=== PATIENT | female | born 2000 | race Caucasian/White ===

== ENCOUNTER 2023-11-21 16:05 | Emergency (ER) | payer OTHER, SELFPAY ==
--- NOTE | 2023-11-21 | US_ITS ---
[address] [address] Patient Name: DARYN RYAN MRN: [id number] date: 2000 Sex: F Assigned Patient Location: ER Current Patient Location: Accession/Order Number: [id number] Exam Date: 11/21/2023 18:00 Report Date: 11/21/2023 21:03 At the request of: VICENET NAVA Procedure: US OB transvaginal OBSTETRICAL ULTRASOUND HISTORY: No care. Vaginal pain. COMPARISON: None TECHNIQUE: Transvaginal and transabdominal imaging the pelvis was performed. INTERPRETATION: There is a single live intrauterine gestation with spontaneous motion and cardiac activity. A heartbeat of 151 bpm was obtained. Gestational Age Assessment: Biparietal Diameter: 3.79 cm 17 w 4 d Head Circumference: 13.94 cm 17 w 2 d Abdominal Circumference: 12.27 cm 17 w 6 d Femur Length: 2.36 cm 17 w 1 d Average gestational age based on current ultrasound: 17 w 3 d corresponding to an ERIN of 04/27/2024. Transvaginal images of the ovaries and cervix were obtained. The cervix is within normal limits measuring 4.3 cm. Both ovaries are visualized and demonstrate normal vascular flow. The right ovary measures 5.9 x 6.1 x 3.2 cm. There is a complex well-circumscribed cyst in the right ovary with scattered internal debris which may represent a hemorrhagic cyst. This measures 5.6 x 4.6 x 3.8 cm. The left ovary measures 2.8 x 2.9 x 2.6 cm and is within normal limits. No free fluid is present in the cul-de-sac. US/US OB transvaginal IMPRESSION: 1. Single live intrauterine gestation with spontaneous motion and cardiac activity. Gestational age is 17 weeks 3 days with estimated date of delivery of 04/27/2024. 2. Mildly complex cyst in the right ovary measuring 5.6 x 4.6 x 3.8 cm likely representing a hemorrhagic cyst. There is vascular to the right ovary. Electronically authenticated by: MAXIMINO QUINTERO Date: 11/21/2023 21:03
[2023-11-21 16:08] VITALS: BP 169/90; PULSE 98; TEMP 36.7; O2SAT 98; BMI 27.1
--- NOTE | 2023-11-21 16:22 | ED_ITS ---
<Statement entered by Sam Mcdermott MD - 11/22/23 09:25> This documentation has been reviewed and approved. Chart was sent to my inbox for administrative and group management purposes. I was the attending physicians working during the patients hospital course. The patient was seen and managed independently by the MLP. I did not personally see or evaluate this patient, nor was I involved in the patient medical decision making process or plans of care. Pt was dispositioned by the MLP with complete independence. I was available for consultation should the MLP request during this patients ED stay HPI - Female Genitourinary General Chief complaint: Urogenital-Female Stated complaint: vaginal pain Time Seen by Provider: 11/21/23 16:05 Source: patient Mode of arrival: walk-in History of Present Illness HPI Narrative: 23-year-old female G2, P1 estimates she is 3 months gestation with positive test in early August and states her last menstrual cycle was sometime end of July. Patient denies dysuria. She reports the same sexual partner. States this morning at 7 AM she had intercourse and upon penetration it felt like razor blades. Patient reports a constant discomfort since with pain to her vagina and pelvic region. She reports occasional pelvic cramping but states nothing unusual. She denies any fevers or chills. The need for any pain medications. Patient has not yet had care with her OB Dr. Jones. Mother is present at bedside. Patient denies any nausea vomiting or diarrhea. MD elicited complaint: Reports vaginal discharge (white yellow, denies odor. ( present since preganancy)) and pelvic pain (localized to vagina); Denies dysuria, UTI , vaginal bleeding, genital rash, genital swelling, genital itching or difficulty urinating Pertinent past history: Denies prior miscarriages or ectopic Location of symptoms: Reports external genitalia (into vaginal vault) Consistency: Reports constant Vaginal discharge: Reports white and yellow Vaginal bleeding: Reports none Urinary symptoms: Denies Dysuria Exacerbating factors: Reports intercourse Relieving factors: Reports none Treatment prior to arrival: Reports none Sexual activity: Reports Yes; Denies New Sexual Partners Patient : Yes Possible : Reports at home test positive Date of last menstrual period: July 2023 ( maybe end of month) Related Data Allergies Allergy/AdvReac Type Severity Reaction Status Date / Time No Known Drug Allergies Allergy Verified 11/21/23 16:12 Review of Systems ROS Constitutional Denies: fever or chills Eyes Denies: change in vision Ears, nose, mouth, and throat Denies: throat pain or neck pain Cardiovascular Denies: chest pain or palpitations Respiratory Denies: shortness of breath or cough Gastrointestinal Denies: abdominal pain, nausea or vomiting Genitourinary Reports: pelvic pain and vaginal discharge; Denies: painful urination, urinary frequency or vaginal bleeding Musculoskeletal Denies: back pain Integumentary/Breast Denies: rash or itching Neurological Denies: headache Psychiatric Denies: anxiety Hematologic/Lymphatic Denies: easy bruising Allergic/Immunologic Denies: hives Exam Narrative Exam Narrative: Nurses notes and vital signs reviewed and patient is not hypoxic. General: The patient appears well and in no apparent distress. Patient is resting comfortably on cart. Skin: Warm, dry, no pallor noted. Head: Normocephalic, atraumatic Neck: Supple, trachea mid-line, no tenderness, no lymphadenopathy Eye: Pupils are equal, round and reactive to light, EOMI Ears, Nose, Mouth, and Throat: TM are clear, normal light reflex, oral mucosa is moist, no posterior oropharynx erythema or hypertrophy, uvula is mid-line Cardiovascular: Regular Rate and Rhythm Respiratory: Patient is in no distress, no accessory muscle use, lungs are clear to auscultation, no wheezing, rales or rhonchi. Chest Wall: no tenderness Back: non-tender, no CVA tenderness Musculoskeletal: normal ROM, no tenderness, no swelling GI: Normal bowel sounds, no tenderness to palpation, no masses appreciated. No rebound, guarding, or rigidity noted. : ALEXSANDRA Griggs at bedside: external inspection normal, no rash, Cervix closed. + tenderness to labial and pain with insertion of speculum to vagina.. white discharge, + tenderness on cervical motion, but pain similar to just insertion of gloved finger for exam. No active bleeding. gravid uterus palpable Neurological: A&O x4 Psychiatric: Cooperative Constitutional Vital Signs, click to edit/add: Last Vital Signs Temp 98.5 F 11/21/23 17:17 Pulse 98 H 11/21/23 17:17 Resp 16 11/21/23 17:17 BP 122/78 11/21/23 17:17 Pulse Ox 100 11/21/23 17:17 O2 Del Method Room Air 11/21/23 16:08 Course Vital Signs Vital signs: Vital Signs Temperature 98.1 F 11/21/23 16:08 Pulse Rate 98 H 11/21/23 16:08 Respiratory Rate 20 11/21/23 16:08 Blood Pressure 169/90 H 11/21/23 16:08 Pulse Oximetry 98 11/21/23 16:08 Oxygen Delivery Method Room Air 11/21/23 16:08 Temperature 98.5 F 11/21/23 17:17 Pulse Rate 98 H 11/21/23 17:17 Respiratory Rate 16 11/21/23 17:17 Blood Pressure 122/78 11/21/23 17:17 Pulse Oximetry 100 11/21/23 17:17 Oxygen Delivery Method Room Air 11/21/23 16:08 MDM - Female Genitourinary MDM Narrative Medical decision making narrative: Patient verbally consenting to pelvic exam, aware that we will be checking gonorrhea and chlamydia off her urine, heart tones were 146-150 bpm at the bedside and regular. Concern with new onset pelvic pain, unclear of actual gestational age recommend ultrasound for further evaluation. Cultures will be pending along with wet prep. Patient declined the need for any pain m edications. Blood type is O+ ( not previously on record at Facility) Per crown and bridge technician patient is 17 weeks 3 days, estimated due date is April 27, heart rate 151. Patient did have an ovarian cyst that is 5.6 x 4.6 x 3.8 cm. She reported good flow to both ovaries present. Waiting on wet prep results prior to disposition. Wet prep reviewed, case along with laboratory studies and imaging discussed with Dr. Efrain HOLM on-call. She would like to wait until culture as this is likely a yeast, and then they can discuss treatment options. Patient aware of recommendations and is agreeable. She will have prompt follow-up to the OB office this week to discuss ongoing treatment and care. The patient is to followup with primary care physician in next 2-3 days or to return to the emergency department should any of the signs or symptoms worsen or new symptoms develop. Patient had questions answered. The patient agrees with the following Diagnosis and Treatment plan and the patient will be discharged home. Lab Data Labs: Lab Results 11/21/23 11/21/23 Range/Units 16:14 17:05 WBC 10.0 (4.0-11.0) 10^3/uL RBC 3.99 L (4.20-5.40) 10^6/uL Hgb 12.7 (12.0-16.0) g/dL Hct 37.2 (36.0-48.0) % MCV 93.2 (81.0-99.0) fL MCH 31.8 (26.7-34.0) pg MCHC 34.1 (29.9-35.2) g/dL RDW 13.0 (11.0-15.0) % Plt Count 230 (150-450) 10^3/uL MPV 10.6 (9.5-13.5) fL Neut % (Auto) 72.7 (43.0-75.0) % Lymph % (Auto) 21.0 (20.5-60.0) % Hood % (Auto) 4.9 (1.7-12.0) % Eos % (Auto) 0.9 (0.9-7.0) % Baso % (Auto) 0.2 (0.2-2.0) % Neut # (Auto) 7.2 H (1.4-6.5) 10^3/uL Lymph # (Auto) 2.1 (1.2-3.8) 10^3/uL Hood # (Auto) 0.5 (0.3-0.8) 10^3/uL Eos # (Auto) 0.1 (0.0-0.7) 10^3/uL Baso # (Auto) 0.0 (0.0-0.1) 10^3/uL Abs Immat Gran (auto) 0.03 (0.00-0.03) 10^3/uL Imm/Tot Granulo (auto) 0.3 (0.0-0.5) % Sodium 137 (136-145) mmol/L Potassium 3.3 L (3.5-5.1) mmol/L Chloride 102 (98-107) mmol/L Carbon Dioxide 25.5 (21.0-32.0) mmol/L Anion Gap 12.8 BUN 8.0 (7.0-18.0) mg/dL Creatinine 0.67 (0.55-1.02) mg/dL Est GFR ( Amer) >60 (>=60 mL/min/1.73m^2) Est GFR (Non-Af Amer) >60 (>=60 mL/min/1.73m^2) BUN/Creatinine Ratio 11.9 Glucose 94 (74-106) mg/dL Calcium 9.0 (8.5-10.1) mg/dL Total Bilirubin 0.2 (0.2-1.0) mg/dL AST 15 (15-37) U/L ALT 14 (14-59) U/L Alkaline Phosphatase 59 (46-116) U/L Total Protein 6.7 (6.4-8.2) g/dL Albumin 2.9 L (3.4-5.0) g/dL Globulin 3.8 g/dL Albumin/Globulin Ratio 0.8 Urine Color Yellow (YELLOW) Urine Clarity Clear (CLEAR) Urine pH 6.0 (5.0-9.0) Ur Specific [place] >=1.030 A (1.005-1.025) Urine Protein Negative (NEG/TRACE) mg/dL Urine Glucose (UA) Negative (NEGATIVE) mg/dL Urine Ketones Trace A (NEGATIVE) mg/dL Urine Occult Blood Negative (NEGATIVE) Urine Nitrite Negative (NEGATIVE) Urine Bilirubin Negative (NEGATIVE) Urine Urobilinogen 0.2 (0.2-1.0) EU/dL Ur Leukocyte Esterase Negative (NEGATIVE) Blood Type O Positive Discharge Plan Discharge Chief Complaint: Urogenital-Female Clinical Impression: Dyspareunia, Ovarian cyst, Intrauterine normal Patient Disposition: Home, Self-Care Time of Disposition Decision: 19:22 Condition: Good Print Language: Australian Instructions: (ED) Additional Instructions: Contact Dr. Jones's office Wednesday to schedule follow up. Culture is pending. Referrals: Bashir Jones DO [Physician] - As soon as possible HUMBERTO JAVIER [Primary Care Provider] - 1 week
--- NOTE | 2023-11-21 16:46 | US_ITS ---
The [address] [address] Patient Name: DARYN RYAN MRN: [id number] date: 2000 Sex: F Assigned Patient Location: ER Current Patient Location: Accession/Order Number: [id number] Exam Date: 11/21/2023 18:00 Report Date: 11/21/2023 21:03 At the request of: GISSEL SOLER Procedure: US OB >= 14 weeks Fetus OBSTETRICAL ULTRASOUND HISTORY: No care. Vaginal pain. COMPARISON: None TECHNIQUE: Transvaginal and transabdominal imaging the pelvis was performed. INTERPRETATION: There is a single live intrauterine gestation with spontaneous motion and cardiac activity. A heartbeat of 151 bpm was obtained. Gestational Age Assessment: Biparietal Diameter: 3.79 cm 17 w 4 d Head Circumference: 13.94 cm 17 w 2 d Abdominal Circumference: 12.27 cm 17 w 6 d Femur Length: 2.36 cm 17 w 1 d Average gestational age based on current ultrasound: 17 w 3 d corresponding to an ERIN of 04/27/2024. Transvaginal images of the ovaries and cervix were obtained. The cervix is within normal limits measuring 4.3 cm. Both ovaries are visualized and demonstrate normal vascular flow. The right ovary measures 5.9 x 6.1 x 3.2 cm. There is a complex well-circumscribed cyst in the right ovary with scattered internal debris which may represent a hemorrhagic cyst. This measures 5.6 x 4.6 x 3.8 cm. The left ovary measures 2.8 x 2.9 x 2.6 cm and is within normal limits. No free fluid is present in the cul-de-sac. US/US OB >= 14 weeks Fetus IMPRESSION: 1. Single live intrauterine gestation with spontaneous motion and cardiac activity. Gestational age is 17 weeks 3 days with estimated date of delivery of 04/27/2024. 2. Mildly complex cyst in the right ovary measuring 5.6 x 4.6 x 3.8 cm likely representing a hemorrhagic cyst. There is vascular to the right ovary. Electronically authenticated by: MAXIMINO QUINTERO Date: 11/21/2023 21:03
[2023-11-21 16:51] LABS: Bilirubin Urine NEGATIVE (NEGATIVE); Blood Urine NEGATIVE (NEGATIVE); Clarity Urine CLEAR (CLEAR); Color Urine YELLOW (YELLOW); Glucose Urine UA NEGATIVE (NEGATIVE); Ketones Urine TRACE mg/dL (NEGATIVE); Leukocyte Esterase Urine NEGATIVE (NEGATIVE); Nitrite Urine NEGATIVE (NEGATIVE); Protein Urine NEGATIVE (NEG/TRACE); Specific Gravity Urine >=1.030 (1.005-1.025); Urobilinogen Urine 0.2 EU/dL (0.2-1.0)
[2023-11-21 16:55] LABS: Urine Microscopic Indicated NO
[2023-11-21 17:14] LABS: Basophils Percent Auto 0.2 % (0.2-2.0); Eosinophils Absolute Auto 0.1 10^3/uL (0.0-0.7); Eosinophils Percent Auto 0.9 % (0.9-7.0); Hematocrit 37.2 % (36.0-48.0); Hemoglobin 12.7 g/dL (12.0-16.0); Immature Granulocytes Abs Auto 0.03 10^3/uL (0.00-0.03); Immature Granulocytes Pct Auto 0.3 % (0.0-0.5); Lymphocytes Absolute Auto 2.1 10^3/uL (1.2-3.8); Mean Corpuscular HGB Conc 34.1 g/dL (29.9-35.2); Mean Corpuscular Hemoglobin 31.8 pg (26.7-34.0); Mean Corpuscular Volume 93.2 fL (81.0-99.0); Mean Platelet Volume 10.6 fL (9.5-13.5); Monocytes Absolute Auto 0.5 10^3/uL (0.3-0.8); Monocytes Percent Auto 4.9 % (1.7-12.0); Neutrophils Absolute Auto 7.2 10^3/uL (1.4-6.5); Neutrophils Percent Auto 72.7 % (43.0-75.0); Platelet Count 230 10^3/uL (150-450); Red Blood Count 3.99 10^6/uL (4.20-5.40)
[2023-11-21 17:17] VITALS: BP 122/78; PULSE 98; TEMP 36.9; O2SAT 100
[2023-11-21 17:41] LABS: Alanine Aminotransferase 14 U/L (14-59); Albumin Globulin Ratio 0.8; Albumin Level 2.9 g/dL (3.4-5.0); Alkaline Phosphatase 59 U/L (46-116); Anion Gap 12.8; Aspartate Amino Transferase 15 U/L (15-37); BUN Creatinine Ratio 11.9; Bilirubin Total 0.2 mg/dL (0.2-1.0); Carbon Dioxide 25.5 mmol/L (21.0-32.0); Chloride 102 mmol/L (98-107); Estimated GFR (African America >60 (>=60 mL/min/1.73m^2); Estimated GFR (Non-African Ame >60 (>=60 mL/min/1.73m^2); Globulin 3.8 g/dL; Glucose 94 mg/dL (74-106); Potassium 3.3 mmol/L (3.5-5.1); Sodium 137 mmol/L (136-145); Total Protein 6.7 g/dL (6.4-8.2)
[2023-11-24 05:08] LABS: Neisseria gonorrhoeae, NAA Negative (Negative)
== END 2023-11-21 19:33 | disposition home or self-care (01) ==
PROVIDERS: Personal Emergency Response Attendant; Emergency Provider Emergency Medicine; PCP Family Medicine
DX: O34.82 Maternal care for other abnormalities of pelvic organs, second trimester (principal); N83.201 Unspecified ovarian cyst, right side; N94.10 Unspecified dyspareunia; Z3A.17 17 weeks gestation of pregnancy
CPT/HCPCS: 36415; 76815; 76817; 80053; 81003; 84703; 85025; 86900; 86901; 87070; 87210; 87491; 87591; 99285

== ENCOUNTER 2023-12-09 14:14 | Outpatient (OUT) | payer OTHER, SELFPAY ==
--- OUTSIDE RECORDS SUMMARY | 2023-12-09 14:39 | XMS_ITS | CCD ---
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 return in 4 weeks for routine OB appointment. Follow Up: Patient is to have labs drawn at directed and return to office for initial OB appointment with provider. Patient may call office as needed with any concerns or questions. Nurse Visit Completed by: Mervat Fall LPN documented in this encounter [facility] Clinical Note 06-21-2022 Note Date & Type Note Facility 06-21-2022 Note PROCEDURE: XR ANKLE RT MIN 3 VIEWS, XR FOOT RT MIN 3 VIEWS HISTORY: Pain ; right lateral ankle pain after hitting on an object. COMPARISON: None. FINDINGS: BONES:No fracture, acute abnormality, or significant arthropathy. SOFT TISSUES:Medial soft tissue swelling. No radiopaque foreign body. EFFUSION:None visible. OTHER: Negative. IMPRESSION: 1. No acute bone abnormality of the right ankle or foot. 2. Prominent medial soft tissue swelling (history describes lateral ankle pain). Electronically authenticated by: GURPREET GUEVARA Date: 2022-06-21 12:38 [facility] Clinical Note 06-21-2022 Note Date & Type Note Facility 06-21-2022 Note PROCEDURE: XR ANKLE RT MIN 3 VIEWS, XR FOOT RT MIN 3 VIEWS HISTORY: Pain ; right lateral ankle pain after hitting on an object. COMPARISON: None. FINDINGS: BONES:No fracture, acute abnormality, or significant arthropathy. SOFT TISSUES:Medial soft tissue swelling. No radiopaque foreign body. EFFUSION:None visible. OTHER: Negative. IMPRESSION: 1. No acute bone abnormality of the right ankle or foot. 2. Prominent medial soft tissue swelling (history describes lateral ankle pain). Electronically authenticated by: GURPREET GUEVARA Date: 2022-06-21 12:38 [facility] Evaluation note 01-13-2022 Note Date & Type Note Facility 01-13-2022 Evaluation note Encounter Date Diagnosis Assessment Notes Dec, Rupture of anterior cruciate ligament of left knee, initial encounter (ICD-10 - S83.512A) Patient will continue to work on straightening the knee. Patient instructed to work on motion exercises such as biking and ankle weight exercsies. Patient was given a formal order for therapy. She would like to try to work on exercsises and we will reevaluate the knee at the end of January We discussed an ACL reconstruction surger should symptoms persist or worsen. The knee is still stiff with slight limitation of full extension. I would like to see her working on more aggressive range of motion exercises and see how she does. The knee does not feel significantly unstable at this point Dec, Tear of medial collateral ligament of left knee, initial encounter (ICD-10 - S83.412A) [facility] Other Evaluation note Note Date & Type Note Facility Evaluation note No assessment information availa [facility] [employer] Work Phone: Evaluation note Note Date & Type Note Facility Evaluation note Diagnosis Missed menses , unspecified gestational age Encounter for supervision of normal first in first trimester Right ovarian cyst Other and unspecified ovarian cyst Screening, , for anatomic survey Encounter for anatomic survey Yeast infection Tooth ache documented in this encounter [facility] History general Narrative - Reported Note Date & Type Note Facility History general Narrative - Reported Type Medical History anxiety Surgical History tonsillectomy [facility] Other Hospital Discharge instructions Note Date & Type Note Facility Hospital Discharge instructions Additional Instructions Ice and elevate Tylenol/ Motrin if needed for pain Wear knee immobilizer for the next 3 to 4 days Partial weightbearing with crutches Tylenol or Naprosyn if needed for pain Return here if any problems persist or worsen Follow-up with your primary care doctor orthopedic for recheck in 3 to [facility] [employer] Work Phone: Chief Complaint and Reason for Visit Chief Complaint L knee injury Advance Directives No Advanced Directives Records Found Advance Directive Response Recorded Date/ Time Advance Directives No March 2:38pm Summary Purpose Family History No Family History Records FoundNo Family History Records FoundNo Family History Records FoundNo Family History Records FoundNo Family History Records Found Additional Source Comments Care Teams (unrecognized sec tion and content) Team Status: Inactive Member Role Status Dates Gris Avila , TARAN 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-C Primary Care Provider Activ karen Rueda APRN Emergency Provider Active Team Status: Active Member Role Status Dates Gris Avila APRN 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-C Primary Care Provider Activ karen Career Information Specialist Relationship Specialty Start Date End Date Inder Miryam RicardoDO [address] [place] [address] PCP - General Family Medicine 06/23/22 Career Information Specialist Relationship Specialty Start Date End Date Unallocated, Kodak Antonio MD [address] [place] [id number] PCP - General Family Medicine 11/23/23 Career Information Specialist Relationship Specialty Start Date End [place] Unallocated, [place] [address] [place] [id number] PCP - General Family Medicine 11/23/23 Goals (unrecognized section and content) Goals may be documented in a n alternate sectionNo Information INFORMATION SOURCE (unrecogn ized section and content) DATE CREATED AUTHOR 12/10/2021 [facility] DATE CREATED AUTHOR AUTHOR'S ORGANIZ ATION 12/13/2021 [facility] dical Specialist DATE CREATED AUTHOR AUTHOR'S ORGANIZ ATION 06/24/2022 [facility] DATE CREATED AUTHOR AUTHOR'S ORGANIZ ATION 06/10/2023 [facility] DATE CREATED AUTHOR AUTHOR'S ORGANIZ ATION 12/05/2023 [facility] dical Specialists EPIC REASON FOR VISIT (unrecogniz ed section and content) Reason Comments Amenorrhea FOR RECORDS PERTAINING TO PATIENTS WHO ARE OR HAVE BEEN ENROLLED IN A CHEMICAL DEPENDENCY/SUBSTANCEABUSE PROGRAM, SOME INFORMATION MAY BE OMITTED. This clinical summary was aggregated from multiple sources. Caution should be exercised in using it in the provision of clinical care. This summary normalizes information from multiple sources, and as a consequence, information in this document may materially change the coding, format and clinical context of patient data. In addition, data may be omitted in some cases. CLINICAL DECISIONS SHOULD BE BASED ON THE PRIMARY CLINICAL RECORDS. [employer] [facility]. provides no warranty or guarantee of the accuracy or completeness of information in this document.
[2023-12-09 14:52] LABS: Basophils Percent Auto 0.2 % (0.2-2.0); Eosinophils Absolute Auto 0.1 10^3/uL (0.0-0.7); Eosinophils Percent Auto 0.5 % (0.9-7.0); Hematocrit 38.7 % (36.0-48.0); Hemoglobin 13.1 g/dL (12.0-16.0); Immature Granulocytes Abs Auto 0.03 10^3/uL (0.00-0.03); Immature Granulocytes Pct Auto 0.3 % (0.0-0.5); Lymphocytes Absolute Auto 2.1 10^3/uL (1.2-3.8); Lymphocytes Percent Auto 18.3 % (20.5-60.0); Mean Corpuscular HGB Conc 33.9 g/dL (29.9-35.2); Mean Corpuscular Hemoglobin 31.7 pg (26.7-34.0); Mean Corpuscular Volume 93.7 fL (81.0-99.0); Mean Platelet Volume 10.8 fL (9.5-13.5); Monocytes Absolute Auto 0.4 10^3/uL (0.3-0.8); Monocytes Percent Auto 3.7 % (1.7-12.0); Neutrophils Absolute Auto 8.8 10^3/uL (1.4-6.5); Platelet Count 233 10^3/uL (150-450); Red Blood Count 4.13 10^6/uL (4.20-5.40); Red Cell Distribution Width 12.8 % (11.0-15.0); White Blood Count 11.5 10^3/uL (4.0-11.0)
[2023-12-09 15:01] LABS: Estimated Average Glucose 94 mg/dL; Glycohemoglobin A1C 4.9 % (4.5-6.2)
[2023-12-09 15:02] LABS: Amphetamine Screen Urine NEGATIVE (NEGATIVE); Barbiturates Screen Urine NEGATIVE (NEGATIVE); Benzodiazepines Screen Urine NEGATIVE (NEGATIVE); Buprenorphine Screen Urine NEGATIVE (NEGATIVE); Cannabinoid Screen Urine NEGATIVE (NEGATIVE); Cocaine Screen Urine NEGATIVE (NEGATIVE); Methadone Screen Urine NEGATIVE (NEGATIVE); Methamphetamines Screen Urine NEGATIVE (NEGATIVE); Opiate Screen Urine NEGATIVE (NEGATIVE); Oxycodone Screen Urine NEGATIVE (NEGATIVE); Phencyclidine Screen Urine NEGATIVE (NEGATIVE); Tricyclic Antidepressant Urine NEGATIVE (NEGATIVE)
[2023-12-10 06:09] LABS: HBsAg Screen Negative (Negative); HCV Ab Non Reactive (Non Reactive); HIV Ab/p24 Ag Screen Non Reactive (Non Reactive)
[2023-12-10 07:10] LABS: Rubella Antibodies, IgG 2.73 index (Immune >0.99)
[2023-12-10 10:13] LABS: Rapid Plasma Reagin, Quant Non Reactive titer (NonRea<1:1)
[2023-12-11 03:08] LABS: AFP Value 38.6 ng/mL (.); Gestat. Age Based On Ultrasound (.); Insulin Dep Diabetes No (.); Maternal Age At EDD 24.8 yr (.); OSBR Risk 1 IN 10000 (.); Results Report (.)
== END 2023-12-09 14:15 | disposition home or self-care (01) ==
LOC: LAB 14:18
PROVIDERS: Visit Provider Obstetrics & Gynecology
DX: Z34.01 Encounter for supervision of normal first pregnancy, first trimester (principal); N92.6 Irregular menstruation, unspecified
CPT/HCPCS: 36415; 80307; 82105; 83036; 85025; 86592; 86762; 86803; 86850; 86900; 86901; 87086; 87340; 87389

== ENCOUNTER 2023-12-22 12:58 | Outpatient (OUT) | payer OTHER, SELFPAY ==
--- NOTE | 2023-12-22 13:00 | US_ITS ---
[place] [id number] Patient Name: DARYN RYAN MRN: [id number] date: 2000 Sex: F Assigned Patient Location: [facility] Current Patient Location: [facility] Accession/Order Number: [id number] Exam Date: 12/22/2023 13:01 Report Date: 12/22/2023 15:00 At the request of: JAYANT CARLSON Procedure: US OB anatomy EXAMINATION: US OB anatomy, US OB cervical length HISTORY: ANATOMY COMPARISON: No relevant comparison available. TECHNIQUE: Transabdominal sonographic examination was performed for obstetrical and evaluation. FINDINGS: Reyez intrauterine gestation position: Breech presentation, longitudinal lie Amniotic fluid: Subjectively normal Placenta: Anterior Cervix: Closed, 3.6 cm in length The uterus is normal in appearance Again identified is a 5.2 cm right and 1.8 cm left ovarian cyst Normal anatomy: Lateral ventricles, cerebellum, posterior fossa, orbits, four-chamber heart, diaphragm, stomach, kidneys, abdominal cord insertion, bladder, umbilical arteries, three-vessel cord, spine, extremities Nonvisualization: Nose, lips, RVOT, LVOT BIOMETRY: BPD: 5.04 cm 21 weeks 2 days 25% HC: 19.4 cm 21 weeks 4 days 27% AC: 16.7 cm 21 weeks 5 days 40% FL: 3.83 cm 22 weeks 2 days 54% EFW: 490 g; 47%, 1 lb. 0 oz. FL/BPD: 75.99 HC/AC: 1.16 GESTATIONAL AGE: Age by EDC: 21 weeks 6 days ERIN by EDC: 04/27/2024 Age by Current US: 21 weeks 5 days ERIN by Current US: 04/28/2024 US/US OB anatomy IMPRESSION: Bilateral ovarian cysts measuring up to 5.2 cm in the right Nonvisualization detailed above Otherwise normal anatomy scan *Reference: [employer] Practice Guideline for the performance of Obstetric Ultrasound Examinations, November 15, 2006. Electronically authenticated by: ISAC NYE Date: 12/22/2023 15:00
--- NOTE | 2023-12-22 13:00 | US_ITS ---
[place] [id number] Patient Name: DARYN RYAN MRN: [id number] date: 2000 Sex: F Assigned Patient Location: [facility] Current Patient Location: [facility] Accession/Order Number: [id number] Exam Date: 12/22/2023 13:00 Report Date: 12/22/2023 15:00 At the request of: JAYANT CARLSON Procedure: US OB cervical length EXAMINATION: US OB anatomy, US OB cervical length HISTORY: ANATOMY COMPARISON: No relevant comparison available. TECHNIQUE: Transabdominal sonographic examination was performed for obstetrical and evaluation. FINDINGS: Reyez intrauterine gestation position: Breech presentation, longitudinal lie Amniotic fluid: Subjectively normal Placenta: Anterior Cervix: Closed, 3.6 cm in length The uterus is normal in appearance Again identified is a 5.2 cm right and 1.8 cm left ovarian cyst Normal anatomy: Lateral ventricles, cerebellum, posterior fossa, orbits, four-chamber heart, diaphragm, stomach, kidneys, abdominal cord insertion, bladder, umbilical arteries, three-vessel cord, spine, extremities Nonvisualization: Nose, lips, RVOT, LVOT BIOMETRY: BPD: 5.04 cm 21 weeks 2 days 25% HC: 19.4 cm 21 weeks 4 days 27% AC: 16.7 cm 21 weeks 5 days 40% FL: 3.83 cm 22 weeks 2 days 54% EFW: 490 g; 47%, 1 lb. 0 oz. FL/BPD: 75.99 HC/AC: 1.16 GESTATIONAL AGE: Age by EDC: 21 weeks 6 days ERIN by EDC: 04/27/2024 Age by Current US: 21 weeks 5 days ERIN by Current US: 04/28/2024 US/US OB cervical length IMPRESSION: Bilateral ovarian cysts measuring up to 5.2 cm in the right Nonvisualization detailed above Otherwise normal anatomy scan *Reference: [employer] Practice Guideline for the performance of Obstetric Ultrasound Examinations, November 15, 2006. Electronically authenticated by: ISAC NYE Date: 12/22/2023 15:00
--- OUTSIDE RECORDS SUMMARY | 2023-12-22 13:20 | XMS_ITS | CCD ---
Author Organization [facility] Care Team Providers Care Adding Machine Operator Name Role Phone TARAN Avila Primary Care Provider TARAN Rueda Emergency Provider Gris Avila Primary Care Unavailable Sultana Rueda [...] Unavailable ISMAEL, DR GURPREET Phan Consulting Unavailable COLBY PATTON Attending Unavailable COLBY PATTON Consulting Unavailable PILI ROLON Attending Unavailable NO PCP, NO PCP Primary Care Unavailable PILI ROLON Attending Unavailable PILI ROLON Referring Unavailable NO PCP, NO PCP Primary Care Unavailable PILI ROLON Attending Unavailable PILI ROLON Referring Unavailable NO PCP, NO PCP Primary Care Unavailable Miryam Loving DO Primary Care Provider [phone] Unallocated , [facility] Provider Primary Care Provi [...] 3 days. 6 tablet 12/02/2023 12/05/2023 Active metroNIDAZOLE 500 mg oral tablet (1 source) Nitroimidazole Antimicrobial Start: 12-03-2023 End: 12-10-2023 take 1 tablet by mouth in the morning metroNIDAZOLE (Flagyl) 500 MG tablet Indications: BV (bacterial vaginosis) Take 1 tablet (500 mg) by mouth in the morning and 1 tablet (500 mg) before bedtime. Do all this for 7 days. Do not drink alcohol while taking this medication. 14 tablet 12/03/2023 12/10/2023 Active naproxen 500 mg oral tablet (1 source) Nonsteroidal Anti-inflammatory Drug Start: 11-28-2021 take 500 mg by mouth twice daily Naproxen Active 500 MG PO Twice daily November 28, 2021 12:00am terconazole 4 mg/ml vaginal cream (3 sources) Azole Antifungal Start: 12-02-2023 End: 12-09-2023 [...] Translations: [STRIKING AGNST/STRUCK OTH OBJ INIT] Onset: 05-09-2023 Episodic E Codes: Transport; not MVT (1 [...] Name Value Interpretation Reference Range Facil ity ALL CBC WITH AUTO DIFFon 10- 24-2024 BASOPHILS ABSOLUTE AUTO 0 [facility] Basophils/100 WBC (Bld) 0.2 % 0.2 - 2.0 % [facility] Eosinophils/100 WBC (Bld) 0.5 % Low 0.9 - 7.0 % [facility] Erythrocyte distribution width (RBC) [Ratio] 12.8 % 11.0 - 15.0 % [facility] Hematocrit (Bld) [Volume fraction] 38.7 % 36.0 - 48.0 % [facility] Hemoglobin (Bld) [Mass/Vol] 13.1 g/dL 12.0 - 16.0 g/dL [facility] IMMATURE GRANULOCYTES ABS AUTO 0.03 [facility] Immature granulocytes/100 WBC (Bld) 0.3 % 0.0 - 0.5 % [facility] Interpretation and review of laboratory results Abnormal [facility] LYMPHOCYTES ABSOLUTE AUTO 2.1 [facility] Lymphocytes/100 WBC (Bld) 18.3 % Low 20.5 - 60.0 % [facility] MCH (RBC) [Entitic mass] 31.7 pg 26.7 - 34.0 pg [facility] MCHC (RBC) [Mass/Vol] 33.9 g/dL 29.9 - 35.2 g/dL [facility] MCV (RBC) [Entitic vol] 93.7 fL 81.0 - 99.0 fL [facility] MONOCYTES ABSOLUTE AUTO 0.4 [facility] Monocytes/100 WBC (Bld) 3.7 % 1.7 - 12.0 % [facility] NEUTROPHILS ABSOLUTE AUTO 8.8 High [facility] Neutrophils/100 WBC (Bld) 77 % High 43.0 - 75.0 % [facility] Platelet mean volume (Bld) [Entitic vol] 10.8 fL 9.5 - 13.5 fL [facility] # [facility].1 [facility] TB PLT 233 [facility] RBC 4.13 Low [facility] TBH WBC 11.5 High [facility] CL[facility]NC [facility] URETHRITIS/DISCHARGE PLUS VA GINITIS (HTRX)on 12-03-2023 [facility] ATOPOBIUM VAGINAE Not detected [facility] BVAB 2,3 (BACTERIAL VAGINOSIS ASSOCIATED BACTERIA 2, 3); MOBILUNCUS SPP 26.835 Abnormal [facility] BVAB 2,3 (BACTERIAL VAGINOSIS ASSOCIATED BACTERIA 2, 3); MOBILUNCUS SPP Detected Abnormal [facility] ANGELINA ALBICANS, PARAPSILOSIS, TROPICALIS 0 [facility] ANGELINA ALBICANS, PARAPSILOSIS, TROPICALIS Not detected [facility] ANGELINA GLABRATA 0 [facility] Hea lthcare ANGELINA GLABRATA Not detected [facility] H ealthcare ANGELINA KRUSEI 0 [facility] Healt hcare ANGELINA KRUSEI Not detected [facility] Hea lthcare CHLAMYDIA TRACHOMATIS 0 [facility] CHLAMYDIA TRACHOMATIS Not detected [facility] GARDNERELLA VAGINALIS 0 [facility] GARDNERELLA VAGINALIS Not detected [facility] Interpretation and review of laboratory results Abnormal [facility] MEGASPHAERA (TYPES 1, 2) 0 [facility] MEGASPHAERA (TYPES 1, 2) Not detected [facility] MYCOPLASMA GENITALIUM 0 [facility] MYCOPLASMA GENITALIUM Not detected [facility] NEISSERIA GONORRHOEAE 0 [facility] NEISSERIA GONORRHOEAE Not detected [facility] TRICHOMONAS VAGINALIS 0 [facility] TRICHOMONAS VAGINALIS Not detected [facility] HCG ( test) Ql (U)o n 12-02-2023 Interpretation and review of laboratory results Abnormal [facility] Preg Test, Ur Positive [facility] Urinalysis macro (dipstick) panel (U)on 12-02-2023 Bilirubin, UA Negative Negative - 4(70) +++ mg/dL [facility] Blood, UA Negative Negative - 50 Iron/mcL [facility] Clarity, UA Clear [facility] re Color, UA Yellow [facility] Glucose, UA Negative Negative - 1999(110) ++++ mg/dL [facility] Interpretation and review of laboratory results Abnormal [facility] Ketones, UA Negative Negative - 160(16) ++++ mg/dL [facility] Leukocytes, UA Positive Negative - 500+++ Miguel/mcL [facility] Nitrite, UA Negative Negative - Positive [facility] pH, UA 5.5 5 - 9 [facility] Protein, UA Negative Negative - 1999(20) ++++ mg/dL [facility] Spec Grav, UA 1.03 1 - 1.03 [facility] Urobilinogen, UA 1.0 0.2 - 12 mg/dL [facility] MHPT TRICHOMONAS/WET PREPon 11-21-2023 WET PREP TRIC BV ANGELINA Wet Prep Tric BV Angelina WP.BACT Bacteria^Bacteria [facility] WET PREP TRIC BV ANGELINA WP.CLUE Clue Cells^Clue Cells [facility] WET PREP TRIC BV ANGELINA WP.JONATHAN Fungal Elements^Fungal Elements [facility] WET PREP TRIC BV ANGELINA WP.RBC RBC^RBC [facility] WET PREP TRIC BV ANGELINA WP.TRICH Trichomonas^Trichom onas [facility] WET PREP TRIC BV ANGELINA WP.WBC WBC^WBC [facility] No Panel Informationon 11-20 WET PREP TRIC BV ANGELINA F Few^Few [facility] WET PREP TRIC BV ANGELINA N None Seen^[facility] CONT[facility] CT BRAIN WO [...] Alcaraz MD on 06/08/2023 9:25 PM Normal [facility] CT CERVICAL SPINE WO CONTon 06-08-2023 CT [...] Alcaraz MD on 06/08/2023 9:43 PM Normal [facility] XR CHEST 2 VWSon 06-08-2023 XR CHEST 2 VWS XR CHEST 2 VWS PA and lateral chest: HISTORY: Trauma. 2 views of the chest are obtained. Cardiac and mediastinal contours are within normal limits. There is no focal infiltrate, effusion, or pneumothorax. Osseous structures appear intact. IMPRESSION: No acute findings. 4 Finalized by Olvin Alcaraz MD on 06/08/2023 9:19 PM Normal [facility] XR PELVIS 1 OR 2 VWSon 06-07 XR PELVIS 1 OR 2 VWS XR PELVIS 1 OR 2 VWS CLINICAL INFORMATION: trauma TECHNIQUE: XR PELVIS 1 OR 2 VWS Single view of the pelvis was obtained. Pelvic ring appears intact. Femoral necks are symmetric. No acute fracture. IMPRESSION: No acute findings. 4 Finalized by Olvin Alcaraz MD on 06/08/2023 9:22 PM Normal [facility] XR SHOULDER LT MIN 2 VWSon 0 [...] Alcaraz MD on 06/08/2023 9:20 PM Normal [facility] MRI Knee w/o Lefton 12-12-19 MRI Knee [...] ligament. Report reported and signed by AMMON PALENCIA on 12/12/2021 1348 Normal [facility] [employer] Counselor XR knee LT 4V*on 11-29-2021 XR knee LT 4V* [facility] Main [place] [address] [place] [address] XRay Report Signed Patient: Clari Licona MR#: [id number] 7 : 2000 Acct:[id number] Age/Sex: 21 / F ADM Date: 11/28/21 Loc: ER Room: Type: [facility] ER Attending Dr: Copies to: Sultana Rueda [...] Claudia Baugh M.D.11/29/2021 9:03 AM Dictation Location: [place] [address] Transcribed By: [facility] 11/29/21902 Dictated By: Claudia Baugh MD 11/29/21901 Signed By: 11/29/21 0903 [facility] Vital Signs Date Time Vital Sign Value Performing Clinician Facility 12-02-2023 14:27-0400 Body mass index (BMI) [Ratio] 29.39 kg/m2 [facility] 12-02-2023 14:0400 Body weight 92.[address] [facility] Nurse [facility] 01-13-2022 09:15-0500 Body height 180.34 cm Shaan Balderrama Other [employer] Other 01-13-2022 09:15-0500 Body mass index (BMI) [Ratio] 27.89 kg/m2 Shaan Balderrama Other [facility] [employer] Other 01-13-2022 09:15-0500 Body weight 90.72 kg Shaan Balderrama Other [place] [employer] Other 11-28-2021 21:42-0400 Body height 182.88 cm MONOTYPE CASTER Gris Kiepert Work Phone: [facility] 11-28-2021 21:42-0400 Body temperature 98 [degF] MONOTYPE CASTER Gris Kiepert Work Phone: [facility] 11-28-2021 21:42-0400 Body weight 85.27 kg MONOTYPE CASTER Gris Kiepert Work Phone: [facility] 11-28-2021 21:42-0400 Diastolic blood pressure 88 mm[Hg] MONOTYPE CASTER Gris Kiepert Work Phone: [facility] 11-28-2021 21:42-0400 Heart rate 98 /min MONOTYPE CASTER Gris Kiepert Work Phone: [facility] 11-28-2021 21:42-0400 Respiratory rate 20 /min MONOTYPE CASTER Gris Kiepert Work Phone: [facility] 11-28-2021 21:42-0400 SaO2% (BldA) [Mass fraction] 95 % MONOTYPE CASTER Gris Kiepert Work Phone: [facility] 11-28-2021 21:42-0400 Systolic blood pressure 152 mm[Hg] MONOTYPE CASTER Gris Kiepert Work Phone: [facility] Encounters Encounter Date Encounter Type Care Provider Facility Start: 12-09-2023 End: 12-09-2023 [facility] Result Encounter Bashir Robert DO Work Phone: [facility] Unsolicited Start: 12-09-2023 End: 12-09-2023 [facility] Result Encounter Bashir Robert DO Work Phone: [facility] Unsolicited Start: 12-02-2023 End: 12-03-2023 External Result Encounter Bashir Robert DO Work Phone: [facility] Unsolicited Start: 12-02-2023 End: 12-03-2023 External Result Encounter Bashir Tejadao DO Work Phone: [facility] Unsolicited [...] 06-08-2023 End: 06-09-2023 Emergency department patient visit [facility] Start: 06-21-2022 End: 06-21-2022 ambulatory COLBY LAUGHLIN . Facility: Start: 05-28-2022 End: 05-28-[address] HUMBERTO JAVIER Facility:[facility] Start: 05-20-2022 End: 05-20-[address] HUMBERTO JAVIER Facility: Start: 01-13-2022 End: 01-13-2022 ambulatory Shaan Balderrama Other [employer] Other Start: 01-13-2022 Office outpatient vi sit 15 minutes Shaan Balderrama [facility] Start: 11-28-2021 End: 11-29-2021 Emergency department patient visit Gris Avila Facility:[facility] Start: 11-28-2021 End: 11-28-2021 Emergency department patient visit MONOTYPE CASTER Gris Avila Work Phone: [facility] Procedures Date Procedure Procedure Detail Performing Clinician Start: 12-09-2023 ALL CBC WITH AUTO DIFF Bashir Tejadao DO Work Phone: Start: 12-02-2023 URETHRITIS/DISCHARGE PLUS VAGINITIS (HTRX) Bashir Robert DO Work Phone: Start: 12-02-2023 Urnls dip stick/tabl et rgnt non-auto w/o micrscp Bashir Robert DO Work Phone: Start: 11-21-2023 MHPT TRICHOMONAS/WET PREP Abdon Tello PA Work Phone: Plan of Treatment Date Care Activity Detail Author Start: 12-22-2023 End: 12-22-2023 Patient encounter procedure 12/22/2023 2:40 PM EST Routine [facility] [address] [address] Robert Bashir, DO [address] [place] [address] [facility] Start: 12-22-2023 End: 12-22-2023 Professional / ancillary services management 12/22/2023 1:00 PM EST Ancillary Procedure [facility] [address] [place] [address] [facility] Start: 12-02-2023 End: 12-01-2024 ABO/Rh ABO/Rh Lab Routine Missed menses , unspecified gestational age Expected: 12/02/2023 (Approximate), Expires: 12/01/2024 [facility] Comment on above: Expected: 12/02/2023 (Approximate), Expires: 12/01/2024 Start: 12-02-2023 End: 03-03-2024 Alpha fetoprotein, maternal Alpha fetoprotein, maternal Lab Routine Encounter for supervision of normal first in first trimester Expected: 12/02/2023 (Approximate), Expires: 03/03/2024 [facility] Comment on above: Expected: 12/02/2023 (Approximate), Expires: 03/03/2024 Start: 12-02-2023 End: 12-01-2024 Blood type and Indirect antibody screen panel - Blood Type and screen Lab Routine Missed menses , unspecified gestational age Expected: 12/02/2023 (Approximate), Expires: 12/01/2024 [facility] Work Phone: Comment on above: Expected: 12/02/2023 (Approximate), Expires: 12/01/2024 Start: 12-02-2023 End: 12-01-2024 Drugs of abuse panel - Urine by Screen method Rapid drug screen, urine Lab Routine , unspecified gestational age Encounter for supervision of normal first in first trimester Expected: 12/02/2023 (Approximate), Expires: 12/01/2024 [facility] Comment on above: Expected: 12/02/2023 (Approximate), Expires: 12/01/2024 Start: 12-02-2023 End: 12-01-2024 US for [facility] Comment on above: Expected: 12/02/2023 (Approximate), Expires: 12/01/2024 Start: 10-17-2023 Influenza vaccination Influenza Vacc ine (#1) [facility] Start: 11-28-2021 Radiologic examinati on of knee XR knee LT 4V* [facility] Start: 11-28-2021 XR Knee - left 4 Views [facility] Bacteria identified in Urine by Culture Urine culture Microbiology Routine Missed menses Ordered: 12/02/2023 [facility] Comment on above: Ordered: 12/02/2023 CBC W Auto Different ial panel - Blood CBC and differential Lab Routine Missed menses , unspecified gestational age Ordered: 12/02/2023 [facility] Comment on above: Ordered: 12/02/2023 Hemoglobin A1c/Hemoglobin.total in Blood Hemoglobin A1c Lab Routine Missed menses , unspecified gestational age Ordered: 12/02/2023 [facility] Comment on above: Ordered: 12/02/2023 Hepatitis B virus surface Ag [Presence] in Serum or Plasma by Immunoassay Hepatitis B surface antigen Lab Routine Missed menses , unspecified gestational age Ordered: 12/02/2023 [facility] Comment on above: Ordered: 12/02/2023 Hepatitis C virus Ab [Presence] in Serum or Plasma by Immunoassay Hepatitis C antibody Lab Routine Missed menses , unspecified gestational age Ordered: 12/02/2023 [facility] Comment on above: Ordered: 12/02/2023 HIV-1/HIV-2 antigen/antibody combination immunoassay HIV-1 and HIV-2 antibodies Lab Routine Missed menses , unspecified gestational age Ordered: 12/02/2023 [facility] Comment on above: Ordered: 12/02/2023 Patient Education Knee Sprain (DC) [facility] Work Phone: Patient referral [facility] Work Phone: Reagin Ab [Presence] in Serum by RPR RPR Lab Routine Missed menses , unspecified gestational age Ordered: 12/02/2023 [facility] Comment on above: Ordered: 12/02/2023 Rubella antibody, IgG Rubella an tibody, IgG Lab Routine Missed menses , unspecified gestational age Ordered: 12/02/2023 [facility] Comment on above: Ordered: 12/02/2023 Payers Date Payer Category Payer Private Health Insurance [employer]ICA[employer] [id number] 2023 Unknown [id number] 2021 Self-pay [id number] 2021 Unknown BCBS BCBS [id number] 2021-Present [phone] [address] [place] [address] [id number] 2020 Private Health Insurance [id number] 1999 Unknown [id number] 1999 Unknown [id number] [id number] .593 1999 Unknown [id number] [id number] .593 1999 Unknown [id number] [id number] .1286 1999 Unknown [id number] [id number] .1286 1999 Unknown [id number] [id number] .1286 1999 Unknown [id number] [id number] .1286 1999 Unknown [id number] 2.16.840.1.872825.3.579.2 .1286 1999 Unknown [id number] 2.16.840.1.693732.3.579.2 .1286 1999 Unknown [id number] [id number] .1259 1959 Unknown [id number] 1959 Unknown [id number] 1959 Unknown [id number] Unknown [id number] .531 Worker's Compensation [id number] Social History Date Type Detail Facility Start: 11-28-2021 Tobacco smoking status [facility] Smoker (finding) [facility] Start: 2000 Sex Assigned At Female F [facility] Sex Assigned At [facility] Other Tobacco smoking status NHIS Tobacco smoking consumption unknown [facility] Start: 2000 Sex assigned at Not on file [facility] Start: 04-29-2022 Gender identity Identifies as female gender (finding) [facility] Start: 08-05-2023 [facility] History of Present illness Narrative 12-02-2023 Mervat ANA MARIA Fall - 12/02/2023 1:30 PM EDT Note Date [...] or undercooked meat, and stay away from [facility]. Patient has also been advised to not [...] Mervat Fall LPN documented in this encounter [facility] Clinical Note 06-21-2022 Note Date & Type [...] by: GURPREET GUEVARA Date: 2022-06-21 12:38 [facility] Clinical Note 06-21-2022 Note Date & Type [...] by: GURPREET GUEVARA Date: 2022-06-21 12:38 [facility] Evaluation note 01-13-2022 Note Date & Type [...] left knee, initial encounter (ICD-10 - S83.412A) [facility] Other Evaluation note Note Date & Type Note Facility Evaluation note No assessment information availa [facility] Work Phone: Evaluation note Note Date & [...] Type Medical History anxiety Surgical History tonsillectomy [facility] Other Hospital Discharge instructions Note Date & [...] doctor orthopedic for recheck in 3 to [facility] Work Phone: Chief Complaint and Reason for Visit Chief Complaint L knee injury Advance Directives Advance Directive Response Recorded Date/ Time Advance Directives No March 2:38pm Summary Purpose Family History No Family History Records FoundNo Family History Records FoundNo Family History Records FoundNo Family History Records FoundNo Family History Records Found Additional Source Comments Care Teams (unrecognized sec tion and content) Team Status: Inactive Member Role Status Dates Gris Avila APRN PRODUCT ASSURANCE ENGINEER-C Primary Care Provider Jessica Rueda APRN Emergency Provider Active Team Status: Active Member Role Status Dates Gris Avila APRN PRODUCT ASSURANCE ENGINEER-Louie Primary Care Provider Raman jones Adding Machine Operator Relationship Specialty Start Date End Date Miryam Loving DO [address] [place] [address] PCP - General Family Medicine 06/23/22 Adding Machine Operator Relationship Specialty Start Date End Date Unallocated, Kodak Antonio MD [facility] [place] [address] PCP - General Family Medicine 11/23/23 Adding Machine Operator Relationship Specialty Start Date End Date Unallocated, Kodak Antonio MD [facility] [address] [facility] [place] [address] PCP - General Family Medicine 11/23/23 Goals (unrecognized section and content) Goals may be documented in a n alternate sectionNo Information INFORMATION SOURCE (unrecogn ized section and content) DATE CREATED AUTHOR 12/10/2021 [facility] DATE CREATED AUTHOR AUTHOR'S ORGANIZ ATION 12/13/2021 [facility] dical Specialist DATE CREATED AUTHOR AUTHOR'S ORGANIZ ATION 06/24/2022 [facility] DATE CREATED AUTHOR AUTHOR'S ORGANIZ ATION 06/10/2023 [facility] DATE CREATED AUTHOR AUTHOR'S ORGANIZ ATION 12/05/2023 [facility] dical Specialists EPIC REASON FOR VISIT (unrecogniz [...] BE BASED ON THE PRIMARY CLINICAL RECORDS. [employer] provides no warranty or guarantee of the accuracy or completeness of information in this document.
== END 2023-12-22 12:59 | disposition home or self-care (01) ==
LOC: NOMS 12:58
PROVIDERS: Visit Provider Obstetrics & Gynecology
DX: Z36.89 Encounter for other specified antenatal screening (principal); Z3A.21 21 weeks gestation of pregnancy
CPT/HCPCS: 76805; 76817

== ENCOUNTER 2024-02-01 14:31 | Outpatient (OUT) | payer OTHER, SELFPAY ==
--- NOTE | 2024-02-01 14:35 | US_ITS ---
[place] [id number] Patient Name: DARYN RYAN MRN: [id number] date: 2000 Sex: F Assigned Patient Location: [facility] Current Patient Location: LAB Accession/Order Number: [id number] Exam Date: 02/01/2024 14:35 Report Date: 02/01/2024 15:18 At the request of: PRAVEEN NGUYEN Procedure: US OB incomplete anatomy EXAM: US OB incomplete anatomy HISTORY: INCOMPLETE ANATOMY COMPARISON: None. TECHNIQUE: Transabdominal FINDINGS: position: Cephalic presentation, longitudinal lie Heart rate: 144 beats minute Normal anatomy: RVOT, LVOT, nose, lips Clinical age: 27 weeks 5 days Clinical ERIN: 04/27/2024 US/US OB incomplete anatomy IMPRESSION: Normal observed anatomy Electronically authenticated by: SIAC NYE Date: 02/01/2024 15:18
== END 2024-02-01 14:32 | disposition home or self-care (01) ==
LOC: NOMS 14:32
PROVIDERS: Visit Provider Physician Assistant
DX: Z36.2 Encounter for other antenatal screening follow-up (principal); Z13.1 Encounter for screening for diabetes mellitus
CPT/HCPCS: 76815

== ENCOUNTER 2024-02-01 15:14 | Outpatient (OUT) | payer OTHER, SELFPAY ==
--- OUTSIDE RECORDS SUMMARY | 2024-02-01 15:20 | XMS_ITS | CCD ---
Author Organization [facility] Care Team Providers Care Financial Services Counselor Name Role Phone TARAN Avila Primary Care Provider TARAN Rueda Emergency Provider [phone] Gris Avila Primary Care Unavailable Sultana Rueda Attending Unavailable Sultana Rueda Admitting Unavailable Shaan Balderrama Unavailable YAYA, DR PAUL Primary Care Unavailable DIAB MAGDALENO Rivers Admitting Unavailable DIAB ., MAGDALENO Attending Unavailable MAGDALENO LAKE Consulting Unavailable YAYA, DR PAUL Primary Care Unavailable CARLEEN, DR OC Ricardo Attending Unavailbryson PEREZ .HENRRY Consulting Unavailbryson DURANT, DR OC Ricardo Admitting Unavailbryson LAUGHLIN .COLBY Admitting Unavailable YAYA, DR PAUL Primary Care Unavailable ISMAEL, DR GURPREET Phan Consulting Unavailable QIAN ., COLBY Attending Unavailable COLBY PATTON Consulting Unavailable PILI ROLON Attending Unavailable NO PCP, NO PCP Primary Care Unavailable PILI ROLON Attending Unavailable PILI ROLON Referring Unavailable NO PCP, NO PCP Primary Care Unavailable PILI ROLON Attending Unavailable PILI ROLON Referring Unavailable NO PCP, NO PCP Primary Care Unavailable Miryam Loving DO Primary Care Provider [phone] Unallocated , Noms Provider Primary Care Provi ravinder JAYANT JONES Attending Unavailable Medications Current Medications Medication Drug Class(es) Dates [...] 7 days 45 g 12/02/2023 12/09/2023 Active Completed/Discontinued Medications Medication Drug Class(es) Dates Sig (Normalized) Sig (Original) metroNIDAZOLE 500 mg oral tablet (3 sources) Nitroimidazole Antimicrobial Start: 12-03-2023 End: 12-22-2023 take 1 tablet by mouth in the morning metroNIDAZOLE (Flagyl) 500 MG tablet Indications: BV (bacterial vaginosis) Take 1 tablet (500 mg) by mouth in the morning and 1 tablet (500 mg) before bedtime. Do all this for 7 days. Do not drink alcohol while taking this medication. 14 tablet 12/03/2023 12/22/2023 Discontinued (Therapy completed) Problems Problem Classification Problem Date Documented Date [...] 06-21-2022 Episodic Other and delivery including normal (6 sources) ; Translations: [Encounter for supervision of normal , unspecified, unspecified trimester] 12-02-2023 Episodic Other screening for suspected conditions (not mental disorders or infectious disease) (5 sources) Patient encounter status; Translations: [Encounter for other specified screening] 12-02-2023 Episodic Ovarian cyst (1 source) Cyst of right ovary; Translations: [Unspecified ovarian cyst, right side] 12-02-2023 Episodic Residual codes; unclassified (2 sources) Gestation period, 21 weeks; Translations: [21 weeks gestation of ] 12-22-2023 Episodic Residual codes; unclassified (2 sources) Gestation period, 25 weeks; Translations: [25 weeks gestation of ] 01-19-2024 Episodic Sprains and strains (4 sources) Sprain [...] Name Value Interpretation Reference Range Facil ity Urinalysis macro (dipstick) panel (U)on 01-19-2024 Bilirubin, UA Negative Negative - 4(70) +++ mg/dL [facility] Blood, UA Negative Negative - 50 Iron/mcL [facility] Healthcare Clarity, UA Clear [facility] Color, UA Yellow [facility] Glucose, UA Negative Negative - 1999(110) ++++ mg/dL [facility] Interpretation and review of laboratory results Abnormal [facility] Ketones, UA Negative Negative - 160(16) ++++ mg/dL [facility] Leukocytes, UA Trace Negative - 500+++ Miguel/mcL [facility] Nitrite, UA Negative Negative - Positive [facility] pH, UA 6 5 - 9 [facility] Protein, UA Negative Negative - 1999(20) ++++ mg/dL [facility] Healthcare Spec Grav, UA 1.025 1 - 1.03 [facility] Urobilinogen, UA 0.2 0.2 - 12 mg/dL [facility] Urinalysis macro (dipstick) panel (U)on 12-22-2023 Bilirubin, UA Negative Negative - 4(70) +++ mg/dL [facility] Blood, UA Positive Negative - 50 Iron/mcL [facility] Healthcare Comment on above: trace Clarity, UA Clear [facility] re Color, UA Yellow [facility] Glucose, UA Negative Negative - 1999(110) ++++ mg/dL [facility] Interpretation and review of laboratory results Abnormal [facility] Ketones, UA Negative Negative - 160(16) ++++ mg/dL [facility] Healthcare Leukocytes, UA Positive Negative - 500+++ Miguel/mcL [facility] Healthcare Comment on above: small Nitrite, UA Negative Negative - Positive [facility] pH, UA 6.5 5 - 9 [facility] Protein, UA Negative Negative - 1999(20) ++++ mg/dL [facility] Healthcare Spec Grav, UA 1.02 1 - 1.03 [facility] Urobilinogen, UA 0.2 0.2 - 12 mg/dL [facility] ALL CBC WITH AUTO DIFFon BASOPHILS ABSOLUTE AUTO 0 [facility] Basophils/100 WBC (Bld) 0.2 % 0.2 - 2.0 % [facility] Eosinophils/100 WBC (Bld) 0.5 % Low 0.9 - 7.0 % [facility] Erythrocyte distribution width (RBC) [Ratio] 12.8 % 11.0 - 15.0 % [facility] Hematocrit (Bld) [Volume fraction] 38.7 % 36.0 - 48.0 % [facility] e Hemoglobin (Bld) [Mass/Vol] 13.1 g/dL 12.0 - 16.0 g/dL [facility] IMMATURE GRANULOCYTES ABS AUTO 0.03 [facility] Immature granulocytes/100 WBC (Bld) 0.3 % 0.0 - 0.5 % [facility] Interpretation and review of laboratory results Abnormal [facility] LYMPHOCYTES ABSOLUTE AUTO 2.1 [facility] Lymphocytes/100 WBC (Bld) 18.3 % Low 20.5 - 60.0 % [facility] MCH (RBC) [Entitic mass] 31.7 pg 26.7 - 34.0 pg [facility] MCHC (RBC) [Mass/Vol] 33.9 g/dL 29.9 - 35.2 g/dL [facility] MCV (RBC) [Entitic vol] 93.7 fL 81.0 - 99.0 fL [facility] MONOCYTES ABSOLUTE AUTO 0.4 [facility] Monocytes/100 WBC (Bld) 3.7 % 1.7 - 12.0 % [facility] NEUTROPHILS ABSOLUTE AUTO 8.8 High [facility] Neutrophils/100 WBC (Bld) 77 % High 43.0 - 75.0 % [facility] Platelet mean volume (Bld) [Entitic vol] 10.8 fL 9.5 - 13.5 fL [facility] # [facility].1 [facility] PLT 233 [facility] TB RBC 4.13 Low [facility] Healthcar e TBH WBC 11.5 High [facility] Healthcar e CL[facility]NC [facility] e URETHRITIS/DISCHARGE PLUS VA GINITIS (HTRX)on 12-03-2023 ATOPOBIUM VAGINAE 0 [facility] ATOPOBIUM VAGINAE Not detected [facility] BVAB 2,3 (BACTERIAL VAGINOSIS ASSOCIATED BACTERIA 2, 3); MOBILUNCUS SPP 26.835 Abnormal [facility] BVAB 2,3 (BACTERIAL VAGINOSIS ASSOCIATED BACTERIA 2, 3); MOBILUNCUS SPP Detected Abnormal [facility] ANGELINA ALBICANS, PARAPSILOSIS, TROPICALIS 0 [facility] ANGELINA ALBICANS, PARAPSILOSIS, TROPICALIS Not detected [facility] ANGELINA GLABRATA 0 [facility] Hea lthcare ANGELINA GLABRATA Not detected [facility] ealthcare ANGELINA KRUSEI 0 [facility] Healt hcare ANGELINA KRUSEI Not detected [facility] CHLAMYDIA TRACHOMATIS 0 [facility] CHLAMYDIA TRACHOMATIS Not detected [facility] GARDNERELLA VAGINALIS 0 [facility] GARDNERELLA VAGINALIS Not detected [facility] Interpretation and review of laboratory results Abnormal [facility] MEGASPHAERA (TYPES 1, 2) 0 [facility] MEGASPHAERA (TYPES 1, 2) Not detected [facility] MYCOPLASMA GENITALIUM 0 [facility] MYCOPLASMA GENITALIUM Not detected [facility] NEISSERIA GONORRHOEAE 0 [facility] NEISSERIA GONORRHOEAE Not detected [facility] TRICHOMONAS VAGINALIS 0 [facility] TRICHOMONAS VAGINALIS Not detected [facility] HCG ( test) Ql (U)o n 12-02-2023 Interpretation and review of laboratory results Abnormal [facility] Preg Test, Ur Positive [facility] Urinalysis macro (dipstick) panel (U)on 12-02-2023 Bilirubin, UA Negative Negative - 4(70) +++ mg/dL [facility] Blood, UA Negative Negative - 50 Iron/mcL [facility] Clarity, UA Clear [facility] re Color, UA Yellow [facility] Glucose, UA Negative Negative - 1999(110) ++++ mg/dL [facility] Interpretation and review of laboratory results Abnormal [facility] Ketones, UA Negative Negative - 160(16) ++++ mg/dL [facility] Leukocytes, UA Positive Negative - 500+++ Miguel/mcL [facility] Nitrite, UA Negative Negative - Positive [facility] pH, UA 5.5 5 - 9 [facility] Healthcar e Protein, UA Negative Negative - 1999(20) ++++ mg/dL [facility] Spec Grav, UA 1.03 1 - 1.03 [facility] Urobilinogen, UA 1.0 0.2 - 12 mg/dL [facility] MHPT TRICHOMONAS/WET PREPon 11-21-2023 WET PREP TRIC BV ANGELINA Wet Prep Tric BV Angelina WP.BACT Bacteria^Bacteria [facility] WET PREP TRIC BV ANGELINA WP.CLUE Clue Cells^Clue Cells [facility] WET PREP TRIC BV ANGELINA WP.JONATHAN Fungal Elements^F[facility] BV ANGELINA WP.RBC RBC^RBC [facility] WET PREP TRIC BV ANGELINA WP.TRICH Trichomonas^Trichom onas [facility] WET PREP TRIC BV ANGELINA WP.WBC WBC^WBC [facility] e No Panel Informationon 11-20 WET PREP TRIC BV ANGELINA F Few^Few [facility] WET PREP TRIC BV ANGELINA N None Seen^None Seen [facility] CT BRAIN WO CONTon CT BRAIN WO [...] Alcaraz MD on 06/08/2023 9:25 PM Normal [facility] CT CERVICAL SPINE WO CONTon 06-08-2023 [...] Alcaraz MD on 06/08/2023 9:43 PM Normal [facility] XR CHEST 2 VWSon 06-08-2023 XR CHEST 2 VWS XR CHEST 2 VWS PA and lateral chest: HISTORY: Trauma. 2 views of the chest are obtained. Cardiac and mediastinal contours are within normal limits. There is no focal infiltrate, effusion, or pneumothorax. Osseous structures appear intact. IMPRESSION: No acute findings. 4 Finalized by Olvin Alcaraz MD on 06/08/2023 9:19 PM Normal [facility] XR PELVIS 1 OR 2 VWSon 06-07 XR PELVIS 1 OR 2 VWS XR PELVIS 1 OR 2 VWS CLINICAL INFORMATION: trauma TECHNIQUE: XR PELVIS 1 OR 2 VWS Single view of the pelvis was obtained. Pelvic ring appears intact. Femoral necks are symmetric. No acute fracture. IMPRESSION: No acute findings. 4 Finalized by Olvin Alcaraz MD on 06/08/2023 9:22 PM Normal [facility] XR SHOULDER LT MIN 2 VWSon [...] Alcaraz MD on 06/08/2023 9:20 PM Normal [facility] MRI Knee w/o Lefton 12-12-19 MRI [...] by AMMON PALENCIA on 12/12/2021 1348 Normal [facility] XR knee LT 4V*on 11-29-2021 XR knee LT 4V* [facility] [address] [place] [address] XRay Report Signed Patient: Clari Licona MR#: [id number] 7 : 2000 Acct:[id number] Age/Sex: 21 / F ADM Date: 11/28/21 Loc: ER Room: Type: [facility] ER Attending Dr: Copies to: Sultana Rueda [...] Claudia Baugh M.D.11/29/2021 9:03 AM Dictation Location: [place] [address] Transcribed By: [facility] 11/29/21902 Dictated By: Claudia Baugh MD 11/29/21901 Signed By: 11/29/21902 [facility] Vital Signs Date Time Vital Sign Value Performing Clinician Facility 01-19-2024 11:59-0500 Body mass index (BMI) [Ratio] 32.11 kg/m2 Maryam SALES Work Phone: [facility] 01-19-2024 11:59-0500 Body weight 101.52 kg Maryam SALES Work Phone: [facility] 01-19-2024 11:59-0500 Diastolic blood pressure 68 mm[Hg] Maryam Haq PA Work Phone: [facility] 01-19-2024 11:59-0500 Systolic blood pressure 120 mm[Hg] Maryam Haq PA Work Phone: [facility] 12-22-2023 14:38-0500 Body mass index (BMI) [Ratio] 29.99 kg/m2 Jayant Robert DO Work Phone: [facility] 12-22-2023 14:38-0500 Body weight 94.8 kg Jayant Robert DO Work Phone: [facility] 12-22-2023 14:38-0500 Diastolic blood pressure 74 mm[Hg] Jayant Robert DO Work Phone: [facility] 12-22-2023 14:38-0500 Systolic blood pressure 118 mm[Hg] Jayant Robert DO Work Phone: [facility] 12-02-2023 14:27-0400 Body mass index (BMI) [Ratio] 29.39 kg/m2 [facility] 12-02-2023 14:27-0400 Body weight 92.9 kg [facility] 01-13-2022 09:15-0500 Body height 180.34 cm Shaan Olexa Other [employer] Other 01-13-2022 09:15-0500 Body mass index (BMI) [Ratio] 27.89 kg/m2 Shaan Olexa Other [employer] Other 01-13-2022 09:15-0500 Body weight 90.72 kg Shaan Olexa Other [employer] Other 11-28-2021 21:42-0400 Body height 182.88 cm TARAN Avila Work Phone: [facility] 11-28-2021 21:42-0400 Body temperature 98 [degF] TARAN Avila Work Phone: [facility] 11-28-2021 21:42-0400 Body weight 85.27 kg TARAN Avila Work Phone: [facility] 11-28-2021 21:42-0400 Diastolic blood pressure 88 mm[Hg] TARAN Avila Work Phone: [facility] 11-28-2021 21:42-0400 Heart rate 98 /min TARAN Avila Work Phone: [facility] 11-28-2021 21:42-0400 Respiratory rate 20 /min TARAN Avila Work Phone: [facility] 11-28-2021 21:42-0400 SaO2% (BldA) [Mass fraction] 95 % TARAN Avila Work Phone: [facility] 11-28-2021 21:42-0400 Systolic blood pressure 152 mm[Hg] TARAN Avila Work Phone: [facility] Encounters Encounter Date Encounter Type Care Provider Facility Start: 01-19-2024 End: 01-19-2024 Bamboo flowsheet Maryam SALES Work Phone: [facility] Start: 01-19-2024 End: 01-19-2024 Bamboo flowsheet Maryam SALES Work Phone: [facility] Start: 01-19-2024 End: 01-19-2024 flow sheet Maryam SALES Work Phone: [facility] Comment on above: 25 weeks gestation o f ; Second trimester ; Diabetes mellitus screening; Encounter for follow-up ultrasound of anatomy Start: 12-22-2023 End: 12-22-2023 Office outpatient visit 15 minutes Jayant Tejadao DO Work Phone: [facility] Comment on above: Second trimester pre gnancy; 21 weeks gestation of Start: 12-22-2023 End: 12-22-2023 ambulatory JAYANT ROBERT Not Available Start: 12-22-2023 End: 12-22-2023 Bamboo flowsheet Jayant Robert DO Work Phone: [facility] Start: 12-22-2023 End: 12-22-2023 Bamboo flowsheet Jayant Robert DO Work Phone: [facility] Start: 12-09-2023 End: 12-09-2023 [facility] Result Encounter Jayant Robert DO Work Phone: [facility] Unsolicited Start: 12-09-2023 End: 12-09-2023 [facility] Result Encounter Jayant Robert DO Work Phone: [facility] Unsolic[facility] Start: 12-02-2023 End: 12-03-2023 External Result Encounter Jayant Robert DO Work Phone: [facility] Unsolic[facility] Start: 12-02-2023 End: 12-03-2023 External Result Encounter Jayant Robert DO Work Phone: [facility] Unsolicited Start: 12-02-2023 End: 12-02-2023 Office outpatient visit 5 minutes [facility] Robert Nurse [facility] Comment on above: GA: 19w0d Start: 12-02-2023 End: 12-02-2023 ambulatory JAYANT ROBERT Not Available Start: 11-21-2023 End: 11-21-2023 [facility] Result Encounter Abdon SALES Work Phone: [facility] Unsolicited Start: 11-21-2023 End: 11-21-2023 [facility] Result Encounter Abdon SALES Work Phone: [facility] Unsolicited Start: 06-08-2023 End: 06-09-2023 Emergency department patient visit [facility] Start: 06-21-2022 End: 06-21-2022 ambulatory COLBY LAUGHLIN . Facility:[facility] Start: 05-28-2022 End: 05-28-[address] HUMBERTO JAVIER Facility:[facility] Start: 05-20-2022 End: 05-20-[address] HUMBERTO JAVIER Facility:[facility] Start: 01-13-2022 End: 01-13-2022 ambulatory Shaan Balderrama Other [employer] Other Start: 01-13-2022 Office outpatient vi sit 15 minutes Shaan Balderrama [facility] Start: 11-28-2021 End: 11-29-2021 Emergency department patient visit Gris Avila Facility:[facility] Start: 11-28-2021 End: 11-28-2021 Emergency department patient visit [employer] Gris Avila Work Phone: [facility] Procedures Date Procedure Procedure Detail Performing Clinician Start: 01-19-2024 Urnls dip stick/tabl et rgnt non-auto w/o micrscp Maryam SALES Work Phone: Start: 12-22-2023 Urnls dip stick/tabl et rgnt non-auto w/o micrscp Jayant Robert DO Work Phone: Start: 12-09-2023 ALL CBC WITH AUTO DIFF Jayant Robert DO Work Phone: Start: 12-02-2023 URETHRITIS/DISCHARGE PLUS VAGINITIS (HTRX) Jayant Robert DO Work Phone: Start: 12-02-2023 Urnls dip stick/tabl et rgnt non-auto w/o micrscp Jayant Robert DO Work Phone: Start: 11-21-2023 MHPT TRICHOMONAS/WET PREP Abdon SALES Work Phone: Plan of Treatment Date Care Activity Detail Author Start: 01-19-2024 End: 01-18-2025 CBC panel - Blood by Automated count CBC Lab Routine Diabetes mellitus screening Expected: 01/19/2024 (Approximate), Expires: 01/18/2025 [facility] Work Phone: Comment on above: Expected: 01/19/2024 (Approximate), Expires: 01/18/2025 Start: 01-19-2024 End: 01-18-2025 Measurement of glucose 1 hour after glucose challenge for glucose tolerance test Glucose tolerance, 1 hour Lab Routine Diabetes mellitus screening Expected: 01/19/2024 (Approximate), Expires: 01/18/2025 [facility] Healthcare Comment on above: Expected: 01/19/2024 (Approximate), Expires: 01/18/2025 Start: 01-19-2024 End: 01-18-2025 US for US OB INCOMPLETE ANATOMY Imaging Routine Encounter for follow-up ultrasound of anatomy Expected: 01/19/2024 (Approximate), Expires: 01/18/2025 [facility] Comment on above: Expected: 01/19/2024 (Approximate), Expires: 01/18/2025 Start: 01-19-2024 End: 01-19-2024 Patient encounter procedure [facility] Comment on above: Arrived Start: 12-22-2023 End: 12-22-2023 Patient encounter procedure [facility] Comment on above: Arrived Start: 12-22-2023 End: 12-22-2023 Professional / ancillary services management 12/22/2023 1:00 PM EST Ancillary Procedure [facility] [address] [place] [id number] [facility] Start: 12-02-2023 End: 12-01-2024 ABO/Rh ABO/Rh Lab Routine Missed menses , unspecified gestational age Expected: 12/02/2023 (Approximate), Expires: 12/01/2024 [facility] Comment on above: Expected: 12/02/2023 (Approximate), Expires: 12/01/2024 Start: 12-02-2023 End: 03-03-2024 Alpha fetoprotein, maternal Alpha fetoprotein, maternal Lab Routine Encounter for supervision of normal first in first trimester Expected: 12/02/2023 (Approximate), Expires: 03/03/2024 [facility] Comment on above: Expected: 12/02/2023 (Approximate), Expires: 03/03/2024 Start: 12-02-2023 End: 12-01-2024 Blood type and Indirect antibody screen panel - Blood Type and screen Lab Routine Missed menses , unspecified gestational age Expected: 12/02/2023 (Approximate), Expires: 12/01/2024 [facility] Work Phone: Comment on above: Expected: 12/02/2023 (Approximate), Expires: 12/01/2024 Start: 12-02-2023 End: 12-01-2024 Drugs of abuse panel - Urine by Screen method Rapid drug screen, urine Lab Routine , unspecified gestational age Encounter for supervision of normal first in first trimester Expected: 12/02/2023 (Approximate), Expires: 12/01/2024 [facility] Comment on above: Expected: 12/02/2023 (Approximate), Expires: 12/01/2024 Start: 12-02-2023 End: 12-01-2024 US for [facility] Comment on above: Expected: 12/02/2023 (Approximate), Expires: 12/01/2024 Start: 10-17-2023 Influenza vaccination Influenza Vacc ine (#1) [facility] Start: 11-28-2021 Radiologic examinati on of knee XR knee LT 4V* [facility] Start: 11-28-2021 XR Knee - left 4 Views [facility] Bacteria identified in Urine by Culture Urine culture Microbiology Routine Missed menses Ordered: 12/02/2023 [facility] Comment on above: Ordered: 12/02/2023 CBC W Auto Different ial panel - Blood CBC and differential Lab Routine Missed menses , unspecified gestational age Ordered: 12/02/2023 [facility] Comment on above: Ordered: 12/02/2023 Hemoglobin A1c/Hemoglobin.total in Blood Hemoglobin A1c Lab Routine Missed menses , unspecified gestational age Ordered: 12/02/2023 [facility] Comment on above: Ordered: 12/02/2023 Hepatitis B virus surface Ag [Presence] in Serum or Plasma by Immunoassay Hepatitis B surface antigen Lab Routine Missed menses , unspecified gestational age Ordered: 12/02/2023 [facility] Comment on above: Ordered: 12/02/2023 Hepatitis C virus Ab [Presence] in Serum or Plasma by Immunoassay Hepatitis C antibody Lab Routine Missed menses , unspecified gestational age Ordered: 12/02/2023 [facility] Comment on above: Ordered: 12/02/2023 HIV-1/HIV-2 antigen/antibody combination immunoassay HIV-1 and HIV-2 antibodies Lab Routine Missed menses , unspecified gestational age Ordered: 12/02/2023 [facility] Comment on above: Ordered: 12/02/2023 Patient Education Knee Sprain (DC) [facility] Work Phone: Patient referral [facility] Work Phone: Reagin Ab [Presence] in Serum by RPR RPR Lab Routine Missed menses , unspecified gestational age Ordered: 12/02/2023 [facility] Comment on above: Ordered: 12/02/2023 Rubella antibody, IgG Rubella an tibody, IgG Lab Routine Missed menses , unspecified gestational age Ordered: 12/02/2023 [facility] Comment on above: Ordered: 12/02/2023 Payers Date Payer Category Payer Private Health Insurance [employer] [id number] 2023 Unknown [id number] 2021 Self-pay [id number] 2021 Unknown BCBS BCBS [id number] 2021-Present [phone] [address] [place] [address] [id number] 2020 Private Health Insurance [id number] 1999 Unknown [id number] 1999 Unknown [id number] [id number] .593 1999 Unknown [id number] [id number] .593 1999 Unknown [id number] [id number] .1286 1999 Unknown [id number] 2.16.840.1.190388.3.579.2 .128 1999 Unknown [id number] 2.16.840.1.862364.3.579.2 .128 1999 Unknown [id number] 2.16.840.1.147428.3.579.2 .128 1999 Unknown [id number] 2.16.840.1.822101.3.579.2 .128 1999 Unknown [id number] 2.16.840.1.516684.3.579.2 .128 1999 Unknown [id number] 2.16.840.1.676295.3.579.2 .1259 1999 Unknown [id number] 2.16.840.1.093162.3.579.2 .1259 1959 Unknown [id number] 1959 Unknown [id number] 1959 Unknown [id number] Unknown [id number] .531 Worker's Compensation [id number] Social History Date Type Detail Facility Start: 11-28-2021 Tobacco smoking status [facility] Smoker (finding) [facility] Start: 2000 Sex Assigned At Female F [facility] Sex Assigned At [employer] Other Tobacco smoking status KSIS Tobacco smoking consumption unknown [facility] Start: 2000 Sex assigned at Not on file [facility] Start: 04-29-2022 Gender identity Identifies as female gender (finding) [facility] Start: 08-05-2023 [facility] Clinical Notes 01-13-2022 to 01-19-2024 Maryam Haq, HENRRY - 01/19/2024 11:20 AM Oksana Howard LPN - 12/22/2023 2:40 PM Genevieve Fall LPN - 12/02/2023 1:30 PM EDT Note Date & Type Note Facility 01-19-2024 History of Presen t illness Narrative Reason for Appointment: Patient ID: Clari Licona is a 23 y.o. female who presents for Routine Visit Patient presents today for Return OB appointment. MEDICATIONS No current outpatient medications ALLERGIES No Known Allergies PROBLEMS Active Ambulatory Problems Diagnosis Date Noted No Active Ambulatory Problems Resolved Ambulatory Problems Diagnosis Date Noted No Resolved Ambulatory Problems No Additional Past Medical History HISTORY PAST MEDICAL HISTORY SOCIAL HISTORY History reviewed. No pertinent past medical history. Social History Tobacco Use Smoking status: Not on file Smokeless tobacco: Not on file Substance Use Topics Alcohol use: Not on file Drug use: Not on file FAMILY HISTORY No family history on file. SURGICAL HISTORY History reviewed. No pertinent surgical history. REVIEW OF SYSTEMS Review of Systems: Review of Systems Constitutional: Negative. HENT: Negative. Eyes: Negative. Respiratory: Negative. Cardiovascular: Negative. Gastrointestinal: Negative. Genitourinary: Negative. Musculoskeletal: Negative. Skin: Negative. Neurological: Negative. All other systems reviewed and are negative. Hematological: Negative. Endocrine: Negative. Allergic/Immunologic: Negative. OBJECTIVE Objective: Physical Exam Constitutional: Appearance: Normal appearance. She is well-developed and normal weight. HENT: Head: Normocephalic. Cardiovascular: Rate and Rhythm: Normal rate and regular rhythm. Pulses: Normal pulses. Pulmonary: Effort: Pulmonary effort is normal. Breath sounds: Normal breath sounds. Abdominal: General: Bowel sounds are normal. There is no distension. Palpations: Abdomen is soft. Tenderness: There is no abdominal tenderness. There is no guarding or rebound. Musculoskeletal: General: No swelling. Normal range of motion. Right lower leg: No edema. Left lower leg: No edema. Neurological: General: No focal deficit present. Mental Status: She is alert and oriented to person, place, and time. Skin: General: Skin is warm and dry. Psychiatric: Mood and Affect: Mood normal. Behavior: Behavior normal. Thought Content: Thought content normal. Judgment: Judgment normal. Vitals and nursing note reviewed. Exam conducted with a ged preparation teacher present. Vitals: Estimated body mass index is 32.11 kg/m as calculated from the following: Height as of 12/03/21: 5' 10 . Weight as of this encounter: 223 lb 12.8 oz. BP: 120/68 No LMP recorded. Patient is . ASSESSMENT & PLAN ICD-10-CM 1. 25 weeks gestation of Z3A.25 POCT urinalysis dipstick manually resulted 2. Second trimester Z34.92 POCT urinalysis dipstick manually resulted 3. Diabetes mellitus screening Z13.1 CBC Glucose tolerance, 1 hour CBC Glucose tolerance, 1 hour 4. Encounter for follow-up ultrasound of anatomy Z36.2 US OB INCOMPLETE ANATOMY Return OB: Patient presents today for a routine obstetrics appointment. Patient is currently 25w6d . Patient states she is doing well but has complaints of being tired due to current . Patient has verbalizes frequent movement. labor precautions was discussed/given and patient was instructed to perform kick counts three times a day. Pt given glucola order with instructions. Pt also given repeat anatomy scan to have scheduled. Orders Placed This Encounter Procedures US OB INCOMPLETE ANATOMY CBC Glucose tolerance, 1 hour POCT urinalysis dipstick manually resulted Follow Up: Patient is to return to office in 2 week for routine OB appointment. Documented by Claudia Howard LPN on behalf of: HENRRY Barker documented in this encounter [facility] 12-22-2023 History of Presen t illness Narrative Reason for Appointment: Patient ID: Clari Licona is a 23 y.o. female who presents for Routine Visit Patient presents today for Return OB appointment. MEDICATIONS No current outpatient medications ALLERGIES No Known Allergies PROBLEMS Active Ambulatory Problems Diagnosis Date Noted No Active Ambulatory Problems Resolved Ambulatory Problems Diagnosis Date Noted No Resolved Ambulatory Problems No Additional Past Medical History HISTORY PAST MEDICAL HISTORY SOCIAL HISTORY No past medical history on file. Social History Tobacco Use Smoking status: Not on file Smokeless tobacco: Not on file Substance Use Topics Alcohol use: Not on file Drug use: Not on file FAMILY HISTORY No family history on file. SURGICAL HISTORY No past surgical history on file. REVIEW OF SYSTEMS Review of Systems: Review of Systems Constitutional: Negative. HENT: Negative. Eyes: Negative. Respiratory: Negative. Cardiovascular: Negative. Gastrointestinal: Negative. Genitourinary: Negative. Musculoskeletal: Negative. Skin: Negative. Neurological: Negative. All other systems reviewed and are negative. Hematological: Negative. Endocrine: Negative. Allergic/Immunologic: Negative. OBJECTIVE Objective: Physical Exam Constitutional: Appearance: Normal appearance. She is well-developed. Cardiovascular: Rate and Rhythm: Normal rate and regular rhythm. Pulmonary: Effort: Pulmonary effort is normal. Breath sounds: Normal breath sounds. Abdominal: General: Bowel sounds are normal. There is no distension. Palpations: Abdomen is soft. Tenderness: There is no abdominal tenderness. There is no guarding or rebound. Musculoskeletal: General: No swelling. Normal range of motion. Right lower leg: No edema. Left lower leg: No edema. Neurological: Mental Status: She is alert and oriented to person, place, and time. Skin: General: Skin is warm and dry. Psychiatric: Mood and Affect: Mood normal. Behavior: Behavior normal. Vitals and nursing note reviewed. Exam conducted with a ged preparation teacher present. Vitals: Estimated body mass index is 29.99 kg/m as calculated from the following: Height as of 12/03/21: 5' 10 . Weight as of this encounter: 209 lb. BP: 118/74 No LMP recorded. Patient is . ASSESSMENT & PLAN ICD-10-CM 1. Second trimester Z34.92 POCT urinalysis dipstick manually resulted 2. 21 weeks gestation of Z3A.21 Pt doing well and has had anxiety attacks in the past- Pt declines medication at this time. Pt to return in 4 weeks for scheduled OB appt. Pt had anatomy scan obtained prior to appt- will notify when results return Documented by Claudia Howard LPN on behalf of: Jayant Jones DO documented in this encounter [facility] 12-02-2023 History of Presen t illness Narrative [...] or undercooked meat, and stay away from [facility]. Patient has also been advised to [...] Mervat Fall LPN documented in this encounter [facility] 06-21-2022 Note PROCEDURE: XR ANKLE RT MIN [...] authenticated by: GURPREET GUEVARA Date: 2022-06-21 12:38 [facility] 06-21-2022 Note PROCEDURE: XR ANKLE RT MIN [...] authenticated by: GURPREET GUEVARA Date: 2022-06-21 12:38 [facility] 01-13-2022 Evaluation note Encounter Date Diagnosis Assessment [...] left knee, initial encounter (ICD-10 - S83.412A) [employer] Other Evaluation noteNo assessment information available [facility] Work Phone: Evaluation note* Diagnosis Missed menses , unspecified gestational age Encounter for supervision of normal first in first trimester Right ovarian cyst Other and unspecified ovarian cyst Screening, , for anatomic survey Encounter for anatomic survey Yeast infection Tooth ache [facility] Diagnosis Second trimester state, incidental 21 weeks gestation of [facility] Diagnosis 25 weeks gestation of Second trimester state, incidental Diabetes mellitus screening Screening for diabetes mellitus Encounter for follow-up ultrasound of anatomy [facility] - Reported* Type Description Date Medical History anxiety Surgical History tonsillectomy [employer] Other Hospital Discharge instructions Additional Instructions Ice and elevate Tylenol/ Motrin if needed for pain Wear knee immobilizer for the next 3 to 4 days Partial weightbearing with crutches Tylenol or Naprosyn if needed for pain Return here if any problems persist or worsen Follow-up with your primary care doctor orthopedic for recheck in 3 [facility] Work Phone: Chief Complaint and Reason [...] content) Team Status: Inactive Member Role Status Veronique Avila APRN WANT AD RECEIVER-C Primary Care Provider Jessica Rueda APRN Emergency Provider Active Team Status: Active Member Role Status Veronique Avila APRN WANT AD RECEIVER-C Primary Care Provider Raman jones Financial Services Counselor Relationship Specialty Start Date End Date Miryam Loving DO [address] [place] [address] PCP - General Family Medicine 06/23/22 Financial Services Counselor Relationship Specialty Start Date End Date Unallocated, Kodak Antonio MD [facility] [place] [address] PCP - General Family Medicine 11/23/23 Financial Services Counselor Relationship Specialty Start Date End Date Unallocated, Kodak Antonio MD [facility] [place] [address] PCP - General Family Medicine 11/23/23 Financial Services Counselor Relationship Specialty Start Date End Date Unallocated, Kodak Antonio MD [facility] [address] [facility] [place] [address] PCP - General Family Medicine 11/23/23 Financial Services Counselor Relationship Specialty Start Date End Date Unallocated, MD Reed Ervin [facility] [place] [address] PCP - General Family Medicine 11/23/23 Financial Services Counselor Relationship Specialty Start Date End Date Unallocated, Nomsuleman Antonio, [address] [place] [address] PCP - General Family Medicine 11/23/23 Goals (unrecognized section and content) Goals may be documented in a n alternate sectionNo Information INFORMATION SOURCE (unrecogn ized section and content) DATE CREATED AUTHOR 12/10/2021 [facility] DATE CREATED AUTHOR AUTHOR'S ORGANIZ ATION 12/13/2021 [facility] dical Specialist DATE CREATED AUTHOR AUTHOR'S ORGANIZ ATION 06/24/2022 [facility] DATE CREATED AUTHOR AUTHOR'S ORGANIZ ATION 06/10/2023 [facility] DATE CREATED AUTHOR AUTHOR'S ORGANIZ ATION 12/24/2023 [facility] dical Specialists EPIC REASON FOR VISIT (unrecogniz ed section and content) Reason Comments Amenorrhea Reason Comments Routine Visit FOR RECORDS PERTAINING TO PATIENTS WHO ARE [...] BE BASED ON THE PRIMARY CLINICAL RECORDS. [employer] provides no warranty or guarantee of the accuracy or completeness of information in this document.
[2024-02-01 16:29] LABS: Basophils Percent Auto 0.2 % (0.2-2.0); Eosinophils Absolute Auto 0.1 10^3/uL (0.0-0.7); Eosinophils Percent Auto 0.7 % (0.9-7.0); Hematocrit 35.1 % (36.0-48.0); Hemoglobin 11.8 g/dL (12.0-16.0); Immature Granulocytes Abs Auto 0.06 10^3/uL (0.00-0.03); Immature Granulocytes Pct Auto 0.5 % (0.0-0.5); Lymphocytes Absolute Auto 2.2 10^3/uL (1.2-3.8); Lymphocytes Percent Auto 20.3 % (20.5-60.0); Mean Corpuscular HGB Conc 33.6 g/dL (29.9-35.2); Mean Corpuscular Volume 92.1 fL (81.0-99.0); Monocytes Absolute Auto 0.6 10^3/uL (0.3-0.8); Monocytes Percent Auto 5.1 % (1.7-12.0); Neutrophils Absolute Auto 8.1 10^3/uL (1.4-6.5); Neutrophils Percent Auto 73.2 % (43.0-75.0); Platelet Count 206 10^3/uL (150-450); Red Blood Count 3.81 10^6/uL (4.20-5.40); Red Cell Distribution Width 12.5 % (11.0-15.0); White Blood Count 11.1 10^3/uL (4.0-11.0)
[2024-02-01 17:04] LABS: Glucose 1 Hour 132 mg/dL (<130)
== END 2024-02-01 15:15 | disposition home or self-care (01) ==
LOC: LAB 15:15
PROVIDERS: Visit Provider Physician Assistant
DX: Z13.1 Encounter for screening for diabetes mellitus (principal)
CPT/HCPCS: 36415; 82950; 85025

== ENCOUNTER 2024-02-09 18:51 | Emergency (ER) | payer OTHER, SELFPAY ==
--- OUTSIDE RECORDS SUMMARY | 2024-02-09 18:58 | XMS_ITS | CCD ---
Author Organization [facility] Care Team Providers Care Tube Heater Name Role Phone TARAN Avila Primary Care Provider [phone] TARAN Rueda Emergency Provider [phone] Gris Avila Primary Care Unavailable Sultana Rueda [...] ISMAEL, DR GURPREET Phan Consulting Unavailable QIAN Rivers, COLBY Attending Unavailable COLBY PATTON Consulting Unavailable [...] Care Provi ravinder JAYANT JONES Attending Unavailable MARYAM NGUYEN Attending Unavailable JAYANT JONES Attending Unavailable Medications Current Medications [...] PO Twice daily November 28, 2021 12:00am ondansetron 4 mg disintegrating oral tablet (3 sources) Serotonin-3 Receptor Antagonist Start: 01-27-2024 End: 02-26-2024 take 1 tablet by mouth every six hours for nausea ondansetron ODT (Zofran-ODT) 4 MG disintegrating tablet Indications: Nausea and vomiting, unspecified vomiting type Take 1 tablet (4 mg) by mouth every 6 (six) hours if needed for nausea or vomiting 30 tablet 2 01/27/2024 02/26/2024 Active terconazole 4 mg/ml vaginal cream (3 sources) [...] 06-21-2022 Episodic Other and delivery including normal (8 sources) ; Translations: [Encounter for supervision of [...] [25 weeks gestation of ] 01-19-2024 Episodic Residual codes; unclassified (2 sources) Gestation period, 28 weeks; Translations: [28 weeks gestation of ] 02-03-2024 Episodic Sprains and strains (4 sources) Sprain [...] Facil ity Urinalysis macro (dipstick) panel (U)on 02-03-2024 Bilirubin, UA Negative Negative - 4(70) +++ mg/dL [facility] Blood, UA Negative Negative - 50 Iron/mcL [facility] Clarity, UA Clear [facility] re Color, UA Yellow [facility] e Glucose, UA Negative Negative - 1999(110) ++++ mg/dL [facility] Interpretation and review of laboratory results Abnormal [facility] Ketones, UA Negative Negative - 160(16) ++++ mg/dL [facility] Leukocytes, UA Positive Negative - 500+++ Miguel/mcL [facility] Comment on above: small Nitrite, UA Negative Negative - Positive [facility] pH, UA 6.5 5 - 9 [facility] Protein, UA Negative Negative - 1999(20) ++++ mg/dL [facility] Spec Grav, UA 1.025 1 - 1.03 [facility] Urobilinogen, UA 1.0 0.2 - 12 mg/dL [facility] Health[facility] e Urinalysis macro (dipstick) panel (U)on 01-19-2024 Bilirubin, UA Negative Negative - 4(70) +++ mg/dL [facility] Blood, UA Negative Negative - 50 Iron/mcL [facility] Healthcare Clarity, UA Clear [facility] re Color, UA Yellow [facility] e Glucose, UA Negative Negative - 1999(110) ++++ mg/dL [facility] Interpretation and review of laboratory results Abnormal [facility] Ketones, UA Negative Negative - 160(16) ++++ mg/dL [facility] Leukocytes, UA Trace Negative - 500+++ Miguel/mcL [facility] Nitrite, UA Negative Negative - Positive [facility] pH, UA 6 5 - 9 [facility] Health[facility] e Protein, UA Negative Negative - 1999(20) ++++ mg/dL [facility] Spec Grav, UA 1.025 1 - 1.03 [facility] Urobilinogen, UA 0.2 0.2 - 12 mg/dL [facility] e Urinalysis macro (dipstick) panel (U)on 12-22-2023 Bilirubin, UA Negative Negative - 4(70) +++ mg/dL [facility] Blood, UA Positive Negative - 50 Iron/mcL [facility] Comment on above: trace Clarity, UA Clear [facility] re Color, UA Yellow [facility] Healthcar e Glucose, UA Negative Negative - 1999(110) ++++ mg/dL [facility] Interpretation and review of laboratory results Abnormal [facility] Ketones, UA Negative Negative - 160(16) ++++ mg/dL [facility] Leukocytes, UA Positive Negative - 500+++ Miguel/mcL [facility] Healthcare Comment on above: small Nitrite, UA Negative Negative - Positive [facility] pH, UA 6.5 5 - 9 [facility] e Protein, UA Negative Negative - 1999(20) ++++ mg/dL [facility] Spec Grav, UA 1.02 1 - 1.03 [facility] Urobilinogen, UA 0.2 0.2 - 12 mg/dL [facility] ALL CBC WITH AUTO DIFFon BASOPHILS ABSOLUTE AUTO 0 [facility] Basophils/100 WBC (Bld) 0.2 % 0.2 - 2.0 % [facility] Eosinophils/100 WBC (Bld) 0.5 % Low 0.9 - 7.0 % [facility] Erythrocyte distribution width (RBC) [Ratio] 12.8 % 11.0 - 15.0 % [facility] Hematocrit (Bld) [Volume fraction] 38.7 % 36.0 - 48.0 % [facility] Healthcar e Hemoglobin (Bld) [Mass/Vol] 13.1 g/dL 12.0 - 16.0 g/dL [facility] IMMATURE GRANULOCYTES ABS AUTO 0.03 [facility] Immature granulocytes/100 WBC (Bld) 0.3 % 0.0 - 0.5 % [facility] Interpretation and review of laboratory results Abnormal [facility] LYMPHOCYTES ABSOLUTE AUTO 2.1 [facility] Lymphocytes/100 WBC (Bld) 18.3 % Low 20.5 - 60.0 % [facility] MCH (RBC) [Entitic mass] 31.7 pg 26.7 - 34.0 pg [facility] MCHC (RBC) [Mass/Vol] 33.9 g/dL 29.9 - 35.2 g/dL [facility] MCV (RBC) [Entitic vol] 93.7 fL 81.0 - 99.0 fL [facility] MONOCYTES ABSOLUTE AUTO 0.4 [facility] Monocytes/100 WBC (Bld) 3.7 % 1.7 - 12.0 % [facility] NEUTROPHILS ABSOLUTE AUTO 8.8 High [facility] Neutrophils/100 WBC (Bld) 77 % High 43.0 - 75.0 % [facility] Platelet mean volume (Bld) [Entitic vol] 10.8 fL 9.5 - 13.5 fL [facility] are TB EO # 0.1 [facility] TB PLT 233 [facility] TB RBC 4.13 Low [facility] Health[facility] e TBH WBC 11.5 High [facility] Healthcar e CLINISYNC [facility] URETHRITIS/DISCHARGE PLUS VA GINITIS (HTRX)on 12-03-2023 AT[facility]UM [facility]INAE 0 [facility] ATOPOBIUM VAGINAE Not detected [facility] BVAB 2,3 (BACTERIAL VAGINOSIS ASSOCIATED BACTERIA 2, 3); MOBILUNCUS SPP 26.835 Abnormal [facility] BVAB 2,3 (BACTERIAL VAGINOSIS ASSOCIATED BACTERIA 2, 3); MOBILUNCUS SPP Detected Abnormal [facility] ANGELINA ALBICANS, PARAPSILOSIS, TROPICALIS 0 [facility] ANGELINA ALBICANS, PARAPSILOSIS, TROPICALIS Not detected [facility] ANGELINA GLABRATA 0 [facility] ANGELINA GLABRATA Not detected [facility] e[facility] ANGELINA KRUSEI 0 [facility] Healt hcare ANGELINA KRUSEI Not detected [facility] Hea lthcare CHLAMYDIA TRACHOMATIS 0 [facility] CHLAMYDIA TRACHOMATIS Not detected [facility] GARDNERELLA VAGINALIS 0 [facility] GARDNERELLA VAGINALIS Not detected [facility] Interpretation and review of laboratory results Abnormal [facility] MEGASPHAERA (TYPES 1, 2) 0 [facility] MEGASPHAERA (TYPES 1, 2) Not detected [facility] MYCOPLASMA GENITALIUM 0 [facility] MYCOPLASMA GENITALIUM Not detected [facility] NEISSERIA GONORRHOEAE 0 [facility] NEISSERIA GONORRHOEAE Not detected [facility] TRICHOMONAS VAGINALIS 0 [facility] TRICHOMONAS VAGINALIS Not detected [facility] HCG ( test) Ql (U)o n 12-02-2023 Interpretation and review of laboratory results Abnormal [facility] Preg Test, Ur Positive [facility] Urinalysis macro (dipstick) panel (U)on 12-02-2023 Bilirubin, UA Negative Negative - 4(70) +++ mg/dL [facility] Blood, UA Negative Negative - 50 Iron/mcL [facility] Clarity, UA Clear [facility] re Color, UA Yellow [facility] Healthcar e Glucose, UA Negative Negative - 1999(110) ++++ mg/dL [facility] Interpretation and review of laboratory results Abnormal [facility] Ketones, UA Negative Negative - 160(16) ++++ mg/dL [facility] Leukocytes, UA Positive Negative - 500+++ Miguel/mcL [facility] Nitrite, UA Negative Negative - Positive [facility] pH, UA 5.5 5 - 9 [facility] Healthcar e Protein, UA Negative Negative - 1999(20) ++++ mg/dL [facility] Spec Grav, UA 1.03 1 - 1.03 [facility] Urobilinogen, UA 1.0 0.2 - 12 mg/dL [facility] MHPT TRICHOMONAS/WET PREPon 11-21-2023 WET PREP TRIC BV ANGELINA Wet Prep Tric BV Angelina WP.BACT Bacteria^Bacteria [facility] WET PREP TRIC BV ANGELINA WP.CLUE Clue Cells^Clue Cells [facility] WET PREP TRIC BV ANGELINA WP.JONATHAN Fungal Elements^Fungal Elements [facility] WET PREP TRIC BV ANGELINA WP.RBC RBC^RBC [facility] WET PREP TRIC BV ANGELINA WP.TRICH Trichomonas^Trichom onas [facility] WET PREP TRIC BV ANGELINA WP.WBC WBC^WBC [facility] CLINISYNC [facility] Healthcar e No Panel Informationon 11-20 WET PREP TRIC BV ANGELINA F Few^Few [facility] WET PREP TRIC BV ANGELINA N None Seen^None Seen [facility] CT BRAIN WO CONTon CT BRAIN WO [...] by AMMON PALENCIA on 12/12/2021 1348 Normal [facility] XR knee LT 4V*on 11-29-2021 XR knee LT 4V* [facility] [place] [address] XRay Report Signed Patient: Clari Licona MR#: [id number] 7 : 2000 Acct:[id number] Age/Sex: 21 / F ADM Date: 11/28/21 Loc: ER Room: Type: [facility] ER Attending Dr: Copies to: Sultana [...] Claudia Baugh M.D.11/29/2021 9:03 AM Dictation Location: [place] [address] Transcribed By: [facility] 11/29/21902 Dictated By: Claudia Baugh MD 11/29/21901 Signed By: 11/29/21902 [facility] Vital Signs Date Time Vital Sign Value Performing Clinician Facility 02-03-2024 12:19-0500 Body mass index (BMI) [Ratio] 31.71 kg/m2 DiBcom Robert DO Work Phone: [facility] 02-03-2024 12:19-050 Body weight 100.25 kg Jayant Robert DO Work Phone: [facility] 02-03-2024 12:19-0500 Diastolic blood pressure 72 mm[Hg] Jayant Robert DO Work Phone: [facility] 02-03-2024 12:19-0500 Systolic blood pressure 120 mm[Hg] Jayant Robert DO Work Phone: [facility] 01-19-2024 11:59-0500 Body mass index (BMI) [Ratio] 32.11 kg/m2 Maryam Nguyen PA Work Phone: [facility] 01-19-2024 11:59-0500 Body weight 101.52 kg Maryam Nguyen PA Work Phone: [facility] 01-19-2024 11:59-0500 Diastolic blood pressure 68 mm[Hg] Maryam Nguyen PA Work Phone: [facility] 01-19-2024 11:59-0500 Systolic blood pressure 120 mm[Hg] Maryam Nguyen PA Work Phone: [facility] 12-22-2023 14:38-0500 Body mass index (BMI) [Ratio] 29.99 kg/m2 Jayant Robert DO Work Phone: [facility] 12-22-2023 14:38-0500 Body weight 94.8 kg Jayant Robert DO Work Phone: [facility] 12-22-2023 14:38-0500 Diastolic blood pressure 74 mm[Hg] Jayant Robert DO Work Phone: [facility] 12-22-2023 14:38-0500 Systolic blood pressure 118 mm[Hg] Jayant Robert DO Work Phone: [facility] 12-02-2023 14:27-0400 Body mass index (BMI) [Ratio] 29.39 kg/m2 [facility] Nurse [facility] 12-02-2023 14:27-0400 Body weight 92.9 kg [facility] Nurse [facility] 01-13-2022 09:15-0500 Body height 180.34 cm Shaan Olexa Other [facility] Other 01-13-2022 09:15-0500 Body mass index (BMI) [Ratio] 27.89 kg/m2 Shaan Olexa Other [facility] Other 01-13-2022 09:15-0500 Body weight 90.72 kg Shaan Olexa Other [facility] Other 11-28-2021 21:42-0400 Body height 182.88 cm BOOKING SUPERVISOR Gris Kiepert Work Phone: [facility] 11-28-2021 21:42-0400 Body temperature 98 [degF] BOOKING SUPERVISOR Gris Kiepert Work Phone: [facility] 11-28-2021 21:42-0400 Body weight 85.27 kg BOOKING SUPERVISOR Gris Kiepert Work Phone: [facility] 11-28-2021 21:42-0400 Diastolic blood pressure 88 mm[Hg] BOOKING SUPERVISOR Gris Kiepert Work Phone: [facility] 11-28-2021 21:42-0400 Heart rate 98 /min BOOKING SUPERVISOR Gris Kiepert Work Phone: [facility] 11-28-2021 21:42-0400 Respiratory rate 20 /min BOOKING SUPERVISOR Gris Kiepert Work Phone: [facility] 11-28-2021 21:42-0400 SaO2% (BldA) [Mass fraction] 95 % BOOKING SUPERVISOR Gris Kiepert Work Phone: [facility] 11-28-2021 21:42-0400 Systolic blood pressure 152 mm[Hg] BOOKING SUPERVISOR Gris Kiepert Work Phone: [facility] Encounters Encounter Date Encounter Type Care Provider Facility Start: 02-03-2024 End: 02-03-2024 Bamboo flowsheet Jayant Robert DO Work Phone: [facility] Start: 02-03-2024 End: 02-03-2024 Bamboo flowsheet Jayant Robert DO Work Phone: [facility] Start: 02-03-2024 End: 02-03-2024 ambulatory JAYANT ROBERT Not Available Start: 02-03-2024 End: 02-03-2024 Office outpatient visit 15 minutes Jayant Robert DO Work Phone: [facility] Comment on above: Second trimester pre gnancy; 28 weeks gestation of Start: 01-19-2024 End: 01-19-2024 Bamboo flowsheet Maryam SALES Work Phone: [facility] Start: 01-19-2024 End: 01-19-2024 Bamboo flowsheet Maryam SALES Work Phone: [facility] Start: 01-19-2024 End: 01-19-2024 flow sheet Maryam SALES Work Phone: [facility] Comment on above: 25 weeks gestation o f ; Second trimester ; Diabetes mellitus screening; Encounter for follow-up ultrasound of anatomy Start: 01-19-2024 End: 01-19-2024 ambulatory MARYAM NGUYEN Not Available Start: 12-22-2023 End: 12-22-2023 Office outpatient visit 15 minutes Jayant Robert DO Work Phone: [facility] Comment on above: Second trimester pre gnancy; 21 weeks gestation of Start: 12-22-2023 End: 12-22-2023 ambulatory JAYANT ROBERT Not Available Start: 12-22-2023 End: 12-22-2023 Bamboo flowsheet Jayant Robert DO Work Phone: [facility] Start: 12-22-2023 End: 12-22-2023 Bamboo flowsheet Jayant Robert DO Work Phone: [facility] Start: 12-09-2023 End: 12-09-2023 [facility] [...] 19w0d Start: 12-02-2023 End: 12-02-2023 ambulatory JAYANT HERNANDEZO Not Available Start: 11-21-2023 End: 11-21-2023 [facility] Result Encounter Abdon SALES Work Phone: [facility] Unsolicited Start: 11-21-2023 End: 11-21-2023 [facility] Result Encounter Abdon SALES Work Phone: [facility] Unsolicited Start: 06-08-2023 End: 06-09-2023 Emergency department patient visit [facility] Start: 06-21-2022 End: 06-21-2022 ambulatory COLBY LAUGHLIN . Facility:[facility] Start: 05-28-2022 End: 05-28-[address] HUMBERTO JAVIER Facility:[facility] Start: 05-20-2022 End: 05-20-[address] HUMBERTO JAVIER Facility:[facility] Start: 01-13-2022 End: 01-13-2022 ambulatory Shaan Balderrama Other [facility] Other Start: 01-13-2022 Office outpatient vi sit 15 minutes Shaan Balderrama [facility] Start: 11-28-2021 End: 11-29-2021 Emergency department patient visit Gris Avila Facility:[facility] Start: 11-28-2021 End: 11-28-2021 Emergency department patient visit TARAN Avila Work Phone: [facility] Procedures Date Procedure Procedure Detail Performing Clinician Start: 02-03-2024 Urnls dip stick/tabl et rgnt non-auto w/o micrscp Jayant Robert DO Work Phone: Start: 01-19-2024 Urnls dip stick/tabl et rgnt [...] Treatment Date Care Activity Detail Author Start: 02-21-2024 End: 02-21-2024 Patient encounter procedure 02/21/2024 10:20 AM EST Routine [facility] [address] [place] [id number] Maryam Nguyen PA [address] [address] [facility] Start: 01-19-2024 End: 01-18-2025 CBC panel - Blood by Automated count CBC Lab Routine Diabetes mellitus screening Expected: 01/19/2024 (Approximate), Expires: 01/18/2025 [facility] Work Phone: Comment on above: Expected: 01/19/2024 (Approximate), Expires: 01/18/2025 Start: 01-19-2024 End: 01-18-2025 Measurement of glucose 1 hour after glucose challenge for glucose tolerance test Glucose tolerance, 1 hour Lab Routine Diabetes mellitus screening Expected: 01/19/2024 (Approximate), Expires: 01/18/2025 [facility] Comment on above: Expected: 01/19/2024 (Approximate), Expires: 01/18/2025 Start: 01-19-2024 End: 01-18-2025 US for US OB INCOMPLETE ANATOMY Imaging Routine Encounter for follow-up ultrasound of anatomy Expected: 01/19/2024 (Approximate), Expires: 01/18/2025 [facility] Healthcare Comment on above: Expected: 01/19/2024 (Approximate), Expires: 01/18/2025 Start: 01-19-2024 End: 01-19-2024 Patient encounter procedure [facility] Comment on above: Arrived Start: 12-22-2023 End: 12-22-2023 Patient encounter procedure [facility] Comment on above: Arrived Start: 12-22-2023 End: 12-22-2023 Professional / ancillary services management 12/22/2023 1:00 PM EST Ancillary Procedure [facility] [address] [place] [id number] [facility] Start: 12-02-2023 End: 12-01-2024 ABO/Rh ABO/Rh Lab Routine Missed menses , unspecified gestational age Expected: 12/02/2023 (Approximate), Expires: 12/01/2024 [facility] Comment on above: Expected: 12/02/2023 (Approximate), Expires: 12/01/2024 Start: 12-02-2023 End: 03-03-2024 Alpha fetoprotein, maternal Alpha fetoprotein, maternal Lab Routine Encounter for supervision of normal first in first trimester Expected: 12/02/2023 (Approximate), Expires: 03/03/2024 [facility] Comment on above: Expected: 12/02/2023 (Approximate), Expires: 03/03/2024 Start: 12-02-2023 End: 12-01-2024 Blood type and Indirect antibody screen panel - Blood Type and screen Lab Routine Missed menses , unspecified gestational age Expected: 12/02/2023 (Approximate), Expires: 12/01/2024 [facility] Work Phone: Comment on above: Expected: 12/02/2023 (Approximate), Expires: 12/01/2024 Start: 12-02-2023 End: 12-01-2024 Drugs of abuse panel - Urine by Screen method Rapid drug screen, urine Lab Routine , unspecified gestational age Encounter for supervision of normal first in first trimester Expected: 12/02/2023 (Approximate), Expires: 12/01/2024 [facility] Comment on above: Expected: 12/02/2023 (Approximate), Expires: 12/01/2024 Start: 12-02-2023 End: 12-01-2024 US for [facility] Comment on above: Expected: 12/02/2023 (Approximate), Expires: 12/01/2024 Start: 10-17-2023 Influenza vaccination Influenza Vacc ine (#1) [facility] Start: 11-28-2021 Radiologic examinati on of knee XR knee LT 4V* [facility] Start: 11-28-2021 XR Knee - left 4 Views [facility] Bacteria identified in Urine by Culture Urine culture Microbiology Routine Missed menses Ordered: 12/02/2023 [facility] Comment on above: Ordered: 12/02/2023 CBC W Auto Different ial panel - Blood CBC and differential Lab Routine Missed menses , unspecified gestational age Ordered: 12/02/2023 [facility] Comment on above: Ordered: 12/02/2023 Hemoglobin A1c/Hemoglobin.total in Blood Hemoglobin A1c Lab Routine Missed menses , unspecified gestational age Ordered: 12/02/2023 [facility] Comment on above: Ordered: 12/02/2023 Hepatitis B virus surface Ag [Presence] in Serum or Plasma by Immunoassay Hepatitis B surface antigen Lab Routine Missed menses , unspecified gestational age Ordered: 12/02/2023 [facility] Comment on above: Ordered: 12/02/2023 Hepatitis C virus Ab [Presence] in Serum or Plasma by Immunoassay Hepatitis C antibody Lab Routine Missed menses , unspecified gestational age Ordered: 12/02/2023 [facility] Comment on above: Ordered: 12/02/2023 HIV-1/HIV-2 antigen/antibody combination immunoassay HIV-1 and HIV-2 antibodies Lab Routine Missed menses , unspecified gestational age Ordered: 12/02/2023 [facility] Comment on above: Ordered: 12/02/2023 Patient Education Knee Sprain (DC) [facility] Work Phone: Patient referral [facility] Work Phone: Reagin Ab [Presence] in Serum by RPR RPR Lab Routine Missed menses , unspecified gestational age Ordered: 12/02/2023 [facility] Comment on above: Ordered: 12/02/2023 Rubella antibody, IgG Rubella an tibody, IgG Lab Routine Missed menses , unspecified gestational age Ordered: 12/02/2023 [facility] Comment on above: Ordered: 12/02/2023 Payers Date Payer Category Payer Private Health Insurance [employer]ICA[employer] [id number] 2023 Unknown [id number] 2021 Self-pay [id number] 2021 Unknown BCBS BCBS [id number] 2021-Present [phone] [address] [place] [address] [id number] 2020 Private Health Insurance [id number] 1999 Unknown [id number] [id number] .593 1999 Unknown [id number] 2.16.840.1.610591.3.579.2 .593 1999 Unknown [id number] 2.16.840.1.884147.3.579.2 .593 1999 Unknown [id number] 2.16.840.1.450138.3.579.2 .1286 1999 Unknown [id number] 2.16.840.1.476448.3.579.2 .1286 1999 Unknown [id number] 2.16.840.1.853886.3.579.2 .128 1999 Unknown [id number] 2.16.840.1.528043.3.579.2 .1286 1999 Unknown [id number] 2.16.840.1.638626.3.579.2 .1286 1999 Unknown [id number] 2.16.840.1.743535.3.579.2 .1286 1999 Unknown [id number] 2.16.840.1.792483.3.579.2 .9 1999 Unknown [id number] 2.16.840.1.703559.3.579.2 .9 1999 Unknown [id number] 2.16.840.1.395369.3.579.2 .1259 1999 Unknown [id number] 2.16.840.1.737219.3.579.2 .1259 1959 Unknown [id number] 1959 Unknown [id number] 1959 Unknown [id number] Unknown [id number] [id number] .531 Worker's Compensation [id number] Social History Date Type Detail Facility Start: 11-28-2021 Tobacco smoking status [facility] Smoker (finding) [facility] Start: 2000 Sex Assigned At Female F [facility] Sex Assigned At [facility] Other Tobacco smoking status NHIS Tobacco smoking consumption unknown [facility] Start: 2000 Sex assigned at Not on file N [facility] Start: 04-29-2022 Gender identity Identifies as female gender (finding) [facility] Healthcare Start: 08-05-2023 [facility] Clinical Notes 01-13-2022 to 02-03-2024 HENRRY Barker - 02/03/2024 11:20 AM Stefan Nguyen, HENRRY - 01/19/2024 11:20 AM SHARYNClaudia Anita, ANA MARIA - 12/22/2023 2:40 PM Genevieve Fall, TRAVEL WRITER - 12/02/2023 1:30 PM EDT Note Date & Type Note Facility 02-03-2024 History of Presen t illness Narrative Reason for Appointment: Patient ID: Clari Licona is a 23 y.o. female who presents for Routine Visit Patient presents today for Return OB appointment. MEDICATIONS Current Outpatient Medications Medication Instructions ondansetron ODT (ZOFRAN-ODT) 4 mg, Oral, Every 6 hours PRN ALLERGIES No Known Allergies PROBLEMS Active Ambulatory [...] Exam Constitutional: Appearance: Normal appearance. She is normal weight. HENT: Head: Normocephalic. Cardiovascular: Rate and Rhythm: Normal rate. Pulses: Normal pulses. Pulmonary: Effort: Pulmonary effort is normal. Breath sounds: Normal breath sounds. Abdominal: Palpations: Abdomen is soft. Musculoskeletal: General: Normal range of motion. Neurological: General: No focal deficit present. Mental Status: She is alert and oriented to person, place, and time. Psychiatric: Mood and Affect: Mood normal. Behavior: Behavior normal. Thought Content: Thought content normal. Judgment: Judgment normal. Vitals and nursing note reviewed. Vitals: Estimated body mass index is 31.71 kg/m as calculated from the following: Height as of 12/03/21: 5' 10 . Weight as of this encounter: 221 lb. BP: 120/72 No LMP recorded. Patient is . ASSESSMENT & PLAN ICD-10-CM 1. Second trimester Z34.92 POCT urinalysis dipstick manually resulted 2. 28 weeks gestation of Z3A.28 Return OB: Patient presents today for a routine obstetrics appointment. Patient is currently 28w0d . Patient states she is doing well but has complaints of being tired due to current . Patient has verbalizes frequent movement. labor precautions was discussed/given and patient was instructed to perform kick counts three times a day. Orders Placed This Encounter Procedures POCT urinalysis dipstick manually resulted Follow Up: Patient is to return to office in 2 week for routine OB appointment. Documented by HENRRY Barker on behalf of: Jayant Jones DO documented in this encounter [facility] 01-19-2024 History of Presen t illness Narrative [...] nursing note reviewed. Exam conducted with a centrifuge separator tender present. Vitals: Estimated body mass index is [...] of: HENRRY Barker documented in this encounter [facility] 12-22-2023 History of Presen t illness Narrative [...] nursing note reviewed. Exam conducted with a centrifuge separator tender present. Vitals: Estimated body mass index is [...] Jayant Jones DO documented in this encounter [facility] 12-02-2023 History of Presen t illness Narrative [...] or undercooked meat, and stay away from [facility]. Patient has also been advised to [...] Mervat Fall LPN documented in this encounter [facility] 06-21-2022 Note PROCEDURE: XR ANKLE RT MIN [...] by: GURPREET GUEVARA Date: 2022-06-21 12:38 [facility] 06-21-2022 Note PROCEDURE: XR ANKLE RT MIN [...] by: GURPREET GUEVARA Date: 2022-06-21 12:38 [facility] 01-13-2022 Evaluation note Encounter Date Diagnosis Assessment [...] left knee, initial encounter (ICD-10 - S83.412A) [facility] Other Evaluation noteNo assessment information available [facility] Work Phone: Evaluation note* Diagnosis Missed menses [...] of anatomy documented in this encounter [facility]* Diagnosis Second trimester state, incidental 28 weeks gestation of documented in this encounter [facility] general Narrative - Reported* Type Description Date Medical History anxiety Surgical History tonsillectomy [facility] Other Hospital Discharge instructions Additional Instructions Ice and elevate Tylenol/ Motrin if needed for pain Wear knee immobilizer for the next 3 to 4 days Partial weightbearing with crutches Tylenol or Naprosyn if needed for pain Return here if any problems persist or worsen Follow-up with your primary care doctor orthopedic for recheck in 3 [facility] Work Phone: Chief Complaint and [...] Inactive Member Role Status Veronique Avila APRN PAI GOW MANAGERNba Primary Care Provider Jessica Rueda APRN Emergency Provider Active Team Status: Active Member Role Status Veronique Avila APRN PAI GOW MANAGER-Louie Primary Care Provider Raman jones Tube Heater Relationship Specialty Start Date End Date Miryam Loving DO [address] [place] [address] PCP - General Family Medicine 06/23/22 Tube Heater Relationship Specialty Start Date End Date Unallocated, MD [facility] [place] [address] PCP - General Family Medicine 11/23/23 Tube Heater Relationship Specialty Start Date End Date Unallocated, [place] [address] PCP - General Family Medicine 11/23/23 Tube Heater Relationship Specialty Start Date End Date Unallocated, Kodak Antonio MD [address] [place] [address] PCP - General Family Medicine 11/23/23 Tube Heater Relationship Specialty Start Date End Date Unallocated, Kodak Antonio MD [address] [place] [address] PCP - General Family Medicine 11/23/23 Tube Heater Relationship Specialty Start Date End Date Unallocated, Kodak Antonio MD [address] [place] [address] PCP - General Family Medicine 11/23/23 Goals (unrecognized section and content) Goals may be documented in a n alternate sectionNo Information INFORMATION SOURCE (unrecogn ized section and content) DATE CREATED AUTHOR 12/10/2021 [facility] DATE CREATED AUTHOR AUTHOR'S ORGANIZ ATION 12/13/2021 [facility]ical Specialist DATE CREATED AUTHOR AUTHOR'S ORGANIZ ATION 06/24/2022 [facility] DATE CREATED AUTHOR AUTHOR'S ORGANIZ ATION 06/10/2023 [facility] DATE CREATED AUTHOR AUTHOR'S ORGANIZ ATION 02/06/2024 [facility] dical Specialists EPIC REASON FOR VISIT [...] BE BASED ON THE PRIMARY CLINICAL RECORDS. [employer] provides no warranty or guarantee of the accuracy or completeness of information in this document.
[2024-02-09 19:00] VITALS: BP 144/89; PULSE 102; TEMP 36.7; O2SAT 98; BMI 33.9
--- NOTE | 2024-02-09 19:17 | ED_ITS ---
HPI - URI/Sore Throat General Chief Complaint: Upper Respiratory Infection Stated Complaint: CONGESTION, THROAT Time Seen by Provider: 02/09/24 19:00 Source: patient History of Present Illness HPI Narrative: cough, chest congestion and upper respiratory symptoms for about one month. It seemed to go away for about a week before returning three days ago. She is about 28 weeks and has been battling some nausea and vomiting during her , which seems worse since the URI symptoms started. She sees Dr Jones regularly for her OB care and said things are going well . No urinary symptoms, fever, diarrhea or abdominal or flank pain. Related Data Previous Rx's ?Medication ?Instructions ?Recorded azithromycin 250 mg tablet 250 mg PO DAILY 4 days #4 tabs 02/09/24 ondansetron 4 mg disintegrating 4 mg PO Q6H PRN nausea and 02/09/24 tablet vomiting #20 tabs Allergies Allergy/AdvReac Type Severity Reaction Status Date / Time No Known Drug Allergies Allergy Verified 11/21/23 16:12 PFSH PFSH Social History Little interest or pleasure in doing things: not at all Feeling down, depressed, or hopeless: not at all Exam Narrative Exam Narrative: Nurses notes and vital signs reviewed and patient is not hypoxic. afebrile General: Well-appearing and in no apparent distress. Skin: Warm, dry, no pallor noted. No rash. Head: Normocephalic, atraumatic. Neck: Supple, non-tender. Eye: Pupils are equal, round and EOMI. No scleral icterus. Ears, Nose, Mouth, and Throat: TM are clear, mild posterior oropharynx erythema with moderate nasal mucosal hypertrophy Oral mucosa is moist, uvula is mid-line Cardiovascular: borderline tachycardia. Respiratory: No accessory muscle use or respiratory distress. Lungs are clear to auscultation, no wheezing, rales or rhonchi Musculoskeletal: normal ROM GI: Abdomen is soft, non-distended. Normal bowel sounds. Gravid uterus. No tenderness to palpation. Neurological: A&O x4. No cranial nerve dysfunction observed. No truncal ataxia. Moves all extremities. Sensation intact. Psychiatric: Cooperative and interactive. Normal mood and affect. Constitutional Vital Signs, click to edit/add: Last Vital Signs Temp 98.1 F 02/09/24 19:00 Pulse 102 H 02/09/24 19:00 Resp 18 02/09/24 19:00 BP 144/89 H 02/09/24 19:00 Pulse Ox 98 02/09/24 19:00 O2 Del Method Room Air 02/09/24 19:00 Course Vital Signs Vital signs: Vital Signs Temperature 98.1 F 02/09/24 19:00 Pulse Rate 102 H 02/09/24 19:00 Respiratory Rate 18 02/09/24 19:00 Blood Pressure 144/89 H 02/09/24 19:00 Pulse Oximetry 98 02/09/24 19:00 Oxygen Delivery Method Room Air 02/09/24 19:00 Temperature 98.1 F 02/09/24 19:00 Pulse Rate 102 H 02/09/24 19:00 Respiratory Rate 18 02/09/24 19:00 Blood Pressure 144/89 H 02/09/24 19:00 Pulse Oximetry 98 02/09/24 19:00 Oxygen Delivery Method Room Air 02/09/24 19:00 MDM - URI/Sore Throat MDM Narrative Medical decision making narrative: Patient presents with URI symptoms that have been waxing and waning for about a month. No fever but the symptoms are persistent. Due to the duration of her symptoms I will start her on antibiotics -she was given her first dose of azithromycin in the emergency department and discharged home with a prescription for additional azithromycin over the next 4 days. She also was given a dose of Zofran in the emergency department for some nausea that she has been having. She has been seeing her creative art therapist regularly and I recommended that she call their office for any concerning symptoms that might arise regarding her - she has none at this time. Discharge Plan Discharge Chief Complaint: Upper Respiratory Infection Clinical Impression: Upper respiratory infection Patient Disposition: Home, Self-Care Time of Disposition Decision: 19:22 Prescriptions / Home Meds: New azithromycin 250 mg tablet 250 mg PO DAILY 4 Days Qty: 4 0RF Rx Instructions: start on day 2 of therapy ondansetron 4 mg tablet,disintegrating 4 mg PO Q6H PRN (Reason: nausea and vomiting) Qty: 20 0RF Print Language: Iraqi Instructions: Upper Respiratory Infection (ED) Referrals: Bashir Jones DO [Physician] - 1 week
[2024-02-09] MEDS: AZITHROMYCIN 250 MG TABLET 500 MG PO (19:29)
[2024-02-09] MEDS: ONDANSETRON 4 MG RAPDIS TABLET SL (19:29)
== END 2024-02-09 19:32 | disposition home or self-care (01) ==
PROVIDERS: Emergency Provider Emergency Medicine
DX: O99.513 Diseases of the respiratory system complicating pregnancy, third trimester (principal); Z3A.28 28 weeks gestation of pregnancy; J06.9 Acute upper respiratory infection, unspecified; O21.2 Late vomiting of pregnancy
CPT/HCPCS: 99283; Q0162

== ENCOUNTER 2024-03-23 15:11 | Observation (INO) | payer OTHER, SELFPAY ==
--- OUTSIDE RECORDS SUMMARY | 2024-03-23 15:23 | XMS_ITS | CCD ---
Author Organization [facility] Care Team Providers Care Directional Drill Operator Name Role Phone TARAN Avila Primary Care Provider TARAN Rueda Emergency Provider [phone] Gris Avila Primary Care Unavailable Sultana Rueda Attending Unavailable Sultana Rueda Admitting Unavailable Shaan Balderrama Unavailable YAYA, DR PAUL Primary Care Unavailable DIAB MAGDALENO Rivers Admitting Unavailable DIAB MAGDALENO Rivers Attending Unavailable MAGDALENO LAKE Consulting Unavailable YAYA, DR PAUL Primary Care Unavailable CARLEEN, DR OC Ricardo Attending Unavailbryson PEREZ .HENRRY Consulting Unavailbryson DURANT, DR OC Ricardo Admitting UnavailCOLBY Soto Admitting Unavailable YAYA, DR PAUL Primary Care Unavailable ISMAEL, DR GURPREET Phan Consulting Unavailable QIAN Rivers, COLBY Attending Unavailable COLBY PATTON Consulting Unavailable PILI ROLON Attending Unavailable NO PCP, NO PCP Primary Care Unavailable PILI ROLON Attending Unavailable PILI ROLON Referring Unavailable NO PCP, NO PCP Primary Care Unavailable PILI ROLON Attending Unavailable GONZALESPILI ROSADO Referring Unavailable NO PCP, NO PCP Primary Care Unavailable Miryam Loving DO Primary Care Provider Unallocated , Noms Provider Primary Care Provi ravinder JAYANT JONES Attending Unavailable JAYANT JONES Referring Unavailable JAYANT JONES Attending Unavailable MARYAM NGUYEN Attending Unavailable MARYAM NGUYEN Attending Unavailable JAYANT JONES Attending Unavailable MARYAM NGUYEN Attending Unavailable Medications Current Medications Medication Drug Class(es) Dates Sig (Normalized) Sig (Original) amoxicillin 500 mg oral tablet (2 sources) Penicillin-class Antibacterial Start: 10-17-2024 End: 12-05-2023 take 1 tablet by mouth [...] 12:00am ondansetron 4 mg disintegrating oral tablet (6 sources) Serotonin-3 Receptor Antagonist Start: 01-27-2024 End: [...] hand, initial encounter] Onset: 05-20-2022 Episodic Other complications of (2 sources) size does not accord with dates; Translations: [Uterine size-date discrepancy, unspecified trimester] 03-07-2024 Episodic Other injuries and conditions due to [...] 06-21-2022 Episodic Other and delivery including normal (14 sources) ; Translations: [Encounter for supervision of [...] [28 weeks gestation of ] 02-03-2024 Episodic Residual codes; unclassified (2 sources) Gestation period, 30 weeks; Translations: [30 weeks gestation of ] 02-21-2024 Episodic Residual codes; unclassified (2 sources) Gestation period, 32 weeks; Translations: [32 weeks gestation of ] 03-07-2024 Episodic Residual codes; unclassified (2 sources) Gestation period, 34 weeks; Translations: [34 weeks gestation of ] 03-21-2024 Episodic Sprains and strains (4 sources) Sprain [...] Name Value Interpretation Reference Range Facil ity US OB FOLLOW UP TRANSABDOMIN AL APPROACHon 03-21-2024 US OB FOLLOW UP TRANSABDOMINAL APPROACH EXAM: OB Ultrasound: REASON FOR EXAM: Inconsistent size. COMPARISON: None. TECHNIQUE: Grayscale and M-mode Doppler imaging is performed. FINDINGS: heart rate: 131 bpm JOSESITO: 17.4 cm (8.0 - 24.9) BPD: 8.9 cm HC: 32.2 cm AC: 31.5 cm FL: 6.9 cm GA for sonogram: 35.4 wks (33.0 - 37.8) ERIN: 04/27/2024 Weight Estimate: Weight: 2707 gm/5 lbs, 15 oz (2312 - 3103 gm) [place] Normal: 2533 gm (2102 - 2963 gm) [place] Wt%: 70% for 34.7 wks Limited for: Growth Presentation: Cephalic Lie: Longitudinal Amniotic Fluid: 17.0 cm, between 5th and 95th percentile Largest Fluid Pocket: 7.1 cm Heart rate: 131 bpm Somatic Motion: Y AUA: 35 w 6 d ERIN: 04/19/2024 GA: 34 w 5 d ERIN: 04/27/2024 EFW: 2724 g, 72% Intracranial contents not specifically demonstrated. Fluid-filled stomach is present. Amniotic fluid volume is subjectively normal. Placenta is anterior. IMPRESSION: Single live intrauterine gestation in cephalic position estimated at 35.4 weeks. This is generally concordant with the provided clinical dates. Dictated and transcribed 03/21/2024/jerzy This report has been electronically signed and approved by the interpreting radiologist. Normal Not Available Comment on above: Order Comment: US OB SCAN FOR GROWTH Estimated Date of Delivery: 04/27/24 Gestational Age as of 03/07/2024: 32w5d Urinalysis macro (dipstick) panel (U)on 03-21-2024 Bilirubin, UA Negative Negative - 4(70) +++ mg/dL [facility] Blood, UA Negative Negative - 50 Iron/mcL [facility] Clarity, UA Clear [facility] re Color, UA Yellow [facility] e Glucose, UA Negative Negative - 1999(110) ++++ mg/dL [facility] Interpretation and review of laboratory results Abnormal [facility] Ketones, UA Positive Negative - 160(16) ++++ mg/dL [facility] Leukocytes, UA Positive Negative - 500+++ Miguel/mcL [facility] Nitrite, UA Negative Negative - Positive [facility] pH, UA 6.5 5 - 9 [facility] e Protein, UA Positive Negative - 1999(20) ++++ mg/dL [facility] Spec Grav, UA 1.025 1 - 1.03 [facility] Urobilinogen, UA 0.2 0.2 - 12 mg/dL [facility] Urinalysis macro (dipstick) panel (U)on 03-07-2024 Bilirubin, UA Negative Negative - 4(70) +++ mg/dL [facility] Blood, UA Negative Negative - 50 Iron/mcL [facility] Healthcare Clarity, UA Clear [facility] re Color, UA Yellow [facility] Glucose, UA Negative Negative - 1999(110) ++++ mg/dL [facility] Interpretation and review of laboratory results Abnormal [facility] Ketones, UA Negative Negative - 160(16) ++++ mg/dL [facility] Leukocytes, UA Positive Negative - 500+++ Miguel/mcL [facility] Nitrite, UA Negative Negative - Positive [facility] pH, UA 6.5 5 - 9 [facility] e Protein, UA Negative Negative - 1999(20) ++++ mg/dL [facility] Spec Grav, UA 1.025 1 - 1.03 [facility] Urobilinogen, UA 1.0 0.2 - 12 mg/dL [facility] Urinalysis macro (dipstick) panel (U)on 02-21-2024 Bilirubin, UA Negative Negative - 4(70) +++ mg/dL [facility] Blood, UA Negative Negative - 50 Iron/mcL [facility] Healthcare Clarity, UA Clear [facility] re Color, UA Yellow [facility] e Glucose, UA Negative Negative - 1999(110) ++++ mg/dL [facility] Interpretation and review of laboratory results Abnormal [facility] Ketones, UA Negative Negative - 160(16) ++++ mg/dL [facility] Healthcare Leukocytes, UA Positive Negative - 500+++ Miguel/mcL [facility] Healthcare Comment on above: small Nitrite, UA Negative Negative - Positive [facility] pH, UA 6 5 - 9 [facility] e Protein, UA Trace Negative - 1999(20) ++++ mg/dL [facility] Healthcare Spec Grav, UA 1.03 1 - 1.03 [facility] care Urobilinogen, UA 0.2 0.2 - 12 mg/dL [facility] Urinalysis macro (dipstick) panel (U)on 02-03-2024 Bilirubin, UA Negative Negative - 4(70) +++ mg/dL [facility] Blood, UA Negative Negative - 50 Iron/mcL [facility] Healthcare Clarity, UA Clear [facility] re Color, UA Yellow [facility] Glucose, UA Negative Negative - 1999(110) ++++ mg/dL [facility] Interpretation and review of laboratory results Abnormal [facility] Ketones, UA Negative Negative - 160(16) ++++ mg/dL [facility] Healthcare Leukocytes, UA Positive Negative - 500+++ Miguel/mcL [facility] Healthcare Comment on above: small Nitrite, UA Negative Negative - Positive [facility] pH, UA 6.5 5 - 9 [facility] Protein, UA Negative Negative - 1999(20) ++++ mg/dL [facility] Healthcare Spec Grav, UA 1.025 1 - 1.03 [facility] care Urobilinogen, UA 1.0 0.2 - 12 mg/dL [facility] Urinalysis macro (dipstick) panel (U)on 01-19-2024 Bilirubin, UA Negative Negative - 4(70) +++ mg/dL [facility] Blood, UA Negative Negative - 50 Iron/mcL [facility] Healthcare Clarity, UA Clear [facility] re Color, UA Yellow [facility] e Glucose, UA Negative Negative - 1999(110) ++++ mg/dL [facility] Interpretation and review of laboratory results Abnormal [facility] Ketones, UA Negative Negative - 160(16) ++++ mg/dL [facility] Leukocytes, UA Trace Negative - 500+++ Miguel/mcL [facility] Nitrite, UA Negative Negative - Positive [facility] pH, UA 6 5 - 9 [facility] e Protein, UA Negative Negative - 1999(20) ++++ mg/dL [facility] Spec Grav, UA 1.025 1 - 1.03 [facility] care Urobilinogen, UA 0.2 0.2 - 12 mg/dL [facility] Urinalysis macro (dipstick) panel (U)on 12-22-2023 Bilirubin, UA Negative Negative - 4(70) +++ mg/dL [facility] Blood, UA Positive Negative - 50 Iron/mcL [facility] Healthcare Comment on above: trace Clarity, UA Clear [facility] re Color, UA Yellow [facility] Glucose, UA Negative Negative - 1999(110) ++++ mg/dL [facility] Interpretation and review of laboratory results Abnormal [facility] Ketones, UA Negative Negative - 160(16) ++++ mg/dL [facility] Leukocytes, UA Positive Negative - 500+++ Miguel/mcL [facility] Comment on above: small Nitrite, UA Negative Negative - Positive [facility] pH, UA 6.5 5 - 9 [facility] Protein, UA Negative Negative - 2000(20) ++++ mg/dL [facility] Spec Grav, UA 1.02 1 - 1.03 [facility] Urobilinogen, UA 0.2 0.2 - 12 mg/dL [facility] CBC WITH AUTO DIFFon BASOPHILS ABSOLUTE AUTO 0 [facility] Basophils/100 WBC (Bld) 0.2 % 0.2 - 2.0 % [facility] Eosinophils/100 WBC (Bld) 0.5 % Low 0.9 - 7.0 % [facility] Erythrocyte distribution width (RBC) [Ratio] 12.8 % 11.0 - 15.0 % [facility] Hematocrit (Bld) [Volume fraction] 38.7 % 36.0 - 48.0 % [facility] Hemoglobin (Bld) [Mass/Vol] 13.1 g/dL 12.0 - 16.0 g/dL [facility] IMMATURE GRANULOCYTES ABS AUTO 0.03 [facility] Immature granulocytes/100 WBC (Bld) 0.3 % 0.0 - 0.5 % [facility] Interpretation and review of laboratory results Abnormal [facility] LYMPHOCYTES ABSOLUTE AUTO 2.1 [facility] Lymphocytes/100 WBC (Bld) 18.3 % Low 20.5 - 60.0 % [facility] MCH (RBC) [Entitic mass] 31.7 pg 26.7 - 34.0 pg [facility] MCHC (RBC) [Mass/Vol] 33.9 g/dL 29.9 - 35.2 g/dL [facility] MCV (RBC) [Entitic vol] 93.7 fL 81.0 - 99.0 fL [facility] MONOCYTES ABSOLUTE AUTO 0.4 [facility] Monocytes/100 WBC (Bld) 3.7 % 1.7 - 12.0 % [facility] NEUTROPHILS ABSOLUTE AUTO 8.8 High [facility] Neutrophils/100 WBC (Bld) 77 % High 43.0 - 75.0 % [facility] Platelet mean volume (Bld) [Entitic vol] 10.8 fL 9.5 - 13.5 fL [facility] Healthc are TBH EO # 0.1 [facility] TBH PLT 233 [facility] TB RBC 4.13 Low [facility] TBH WBC 11.5 High [facility]car e [facility] e URETHRITIS/DISCHARGE PLUS VA GINITIS (HTRX)on 12-03-2023 ATOPOBIUM VAGINAE 0 [facility] althcare ATOPOBIUM VAGINAE Not detected [facility] BVAB 2,3 (BACTERIAL VAGINOSIS ASSOCIATED BACTERIA 2, 3); MOBILUNCUS SPP 26.835 Abnormal [facility] BVAB 2,3 (BACTERIAL VAGINOSIS ASSOCIATED BACTERIA 2, 3); MOBILUNCUS SPP Detected Abnormal [facility] ANGELINA ALBICANS, PARAPSILOSIS, TROPICALIS 0 [facility] ANGELINA ALBICANS, PARAPSILOSIS, TROPICALIS Not detected [facility] ANGELINA GLABRATA 0 [facility] ANGELINA GLABRATA Not detected [facility] ealthcare ANGELINA KRUSEI 0 [facility] ANGELINA KRUSEI Not detected [facility] lthcare CHLAMYDIA TRACHOMATIS 0 [facility] CHLAMYDIA TRACHOMATIS Not detected [facility] GARDNERELLA VAGINALIS 0 [facility] GARDNERELLA VAGINALIS Not detected [facility] Interpretation and review of laboratory results Abnormal [facility] MEGASPHAERA (TYPES 1, 2) 0 [facility] MEGASPHAERA (TYPES 1, 2) Not detected [facility] MYCOPLASMA GENITALIUM 0 [facility] MYCOPLASMA GENITALIUM Not detected [facility] NEISSERIA GONORRHOEAE 0 [facility] NEISSERIA GONORRHOEAE Not detected [facility] TRICHOMONAS VAGINALIS 0 [facility] TRICHOMONAS VAGINALIS Not detected [facility] HCG ( test) Ql (U)o n 12-02-2023 Interpretation and review of laboratory results Abnormal [facility] Preg Test, Ur Positive [facility] care [facility] Healthcar e Urinalysis macro (dipstick) panel (U)on 12-02-2023 Bilirubin, UA Negative Negative - 4(70) +++ mg/dL [facility] Blood, UA Negative Negative - 50 Iron/mcL [facility] Clarity, UA Clear [facility] Healthmd re Color, UA Yellow [facility] e Glucose, UA Negative Negative - 2000(110) ++++ mg/dL [facility] Interpretation and review of laboratory results Abnormal [facility] Ketones, UA Negative Negative - 160(16) ++++ mg/dL [facility] Leukocytes, UA Positive Negative - 500+++ Miguel/mcL [facility] Nitrite, UA Negative Negative - Positive [facility] pH, UA 5.5 5 - 9 [facility] e Protein, UA Negative Negative - 2000(20) ++++ mg/dL [facility] Spec Grav, UA 1.03 1 - 1.03 [facility] Urobilinogen, UA 1.0 0.2 - 12 mg/dL [facility] e MHPT TRICHOMONAS/WET PREPon 11-21-2023 WET PREP TRIC BV ANGELINA Wet Prep Tric BV Angelina WP.BACT Bacteria^Bacteria [facility] WET PREP TRIC BV ANGELINA WP.CLUE Clue Cells^Clue Cells [facility] WET PREP TRIC BV ANGELINA WP.JONATHAN Fungal Elements^Fungal Elements [facility] WET PREP TRIC BV ANGELINA WP.RBC RBC^RBC [facility] WET PREP TRIC BV ANGELINA WP.TRICH Trichomonas^Trichomo luis felipe [facility] WET PREP TRIC BV ANGELINA WP.WBC WBC^WBC [facility] e No Panel Informationon 11-20 WET PREP TRIC BV ANGELINA F Few^Few [facility] WET PREP TRIC BV ANGELINA N None Seen^None Seen [facility] CT BRAIN WO CONTon CT BRAIN WO [...] dose to as low as reasonably achievable. Finalized by Olvin Alcaraz MD on 06/08/2023 9:25 PM Normal [facility] CT CERVICAL SPINE WO CONTon 06-08-2023 [...] dose to as low as reasonably achievable. Finalized by Olvin Alcaraz MD on 06/08/2023 9:43 PM Normal [facility] XR CHEST 2 VWSon 06-08-2023 XR CHEST 2 VWS XR CHEST 2 VWS PA and lateral chest: HISTORY: Trauma. 2 views of the chest are obtained. Cardiac and mediastinal contours are within normal limits. There is no focal infiltrate, effusion, or pneumothorax. Osseous structures appear intact. IMPRESSION: No acute findings. Finalized by Olvin Alcaraz MD on 06/08/2023 9:19 PM Normal [facility] XR PELVIS 1 OR 2 VWSon 06-07 XR PELVIS 1 OR 2 VWS XR PELVIS 1 OR 2 VW S CLINICAL INFORMATION: trauma TECHNIQUE: XR PELVIS 1 OR 2 VWS Single view of the pelvis was obtained. Pelvic ring appears intact. Femoral necks are symmetric. No acute fracture. IMPRESSION: No acute findings. Finalized by Olvin Alcaraz MD on 06/08/2023 9:22 PM Normal [facility] XR SHOULDER LT MIN 2 VWSon 0 06-08-2023 XR SHOULDER LT MIN 2 VWS XR SHOULDER LT MIN 2 VWS CLINICAL INFORMATION: trauma TECHNIQUE: XR SHOULDER LT MIN 2 VWS 3 views of the left shoulder were obtained. There is no acute osseous abnormality. No fractures seen. No malalignment. IMPRESSION: No acute findings. Finalized by Olvin Alcaraz MD on 06/08/2023 9:20 PM Normal [facility] MRI Knee w/o Lefton 12-12-19 MRI Knee w/o Left History: Knee pain since a fall. Technique: Multiplanar multisequence MRI of the knee was performed without contrast. Comparison: None available Findings: Transversely oriented linear hypointense signal within the posterior aspect of the lateral tibial plateau may represent nondisplaced/nondepr essed fracture without involvement of the subchondral cortex. [...] with pivot shift bone contusion pattern. Possible nondisplaced/nondepr essed lateral tibial plateau fracture. High-grade partial thickness tear of the proximal medial collateral ligament. Report reported and signed by AMMON PALENCIA on 12/12/2021 1348 Normal [facility] XR knee LT 4V*on 11-29-2021 XR knee LT 4V* [facility] [place] [address] [place] [address] XRay Report Signed Patient: Clari Licona MR#: [id number] 7 : 2000 Acct:[id number] Age/Sex: 21 / F ADM Date: 11/28/21 Loc: ER Room: Type: [facility] ER Attending Dr: Copies to: Sultana [...] Claudia Baugh M.D.11/29/2021 9:03 AM Dictation Location: [place] [address] Transcribed By: [facility] 11/29/21902 Dictated By: Claudia Baugh MD 11/29/21901 Signed By: 11/29/21 0903 [facility] Vital Signs Date Time Vital Sign Value Performing Clinician Facility 03-21-2024 11:36-0500 Body mass index (BMI) [Ratio] 34.21 kg/m2 Maryam SALES Work Phone: [facility] 03-21-2024 11:36-0500 Body weight 108.14 kg Maryam Nguyen PA Work Phone: [facility] 03-21-2024 11:36-0500 Diastolic blood pressure 72 mm[Hg] Maryam Nguyen PA Work Phone: [facility] 03-21-2024 11:36-0500 Systolic blood pressure 110 mm[Hg] Maryam Nguyen PA Work Phone: [facility] 03-07-2024 11:02-0500 Body mass index (BMI) [Ratio] 33.26 kg/m2 Jayant Robert DO Work Phone: [facility] 03-07-2024 11:02-0500 Body weight 105.14 kg Jayant Robert DO Work Phone: [facility] 03-07-2024 11:02-0500 Diastolic blood pressure 78 mm[Hg] Jayant Robert DO Work Phone: [facility] 03-07-2024 11:02-0500 Systolic blood pressure 124 mm[Hg] Jayant Robert DO Work Phone: [facility] 02-21-2024 10:34-0500 Body mass index (BMI) [Ratio] 31.39 kg/m2 Maryam SALES Work Phone: [facility] 02-21-2024 10:34-0500 Body weight 99.25 kg Maryam SALES Work Phone: [facility] 02-21-2024 10:34-0500 Diastolic blood pressure 84 mm[Hg] Maryam Nguyen PA Work Phone: [facility] 02-21-2024 10:34-0500 Systolic blood pressure 138 mm[Hg] Maryam Nguyen PA Work Phone: [facility] 02-03-2024 12:19-0500 Body mass index (BMI) [Ratio] 31.71 kg/m2 Jayant Robert DO Work Phone: [facility] 02-03-2024 12:19-0500 Body weight 100.25 kg Jayant Robert DO Work Phone: [facility] 02-03-2024 12:19-0500 Diastolic blood pressure 72 mm[Hg] Jayant Robert DO Work Phone: [facility] 02-03-2024 12:19-0500 Systolic blood pressure 120 mm[Hg] Jayant Robert DO Work Phone: [facility] 01-19-2024 11:59-0500 Body mass index (BMI) [Ratio] 32.11 kg/m2 Maryam Severino PA Work Phone: [facility] 01-19-2024 11:59-0500 Body weight 101.52 kg Maryam [employer] PA Work Phone: [facility] 01-19-2024 11:59-0500 Diastolic blood pressure 68 mm[Hg] Maryam Severino PA Work Phone: [facility] 01-19-2024 11:59-0500 Systolic blood pressure 120 mm[Hg] Maryam [employer] PA Work Phone: [facility] 12-22-2023 14:38-0500 Body mass index (BMI) [Ratio] 29.99 kg/m2 Jayant Robert DO Work Phone: [facility] 12-22-2023 14:38-0500 Body weight 94.8 kg Jaaynt Robert DO Work Phone: [facility] 12-22-2023 14:38-0500 Diastolic blood pressure 74 mm[Hg] Jayant Robert DO Work Phone: [facility] 12-22-2023 14:38-0500 Systolic blood pressure 118 mm[Hg] Jayant Robert DO Work Phone: [facility] 12-02-2023 14:27-0400 Body mass index (BMI) [Ratio] 29.39 kg/m2 [facility] Nurse [facility] 12-02-2023 14:27-0400 Body weight 92.9 kg Noms Nurse [facility] 01-13-2022 09:15-0500 Body height 180.34 cm Shaan Olexa Other [place] [employer] Other 01-13-2022 09:15-0500 Body mass index (BMI) [Ratio] 27.89 kg/m2 Shaan Olexa Other [facility] [employer] Other 01-13-2022 09:15-0500 Body weight 90.72 kg Shaan Olexa Other [facility] [employer] Other 11-28-2021 21:42-0400 Body height 182.88 cm [employer] Gris Kiepert Work Phone: [facility] 11-28-2021 21:42-0400 Body temperature 98 [degF] [employer] Gris Kiepert Work Phone: [facility] 11-28-2021 21:42-0400 Body weight 85.27 kg [employer] Gris Kiepert Work Phone: [facility] 11-28-2021 21:42-0400 Diastolic blood pressure 88 mm[Hg] [employer] Gris Kiepert Work Phone: [facility] 11-28-2021 21:42-0400 Heart rate 98 /min [employer] Gris Kiepert Work Phone: [facility] 11-28-2021 21:42-0400 Respiratory rate 20 /min [employer] Gris Kiepert Work Phone: [facility] 11-28-2021 21:42-0400 SaO2% (BldA) [Mass fraction] 95 % [employer] Gris Kiepert Work Phone: [facility] 10-14-2022 21:42-0400 Systolic blood pressure 152 mm[Hg] TARAN Avila Work Phone: [facility] Encounters Encounter Date Encounter Type Care Provider Facility Start: 03-21-2024 End: 03-21-2024 Office outpatient visit 15 minutes Maryam SALES Work Phone: [facility] Comment on above: Third trimester preg jhony; 34 weeks gestation of Start: 03-21-2024 End: 03-21-2024 ambulatory MARYAM NGUYEN Not Available Start: 03-07-2024 End: 03-07-2024 Bamboo flowsheet Jayant Robert DO Work Phone: [facility] Start: 03-07-2024 End: 03-07-2024 Bamboo flowsheet Jayant Robert DO Work Phone: [facility] Start: 03-07-2024 End: 03-07-2024 Office outpatient visit 15 minutes Jayant Robert DO Work Phone: [facility] Comment on above: Third trimester preg jhony; 32 weeks gestation of ; size inconsistent with dates Start: 03-07-2024 End: 03-07-2024 ambulatory JAYANT ROBERT Not Available Start: 02-21-2024 End: 02-21-2024 Bamboo flowsheet Maryam SALES Work Phone: [facility] Start: 02-21-2024 End: 02-21-2024 Bamboo flowsheet Maryam SALES Work Phone: [facility] Start: 02-21-2024 End: 02-21-2024 ambulatory MARYAM NGUYEN Not Available Start: 02-21-2024 End: 02-21-2024 Office outpatient visit 15 minutes Maryam SALES Work Phone: [facility] Comment on above: 30 weeks gestation o f ; Third trimester Start: 02-03-2024 End: 02-03-2024 Bamboo flowsheet Jayant [...] 06-08-2023 End: 06-09-2023 Emergency department patient visit [facility] Start: 06-21-2022 End: 06-21-2022 ambulatory COLBY LAUHGLIN . Facility:[facility] Start: 05-28-2022 End: 05-28-[address] HUMBERTO JAVIER Facility:[facility] Start: 05-20-2022 End: 05-20-[address] HUMBERTO JAVIER Facility:[facility] Start: 01-13-2022 End: 01-13-2022 ambulatory Shaan Balderrama Other [employer] Other Start: 01-13-2022 Office outpatient vi sit [address] [facility] Start: 11-28-2021 End: 11-29-2021 Emergency department patient visit Gris Avlia Facility:[facility] Start: 11-28-2021 End: 11-28-2021 Emergency department patient visit TARAN Avila Work Phone: [facility] Procedures Date Procedure Procedure Detail Performing Clinician Start: 03-21-2024 Urnls dip stick/tabl et rgnt non-auto w/o micrscp Maryam SALES Work Phone: Start: 03-07-2024 Urnls dip stick/tabl et rgnt non-auto w/o micrscp Jayant Robert DO Work Phone: Start: 02-21-2024 Urnls dip stick/tabl et rgnt non-auto w/o micrscp Maryam SALES Work Phone: Start: 02-03-2024 Urnls dip stick/tabl et rgnt [...] Treatment Date Care Activity Detail Author Start: 04-05-2024 End: 04-05-2024 Patient encounter procedure 04/05/2024 2:40 PM EST Routine [facility] [address] [place] [address] [place] [id number] Jayant Jones DO [address] [facility] [address] [place] [address] [facility] Start: 03-21-2024 End: 03-21-2024 Patient encounter procedure 03/21/2024 11:20 AM EST Routine [facility] [address] [facility] [place] [id number] Maryam Nguyen, PA [address] [place] [address] [place] [address] [facility] Start: 03-21-2024 End: 03-21-2024 Professional / ancillary services management 03/21/2024 10:30 AM EST Ancillary Procedure [facility] [address] [facility] [place] [id number] [facility] Start: 03-07-2024 End: 03-07-2025 US for US OB follow up transabdominal approach Imaging Routine size inconsistent with dates Expected: 03/07/2024, Expires: 03/07/2025 [facility] Work Phone: Comment on above: Expected: 03/07/2024 , Expires: 03/07/2025 Start: 03-07-2024 End: 03-07-2024 Patient encounter procedure [facility] Comment on above: Arrived Start: 02-21-2024 End: 02-21-2024 Patient encounter procedure 02/21/2024 10:20 AM EST Routine [facility] [address] [facility] [place] [id number] Maryam Nguyen, PA [address] [place] [address] [place], [place] [id number] [facility] Start: 01-19-2024 End: 01-18-2025 [...] of anatomy Expected: 01/19/2024 (Approximate), Expires: 01/18/2025 [facility] Comment on above: Expected: 01/19/2024 (Approximate), Expires: 01/18/2025 Start: 01-19-2024 End: 01-19-2024 Patient encounter procedure [facility] Comment on above: Arrived Start: 12-22-2023 End: 12-22-2023 Patient encounter procedure [facility] Comment on above: Arrived Start: 12-22-2023 End: 12-22-2023 Professional / ancillary services management 12/22/2023 1:00 PM EST Ancillary Procedure [facility] [address] [facility] [place] [address] [facility] Start: 12-02-2023 End: 12-01-2024 ABO/Rh ABO/Rh Lab Routine Missed menses , unspecified gestational age Expected: 12/02/2023 (Approximate), Expires: 12/01/2024 [facility] Comment on above: Expected: 12/02/2023 (Approximate), [...] gestational age Expected: 12/02/2023 (Approximate), Expires: 12/01/2024 [facility] Work Phone: Comment on above: Expected: 12/02/2023 (Approximate), Expires: 12/01/2024 Start: 12-02-2023 End: 12-01-2024 Drugs of abuse panel - Urine by Screen method Rapid drug screen, urine Lab Routine , unspecified gestational age Encounter for supervision of normal first in first trimester Expected: 12/02/2023 (Approximate), Expires: 12/01/2024 [facility] Comment on above: Expected: 12/02/2023 (Approximate), Expires: 12/01/2024 Start: 12-02-2023 End: 12-01-2024 US for [facility] Comment on above: Expected: 12/02/2023 (Approximate), Expires: 12/01/2024 Start: 10-17-2023 Influenza vaccination Influenza Vacc ine (#1) [facility] Start: 11-28-2021 Radiologic examinati on of knee XR knee LT 4V* [facility] Start: 11-28-2021 XR Knee - left 4 Views [facility] Bacteria identified in Urine by Culture Urine culture Microbiology Routine Missed menses Ordered: 12/02/2023 [facility] Comment on above: Ordered: 12/02/2023 CBC W Auto Different ial panel - Blood CBC and differential Lab Routine Missed menses , unspecified gestational age Ordered: 12/02/2023 [facility] Comment on above: Ordered: 12/02/2023 Hemoglobin A1c/Hemoglobin.total in Blood Hemoglobin A1c Lab Routine Missed menses , unspecified gestational age Ordered: 12/02/2023 [facility] Comment on above: Ordered: 12/02/2023 Hepatitis B virus surface Ag [Presence] in Serum or Plasma by Immunoassay Hepatitis B surface antigen Lab Routine Missed menses , unspecified gestational age Ordered: 12/02/2023 [facility] Comment on above: Ordered: 12/02/2023 Hepatitis C virus Ab [Presence] in Serum or Plasma by Immunoassay Hepatitis C antibody Lab Routine Missed menses , unspecified gestational age Ordered: 12/02/2023 [facility] Comment on above: Ordered: 12/02/2023 HIV-1/HIV-2 antigen/antibody combination immunoassay HIV-1 and HIV-2 antibodies Lab Routine Missed menses , unspecified gestational age Ordered: 12/02/2023 [facility] Comment on above: Ordered: 12/02/2023 Patient Education Knee Sprain (DC) [facility] Work Phone: Patient referral [facility] Work Phone: Reagin Ab [Presence] in Serum by RPR RPR Lab Routine Missed menses , unspecified gestational age Ordered: 12/02/2023 [facility] Comment on above: Ordered: 12/02/2023 Rubella antibody, IgG Rubella an tibody, IgG Lab Routine Missed menses , unspecified gestational age Ordered: 12/02/2023 [facility] Comment on above: Ordered: 12/02/2023 Payers Date Payer Category Payer Private Health Insurance [employer]ICA[employer] [id number] 2023 Unknown [id number] 2021 Self-pay [id number] 2021 Unknown BCBS BCBS [id number] 2021-Present [phone] [address] [place] [address] [id number] 2020 Private Health Insurance [id number] 1999 Unknown [id number] 2.16.840.1.906503.3.579.2 .593 1999 Unknown [id number] 2.16.840.1.892500.3.579.2 .593 1999 Unknown [id number] 2.16.840.1.289891.3.579.2 .593 1999 Unknown [id number] 2.16.840.1.395664.3.579.2 .1285 1999 Unknown [id number] 2.16.840.1.195873.3.579.2 .1285 1999 Unknown [id number] 2.16.840.1.713953.3.579.2 .1285 1999 Unknown [id number] 2.16.840.1.314906.3.579.2 .1285 1999 Unknown [id number] 2.16.840.1.188699.3.579.2 .1285 1999 Unknown [id number] 2.16.840.1.332961.3.579.2 .1285 1999 Unknown [id number] 2.16.840.1.306771.3.579.2 .1258 1999 Unknown [id number] 2.16.840.1.715691.3.579.2 .1258 1999 Unknown [id number] 2.16.840.1.823271.3.579.2 .1258 1999 Unknown [id number] 2.16.840.1.798316.3.579.2 .1258 1999 Unknown [id number] 2.16.840.1.836761.3.579.2 .1258 1999 Unknown [id number] 2.16.840.1.231605.3.579.2 .1258 1999 Unknown [id number] 2.16.840.1.867928.3.579.2 .1259 1999 Unknown [id number] 2.16.840.1.909872.3.579.2 .1259 1959 Unknown [id number] 1959 Unknown [id number] 1959 Unknown [id number] Unknown [id number] 2.16.840.1.796511.3.579.2 .531 Worker's Compensation [id number] Social History Date Type Detail Facility Start: 11-28-2021 Tobacco smoking status [facility] Smoker (finding) [facility] Start: 2000 Sex Assigned At Female F [facility] Sex Assigned At [employer] Other Tobacco smoking status [facility] Tobacco smoking consumption unknown [facility] Start: 2000 Sex assigned at Not on file [facility] Start: 04-29-2022 Gender identity Identifies as female gender (finding) [facility] Start: 08-05-2023 [facility] Clinical Notes 01-13-2022 to 03-21-2024 HENRRY Barker - 03/21/2024 11:20 AM Oksana Howard LPN - 03/07/2024 10:40 AM HENRRY Hernandez - 02/21/2024 10:20 AM HENRRY Hernandez - 02/03/2024 11:20 AM HENRRY Hernandez - 01/19/2024 11:20 AM EST Note Date & Type Note Facility 03-21-2024 History of Presen t illness Narrative Reason [...] reviewed. Vitals: Estimated body mass index is 34.21 kg/m as calculated from the following: Height as of 12/03/21: 5' 10 . Weight as of this encounter: 238 lb 6.4 oz. BP: 110/72 No LMP recorded. Patient is . ASSESSMENT & PLAN ICD-10-CM 1. Third trimester Z34.93 POCT urinalysis dipstick manually resulted 2. 34 weeks gestation of Z3A.34 Return OB: Patient presents today for a routine obstetrics appointment. Patient is currently 34w5d . Patient states she is doing well [...] Documented by HENRRY Barker on behalf of: HENRRY Barker documented in this encounter [facility] 03-07-2024 History of Presen t illness Narrative Reason [...] nursing note reviewed. Exam conducted with a tank insulator rubber present. Vitals: Estimated body mass index is 33.26 kg/m as calculated from the following: Height as of 12/03/21: 5' 10 . Weight as of this encounter: 231 lb 12.8 oz. BP: 124/78 No LMP recorded. Patient is . ASSESSMENT & PLAN ICD-10-CM 1. Third trimester Z34.93 POCT urinalysis dipstick manually resulted 2. 32 weeks gestation of Z3A.32 POCT urinalysis dipstick manually resulted Return OB: Patient presents today for a routine obstetrics appointment. Patient is currently 32w5d . Patient states she is doing well [...] Jayant Jones DO documented in this encounter [facility] 02-21-2024 History of Presen t illness Narrative Reason [...] reviewed. Vitals: Estimated body mass index is 31.39 kg/m as calculated from the following: Height as of 12/03/21: 5' 10 . Weight as of this encounter: 218 lb 12.8 oz. BP: 138/84 No LMP recorded. Patient is . ASSESSMENT & PLAN ICD-10-CM 1. 30 weeks gestation of Z3A.30 POCT urinalysis dipstick manually resulted 2. Third trimester Z34.93 POCT urinalysis dipstick manually resulted Return OB: Patient presents today for a routine obstetrics appointment. Patient is currently 30w4d . Patient states she is doing well [...] Documented by HENRRY Barker on behalf of: HENRRY Barker documented in this encounter [facility] 02-03-2024 History of Presen t illness Narrative [...] Jayant Jones DO documented in this encounter [facility] 01-19-2024 History of Presen t illness Narrative [...] nursing note reviewed. Exam conducted with a tank insulator rubber present. Vitals: Estimated body mass index is [...] of: HENRRY Barker documented in this encounter [facility] 12-22-2023 History of Presen t illness Narrative [...] nursing note reviewed. Exam conducted with a tank insulator rubber present. Vitals: Estimated body mass index is [...] Jayant Jones DO documented in this encounter [facility] 12-02-2023 History of Presen t illness Narrative [...] or undercooked meat, and stay away from [facility]. Patient has also been advised to [...] Mervat Fall LPN documented in this encounter [facility] 06-21-2022 Note PROCEDURE: XR ANKLE RT MIN [...] authenticated by: GURPREET GUEVARA Date: 2022-06-21 12:38 [facility] 06-21-2022 Note PROCEDURE: XR ANKLE [...] authenticated by: GURPREET GUEVARA Date: 2022-06-21 12:38 [facility] 01-13-2022 Evaluation note Encounter Date [...] left knee, initial encounter (ICD-10 - S83.412A) [employer] Other Evaluation noteNo assessment information available [facility] Work Phone: Evaluation note* Diagnosis Missed [...] [facility] Diagnosis 30 weeks gestation of Third trimester state, incidental documented [facility] Diagnosis Third trimester state, incidental 32 weeks gestation of size inconsistent with dates documented in this encounter [facility] Diagnosis Third trimester state, incidental 34 weeks gestation of documented in this encounter [facility] Narrative - Reported* Type Description Date Medical History anxiety Surgical History tonsillectomy [employer] Other Hospital Discharge instructions Additional Instructions Ice and elevate Tylenol/ Motrin if needed for pain Wear knee immobilizer for the next 3 to 4 days Partial weightbearing with crutches Tylenol or Naprosyn if needed for pain Return here if any problems persist or worsen Follow-up with your primary care doctor orthopedic for recheck in 3 [facility] Work Phone: Chief Complaint and Reason for [...] Member Role Status Dates Gris Avila APRN [employer] Primary Care Provider Jessica Rueda APRN Emergency Provider Active Team Status: Active Member Role Status Dates Gris Avila , TARAN [employer]-C Primary Care Provider Activ e Directional Drill Operator Relationship Specialty Start Date End Date Miryam Loving DO [address] [place] [address] PCP - General Family Medicine 06/23/22 Directional Drill Operator Relationship Specialty Start Date End Date Unallocated, Kodak Antonio MD [facility] [place] [address] PCP - General Family Medicine 11/23/23 Directional Drill Operator Relationship Specialty Start Date End Date Unallocated, Kodak Antonio MD [facility] [place] [address] PCP - General Family Medicine 11/23/23 Directional Drill Operator Relationship Specialty Start Date End Date Unallocated, Kodak Antonio MD [facility] [place] [address] PCP - General Family Medicine 11/23/23 Directional Drill Operator Relationship Specialty Start Date End Date Unallocated, Kodak Antonio MD [facility] [address] [facility] [place] [address] PCP - General Family Medicine 11/23/23 Directional Drill Operator Relationship Specialty Start Date End Date Unallocated, Kodak Antonio MD [facility] [address] [facility] [place] [address] PCP - General Family Medicine 11/23/23 Directional Drill Operator Relationship Specialty Start Date End Date Unallocated, Kodak Antonio MD [facility] [address] [facility] [place] [address] PCP - General Family Medicine 11/23/23 Directional Drill Operator Relationship Specialty Start Date End Date Unallocated, [facility] Provider, [address] [place] [address] PCP - General Family Medicine 11/23/23 Goals (unrecognized section and content) Goals may be documented in a n alternate sectionNo Information INFORMATION SOURCE (unrecogn ized section and content) DATE CREATED AUTHOR 12/10/2021 [facility] DATE CREATED AUTHOR AUTHOR'S ORGANIZ ATION 12/13/2021 [facility] dical Specialist DATE CREATED AUTHOR AUTHOR'S ORGANIZ ATION 06/24/2022 [facility] DATE CREATED AUTHOR AUTHOR'S ORGANIZ ATION 06/10/2023 [facility] DATE CREATED AUTHOR AUTHOR'S ORGANIZ ATION 03/23/2024 [facility] dical Specialists EPIC REASON FOR VISIT [...] BE BASED ON THE PRIMARY CLINICAL RECORDS. [employer] [facility]. provides no warranty or guarantee of the accuracy or completeness of information in this document.
--- NOTE | 2024-03-23 15:49 | US_ITS ---
[address] [address] Patient Name: DARYN RYAN MRN: [id number] date: 2000 Sex: F Assigned Patient Location: [facility] Current Patient Location: [facility] Accession/Order Number: [id number] Exam Date: 03/23/2024 16:07 Report Date: 03/23/2024 17:06 At the request of: JAYANT CARLSON Procedure: US OB BPP w non-stress OB ultrasound for biophysical profile, 03/23/2024 4:07 PM EST COMPARISON: OB ultrasound, 02/01/2024 CLINICAL HISTORY: Fall and decreased movement Biophysical profile is scored: breathing score 2 out of 2. tone score 2 out of 2. movements score 2 out of 2. Qualitative amniotic fluid amount score 2 out of 2. reactivity was not performed or the results are not known at time of examination. This gives a total of 8 out of 8. The position is cephalic. The heart rate is 142 beats per minute. Amniotic fluid index is 17 cm which is in the 5th to 95th percentile range. US/US OB BPP w non-stress IMPRESSION: 1. A score of 8 of 8 is noted. 2. The heart rate is 142 beats per minute. 3. The position is cephalic. Amniotic fluid index 17 cm. Electronically authenticated by: Soo GALARZA Date: 03/23/2024 17:06
== END 2024-03-23 16:26 | disposition home or self-care (01) ==
PROVIDERS: Admitting Provider Obstetrics & Gynecology; Visit Provider Obstetrics & Gynecology
DX: O36.8130 Decreased fetal movements, third trimester, not applicable or unspecified (principal); Z3A.35 35 weeks gestation of pregnancy; Z91.81 History of falling
CPT/HCPCS: 59025; 76818; G0378; G0379

== ENCOUNTER 2024-04-05 21:56 | Outpatient (REF) | payer OTHER, SELFPAY ==
--- OUTSIDE RECORDS SUMMARY | 2024-04-05 21:59 | XMS_ITS | CCD ---
Author Organization [facility] Care Team Providers Care Engineering Assistant Name Role Phone TARAN Avila Primary Care [...] Interpretation Reference Range Facil ity US OB BPP W NON-STRESS on 03-23-2024 [place] [address] Ultrasound Report Signed Patient: DARYN LICONA MR#: [id number] : 2000 Acct:[id number] Age/Sex: 23 / F ADM Date: Loc: [facility] 250-[address]: Jayant Jones D.O. Ordering Physician: Jayant Jones D.O. Date of Service: 03/23/24 Procedure(s): US OB BPP w non-stress Accession Number(s): [id number] cc: Jayant Jones D.O.; Physician,Non-Staff Vicki The [address] [address] Patient Name: DARYN LICONA MRN: [facility]:[id number] date: 2000 Sex: F Assigned Patient Location: [facility] Current Patient Location: [facility] Accession/Order Number: [id number] Exam Date: 03/23/2024 16:07 Report Date: 03/23/2024 17:06 At the request of: JAYANT JONES Procedure: US OB BPP w non-stress OB ultrasound for biophysical profile, 03/23/2024 4:07 PM EST COMPARISON: OB ultrasound, 02/01/2024 CLINICAL HISTORY: Fall and decreased movement Biophysical profile is scored: breathing score 2 out of 2. tone score 2 out of 2. movements score 2 out of 2. Qualitative amniotic fluid amount score 2 out of 2. reactivity was not performed or the results are not known at time of examination. This gives a total of 8 out of 8. The position is cephalic. The heart rate is 142 beats per minute. Amniotic fluid index is 17 cm which is in the 5th to 95th percentile range. US/US OB BPP w non-stress IMPRESSION: 1. A score of 8 of 8 is noted. 2. The heart rate is 142 beats per minute. 3. The position is cephalic. Amniotic fluid index 17 cm. Electronically authenticated by: Soo GALARZA Date: 03/23/2024 17:06 Dictated By: Bladimir Galarza M.D. Signed By: 03/23/241707 DD/ 05 TD/TT: Solar Power Installer: [facility] Radiology, Radiologist, - 03/23/[address] [address] Ultrasound Report Signed Patient: DARYN LICONA MR#: [id number] : 2000 Acct:[id number] Age/Sex: 23 / F ADM Date: Loc: [facility] 250-[address]: Jayant Jones D.O. Ordering Physician: Jayant Jones D.O. Date of Service: 03/23/24 Procedure(s): US OB BPP w non-stress Accession Number(s): [id number] cc: Jayant Jones D.O.; Physician,Non-Staff [place] [address] Patient Name: DARYN LICONA MRN: [facility]:[id number] date: 2000 Sex: F Assigned Patient Location: [facility] Current Patient Location: [facility] Accession/Order Number: [id number] Exam Date: 03/23/2024 16:07 Report Date: 03/23/2024 17:06 At the request of: JAYANT JONES Procedure: US OB BPP w non-stress OB ultrasound for biophysical profile, 03/23/2024 4:07 PM EST COMPARISON: OB ultrasound, 02/01/2024 CLINICAL HISTORY: Fall and decreased movement Biophysical profile is scored: breathing score 2 out of 2. tone score 2 out of 2. movements score 2 out of 2. Qualitative amniotic fluid amount score 2 out of 2. reactivity was not performed or the results are not known at time of examination. This gives a total of 8 out of 8. The position is cephalic. The heart rate is 142 beats per minute. Amniotic fluid index is 17 cm which is in the 5th to 95th percentile range. US/US OB BPP w non-stress IMPRESSION: 1. A score of 8 of 8 is noted. 2. The heart rate is 142 beats per minute. 3. The position is cephalic. Amniotic fluid index 17 cm. Electronically authenticated by: Soo GALARZA Date: 03/23/2024 17:06 Dictated By: Bladimir Galarza M.D. Signed By: 03/23/241707 DD/ 05 TD/TT: Solar Power Installer: [facility] Radiology Study observation (narrative) [facility] US OB BPP W NON-STRESS Ordered By: Radiologist Radiology on 03-23-2024 [facility] Work Phone: US OB FOLLOW UP TRANSABDOMIN AL APPROACHon [...] UA Negative Negative - 4(70) +++ mg/dL [facility] Level Blood, UA Negative Negative - 50 Iron/mcL [facility] Level Clarity, UA Clear [facility] re Color, UA Yellow [facility] Glucose, UA Negative Negative - 2000(110) ++++ mg/dL [facility] Interpretation and review of laboratory results Abnormal [facility] Ketones, UA Positive Negative - 160(16) ++++ mg/dL [facility] Leukocytes, UA Positive Negative - 500+++ Miguel/mcL [facility] Healthcare Nitrite, UA Negative Negative - Positive [facility] pH, UA 6.5 5 - 9 [facility] Protein, UA Positive Negative - 1999(20) ++++ mg/dL [facility] Healthcare Spec Grav, UA 1.025 1 - 1.03 [facility] Urobilinogen, UA 0.2 0.2 - 12 mg/dL [facility] Urinalysis macro (dipstick) panel (U)on 03-07-2024 Bilirubin, UA Negative Negative - 4(70) +++ mg/dL [facility] Blood, UA Negative Negative - 50 Iron/mcL [facility] Healthcare Clarity, UA Clear [facility] re Color, UA Yellow [facility] Glucose, UA Negative Negative - 1999(110) ++++ mg/dL [facility] Interpretation and review of laboratory results Abnormal [facility] Ketones, UA Negative Negative - 160(16) ++++ mg/dL [facility] Leukocytes, UA Positive Negative - 500+++ Miguel/mcL [facility] Nitrite, UA Negative Negative - Positive [facility] pH, UA 6.5 5 - 9 [facility] Protein, UA Negative Negative - 1999(20) ++++ mg/dL [facility] Spec Grav, UA 1.025 1 - 1.03 [facility] Urobilinogen, UA 1.0 0.2 - 12 mg/dL [facility] Urinalysis macro (dipstick) panel (U)on 02-21-2024 Bilirubin, UA Negative Negative - 4(70) +++ mg/dL [facility] Blood, UA Negative Negative - 50 Iron/mcL [facility] Healthcare Clarity, UA Clear [facility] re Color, UA Yellow [facility] Glucose, UA Negative Negative - 1999(110) ++++ mg/dL [facility] Interpretation and review of laboratory results Abnormal [facility] Ketones, UA Negative Negative - 160(16) ++++ mg/dL [facility] Leukocytes, UA Positive Negative - 500+++ Miguel/mcL [facility] Healthcare Comment on above: small Nitrite, UA Negative Negative - Positive [facility] Healthcare pH, UA 6 5 - 9 [facility] Protein, UA Trace Negative - 1999(20) ++++ mg/dL [facility] Healthcare Spec Grav, UA 1.03 1 - 1.03 [facility] care Urobilinogen, UA 0.2 0.2 - 12 mg/dL [facility] Urinalysis macro (dipstick) panel (U)on 02-03-2024 Bilirubin, UA Negative Negative - 4(70) +++ mg/dL [facility] Blood, UA Negative Negative - 50 Iron/mcL [facility] Healthcare Clarity, UA Clear [facility] re Color, UA Yellow [facility] Glucose, UA Negative Negative - 1999(110) ++++ mg/dL [facility] Interpretation and review of laboratory results Abnormal [facility] Ketones, UA Negative Negative - 160(16) ++++ mg/dL [facility] Healthcare Leukocytes, UA Positive Negative - 500+++ Miguel/mcL [facility] Healthcare Comment on above: small Nitrite, UA Negative Negative - Positive [facility] pH, UA 6.5 5 - 9 [facility] Protein, UA Negative Negative - 1999(20) ++++ mg/dL [facility] Spec Grav, UA 1.025 1 - 1.03 [facility] Urobilinogen, UA 1.0 0.2 - 12 mg/dL [facility] Urinalysis macro (dipstick) panel (U)on 01-19-2024 Bilirubin, UA Negative Negative - 4(70) +++ mg/dL [facility] Blood, UA Negative Negative - 50 Iron/mcL [facility] Healthcare Clarity, UA Clear [facility] Color, UA Yellow [facility] Glucose, UA Negative Negative - 1999(110) ++++ mg/dL [facility] Interpretation and review of laboratory results Abnormal [facility] Healthcare Ketones, UA Negative Negative - 160(16) ++++ mg/dL [facility] Healthcare Leukocytes, UA Trace Negative - 500+++ Miguel/mcL [facility] Healthcare Nitrite, UA Negative Negative - Positive [facility] pH, UA 6 5 - 9 [facility] Protein, UA Negative Negative - 1999(20) ++++ mg/dL [facility] Spec Grav, UA 1.025 1 - 1.03 [facility] Urobilinogen, UA 0.2 0.2 - 12 mg/dL [facility] Urinalysis macro (dipstick) panel (U)on 12-22-2023 Bilirubin, UA Negative Negative - 4(70) +++ mg/dL [facility] Blood, UA Positive Negative - 50 Iron/mcL [facility] Comment on above: trace Clarity, UA Clear [facility] re Color, UA Yellow [facility] e Glucose, UA Negative Negative - 1999(110) ++++ mg/dL [facility] Interpretation and review of laboratory results Abnormal [facility] Ketones, UA Negative Negative - 160(16) ++++ mg/dL [facility] Leukocytes, UA Positive Negative - 500+++ Miguel/mcL [facility] Comment on above: small Nitrite, UA Negative Negative - Positive [facility] pH, UA 6.5 5 - 9 [facility] e Protein, UA Negative Negative - 1999(20) ++++ mg/dL [facility] Spec Grav, UA 1.02 1 - 1.03 [facility] Urobilinogen, UA 0.2 0.2 - 12 mg/dL [facility] ALL CBC WITH AUTO DIFFon BASOPHILS ABSOLUTE AUTO 0 [facility] Basophils/100 WBC (Bld) 0.2 % 0.2 - 2.0 % [facility] Eosinophils/100 WBC (Bld) 0.5 % Low 0.9 - 7.0 % [facility] Erythrocyte distribution width (RBC) [Ratio] 12.8 % 11.0 - 15.0 % [facility] Hematocrit (Bld) [Volume fraction] 38.7 % 36.0 - 48.0 % [facility] Hemoglobin (Bld) [Mass/Vol] 13.1 g/dL 12.0 - 16.0 g/dL [facility] IMMATURE GRANULOCYTES ABS AUTO 0.03 [facility] Immature granulocytes/100 WBC (Bld) 0.3 % 0.0 - 0.5 % [facility] Interpretation and review of laboratory results Abnormal [facility] LYMPHOCYTES ABSOLUTE AUTO 2.1 [facility] Lymphocytes/100 WBC (Bld) 18.3 % Low 20.5 - 60.0 % [facility] MCH (RBC) [Entitic mass] 31.7 pg 26.7 - 34.0 pg [facility] MCHC (RBC) [Mass/Vol] 33.9 g/dL 29.9 - 35.2 g/dL [facility] MCV (RBC) [Entitic vol] 93.7 fL 81.0 - 99.0 fL [facility] MONOCYTES ABSOLUTE AUTO 0.4 [facility] Monocytes/100 WBC (Bld) 3.7 % 1.7 - 12.0 % [facility] NEUTROPHILS ABSOLUTE AUTO 8.8 High [facility] Neutrophils/100 WBC (Bld) 77 % High 43.0 - 75.0 % [facility] Platelet mean volume (Bld) [Entitic vol] 10.8 fL 9.5 - 13.5 fL [facility] are TBH EO # 0.1 [facility] TBH PLT 233 [facility] TB[facility] RBC 4.13 Low [facility] WBC 11.5 High [facility] URETHRITIS/DISCHARGE PLUS VA GINITIS (HTRX)on 12-03-2023 ATOPOBIUM VAGINAE 0 [facility] ATOPOBIUM VAGINAE Not detected [facility] BVAB 2,3 (BACTERIAL VAGINOSIS ASSOCIATED BACTERIA 2, 3); MOBILUNCUS SPP 26.835 Abnormal [facility] BVAB 2,3 (BACTERIAL VAGINOSIS ASSOCIATED BACTERIA 2, 3); MOBILUNCUS SPP Detected Abnormal [facility] ANGELINA ALBICANS, PARAPSILOSIS, TROPICALIS 0 [facility] ANGELINA ALBICANS, PARAPSILOSIS, TROPICALIS Not detected [facility] ANGELINA GLABRATA 0 [facility] a lthcare ANGELINA GLABRATA Not detected [facility] AN[facility]ELINA KRUSEI [facility] ANGELINA KRUSEI Not detected [facility] CHLAMYDIA TRACHOMATIS 0 [facility] CHLAMYDIA TRACHOMATIS Not detected [facility] GARDNERELLA VAGINALIS 0 [facility] GARDNERELLA VAGINALIS Not detected [facility] Interpretation and review of laboratory results Abnormal [facility] MEGASPHAERA (TYPES 1, 2) 0 [facility] MEGASPHAERA (TYPES 1, 2) Not detected [facility] MYCOPLASMA GENITALIUM 0 [facility] MYCOPLASMA GENITALIUM Not detected [facility] NEISSERIA GONORRHOEAE 0 [facility] NEISSERIA GONORRHOEAE Not detected [facility] TRICHOMONAS VAGINALIS 0 [facility] TRICHOMONAS VAGINALIS Not detected [facility] HCG ( test) Ql (U)o n 12-02-2023 Interpretation and review of laboratory results Abnormal [facility] Preg Test, Ur Positive [facility] Urinalysis macro (dipstick) panel (U)on 12-02-2023 Bilirubin, UA Negative Negative - 4(70) +++ mg/dL [facility] Blood, UA Negative Negative - 50 Iron/mcL [facility] Clarity, UA Clear [facility] re Color, UA Yellow [facility] e Glucose, UA Negative Negative - 1999(110) ++++ mg/dL [facility] Interpretation and review of laboratory results Abnormal [facility] Ketones, UA Negative Negative - 160(16) ++++ mg/dL [facility] Leukocytes, UA Positive Negative - 500+++ Miguel/mcL [facility] Nitrite, UA Negative Negative - Positive [facility] pH, UA 5.5 5 - 9 [facility] e Protein, UA Negative Negative - 1999(20) ++++ mg/dL [facility] Spec Grav, UA 1.03 1 - 1.03 [facility] Urobilinogen, UA 1.0 0.2 - 12 mg/dL [facility] MHPT TRICHOMONAS/WET PREPon 11-21-2023 WET PREP TRIC BV ANGELINA Wet Prep Tric BV Angelina WP.BACT Bacteria^Bacteria [facility] WET PREP TRIC BV ANGELINA WP.CLUE Clue Cells^Clue Cells [facility] WET PREP TRIC BV ANGELINA WP.JONATHAN Fungal Elements^Fungal Elements [facility] WET PREP TRIC BV ANGELINA WP.RBC RBC^RBC [facility] WET PREP TRIC BV ANGELINA WP.TRICH Trichomonas^Trichomo luis felipe [facility] WET PREP TRIC BV ANGELINA WP.WBC WBC^WBC [facility] e No Panel Informationon 11-20 WET PREP TRIC BV ANGELINA F Few^Few [facility] WET PREP TRIC BV ANGELINA N None Seen^None Seen [facility] CT BRAIN WO CONTon CT BRAIN WO [...] Alcaraz MD on 06/08/2023 9:25 PM Normal [facility] CT CERVICAL SPINE WO CONTon 06-08-2023 CT [...] Alcaraz MD on 06/08/2023 9:43 PM Normal [facility] XR CHEST 2 VWSon 06-08-2023 XR CHEST 2 VWS XR CHEST 2 VWS PA and lateral chest: HISTORY: Trauma. 2 views of the chest are obtained. Cardiac and mediastinal contours are within normal limits. There is no focal infiltrate, effusion, or pneumothorax. Osseous structures appear intact. IMPRESSION: No acute findings. Finalized by Olvin Alcaraz MD on 06/08/2023 9:19 PM Normal [facility] XR PELVIS 1 OR 2 VWSon 06-07 XR PELVIS 1 OR 2 VWS XR PELVIS 1 OR 2 VW S CLINICAL INFORMATION: trauma TECHNIQUE: XR PELVIS 1 OR 2 VWS Single view of the pelvis was obtained. Pelvic ring appears intact. Femoral necks are symmetric. No acute fracture. IMPRESSION: No acute findings. Finalized by Olvin Alcaraz MD on 06/08/2023 9:22 PM Normal [facility] XR SHOULDER LT MIN 2 VWSon 0 06-08-2023 XR SHOULDER LT MIN 2 VWS XR SHOULDER LT MIN 2 VWS CLINICAL INFORMATION: trauma TECHNIQUE: XR SHOULDER LT MIN 2 VWS 3 views of the left shoulder were obtained. There is no acute osseous abnormality. No fractures seen. No malalignment. IMPRESSION: No acute findings. Finalized by Olvin Alcaraz MD on 06/08/2023 9:20 PM Normal [facility] MRI Knee w/o Lefton 12-12-19 MRI Knee [...] by AMMON PALENCIA on 12/12/2021 1348 Normal [facility] Administrative Director XR knee LT 4V*on 11-29-2021 XR knee LT 4V* [facility] Main [place] [address] [place] [address] XRay Report Signed Patient: Daryn Licona MR#: [id number] : 2000 Acct:[id number] Age/Sex: 21 / F ADM Date: 11/28/21 Loc: ER Room: Type: [facility] ER Attending Dr: Copies to: Sultana Rueda [...] Claudia Baugh M.D.11/29/2021 9:03 AM Dictation Location: [place] [address] Transcribed By: [facility] 11/29/21902 Dictated By: Claudia Baugh MD 11/29/21901 Signed By: 11/29/21902 [facility] Vital Signs Date Time Vital Sign Value Performing Clinician Facility 03-21-2024 11:36-0500 Body mass index (BMI) [Ratio] 34.21 kg/m2 Maryam Nguyen PA Work Phone: [facility] 03-21-2024 11:36-0500 Body weight 108.14 kg Maryam Nguyen PA Work Phone: [facility] 03-21-2024 11:36-0500 Diastolic blood pressure 72 mm[Hg] Maryam Nguyen PA Work Phone: [facility] 03-21-2024 11:36-0500 Systolic blood pressure 110 mm[Hg] Maryam Nguyen PA Work Phone: [facility] 03-07-2024 11:02-0500 Body mass index (BMI) [Ratio] 33.26 kg/m2 Jayant Robert DO Work Phone: [facility] 03-07-2024 11:02-0500 Body weight 105.14 kg Jayant Robert DO Work Phone: [facility] 03-07-2024 11:02-0500 Diastolic blood pressure 78 mm[Hg] Jayant Robert DO Work Phone: [facility] 03-07-2024 11:02-0500 Systolic blood pressure 124 mm[Hg] Jayant Robert DO Work Phone: [facility] 02-21-2024 10:34-0500 Body mass index (BMI) [Ratio] 31.39 kg/m2 Maryam Severino PA Work Phone: [facility] 02-21-2024 10:34-0500 Body weight 99.25 kg Maryam Carbondale PA Work Phone: [facility] 02-21-2024 10:34-0500 Diastolic blood pressure 84 mm[Hg] Maryam Severino PA Work Phone: [facility] 02-21-2024 10:34-0500 Systolic blood pressure 138 mm[Hg] Maryam Carbondale PA Work Phone: [facility] 02-03-2024 12:19-0500 Body mass index (BMI) [Ratio] 31.71 kg/m2 Jayant Robert DO Work Phone: [facility] 02-03-2024 12:19-0500 Body weight 100.25 kg Jayant Robert DO Work Phone: [facility] 02-03-2024 12:19-0500 Diastolic blood pressure 72 mm[Hg] Jyaant Robert DO Work Phone: [facility] 02-03-2024 12:19-0500 Systolic blood pressure 120 mm[Hg] Jayant Robert DO Work Phone: [facility] 01-19-2024 11:59-0500 Body mass index (BMI) [Ratio] 32.11 kg/m2 Maryam Severino PA Work Phone: [facility] 01-19-2024 11:59-0500 Body weight 101.52 kg Maryam Severino PA Work Phone: [facility] 01-19-2024 11:59-0500 Diastolic blood pressure 68 mm[Hg] Maryam Severino PA Work Phone: [facility] 01-19-2024 11:59-0500 Systolic blood pressure 120 mm[Hg] Maryam Carbondale PA Work Phone: [facility] 12-22-2023 14:38-0500 Body mass index (BMI) [Ratio] 29.99 kg/m2 Jayant Robert DO Work Phone: [facility] 12-22-2023 14:38-0500 Body weight 94.8 kg Jayant Robert DO Work Phone: [facility] 12-22-2023 14:38-0500 Diastolic blood pressure 74 mm[Hg] Jayant Robert DO Work Phone: [facility] 12-22-2023 14:38-0500 Systolic blood pressure 118 mm[Hg] Jayant Robert DO Work Phone: [facility] 12-02-2023 14:27-0400 Body mass index (BMI) [Ratio] 29.39 kg/m2 [facility] Nurse [facility] 12-02-2023 14:27-0400 Body weight 92.9 kg [facility] Nurse [facility] 01-13-2022 09:15-0500 Body height 180.34 cm Shaan Olexa Other [facility] [employer] Other 01-13-2022 09:15-0500 Body mass index (BMI) [Ratio] 27.89 kg/m2 Shaan Olexa Other [facility] [employer] Other 01-13-2022 09:15-0500 Body weight 90.72 kg Shaan Olexa Other [facility] [employer] Other 11-28-2021 21:42-0400 Body height 182.88 cm [employer] Gris Kiepert Work Phone: [facility] 11-28-2021 21:42-0400 Body temperature 98 [degF] [employer] Gris Kiepert Work Phone: [facility] 11-28-2021 21:42-0400 Body weight 85.27 kg [employer] Gris Kiepert Work Phone: [facility] 11-28-2021 21:42-0400 Diastolic blood pressure 88 mm[Hg] [employer] Gris Kiepert Work Phone: [facility] 11-28-2021 21:42-0400 Heart rate 98 /min TARAN Avila Work Phone: [facility] 11-28-2021 21:42-0400 Respiratory rate 20 /min TARAN Avila Work Phone: [facility] 11-28-2021 21:42-0400 SaO2% (BldA) [Mass fraction] 95 % [employer] READING TEACHERClementine Avila Work Phone: [facility] 11-28-2021 21:42-0400 Systolic blood pressure 152 mm[Hg] TARAN Avila Work Phone: [facility] Encounters Encounter Date Encounter Type Care Provider Facility Start: 03-23-2024 End: 03-23-2024 Clinis[facility] Result Encounter Jayant Robert DO Work Phone: [facility] Unsolicited Start: 03-23-2024 End: 03-23-2024 Clinisync Result Encounter Jayant Robert DO Work Phone: [facility] Unsolicited Start: 03-21-2024 End: 03-21-2024 Office outpatient visit [...] End: 06-09-2023 Emergency department patient visit PILI ROLON [facility] Start: 06-21-2022 End: 06-21-2022 ambulatory COLBY LAUGHLIN . Facility:[facility] Start: 05-28-2022 End: 05-28-[address] HUMBERTO JAVIER Facility:[facility] Start: 05-20-2022 End: 05-20-[address] HUMBERTO JAVIER Facility:[facility] Start: 01-13-2022 End: 01-13-2022 ambulatory Shaan Balderrama Other [employer] Other Start: 01-13-2022 Office outpatient vi sit 15 minutes Shaan Balderrama [facility] Start: 11-28-2021 End: 11-29-2021 Emergency department patient visit Gris Ayalaedwin Facility:[facility] Start: 11-28-2021 End: 11-28-2021 Emergency department patient visit [employer] Gris Avila Work Phone: [facility] Procedures Date Procedure Procedure Detail Performing Clinician Start: 03-23-2024 US OB BPP W NON-STRESS Jayant Robert DO Work Phone: Start: 03-21-2024 Urnls dip stick/tabl et rgnt [...] PM EST Routine [facility] [address] [place] [id number] Jayant Jones DO [address] [place] [address] [facility] Start: 03-21-2024 End: 03-21-2024 Patient encounter procedure 03/21/2024 11:20 AM EST Routine [facility] [address] [place] [id number] Maryam Nguyen PA [address] [place] [address] [facility] Start: 03-21-2024 End: 03-21-2024 Professional / ancillary services management 03/21/2024 10:30 AM EST Ancillary Procedure [facility] [address] [place] [id number] [facility] Start: 03-07-2024 End: 03-07-2025 US for US OB follow up transabdominal approach Imaging Routine size inconsistent with dates Expected: 03/07/2024, Expires: 03/07/2025 [facility] Work Phone: Comment on above: Expected: 03/07/2024 , Expires: 03/07/2025 Start: 03-07-2024 End: 03-07-2024 Patient encounter procedure [facility] Comment on above: Arrived Start: 02-21-2024 End: 02-21-2024 Patient encounter procedure 02/21/2024 10:20 AM EST Routine [facility] [address] [place] [address] Maryam Nguyen PA [address] [place] [address] [facility] Start: 01-19-2024 End: 01-18-2025 [...] mellitus screening Expected: 01/19/2024 (Approximate), Expires: 01/18/2025 [facility] Comment on above: Expected: 01/19/2024 (Approximate), Expires: 01/18/2025 Start: 01-19-2024 End: 01-18-2025 US for US OB INCOMPLETE ANATOMY Imaging Routine Encounter for follow-up ultrasound of anatomy Expected: 01/19/2024 (Approximate), Expires: 01/18/2025 [facility] Comment on above: Expected: 01/19/2024 (Approximate), Expires: 01/18/2025 Start: 01-19-2024 End: 01-19-2024 Patient encounter procedure [facility] Comment on above: Arrived Start: 12-22-2023 End: 12-22-2023 Patient encounter procedure [facility] Comment on above: Arrived Start: 12-22-2023 End: 12-22-2023 Professional / ancillary services management 12/22/2023 1:00 PM EST Ancillary Procedure [facility] [address] [place] [address] [facility] Start: 12-02-2023 End: 12-01-2024 ABO/Rh ABO/Rh Lab Routine Missed menses , unspecified gestational age Expected: 12/02/2023 (Approximate), Expires: 12/01/2024 [facility] Comment on above: Expected: 12/02/2023 (Approximate), Expires: 12/01/2024 Start: 12-02-2023 End: 03-03-2024 Alpha fetoprotein, maternal Alpha fetoprotein, maternal Lab Routine Encounter for supervision of normal first in first trimester Expected: 12/02/2023 (Approximate), Expires: 03/03/2024 [facility] Healthcare Comment on [...] first trimester Expected: 12/02/2023 (Approximate), Expires: 12/01/2024 [facility] Comment on above: Expected: 12/02/2023 (Approximate), Expires: 12/01/2024 Start: 12-02-2023 End: 12-01-2024 US for [facility] Comment on above: Expected: 12/02/2023 (Approximate), Expires: 12/01/2024 Start: 10-17-2023 Influenza vaccination Influenza Vacc ine (#1) [facility] Start: 11-28-2021 Radiologic examinati on of knee XR knee LT 4V* [facility] Start: 11-28-2021 XR Knee - left 4 Views [facility] Bacteria identified in Urine by Culture Urine culture Microbiology Routine Missed menses Ordered: 12/02/2023 [facility] Comment on above: Ordered: 12/02/2023 CBC W Auto Different ial panel - Blood CBC and differential Lab Routine Missed menses , unspecified gestational age Ordered: 12/02/2023 [facility] Comment on above: Ordered: 12/02/2023 Hemoglobin A1c/Hemoglobin.total in Blood Hemoglobin A1c Lab Routine Missed menses , unspecified gestational age Ordered: 12/02/2023 [facility] Comment on above: Ordered: 12/02/2023 Hepatitis B virus surface Ag [Presence] in Serum or Plasma by Immunoassay Hepatitis B surface antigen Lab Routine Missed menses , unspecified gestational age Ordered: 12/02/2023 [facility] Comment on above: Ordered: 12/02/2023 Hepatitis C virus Ab [Presence] in Serum or Plasma by Immunoassay Hepatitis C antibody Lab Routine Missed menses , unspecified gestational age Ordered: 12/02/2023 [facility] Comment on above: Ordered: 12/02/2023 HIV-1/HIV-2 antigen/antibody combination immunoassay HIV-1 and HIV-2 antibodies Lab Routine Missed menses , unspecified gestational age Ordered: 12/02/2023 [facility] Comment on above: Ordered: 12/02/2023 Patient Education Knee Sprain (DC) [facility] Work Phone: Patient referral [facility] Work Phone: Reagin Ab [Presence] in Serum by RPR RPR Lab Routine Missed menses , unspecified gestational age Ordered: 12/02/2023 [facility] Comment on above: Ordered: 12/02/2023 Rubella antibody, IgG Rubella an tibody, IgG Lab Routine Missed menses , unspecified gestational age Ordered: 12/02/2023 [facility] Comment on above: Ordered: 12/02/2023 Payers Date Payer Category Payer Private Health Insurance [employer] [id number] 2023 Unknown [id number] 2021 Self-pay [id number] 2021 Unknown BCBS BCBS [id number] 2021-Present [phone] [address] [place] [address] [id number] 2020 Private Health Insurance [id number] 1999 Unknown [id number] 2.16.840.1.823150.3.579.2 .593 1999 Unknown [id number] 2.16.840.1.689948.3.579.2 .593 1999 Unknown [id number] 2.16.840.1.656426.3.579.2 .593 1999 Unknown [id number] 2.16.840.1.703445.3.579.2 .128 1999 Unknown [id number] 2.16.840.1.612293.3.579.2 .128 1999 Unknown [id number] 2.16.840.1.632192.3.579.2 .1286 1999 Unknown [id number] 2.16.840.1.647221.3.579.2 .1286 1999 Unknown [id number] 2.16.840.1.975562.3.579.2 .1286 1999 Unknown [id number] 2.16.840.1.548576.3.579.2 .1286 1999 Unknown [id number] 2.16.840.1.084650.3.579.2 .9 1999 Unknown [id number] 2.16.840.1.867297.3.579.2 .9 1999 Unknown [id number] 2.16.840.1.650528.3.579.2 .1258 1999 Unknown [id number] 2.16.840.1.666229.3.579.2 .1258 1999 Unknown [id number] 2.16.840.1.145274.3.579.2 .1258 1999 Unknown [id number] 2.16.840.1.402720.3.579.2 .9 1999 Unknown [id number] 2.16.840.1.413816.3.579.2 .1258 1999 Unknown [id number] 2.16.840.1.293800.3.579.2 .9 1959 Unknown [id number] 1959 Unknown [id number] 1959 Unknown [id number] Unknown [id number] 2.16.840.1.649803.3.579.2 .531 Worker's Compensation [id number] Social History Date Type Detail Facility Start: 11-28-2021 Tobacco smoking status VAIS Smoker (finding) [facility] Start: 2000 Sex Assigned At Female F [facility] Sex Assigned At [facility] Other Tobacco smoking status VAIS Tobacco smoking consumption unknown [facility] Start: 1999 Sex assigned at Not on file N [facility] Start: 04-29-2022 Gender identity Identifies as female gender (finding) [facility] Start: 08-05-2023 [facility] Clinical Notes 01-13-2022 to 03-21-2024 HENRRY Barker - 03/21/2024 11:20 AM Oksana Howard LPN - 03/07/2024 10:40 AM HENRRY Hernandez - 02/21/2024 10:20 AM HENRRY Hernandez - 02/03/2024 11:20 AM HENRRY Hernandez - 01/19/2024 11:20 AM EST Note Date & Type Note Facility 03-21-2024 History of Presen t illness Narrative Reason for Appointment: Patient ID: Daryn Licona is a 23 y.o. female who [...] documented in this encounter [facility] 03-07-2024 History of Presen t illness Narrative Reason for Appointment: Patient ID: Daryn Licona is a 23 y.o. female who [...] nursing note reviewed. Exam conducted with a food production manager present. Vitals: Estimated body mass index is [...] documented in this encounter [facility] 02-21-2024 History of Presen t illness Narrative Reason for Appointment: Patient ID: Daryn Licona is a 23 y.o. female who [...] documented in this encounter [facility] 02-03-2024 History of Presen t illness Narrative Reason for Appointment: Patient ID: Daryn Licona is a 23 y.o. female who [...] documented in this encounter [facility] 01-19-2024 History of Presen t illness Narrative Reason for Appointment: Patient ID: Daryn Licona is a 23 y.o. female who [...] nursing note reviewed. Exam conducted with a food production manager present. Vitals: Estimated body mass index is [...] documented in this encounter [facility] 12-22-2023 History of Presen t illness Narrative Reason for Appointment: Patient ID: Daryn Licona is a 23 y.o. female who [...] nursing note reviewed. Exam conducted with a food production manager present. Vitals: Estimated body mass index is [...] documented in this encounter [facility] 12-02-2023 History of Presen t illness Narrative Reason for Appointment: Patient ID: Daryn Licona is a 23 y.o. female who [...] or undercooked meat, and stay away from formerly [facility]. Patient has also been advised to [...] documented in this encounter [facility] 06-21-2022 Note PROCEDURE: XR ANKLE RT MIN [...] authenticated by: GURPREET GUEVARA Date: 2022-06-21 12:38 [facility] 05-07-2023 Note PROCEDURE: XR ANKLE RT MIN 3 [...] authenticated by: GURPREET GUEVARA Date: 2022-06-21 12:38 [facility] 01-13-2022 Evaluation note Encounter Date Diagnosis Assessment [...] left knee, initial encounter (ICD-10 - S83.412A) [facility] Other Evaluation noteNo assessment information available [facility] Work Phone: Evaluation note* Diagnosis Missed [...] Date Medical History anxiety Surgical History tonsillectomy [facility] Other Hospital Discharge instructions Additional Instructions Ice and elevate Tylenol/ Motrin if needed for pain Wear knee immobilizer for the next 3 to 4 days Partial weightbearing with crutches Tylenol or Naprosyn if needed for pain Return here if any problems persist or worsen Follow-up with your primary care doctor orthopedic for recheck in 3 [facility] Work Phone: Chief Complaint and Reason [...] Inactive Member Role Status Veronique Avila APRN [employer]-C Primary Care Provider Jessica Rueda APRN Emergency Provider Active Team Status: Active Member Role Status Veronique Avila APRN [employer]-Louie Primary Care Provider Raman jones Engineering Assistant Relationship Specialty Start Date End Date Miryam Loving DO [address] [place] [address] PCP - General Family Medicine 06/23/22 Engineering Assistant Relationship Specialty Start Date End Date Unallocated, [place] [address] PCP - General Family Medicine 11/23/23 Engineering Assistant Relationship Specialty Start Date End Date Unallocated, MD Reed Ervin [facility] [place] [address] PCP - General Family Medicine 11/23/23 Engineering Assistant Relationship Specialty Start Date End Date Unallocated, Kodak Antonio MD [address] [place] [address] PCP - General Family Medicine 11/23/23 Engineering Assistant Relationship Specialty Start Date End Date Unallocated, Kodak Antonio MD [address] [place] [address] PCP - General Family Medicine 11/23/23 Engineering Assistant Relationship Specialty Start Date End Date Unallocated, Kodak Antonio MD [facility] [address] [place] [address] PCP - General Family Medicine 11/23/23 Engineering Assistant Relationship Specialty Start Date End Date Unallocated, Kodak Antonio MD [address] [place] [address] [place] [address] PCP - General Family Medicine 11/23/23 Engineering Assistant Relationship Specialty Start Date End Date Unallocated, Kodak Antonio MD [address] [place] [address] [place] [address] PCP - General Family Medicine 11/23/23 Goals (unrecognized section and content) Goals may be documented in a n alternate sectionNo Information INFORMATION SOURCE (unrecogn ized section and content) DATE CREATED AUTHOR 12/10/2021 [facility] DATE CREATED AUTHOR AUTHOR'S ORGANIZ ATION 12/13/2021 [facility] dical Specialist DATE CREATED AUTHOR AUTHOR'S ORGANIZ ATION 06/24/2022 [facility] DATE CREATED AUTHOR AUTHOR'S ORGANIZ ATION 06/10/2023 [facility] DATE CREATED AUTHOR AUTHOR'S ORGANIZ ATION 03/23/2024 [facility] dical Specialists EPIC REASON FOR [...] BE BASED ON THE PRIMARY CLINICAL RECORDS. [facility] [employer] [facility] provides no warranty or guarantee of the accuracy or completeness of information in this document.
== END 2024-04-05 21:57 | disposition home or self-care (01) ==
LOC: LAB 21:56
PROVIDERS: Visit Provider Obstetrics & Gynecology
DX: Z34.93 Encounter for supervision of normal pregnancy, unspecified, third trimester (principal)
CPT/HCPCS: 36415; 87081

== ENCOUNTER 2024-04-15 14:26 | Inpatient (IN) | payer OTHER, SELFPAY ==
[2024-04-15] VITALS (31 sets, daily range): BP systolic 80–139; BP diastolic 48–74; PULSE 105–148; TEMP 36.9–38
--- OUTSIDE RECORDS SUMMARY | 2024-04-15 14:24 | XMS_ITS | CCD ---
Author Organization [facility] Care Team Providers Care Embedded Processor Name Role Phone TARAN Avila Primary Care Provider [phone] TARAN Rueda Emergency Provider [phone] Gris Avila Primary Care Unavailable Sultana Rueda Attending Unavailable Sultana Rueda Admitting Unavailable Shaan Balderrama Unavailable YAYA, DR PAUL Primary Care Unavailable DIAB MAGDALENO Rivers Admitting Unavailable DIAB ., MAGDALENO Attending Unavailable MAYELA Rivers, MAGDALENO Consulting Unavailable YAYA, DR PAUL Primary Care Unavailable CARLEEN, DR OC Ricardo Attending Unavailabl e CHRIS .HENRRY Consulting Unavailbryson DURANT, DR OC Ricardo Admitting UnavailCOLBY Soto Admitting Unavailable YAYA, DR PAUL Primary Care Unavailable ISMAEL, DR GURPREET Phan Consulting Unavailable QIAN COLBY Rivers Attending Unavailable COLBY PATTON Consulting Unavailable PILI ROLON Attending Unavailable NO PCP, NO PCP Primary Care Unavailable GONZALESPILI ROSADO Attending Unavailable GONZALES, PILI H Referring Unavailable NO PCP, NO PCP Primary Care Unavailable GONZLAESPILI ROSADO Attending Unavailable GONZALES, PILI H Referring Unavailable NO PCP, NO PCP Primary Care Unavailable Miryam Loving DO Primary Care Provider [phone] Unallocated , Noms Provider Primary Care Provi ravinder JAYANT JONES Attending Unavailable ROBERT, JAYANT Referring Unavailable MARYAM NGUYEN Attending Unavailable ROBERT, JAYANT Attending Unavailable WENDYMARYAM GALAN Attending Unavailable ROBERT, JAYANT Attending Unavailable WENDY, MARYAM Attending Unavailable ROBERT, JAYANT Attending Unavailable MARYAM NGUYEN Attending Unavailable Medications [...] 06-21-2022 Episodic Other and delivery including normal (18 sources) ; Translations: [Encounter for supervision of [...] [34 weeks gestation of ] 03-21-2024 Episodic Residual codes; unclassified (2 sources) Gestation period, 36 weeks; Translations: [36 weeks gestation of ] 04-05-2024 Episodic Residual codes; unclassified (2 sources) Gestation period, 37 weeks; Translations: [37 weeks gestation of ] 04-12-2024 Episodic Sprains and strains (4 sources) Sprain [...] Facil ity Urinalysis macro (dipstick) panel (U)on 04-12-2024 Bilirubin, UA Negative Negative - 4(70) +++ mg/dL [facility] Blood, UA Negative Negative - 50 Iron/mcL [facility] Clarity, UA Clear [facility] re Color, UA Yellow [facility] Health[facility] e Glucose, UA Negative Negative - 1999(110) ++++ mg/dL [facility] Interpretation and review of laboratory results Abnormal [facility] Ketones, UA Negative Negative - 160(16) ++++ mg/dL [facility] Leukocytes, UA Positive Negative - 500+++ Miguel/mcL [facility] Comment on above: small Nitrite, UA Negative Negative - Positive [facility] pH, UA 7 5 - 9 [facility] e Protein, UA Negative Negative - 1999(20) ++++ mg/dL [facility] Spec Grav, UA 1.02 1 - 1.03 [facility] Urobilinogen, UA 0.2 0.2 - 12 mg/dL [facility] ALL MISCELLANEOUS TESTon MISCELLANEOUS TEST COMMENT . [facility]althcare Comment on above: Test Ordered: [id number] Strep Gp B Culture+Rflx Strep Gp B Culture+Rflx Positive [A ] CB Reference Range: Negative Centers for Disease Control and Prevention (CDC) and [place] [employer] of [employer]stetricians and Gynecologists (ACOG) guidelines for prevention of group B streptococcal (GBS) disease specify co-collection of a vaginal and rectal swab specimen to maximize sensitivity of GBS detection. Per the CDC and ACOG, swabbing both the lower vagina and rectum substantially increases the yield of detection compared with sampling the vagina alone. Penicillin G, ampicillin, or cefazolin are indicated for intrapartum prophylaxis of GBS colonization. Reflex susceptibility testing should be performed prior to use of clindamycin only on GBS isolates from penicillin- allergic women who are considered a high risk for anaphylaxis. Treatment with vancomycin without additional testing is warranted if resistance to clindamycin is noted. Organism Identification Comment CB Reference Range: . Beta hemolytic Streptococcus, group B Clindamycin Resistant [A ] CB Reference Range: . Testing for inducible clindamycin resistance was performed using erythromycin and clindamycin in the D-zone test. Per the Centers for Disease Control and Prevention (CDC), erythromycin is no longer an acceptable alternative for intrapartum group B Streptococcus (GBS) prophylaxis for penicillin-allergic women at high risk for anaphylaxis. Performed at: CB - [facility] [id number] Facilities Custodian: Olvin Garcia PhD, Phone: [phone] GROUP B STREP [id number] CULTURE, GROUP B STREP WITH SUSCEPTIBLITY [facility] Urinalysis macro (dipstick) panel (U)on 04-05-2024 Bilirubin, UA Negative Negative - 4(70) +++ mg/dL [facility] Blood, UA Negative Negative - 50 Iron/mcL [facility] Clarity, UA Clear [facility] re Color, UA Yellow [facility] Glucose, UA Negative Negative - 1999(110) ++++ mg/dL [facility] Interpretation and review of laboratory results Abnormal [facility] Ketones, UA Positive Negative - 160(16) ++++ mg/dL [facility] Comment on above: trace Leukocytes, UA Positive Negative - 500+++ Miguel/mcL [facility] Comment on above: small Nitrite, UA Negative Negative - Positive [facility] pH, UA 7 5 - 9 [facility] Health[facility] e Protein, UA Trace Negative - 1999(20) ++++ mg/dL [facility] Spec Grav, UA 1.02 1 - 1.03 [facility] Urobilinogen, UA 1.0 0.2 - 12 mg/dL [facility] US OB BPP W NON-STRESS on 03-23-[address] [address] Ultrasound Report Signed Patient: DARYN LICONA MR#: [id number] : 2000 Acct:[id number] Age/Sex: 23 / F ADM Date: Loc: [facility] Attending Dr: Jayant Jones D.O. Ordering Physician: Jayant Jones D.O. Date of Service: 03/23/24 Procedure(s): US OB BPP w non-stress Accession Number(s): [id number] cc: Jayant Jones D.O.; Physician,Non-Staff [facility] The [address] [address] Patient Name: DARYN LICONA MRN: [facility]:[id number] date: 2000 Sex: F Assigned Patient Location: [facility] Current Patient Location: [facility] Accession/Order Number: [id number] Exam Date: 03/23/2024 16:07 Report Date: 03/23/2024 [...] Dictated By: Bladimir Galarza M.D. Signed By: 03/23/24 1708 DD/ 05 TD/TT: Plastic Joint Maker: [facility] Radiology, Radiologist, MD - 03/23/2024 [place] [address] Ultrasound Report Signed Patient: DARYN LICONA MR#: [id number] : 2000 Acct:[id number] Age/Sex: 23 / F ADM Date: Loc: [facility] - Attending Dr: Jayant Jones D.O. Ordering Physician: Jayant Jones D.O. Date of Service: 03/23/24 Procedure(s): US OB BPP w non-stress Accession Number(s): [id number] cc: Jayant Jones D.O.; Physician,Non-Staff [place] [id number] Patient Name: DARYN LICONA MRN: [facility]:[id number] date: 2000 Sex: F Assigned Patient Location: [facility] Current Patient Location: [facility] Accession/Order Number: [id number] Exam Date: 03/23/2024 16:07 Report Date: 03/23/2024 [...] M.D. Signed By: 03/23/241707 DD/ 05 TD/TT: Plastic Joint Maker: [facility] [employer] Radiology Study observation (narrative) [facility] US OB BPP W NON-STRESS Ordered By: Radiologist Radiology on 03-23-2024 [employer] Work Phone: US OB FOLLOW UP [...] UA Negative Negative - 4(70) +++ mg/dL [facility] Blood, UA Negative Negative - 50 Iron/mcL [facility] Clarity, UA Clear [facility] Color, UA Yellow [facility] Glucose, UA Negative Negative - 1999(110) ++++ mg/dL [facility] Interpretation and review of laboratory results Abnormal [facility] Ketones, UA Positive Negative - 160(16) ++++ mg/dL [facility] Leukocytes, UA Positive Negative - 500+++ Miguel/mcL [facility] Nitrite, UA Negative Negative - Positive [facility] pH, UA 6.5 5 - 9 [facility] Health[facility] e Protein, UA Positive Negative - 1999(20) ++++ mg/dL [facility] Spec Grav, UA 1.025 1 - 1.03 [facility] care Urobilinogen, UA 0.2 0.2 - 12 mg/dL [facility] Urinalysis macro (dipstick) panel (U)on 03-07-2024 Bilirubin, UA Negative Negative - 4(70) +++ mg/dL [facility] Blood, UA Negative Negative - 50 Iron/mcL [facility] Healthcare Clarity, UA Clear [facility] re Color, UA Yellow [facility] Glucose, UA Negative Negative - 1999(110) ++++ mg/dL [facility] Interpretation and review of laboratory results Abnormal [facility] Ketones, UA Negative Negative - 160(16) ++++ mg/dL [facility] Leukocytes, UA Positive Negative - 500+++ Miguel/mcL [facility] Nitrite, UA Negative Negative - Positive [facility] pH, UA 6.5 5 - 9 [facility] Health[facility] e Protein, UA Negative Negative - 1999(20) ++++ mg/dL [facility] Spec Grav, UA 1.025 1 - 1.03 [facility] Urobilinogen, UA 1.0 0.2 - 12 mg/dL [facility] Urinalysis macro (dipstick) panel (U)on 02-21-2024 Bilirubin, UA Negative Negative - 4(70) +++ mg/dL [facility] Blood, UA Negative Negative - 50 Iron/mcL [facility] Healthcare Clarity, UA Clear [facility] re Color, UA Yellow [facility] Health[facility] e Glucose, UA Negative Negative - 1999(110) ++++ mg/dL [facility] Interpretation and review of laboratory results Abnormal [facility] Ketones, UA Negative Negative - 160(16) ++++ mg/dL [facility] Leukocytes, UA Positive Negative - 500+++ Miguel/mcL [facility] Healthcare Comment on above: small Nitrite, UA Negative Negative - Positive [facility] pH, UA 6 5 - 9 [facility] Health[facility] e Protein, UA Trace Negative - 1999(20) ++++ mg/dL [facility] Healthcare Spec Grav, UA 1.03 1 - 1.03 [facility] care Urobilinogen, UA 0.2 0.2 - 12 mg/dL [facility] Urinalysis macro (dipstick) panel (U)on 02-03-2024 Bilirubin, UA Negative Negative - 4(70) +++ mg/dL [facility] Healthcare Blood, UA Negative Negative - 50 Iron/mcL [facility] Healthcare Clarity, UA Clear [facility] Color, UA Yellow [facility] Glucose, UA Negative Negative - 1999(110) ++++ mg/dL [facility] Interpretation and review of laboratory results Abnormal [facility] Healthcare Ketones, UA Negative Negative - 160(16) ++++ mg/dL [facility] Healthcare Leukocytes, UA Positive Negative - 500+++ Miguel/mcL [facility] Healthcare Comment on above: small Nitrite, UA Negative Negative - Positive [facility] pH, UA 6.5 5 - 9 [facility] Protein, UA Negative Negative - 1999(20) ++++ mg/dL [facility] Healthcare Spec Grav, UA 1.025 1 - 1.03 [facility] Health care Urobilinogen, UA 1.0 0.2 - 12 mg/dL [facility] Urinalysis macro (dipstick) panel (U)on 01-19-2024 Bilirubin, UA Negative Negative - 4(70) +++ mg/dL [facility] Blood, UA Negative Negative - 50 Iron/mcL [facility] Healthcare Clarity, UA Clear [facility] Color, UA Yellow [facility] Glucose, UA Negative Negative - 1999(110) ++++ mg/dL [facility] Interpretation and review of laboratory results Abnormal [facility] Ketones, UA Negative Negative - 160(16) ++++ mg/dL [facility] Healthcare Leukocytes, UA Trace Negative - 500+++ Miguel/mcL [facility] Healthcare Nitrite, UA Negative Negative - Positive [facility] pH, UA 6 5 - 9 [facility] Protein, UA Negative Negative - 1999(20) ++++ mg/dL [facility] Healthcare Spec Grav, UA 1.025 1 - 1.03 [facility] Urobilinogen, UA 0.2 0.2 - 12 mg/dL [facility] Healthcare [facility] Urinalysis macro (dipstick) panel (U)on 12-22-2023 Bilirubin, UA Negative Negative - 4(70) +++ mg/dL [facility] Healthcare Blood, UA Positive Negative - 50 Iron/mcL [facility] Healthcare Comment on above: trace Clarity, UA Clear [facility] Color, UA Yellow [facility] Glucose, UA Negative Negative - 1999(110) ++++ mg/dL [facility] Interpretation and review of laboratory results Abnormal [facility] Ketones, UA Negative Negative - 160(16) ++++ mg/dL [facility] Leukocytes, UA Positive Negative - 500+++ Miguel/mcL [facility] Comment on above: small Nitrite, UA Negative Negative - Positive [facility] pH, UA 6.5 5 - 9 [facility] e Protein, UA Negative Negative - 1999(20) ++++ mg/dL [facility] Spec Grav, UA 1.02 1 - 1.03 [facility] Urobilinogen, UA 0.2 0.2 - 12 mg/dL [facility] Health[facility] e ALL CBC WITH AUTO DIFFon BASOPHILS ABSOLUTE AUTO 0 [facility] Basophils/100 WBC (Bld) 0.2 % 0.2 - 2.0 % [facility] Eosinophils/100 WBC (Bld) 0.5 % Low 0.9 - 7.0 % [facility] Erythrocyte distribution width (RBC) [Ratio] 12.8 % 11.0 - 15.0 % [facility] Hematocrit (Bld) [Volume fraction] 38.7 % 36.0 - 48.0 % [facility] Hemoglobin (Bld) [Mass/Vol] 13.1 g/dL 12.0 - 16.0 g/dL [facility] IMMATURE GRANULOCYTES ABS AUTO 0.03 [facility] Immature granulocytes/100 WBC (Bld) 0.3 % 0.0 - 0.5 % [facility] Interpretation and review of laboratory results Abnormal [facility] LYMPHOCYTES ABSOLUTE AUTO 2.1 [facility] Lymphocytes/100 WBC (Bld) 18.3 % Low 20.5 - 60.0 % [facility] MCH (RBC) [Entitic mass] 31.7 pg 26.7 - 34.0 pg [facility] MCHC (RBC) [Mass/Vol] 33.9 g/dL 29.9 - 35.2 g/dL [facility] MCV (RBC) [Entitic vol] 93.7 fL 81.0 - 99.0 fL [facility] MONOCYTES ABSOLUTE AUTO 0.4 [facility] Monocytes/100 WBC (Bld) 3.7 % 1.7 - 12.0 % [facility] NEUTROPHILS ABSOLUTE AUTO 8.8 High [facility] Neutrophils/100 WBC (Bld) 77 % High 43.0 - 75.0 % [facility] Platelet mean volume (Bld) [Entitic vol] 10.8 fL 9.5 - 13.5 fL [facility] are [facility] EO # 0.1 [facility]T [facility] RBC 4.13 Low [facility] e TBH WBC 11.5 High [facility] e [facility] e URETHRITIS/DISCHARGE PLUS VA GINITIS (HTRX)on 12-03-2023 ATOPOBIUM VAGINAE 0 [facility] ATOPOBIUM VAGINAE Not detected [facility] BVAB 2,3 (BACTERIAL VAGINOSIS ASSOCIATED BACTERIA 2, 3); MOBILUNCUS SPP 26.835 Abnormal [facility] BVAB 2,3 (BACTERIAL VAGINOSIS ASSOCIATED BACTERIA 2, 3); MOBILUNCUS SPP Detected Abnormal [facility] ANGELINA ALBICANS, PARAPSILOSIS, TROPICALIS 0 [facility] ANGELINA ALBICANS, PARAPSILOSIS, TROPICALIS Not detected [facility] ANGELINA GLABRATA [facility] ANGELINA GLABRATA Not detected [facility]althcare ANGELINA KRUSEI 0 [facility] Healt hcare ANGELINA KRUSEI Not detected [facility] CHLAMYDIA TRACHOMATIS 0 [facility] CHLAMYDIA TRACHOMATIS Not detected [facility] GARDNERELLA VAGINALIS 0 [facility] GARDNERELLA VAGINALIS Not detected [facility] Interpretation and review of laboratory results Abnormal [facility] MEGASPHAERA (TYPES 1, 2) 0 [facility] MEGASPHAERA (TYPES 1, 2) Not detected [facility] MYCOPLASMA GENITALIUM 0 [facility] MYCOPLASMA GENITALIUM Not detected [facility] NEISSERIA GONORRHOEAE 0 [facility] NEISSERIA GONORRHOEAE Not detected [facility] TRICHOMONAS VAGINALIS 0 [facility] TRICHOMONAS VAGINALIS Not detected [facility] HCG ( test) Ql (U)o n 12-02-2023 Interpretation and review of laboratory results Abnormal [facility] Preg Test, Ur Positive [facility] Urinalysis macro (dipstick) panel (U)on 12-02-2023 Bilirubin, UA Negative Negative - 4(70) +++ mg/dL [facility] Blood, UA Negative Negative - 50 Iron/mcL [facility] Clarity, UA Clear [facility] re Color, UA Yellow [facility] Health[facility] e Glucose, UA Negative Negative - 1999(110) ++++ mg/dL [facility] Interpretation and review of laboratory results Abnormal [facility] Ketones, UA Negative Negative - 160(16) ++++ mg/dL [facility] Leukocytes, UA Positive Negative - 500+++ Miguel/mcL [facility] Nitrite, UA Negative Negative - Positive [facility] pH, UA 5.5 5 - 9 [facility] e Protein, UA Negative Negative - 1999(20) ++++ mg/dL [facility] Spec Grav, UA 1.03 1 - 1.03 [facility] Urobilinogen, UA 1.0 0.2 - 12 mg/dL [facility] MHPT TRICHOMONAS/WET PREPon 11-21-2023 WET PREP TRIC BV ANGELINA Wet Prep Tric BV Angelina WP.BACT Bacteria^[facility]acteria [facility] TRIC BV ANGELINA WP.CLUE Clue Cells^Clue Cells [facility] WET PREP TRIC BV ANGELINA WP.JONATHAN Fungal Elements^Fungal Elements [facility] WET PREP TRIC BV ANGELINA WP.RBC RBC^RBC [facility] WET PREP TRIC BV ANGELINA WP.TRICH Trichomonas^Trichomo luis felipe [facility] WET PREP TRIC BV ANGELINA WP.WBC WBC^WBC [facility] e No Panel Informationon 11-20 WET PREP TRIC BV ANGELINA F Few^Few [facility] WET PREP TRIC BV ANGELINA N None Seen^None Seen [facility] CT BRAIN WO CONTon CT [...] on 06/08/2023 9:25 PM Normal [facility] CT CERVICAL SPINE WO CONTon 06-08-2023 CT [...] on 06/08/2023 9:43 PM Normal [facility] XR CHEST 2 VWSon 06-08-2023 XR CHEST 2 VWS XR CHEST 2 VWS PA and lateral chest: HISTORY: Trauma. 2 views of the chest are obtained. Cardiac and mediastinal contours are within normal limits. There is no focal infiltrate, effusion, or pneumothorax. Osseous structures appear intact. IMPRESSION: No acute findings. Finalized by Olvin Alcaraz MD on 06/08/2023 9:19 PM Normal [facility] XR PELVIS 1 OR 2 VWSon 06-07 [...] on 06/08/2023 9:22 PM Normal [facility] XR SHOULDER LT MIN 2 VWSon 0 [...] on 06/08/2023 9:20 PM Normal [facility] MRI Knee w/o Lefton 12-12-19 MRI Knee [...] by AMMON PALENCIA on 12/12/2021 1348 Normal [facility] XR knee LT 4V*on 11-29-2021 XR knee LT 4V* [facility] [address] XRay Report Signed Patient: Daryn Licona MR#: [id number] : 2000 Acct:[id number] Age/Sex: 21 / F ADM Date: 11/28/21 Loc: ER Room: Type: [facility] ER Attending Dr: Copies to: Sultana Rueda [...] Claudia Baugh M.D.11/29/2021 9:03 AM Dictation Location: [facility]- Transcribed By: JULES 11/29/21902 Dictated By: Claudia Baugh MD 11/29/21901 Signed By: 11/29/21902 [facility] Vital Signs Date Time Vital Sign Value Performing Clinician Facility 04-12-2024 14:57-0500 Body mass index (BMI) [Ratio] 35.56 kg/m2 Maryam SALES Work Phone: [facility] 04-12-2024 14:57-0500 Body weight 112.4 kg Maryam SALES Work Phone: [facility] 04-12-2024 14:57-0500 Diastolic blood pressure 70 mm[Hg] Maryam SALES Work Phone: [facility] 04-12-2024 14:57-0500 Systolic blood pressure 120 mm[Hg] Maryam SALES Work Phone: [facility] 04-05-2024 15:15-0500 Body mass index (BMI) [Ratio] 35.32 kg/m2 Jayant Robert DO Work Phone: [facility] 04-05-2024 15:15-0500 Body weight 111.66 kg Jayant Robert DO Work Phone: [facility] 04-05-2024 15:15-0500 Diastolic blood pressure 74 mm[Hg] Jayant Robert DO Work Phone: [facility] 04-05-2024 15:15-0500 Systolic blood pressure 118 mm[Hg] Jayant Robert DO Work Phone: [facility] 03-21-2024 11:36-0500 Body mass index (BMI) [Ratio] 34.21 kg/m2 Maryam SALES Work Phone: [facility] 03-21-2024 11:36-0500 Body weight 108.14 kg Maryam SALES Work Phone: [facility] 03-21-2024 11:36-0500 Diastolic blood pressure 72 mm[Hg] Maryam SALES Work Phone: [facility] 03-21-2024 11:36-0500 Systolic blood pressure 110 mm[Hg] Maryam Nguyen PA Work Phone: [facility] 03-07-2024 11:02-0500 Body mass index (BMI) [Ratio] 33.26 kg/m2 Jayant Robert DO Work Phone: [facility] 03-07-2024 11:02-0500 Body weight 105.14 kg Jayant Robert DO Work Phone: [facility] 03-07-2024 11:02-0500 Diastolic blood pressure 78 mm[Hg] Jayant Robert DO Work Phone: [facility] 03-07-2024 11:02-0500 Systolic blood pressure 124 mm[Hg] Jayant Robert DO Work Phone: [facility] 02-21-2024 10:34-0500 Body mass index (BMI) [Ratio] 31.39 kg/m2 Maryam Nguyen PA Work Phone: [facility] 02-21-2024 10:34-0500 Body weight 99.25 kg Maryam Wendy PA Work Phone: [facility] 02-21-2024 10:34-0500 Diastolic blood pressure 84 mm[Hg] Maryam Nguyen PA Work Phone: [facility] 02-21-2024 10:34-0500 Systolic blood pressure 138 mm[Hg] Maryam Nguyen PA Work Phone: [facility] 02-03-2024 12:19-0500 Body mass index (BMI) [Ratio] 31.71 kg/m2 Jayant Robert DO Work Phone: [facility] 02-03-2024 12:19-0500 Body weight 100.25 kg Jayant Robert DO Work Phone: [facility] 02-03-2024 12:19-0500 Diastolic blood pressure 72 mm[Hg] Jayant Robert DO Work Phone: [facility] 02-03-2024 12:19-0500 Systolic blood pressure 120 mm[Hg] Jayant Robert DO Work Phone: [facility] 01-19-2024 11:59-0500 Body mass index (BMI) [Ratio] 32.11 kg/m2 Maryam Wendy PA Work Phone: [facility] 01-19-2024 11:59-0500 Body weight 101.52 kg Maryam Wendy PA Work Phone: [facility] 01-19-2024 11:59-0500 Diastolic blood pressure 68 mm[Hg] Maryam Wendy PA Work Phone: [facility] 01-19-2024 11:59-0500 Systolic blood pressure 120 mm[Hg] Maryam Nguyen PA Work Phone: [facility] 12-22-2023 14:38-0500 Body mass index (BMI) [Ratio] 29.99 kg/m2 Jayant Robert DO Work Phone: [facility] 12-22-2023 14:38-0500 Body weight 94.8 kg Jayant Robert DO Work Phone: [facility] 12-22-2023 14:38-0500 Diastolic blood pressure 74 mm[Hg] Jayant Robert DO Work Phone: [facility] 12-22-2023 14:38-0500 Systolic blood pressure 118 mm[Hg] Jayant Robert DO Work Phone: [facility] 12-02-2023 14:27-0400 Body mass index (BMI) [Ratio] 29.39 kg/m2 Nom Nurse [facility] 12-02-2023 14:27-0400 Body weight 92.9 kg [facility] Nurse [facility] 01-13-2022 09:15-0500 Body height 180.34 cm Shaan Balderrama Other [employer] Other 01-13-2022 09:15-0500 Body mass index (BMI) [Ratio] 27.89 kg/m2 Shaan Balderrama Other [employer] Other 01-13-2022 09:15-0500 Body weight 90.72 kg Shaan Balderrama Other [facility] [employer] Other 11-28-2021 21:42-0400 Body height 182.88 cm TARAN Landry Kiepert Work Phone: [facility] 11-28-2021 21:42-0400 Body temperature 98 [degF] [employer] Gris Kiepert Work Phone: [facility] 11-28-2021 21:42-0400 Body weight 85.27 kg [employer] Gris Kiepert Work Phone: [facility] 11-28-2021 21:42-0400 Diastolic blood pressure 88 mm[Hg] [employer] Gris Kiepert Work Phone: [facility] 11-28-2021 21:42-0400 Heart rate 98 /min [employer] Gris Kiepert Work Phone: [facility] 11-28-2021 21:42-0400 Respiratory rate 20 /min [employer] Gris Kiepert Work Phone: [facility] 11-28-2021 21:42-0400 SaO2% (BldA) [Mass fraction] 95 % [employer] Gris Kiepert Work Phone: [facility] 11-28-2021 21:42-0400 Systolic blood pressure 152 mm[Hg] [employer] Gris Kiepert Work Phone: [facility] Encounters Encounter Date Encounter Type Care Provider Facility Start: 04-12-2024 End: 04-12-2024 flow sheet Maryam SALES Work Phone: [facility] Comment on above: 37 weeks gestation o f ; Third trimester Start: 04-12-2024 End: 04-12-2024 ambulatory MARYAM NGUYEN Not Available Start: 04-12-2024 End: 04-12-2024 Bamboo flowsheet Maryam SALES Work Phone: [facility] Start: 04-12-2024 End: 04-12-2024 Bamboo flowsheet Maryam SALES Work Phone: [facility] Start: 04-05-2024 End: 04-05-2024 ambulatory JAYANT ROBERT Not Available Start: 04-05-2024 End: 04-05-2024 Office outpatient visit 15 minutes Jayant Robert DO Work Phone: [facility] Comment on above: Third trimester preg jhony; 36 weeks gestation of Start: 04-05-2024 End: 04-05-2024 Bamboo flowsheet Jayant Robert DO Work Phone: [facility] Start: 04-05-2024 End: 04-11-2024 Bamboo flowsheet Jayant Robert DO Work Phone: [facility] Start: 04-05-2024 End: 04-11-2024 Clinisync Result Encounter Jayant Robert DO Work [...] Start: 01-19-2024 End: 01-19-2024 flow sheet Maryam Nguyen PA Work Phone: [facility] Comment on [...] Emergency department patient visit PILI Welsh GONZALES [facility] Start: 06-21-2022 End: 06-21-2022 ambulatory COLBY QAIN . Facility:[facility] Start: 05-28-2022 End: 05-28-[address] HUMBERTO JAVIER Facility:[facility] Start: 05-20-2022 End: 05-20-[address] HUMBERTO JAVIER Facility:[facility] Start: 01-13-2022 End: 01-13-2022 ambulatory Shaan Balderrama Other [employer] Other Start: 01-13-2022 Office outpatient vi sit 15 minutes Shaan Balderrama [facility] Start: 11-28-2021 End: 11-29-2021 Emergency department patient visit Gris Caraballocalderon Facility:[facility] Start: 11-28-2021 End: 11-28-2021 Emergency department patient visit TARAN Gris Avila Work Phone: [facility] Procedures Date Procedure Procedure Detail Performing Clinician Start: 04-12-2024 Urnls dip stick/tabl et rgnt non-auto w/o micrscp Maryam SALES Work Phone: Start: 04-05-2024 Urnls dip stick/tabl et rgnt non-auto w/o micrscp Jayant Robert DO Work Phone: Start: 04-05-2024 ALL MISCELLANEOUS TEST Jayant Robert DO Work Phone: Start: 03-23-2024 US OB BPP W NON-STRESS [...] Treatment Date Care Activity Detail Author Start: 04-19-2024 End: 04-19-2024 Patient encounter procedure 04/19/2024 3:40 PM EST Routine [facility] [address] [address] [place] [address] Jayant Jones, DO [address] [place], [place] [id number] [facility] Start: 04-12-2024 End: 04-12-2024 Patient encounter procedure [facility] Comment on above: Arrived Start: 04-05-2024 End: 04-05-2024 Patient encounter procedure 04/05/2024 2:40 PM EST Routine [facility] [address] [place] [id number] Jayant Jones DO [address] [place] [address] [facility] Start: 04-05-2024 End: 04-05-2025 CULTURE, GROUP B STREP WITH SUSCEPTIBLITY CULTURE, GROUP B STREP WITH SUSCEPTIBLITY Lab Routine Third trimester Expected: 04/05/2024, Expires: 04/05/2025 [facility] Work Phone: Comment on above: Expected: 04/05/2024 , Expires: 04/05/2025 Start: 03-21-2024 End: 03-21-2024 Patient encounter procedure 03/21/2024 11:20 AM EST Routine [facility] [address] [place] [id number] Maryam Nguyen PA [address] [place] [address] [facility] Start: 03-21-2024 End: 03-21-2024 Professional / ancillary services management 03/21/2024 10:30 AM EST Ancillary Procedure [facility] [address] [place] [id number] [facility] Start: 03-07-2024 End: 03-07-2025 [...] AM EST Routine [facility] [address] [place] [id number] Maryam Nguyen PA [address] [place], [place] [id number] [facility] Start: 01-19-2024 End: 01-18-2025 CBC panel - Blood by Automated count CBC Lab Routine Diabetes mellitus screening Expected: 01/19/2024 (Approximate), Expires: 01/18/2025 [facility] Work Phone: Comment on above: Expected: 01/19/2024 (Approximate), Expires: 01/18/2025 Start: 01-19-2024 End: 01-18-2025 Measurement of glucose 1 hour after glucose challenge for glucose tolerance test Glucose tolerance, 1 hour Lab Routine Diabetes mellitus screening Expected: 01/19/2024 (Approximate), Expires: 01/18/2025 [facility] Comment on above: Expected: 01/19/2024 (Approximate), Expires: 01/18/2025 Start: 01-19-2024 End: 01-18-2025 US for US OB INCOMPLETE ANATOMY Imaging Routine Encounter for follow-up ultrasound of anatomy Expected: 01/19/2024 (Approximate), Expires: 01/18/2025 [facility] Comment on above: Expected: 01/19/2024 (Approximate), Expires: 01/18/2025 Start: 01-19-2024 End: 01-19-2024 Patient encounter procedure [facility] Comment on above: Arrived Start: 12-22-2023 End: 12-22-2023 Patient encounter procedure [facility] Comment on above: Arrived Start: 12-22-2023 End: 12-22-2023 Professional / ancillary services management 12/22/2023 1:00 PM EST Ancillary Procedure [facility] [address] [facility] [facility] [place] [address] [facility] Start: 12-02-2023 End: 12-01-2024 ABO/Rh ABO/Rh Lab Routine Missed menses , unspecified gestational age Expected: 12/02/2023 (Approximate), Expires: 12/01/2024 [facility] Comment on above: Expected: 12/02/2023 (Approximate), Expires: 12/01/2024 Start: 12-02-2023 End: 03-03-2024 Alpha fetoprotein, maternal Alpha fetoprotein, maternal Lab Routine Encounter for supervision of normal first in first trimester Expected: 12/02/2023 (Approximate), Expires: 03/03/2024 [facility] Comment on above: Expected: 12/02/2023 (Approximate), Expires: 03/03/2024 Start: 12-02-2023 End: 12-01-2024 Blood type and Indirect antibody screen panel - Blood Type and screen Lab Routine Missed menses , unspecified gestational age Expected: 12/02/2023 (Approximate), Expires: 12/01/2024 [facility] Work Phone: Comment on above: Expected: 12/02/2023 (Approximate), Expires: 12/01/2024 Start: 12-02-2023 End: 12-01-2024 Drugs of abuse panel - Urine by Screen method Rapid drug screen, urine Lab Routine , unspecified gestational age Encounter for supervision of normal first in first trimester Expected: 12/02/2023 (Approximate), Expires: 12/01/2024 [facility] Comment on above: Expected: 12/02/2023 (Approximate), Expires: 12/01/2024 Start: 12-02-2023 End: 12-01-2024 US for [facility] Comment on above: Expected: 12/02/2023 (Approximate), Expires: 12/01/2024 Start: 10-17-2023 Influenza vaccination Influenza Vacc ine (#1) [facility] Start: 11-28-2021 Radiologic examinati on of knee XR knee LT 4V* [facility] Start: 11-28-2021 XR Knee - left 4 Views [facility] Bacteria identified in Urine by Culture Urine culture Microbiology Routine Missed menses Ordered: 12/02/2023 [facility] Comment on above: Ordered: 12/02/2023 CBC W Auto Different ial panel - Blood CBC and differential Lab Routine Missed menses , unspecified gestational age Ordered: 12/02/2023 [facility] Comment on above: Ordered: 12/02/2023 Hemoglobin A1c/Hemoglobin.total in Blood Hemoglobin A1c Lab Routine Missed menses , unspecified gestational age Ordered: 12/02/2023 [facility] Comment on above: Ordered: 12/02/2023 Hepatitis B virus surface Ag [Presence] in Serum or Plasma by Immunoassay Hepatitis B surface antigen Lab Routine Missed menses , unspecified gestational age Ordered: 12/02/2023 [facility] Comment on above: Ordered: 12/02/2023 Hepatitis C virus Ab [Presence] in Serum or Plasma by Immunoassay Hepatitis C antibody Lab Routine Missed menses , unspecified gestational age Ordered: 12/02/2023 [facility] Comment on above: Ordered: 12/02/2023 HIV-1/HIV-2 antigen/antibody combination immunoassay HIV-1 and HIV-2 antibodies Lab Routine Missed menses , unspecified gestational age Ordered: 12/02/2023 [facility] Comment on above: Ordered: 12/02/2023 Patient Education Knee Sprain (DC) [facility] Work Phone: Patient referral [facility] Work Phone: Reagin Ab [Presence] in Serum by RPR RPR Lab Routine Missed menses , unspecified gestational age Ordered: 12/02/2023 [facility] Comment on above: Ordered: 12/02/2023 Rubella antibody, IgG Rubella an tibody, IgG Lab Routine Missed menses , unspecified gestational age Ordered: 12/02/2023 [facility] Comment on above: Ordered: 12/02/2023 Payers Date Payer Category Payer Private Health Insurance [facility] [id number] 2023 Unknown [id number] 2021 Self-pay [id number] 2021 Unknown BCBS BCBS [id number] 2021-Present [phone] [address] [place] [address] [id number] 2020 Private Health Insurance [id number] 1999 Unknown [id number] 2.16.840.1.484009.3.579.2 .593 1999 Unknown [id number] 2.16.840.1.481096.3.579.2 .593 1999 Unknown [id number] 2.16.840.1.725711.3.579.2 .593 1999 Unknown [id number] 2.16.840.1.191742.3.579.2 .128 1999 Unknown [id number] 2.16.840.1.505821.3.579.2 .1285 1999 Unknown [id number] 2.16.840.1.968367.3.579.2 .128 1999 Unknown [id number] 2.16.840.1.408199.3.579.2 .1285 1999 Unknown [id number] 2.16.840.1.469261.3.579.2 .128 1999 Unknown [id number] 2.16.840.1.011394.3.579.2 .1285 1999 Unknown [id number] 2.16.840.1.191299.3.579.2 .9 1999 Unknown [id number] 2.16.840.1.614653.3.579.2 .9 1999 Unknown [id number] 2.16.840.1.627302.3.579.2 .1258 1999 Unknown [id number] 2.16.840.1.498881.3.579.2 .9 1999 Unknown [id number] 2.16.840.1.329587.3.579.2 .1258 1999 Unknown [id number] 2.16.840.1.964776.3.579.2 .1258 1999 Unknown [id number] 2.16.840.1.937382.3.579.2 .1258 1999 Unknown [id number] 2.16.840.1.449427.3.579.2 .1258 1999 Unknown [id number] 2.16.840.1.750833.3.579.2 .1258 1999 Unknown [id number] 2.16.840.1.118313.3.579.2 .9 1959 Unknown [id number] 1959 Unknown [id number] 1959 Unknown [id number] Unknown [id number] 2.16.840.1.759011.3.579.2 .531 Worker's Compensation [id number] Social History Date Type Detail Facility Start: 11-28-2021 Tobacco smoking status TNIS Smoker (finding) [facility] Start: 2000 Sex Assigned At Female F [facility] Sex Assigned At [employer] Other Tobacco smoking status TNIS Tobacco smoking consumption unknown [facility] Start: 1999 Sex assigned at Not on file [facility] Start: 04-29-2022 Gender identity Identifies as female gender (finding) [facility] Start: 08-05-2023 [facility] Clinical Notes 01-13-2022 to 04-12-2024 HENRRY Barker - 04/12/2024 2:50 PM Oksana Howard, ANA MARIA - 04/05/2024 2:40 PM HENRRY Hernandez - 03/21/2024 11:20 AM Oksana Howard, ANA MARIA - 03/07/2024 10:40 AM HENRRY Hernandez - 02/21/2024 10:20 AM EST Note Date & Type Note Facility 04-12-2024 History of Presen t illness Narrative Reason for Appointment: Patient ID: Daryn Licona is a 23 y.o. female who presents for No chief complaint on file. Patient presents today for Return OB appointment. [...] reviewed. Vitals: Estimated body mass index is 35.56 kg/m as calculated from the following: Height as of 12/03/21: 5' 10 . Weight as of this encounter: 247 lb 12.8 oz. BP: 120/70 No LMP recorded. Patient is . ASSESSMENT & PLAN ICD-10-CM 1. 37 weeks gestation of Z3A.37 POCT urinalysis dipstick manually resulted 2. Third trimester Z34.93 POCT urinalysis dipstick manually resulted Return OB: Patient presents today for a routine obstetrics appointment. Patient is currently 37w6d . Patient states she is doing well but has complaints of being tired due to current . Patient has verbalizes frequent movement. labor precautions was discussed/given and patient was instructed to perform kick counts three times a day. Orders Placed This Encounter Procedures POCT urinalysis dipstick manually resulted Follow Up: Patient is to return to office in 1 week for routine OB appointment. Documented by HENRRY Barker on behalf of: HENRRY Barker documented in this encounter [facility] 04-05-2024 History of Presen t illness Narrative Reason [...] Constitutional: Appearance: Normal appearance. She is well-developed. Genitourinary: Vulva normal. Cardiovascular: Rate and Rhythm: Normal rate and [...] nursing note reviewed. Exam conducted with a headwaiter/headwaitress present. Vitals: Estimated body mass index is 34.21 kg/m as calculated from the following: Height as of 12/03/21: 5' 10 . Weight as of 03/21/24: 238 lb 6.4 oz. BP: No LMP recorded. Patient is . ASSESSMENT & PLAN ICD-10-CM 1. Third trimester Z34.93 POCT urinalysis dipstick manually resulted CULTURE, GROUP B STREP WITH SUSCEPTIBLITY CULTURE, GROUP B STREP WITH SUSCEPTIBLITY CANCELED: CULTURE, GROUP B STREP WITH SUSCEPTIBLITY 2. 36 weeks gestation of Z3A.36 Patient is doing well but has complaints of being tired and having maternal discomfort due to . Patient verbalized frequent movement and was instructed to perform kick counts three times per day. labor precautions were given, LARC consent was signed/declined, and GBS was obtained. Cervical check was performed and patient is 2cm dilated. Orders Placed This Encounter Procedures CULTURE, GROUP B STREP WITH SUSCEPTIBLITY POCT urinalysis dipstick manually resulted Follow Up: Patient is to return to office in 1 week for routine OB appointment Documented by Claudia Howard LPN on behalf of: Jayant Jones DO documented in this encounter [facility] 03-21-2024 History of Presen t illness Narrative [...] of: HENRRY Barker documented in this encounter [facility] 03-07-2024 History of Presen t illness Narrative [...] nursing note reviewed. Exam conducted with a headwaiter/headwaitress present. Vitals: Estimated body mass index is [...] Jayant Jones DO documented in this encounter [facility] 02-21-2024 History of Presen t illness Narrative [...] of: HENRRY Barker documented in this encounter [facility] 02-03-2024 History of Presen t illness Narrative [...] Jayant Jones DO documented in this encounter [facility] 01-19-2024 History of Presen t illness Narrative [...] nursing note reviewed. Exam conducted with a headwaiter/headwaitress present. Vitals: Estimated body mass index is 32.11 kg/m as calculated from the following: Height as of 22: 5' 10 . Weight as of this [...] of: HENRRY Barker documented in this encounter [facility] 12-22-2023 History of Presen t illness Narrative [...] nursing note reviewed. Exam conducted with a headwaiter/headwaitress present. Vitals: Estimated body mass index is [...] Jayant Jones DO documented in this encounter [facility] 12-02-2023 History of Presen t illness Narrative [...] and stay away from [facility]. Patient has also been advised to not [...] Mervat Fall LPN documented in this encounter [facility] 06-21-2022 Note PROCEDURE: XR [...] authenticated by: GURPREET GUEVARA Date: 2022-06-21 12:38 [facility] 06-21-2022 Note PROCEDURE: XR ANKLE RT MIN [...] authenticated by: GURPREET GUEVARA Date: 2022-06-21 12:38 [facility] 01-13-2022 Evaluation note Encounter Date Diagnosis Assessment [...] left knee, initial encounter (ICD-10 - S83.412A) [employer] Other Evaluation noteNo assessment information available [facility] Work Phone: Evaluation note* Diagnosis [...] HealthcareEvaluation note* Diagnosis Third trimester state, incidental 36 weeks gestation of documented in this encounter [facility] Diagnosis 37 weeks gestation of Third trimester state, incidental documented in this encounter [facility] general Narrative - Reported* Type Description Date Medical History anxiety Surgical History tonsillectomy [employer] Other Hospital Discharge instructions Additional Instructions Ice and elevate Tylenol/ Motrin if needed for pain Wear knee immobilizer for the next 3 to 4 days Partial weightbearing with crutches Tylenol or Naprosyn if needed for pain Return here if any problems persist or worsen Follow-up with your primary care doctor orthopedic for recheck in 3 [facility] Work Phone: Chief Complaint and Reason for [...] Inactive Member Role Status Veronique Avila APRN DOORS PREFITTER-C Primary Care Provider Jessica Rueda APRN Emergency Provider Active Team Status: Active Member Role Status Dates Gris Avila APRN DOORS PREFITTER-C Primary Care Provider Raman jones Embedded Processor Relationship Specialty Start Date End Date Miryam Loving DO [address] [place] [address] PCP - General Family Medicine 06/23/22 Embedded Processor Relationship Specialty Start Date End Date Unallocated, Kodak Antonio MD [address] [place] [address] [place] [address] PCP - General Family Medicine 11/23/23 Embedded Processor Relationship Specialty Start Date End Date Unallocated, Kodak Antonio MD [facility] [place] [address] PCP - General Family Medicine 11/23/23 Embedded Processor Relationship Specialty Start Date End Date Unallocated, Kodak Antonio MD [facility] [address] [facility] [place] [address] PCP - General Family Medicine 11/23/23 Embedded Processor Relationship Specialty Start Date End Date Unallocated, Kodak Antonio MD [address] [place] [address] [place] [address] PCP - General Family Medicine 11/23/23 Embedded Processor Relationship Specialty Start Date End Date Unallocated, Kodak Antonio MD [address] [place] [address] PCP - General Family Medicine 11/23/23 Embedded Processor Relationship Specialty Start Date End Date Unallocated, Kodak Antonio MD [address] [place] [address] PCP - General Family Medicine 11/23/23 Embedded Processor Relationship Specialty Start Date End Date Unallocated, Kodak Antonio MD [address] [place] [address] PCP - General Family Medicine 11/23/23 Embedded Processor Relationship Specialty Start Date End Date Unallocated, Kodak Antonio MD [address] [place] [address] PCP - General Family Medicine 11/23/23 Embedded Processor Relationship Specialty Start Date End Date Unallocated, Kodak Antonio MD [address] [place] [address] PCP - General Family Medicine 11/23/23 Goals (unrecognized section and content) Goals may be documented in a n alternate sectionNo Information INFORMATION SOURCE (unrecogn ized section and content) DATE CREATED AUTHOR 12/10/2021 [facility] DATE CREATED AUTHOR AUTHOR'S ORGANIZ ATION 12/13/2021 [facility] d[facility] Specialist DATE CREATED AUTHOR AUTHOR'S ORGANIZ ATION 06/24/2022 [facility] DATE CREATED AUTHOR AUTHOR'S ORGANIZ ATION 06/10/2023 [facility] DATE CREATED AUTHOR AUTHOR'S ORGANIZ ATION 04/14/2024 [facility] d[facility] Specialists EPIC REASON FOR VISIT (unrecogniz [...] BE BASED ON THE PRIMARY CLINICAL RECORDS. [facility]. provides no warranty or guarantee of the accuracy or completeness of information in this document.
--- OUTSIDE RECORDS SUMMARY | 2024-04-15 14:28 | XMS_ITS | CCD ---
Author Organization [facility] Care Team Providers Care Chiller Technician Name Role Phone TARAN Avila Primary Care Provider TARAN Rueda Emergency Provider [phone] Gris Avila Primary Care Unavailable Sultana Rueda [...] Negative Negative - 4(70) +++ mg/dL [facility] Blood, UA Negative Negative - 50 Iron/mcL [facility] Clarity, UA Clear [facility] re Color, UA Yellow [facility] Health[facility] e Glucose, UA Negative Negative - 1999(110) ++++ mg/dL [facility] Interpretation and review of laboratory results Abnormal [facility] Ketones, UA Negative Negative - 160(16) ++++ mg/dL [facility] Leukocytes, UA Positive Negative - 500+++ Miguel/mcL [facility] Comment on above: small Nitrite, UA Negative Negative - Positive [facility] pH, UA 7 5 - 9 [facility] e Protein, UA Negative Negative - 1999(20) ++++ mg/dL [facility] Spec Grav, UA 1.02 1 - 1.03 [facility] Urobilinogen, UA 0.2 0.2 - 12 mg/dL [facility] ALL MISCELLANEOUS TESTon MISCELLANEOUS TEST COMMENT . [facility]althcare Comment on above: Test Ordered: [id number] Strep Gp B Culture+Rflx Strep Gp B Culture+Rflx Positive [A ] CB Reference Range: Negative Centers for Disease Control and Prevention (CDC) and [place] [employer] of Obstetricians and Gynecologists (ACOG) guidelines [...] risk for anaphylaxis. Performed at: CB - [facility] [id number] Classroom Aide: Olvin Garcia PhD, Phone: [phone] GROUP B STREP [id number] CULTURE, GROUP B STREP WITH SUSCEPTIBLITY [facility] Urinalysis macro (dipstick) panel (U)on 04-05-2024 Bilirubin, UA Negative Negative - 4(70) +++ mg/dL [facility] Blood, UA Negative Negative - 50 Iron/mcL [facility] Clarity, UA Clear [facility] re Color, UA Yellow [facility] Glucose, UA Negative Negative - 1999(110) ++++ mg/dL [facility] Interpretation and review of laboratory results Abnormal [facility] Ketones, UA Positive Negative - 160(16) ++++ mg/dL [facility] Comment on above: trace Leukocytes, UA Positive Negative - 500+++ Miguel/mcL [facility] Comment on above: small Nitrite, UA Negative Negative - Positive [facility] pH, UA 7 5 - 9 [facility] Protein, UA Trace Negative - 1999(20) ++++ mg/dL [facility] Spec Grav, UA 1.02 1 - 1.03 [facility] Urobilinogen, UA 1.0 0.2 - 12 mg/dL [facility] US OB BPP W NON-STRESS on 03-23-[address] [address] Ultrasound Report Signed Patient: DARYN LICONA MR#: [id number] : 2000 Acct:[id number] Age/Sex: 23 / F ADM Date: Loc: [facility] Attending Dr: Jayant Jones D.O. Ordering Physician: Jayant Jones D.O. Date of Service: 03/23/24 Procedure(s): US OB BPP w non-stress Accession Number(s): [id number] cc: Jayant Jones D.O.; Physician,Non-Staff [employer] The [address] [address] Patient Name: DARYN LICONA MRN: [facility]:[id number] date: 2000 Sex: F Assigned Patient Location: [facility] Current Patient Location: [facility] Accession/Order Number: [id number] Exam Date: 03/23/2024 16:07 Report Date: 03/23/2024 [...] Signed By: 03/23/24 1708 DD/ 05 TD/TT: Truss Designer: [facility] Radiology, Radiologist, MD - 03/23/2024 [place] [address] Ultrasound Report Signed Patient: DARYN LICONA MR#: [id number] : 2000 Acct:[id number] Age/Sex: 23 / F ADM Date: Loc: [facility] - Attending Dr: Jayant Jones D.O. Ordering Physician: Jayant Jones D.O. Date of Service: 03/23/24 Procedure(s): US OB BPP w non-stress Accession Number(s): [id number] cc: Jayant Jones D.O.; Physician,Non-Staff [place] [id number] Patient Name: DARYN LICONA MRN: [facility]:[id number] date: 2000 Sex: F Assigned Patient Location: [facility] Current Patient Location: [facility] Accession/Order Number: [id number] Exam Date: 03/23/2024 16:07 Report Date: 03/23/2024 [...] M.D. Signed By: 03/23/241707 DD/ 05 TD/TT: Truss Designer: [facility] Cnekt Radiology Study observation (narrative) [facility] US OB BPP W NON-STRESS Ordered By: Radiologist Radiology on 03-23-2024 [employer] Work Phone: US OB FOLLOW UP [...] Negative Negative - 4(70) +++ mg/dL [facility] Blood, UA Negative Negative - 50 Iron/mcL [facility] Clarity, UA Clear [facility] re Color, UA Yellow [facility] Glucose, UA Negative Negative - 1999(110) ++++ mg/dL [facility] Interpretation and review of laboratory results Abnormal [facility] Ketones, UA Positive Negative - 160(16) ++++ mg/dL [facility] Leukocytes, UA Positive Negative - 500+++ Miguel/mcL [facility] Nitrite, UA Negative Negative - Positive [facility] pH, UA 6.5 5 - 9 [facility] Health[facility] e Protein, UA Positive Negative - 1999(20) ++++ mg/dL [facility] Spec Grav, UA 1.025 1 - 1.03 [facility] care Urobilinogen, UA 0.2 0.2 - 12 mg/dL [facility] Urinalysis macro (dipstick) panel (U)on 03-07-2024 Bilirubin, UA Negative Negative - 4(70) +++ mg/dL [facility] Blood, UA Negative Negative - 50 Iron/mcL [facility] Healthcare Clarity, UA Clear [facility] re Color, UA Yellow [facility] Glucose, UA Negative Negative - 1999(110) ++++ mg/dL [facility] Interpretation and review of laboratory results Abnormal [facility] Ketones, UA Negative Negative - 160(16) ++++ mg/dL [facility] Leukocytes, UA Positive Negative - 500+++ Miguel/mcL [facility] Nitrite, UA Negative Negative - Positive [facility] pH, UA 6.5 5 - 9 [facility] Protein, UA Negative Negative - 1999(20) ++++ mg/dL [facility] Spec Grav, UA 1.025 1 - 1.03 [facility] Urobilinogen, UA 1.0 0.2 - 12 mg/dL [facility] Urinalysis macro (dipstick) panel (U)on 02-21-2024 Bilirubin, UA Negative Negative - 4(70) +++ mg/dL [facility] Blood, UA Negative Negative - 50 Iron/mcL [facility] Healthcare Clarity, UA Clear [facility] re Color, UA Yellow [facility] Healthcar e Glucose, UA Negative Negative - 1999(110) ++++ mg/dL [facility] Interpretation and review of laboratory results Abnormal [facility] Ketones, UA Negative Negative - 160(16) ++++ mg/dL [facility] Leukocytes, UA Positive Negative - 500+++ Miguel/mcL [facility] Healthcare Comment on above: small Nitrite, UA Negative Negative - Positive [facility] pH, UA 6 5 - 9 [facility] Healthcar e Protein, UA Trace Negative - 1999(20) ++++ mg/dL [facility] Healthcare Spec Grav, UA 1.03 1 - 1.03 [facility] care Urobilinogen, UA 0.2 0.2 - 12 mg/dL [facility] Urinalysis macro (dipstick) panel (U)on 02-03-2024 Bilirubin, UA Negative Negative - 4(70) +++ mg/dL [facility] Healthcare Blood, UA Negative Negative - 50 Iron/mcL [facility] Healthcare Clarity, UA Clear [facility] re Color, UA Yellow [facility] Glucose, UA Negative Negative - 1999(110) ++++ mg/dL [facility] Interpretation and review of laboratory results Abnormal [facility] Healthcare Ketones, UA Negative Negative - 160(16) ++++ mg/dL [facility] Healthcare Leukocytes, UA Positive Negative - 500+++ Miguel/mcL [facility] Healthcare Comment on above: small Nitrite, UA Negative Negative - Positive [facility] pH, UA 6.5 5 - 9 [facility] Protein, UA Negative Negative - 1999(20) ++++ mg/dL [facility] Healthcare Spec Grav, UA 1.025 1 - 1.03 [facility] Health care Urobilinogen, UA 1.0 0.2 - 12 mg/dL [facility] Urinalysis macro (dipstick) panel (U)on 01-19-2024 Bilirubin, UA Negative Negative - 4(70) +++ mg/dL [facility] Blood, UA Negative Negative - 50 Iron/mcL [facility] Healthcare Clarity, UA Clear [facility] re Color, UA Yellow [facility] Glucose, UA Negative Negative - 1999(110) ++++ mg/dL [facility] Interpretation and review of laboratory results Abnormal [facility] Ketones, UA Negative Negative - 160(16) ++++ mg/dL [facility] Healthcare Leukocytes, UA Trace Negative - 500+++ Miguel/mcL [facility] Healthcare Nitrite, UA Negative Negative - Positive [facility] pH, UA 6 5 - 9 [facility] Protein, UA Negative Negative - 1999(20) ++++ mg/dL [facility] Healthcare Spec Grav, UA 1.025 1 - 1.03 [facility] Urobilinogen, UA 0.2 0.2 - 12 mg/dL [facility] Healthcare [facility] Urinalysis macro (dipstick) panel (U)on 12-22-2023 Bilirubin, UA Negative Negative - 4(70) +++ mg/dL [facility] Healthcare Blood, UA Positive Negative - 50 Iron/mcL [facility] Healthcare Comment on above: trace Clarity, UA Clear [facility] re Color, UA Yellow [facility] Glucose, UA Negative Negative - 1999(110) ++++ mg/dL [facility] Interpretation and review of laboratory results Abnormal [facility] Ketones, UA Negative Negative - 160(16) ++++ mg/dL [facility] Leukocytes, UA Positive Negative - 500+++ Miguel/mcL [facility] Comment on above: small Nitrite, UA Negative Negative - Positive [facility] pH, UA 6.5 5 - 9 [facility] e Protein, UA Negative Negative - 1999(20) ++++ mg/dL [facility] Spec Grav, UA 1.02 1 - 1.03 [facility] Urobilinogen, UA 0.2 0.2 - 12 mg/dL [facility] Health[facility] e ALL CBC WITH AUTO DIFFon BASOPHILS ABSOLUTE AUTO 0 [facility] Basophils/100 WBC (Bld) 0.2 % 0.2 - 2.0 % [facility] Eosinophils/100 WBC (Bld) 0.5 % Low 0.9 - 7.0 % [facility] Erythrocyte distribution width (RBC) [Ratio] 12.8 % 11.0 - 15.0 % [facility] Hematocrit (Bld) [Volume fraction] 38.7 % 36.0 - 48.0 % [facility] Hemoglobin (Bld) [Mass/Vol] 13.1 g/dL 12.0 - 16.0 g/dL [facility] IMMATURE GRANULOCYTES ABS AUTO 0.03 [facility] Immature granulocytes/100 WBC (Bld) 0.3 % 0.0 - 0.5 % [facility] Interpretation and review of laboratory results Abnormal [facility] LYMPHOCYTES ABSOLUTE AUTO 2.1 [facility] Lymphocytes/100 WBC (Bld) 18.3 % Low 20.5 - 60.0 % [facility] MCH (RBC) [Entitic mass] 31.7 pg 26.7 - 34.0 pg [facility] MCHC (RBC) [Mass/Vol] 33.9 g/dL 29.9 - 35.2 g/dL [facility] MCV (RBC) [Entitic vol] 93.7 fL 81.0 - 99.0 fL [facility] MONOCYTES ABSOLUTE AUTO 0.4 [facility] Monocytes/100 WBC (Bld) 3.7 % 1.7 - 12.0 % [facility] NEUTROPHILS ABSOLUTE AUTO 8.8 High [facility] Neutrophils/100 WBC (Bld) 77 % High 43.0 - 75.0 % [facility] Platelet mean volume (Bld) [Entitic vol] 10.8 fL 9.5 - 13.5 fL [facility] are [facility] EO # 0.1 [facility]T [facility] RBC 4.13 Low [facility] WBC 11.5 High [facility] e [facility] e URETHRITIS/DISCHARGE PLUS VA GINITIS (HTRX)on 12-03-2023 ATOPOBIUM VAGINAE 0 [facility] althcare ATOPOBIUM VAGINAE Not detected [facility] BVAB 2,3 (BACTERIAL VAGINOSIS ASSOCIATED BACTERIA 2, 3); MOBILUNCUS SPP 26.835 Abnormal [facility] BVAB 2,3 (BACTERIAL VAGINOSIS ASSOCIATED BACTERIA 2, 3); MOBILUNCUS SPP Detected Abnormal [facility] ANGELINA ALBICANS, PARAPSILOSIS, TROPICALIS 0 [facility] ANGELINA ALBICANS, PARAPSILOSIS, TROPICALIS Not detected [facility] ANGELINA GLABRATA 0 [facility] ANGELINA GLABRATA Not detected [facility] ealthcare ANGELINA KRUSEI 0 [facility] Healt hcare ANGELINA KRUSEI Not detected [facility] CHLAMYDIA TRACHOMATIS 0 [facility] CHLAMYDIA TRACHOMATIS Not detected [facility] GARDNERELLA VAGINALIS 0 [facility] GARDNERELLA VAGINALIS Not detected [facility] Interpretation and review of laboratory results Abnormal [facility] MEGASPHAERA (TYPES 1, 2) 0 [facility] MEGASPHAERA (TYPES 1, 2) Not detected [facility] MYCOPLASMA GENITALIUM 0 [facility] MYCOPLASMA GENITALIUM Not detected [facility] NEISSERIA GONORRHOEAE 0 [facility] NEISSERIA GONORRHOEAE Not detected [facility] TRICHOMONAS VAGINALIS 0 [facility] TRICHOMONAS VAGINALIS Not detected [facility] HCG ( test) Ql (U)o n 12-02-2023 Interpretation and review of laboratory results Abnormal [facility] Preg Test, Ur Positive [facility] Urinalysis macro (dipstick) panel (U)on 12-02-2023 Bilirubin, UA Negative Negative - 4(70) +++ mg/dL [facility] Blood, UA Negative Negative - 50 Iron/mcL [facility] Clarity, UA Clear [facility] re Color, UA Yellow [facility] Health[facility] e Glucose, UA Negative Negative - 1999(110) ++++ mg/dL [facility] Interpretation and review of laboratory results Abnormal [facility] Ketones, UA Negative Negative - 160(16) ++++ mg/dL [facility] Leukocytes, UA Positive Negative - 500+++ Miguel/mcL [facility] Nitrite, UA Negative Negative - Positive [facility] pH, UA 5.5 5 - 9 [facility] e Protein, UA Negative Negative - 1999(20) ++++ mg/dL [facility] Spec Grav, UA 1.03 1 - 1.03 [facility] Urobilinogen, UA 1.0 0.2 - 12 mg/dL [facility] Health[facility] e MHPT TRICHOMONAS/WET PREPon 11-21-2023 WET PREP TRIC BV ANGELINA Wet Prep Tric BV Angelina WP.BACT Bacteria^[facility] BV ANGELIAN WP.CLUE Clue Cells^Clue Cells [facility] WET PREP TRIC BV ANGELINA WP.JONATHAN Fungal Elements^Fungal Elements [facility] W[facility] TRIC BV ANGELINA WP.RBC RBC^RBC [facility] WET PREP TRIC BV ANGELINA WP.TRICH Trichomonas^Trichomo luis felipe [facility] WET PREP TRIC BV ANGELINA WP.WBC WBC^WBC [facility] No Panel Informationon 11-20 WET PREP TRIC BV ANGELINA F Few^Few [facility] WET PREP TRIC BV ANGELINA N None Seen^None Seen [facility] CT BRAIN WO CONTon CT BRAIN [...] Alcaraz MD on 06/08/2023 9:25 PM Normal [facility] CT CERVICAL SPINE WO CONTon [...] Alcaraz MD on 06/08/2023 9:43 PM Normal [facility] XR CHEST 2 VWSon 06-08-2023 XR CHEST 2 VWS XR CHEST 2 VWS PA and lateral chest: HISTORY: Trauma. 2 views of the chest are obtained. Cardiac and mediastinal contours are within normal limits. There is no focal infiltrate, effusion, or pneumothorax. Osseous structures appear intact. IMPRESSION: No acute findings. Finalized by Olvin Alcaraz MD on 06/08/2023 9:19 PM Normal [facility] XR PELVIS 1 OR 2 [...] Alcaraz MD on 06/08/2023 9:22 PM Normal [facility] XR SHOULDER LT MIN 2 [...] Alcaraz MD on 06/08/2023 9:20 PM Normal [facility] MRI Knee w/o Lefton 12-12-19 [...] LT 4V*on 11-29-2021 XR knee LT 4V* [facility] [place] [address] XRay Report Signed Patient: Daryn Licona MR#: [id number] : 2000 Acct:[id number] Age/Sex: 21 / F ADM Date: 11/28/21 Loc: ER Room: Type: [facility] ER Attending Dr: Copies to: [...] Claudia Baugh M.D.11/29/2021 9:03 AM Dictation Location: [facility]- Transcribed By: JULES 11/29/21902 Dictated By: Claudia Baugh MD 11/29/21901 Signed By: 11/29/21902 [facility] Vital Signs Date Time Vital Sign Value Performing Clinician Facility 04-12-2024 14:57-0500 Body mass index (BMI) [Ratio] 35.56 kg/m2 Maryam SALES Work Phone: [facility] 04-12-2024 14:57-0500 Body weight 112.4 kg Maryam SALES Work Phone: [facility] 04-12-2024 14:57-0500 Diastolic blood pressure 70 mm[Hg] Maryam SALES Work Phone: [facility] 04-12-2024 14:57-0500 Systolic blood pressure 120 mm[Hg] Maryam SALES Work Phone: [facility] 04-05-2024 15:15-0500 Body mass index (BMI) [Ratio] 35.32 kg/m2 Jayant Robert DO Work Phone: [facility] 04-05-2024 15:15-0500 Body weight 111.66 kg Jayant Robert DO Work Phone: [facility] 04-05-2024 15:15-0500 Diastolic blood pressure 74 mm[Hg] Jayant Robert DO Work Phone: [facility] 04-05-2024 15:15-0500 Systolic blood pressure 118 mm[Hg] Jayant Robert DO Work Phone: [facility] 03-21-2024 11:36-0500 Body mass index (BMI) [Ratio] 34.21 kg/m2 Maryam SALES Work Phone: [facility] 03-21-2024 11:36-0500 Body weight 108.14 kg Maryam SALES Work Phone: [facility] 03-21-2024 11:36-0500 Diastolic blood pressure 72 mm[Hg] Maryam SALES Work Phone: [facility] 03-21-2024 11:36-0500 Systolic blood pressure 110 mm[Hg] Maryam Nguyen PA Work Phone: [facility] 03-07-2024 11:02-0500 Body mass index (BMI) [Ratio] 33.26 kg/m2 Jayant Robert DO Work Phone: [facility] 03-07-2024 11:02-0500 Body weight 105.14 kg Jayant Robert DO Work Phone: [facility] 03-07-2024 11:02-0500 Diastolic blood pressure 78 mm[Hg] Jayant Robert DO Work Phone: [facility] 03-07-2024 11:02-0500 Systolic blood pressure 124 mm[Hg] Jayant Robert DO Work Phone: [facility] 02-21-2024 10:34-0500 Body mass index (BMI) [Ratio] 31.39 kg/m2 Maryam Nguyen PA Work Phone: [facility] 02-21-2024 10:34-0500 Body weight 99.25 kg Maryam Wendy PA Work Phone: [facility] 02-21-2024 10:34-0500 Diastolic blood pressure 84 mm[Hg] Maryam Nguyen PA Work Phone: [facility] 02-21-2024 10:34-0500 Systolic blood pressure 138 mm[Hg] Maryam Nguyen PA Work Phone: [facility] 02-03-2024 12:19-0500 Body mass index (BMI) [Ratio] 31.71 kg/m2 Jayant Robert DO Work Phone: [facility] 02-03-2024 12:19-0500 Body weight 100.25 kg Jayant Robert DO Work Phone: [facility] 02-03-2024 12:19-0500 Diastolic blood pressure 72 mm[Hg] Jayant Robert DO Work Phone: [facility] 02-03-2024 12:19-0500 Systolic blood pressure 120 mm[Hg] Jayant Robert DO Work Phone: [facility] 01-19-2024 11:59-0500 Body mass index (BMI) [Ratio] 32.11 kg/m2 Maryam Wendy PA Work Phone: [facility] 01-19-2024 11:59-0500 Body weight 101.52 kg Maryam Wendy PA Work Phone: [facility] 01-19-2024 11:59-0500 Diastolic blood pressure 68 mm[Hg] Maryam Wendy PA Work Phone: [facility] 01-19-2024 11:59-0500 Systolic blood pressure 120 mm[Hg] Maryam Nguyen PA Work Phone: [facility] 12-22-2023 14:38-0500 Body mass index (BMI) [Ratio] 29.99 kg/m2 Jayant Robert DO Work Phone: [facility] 12-22-2023 14:38-0500 Body weight 94.8 kg Jayant Robert DO Work Phone: [facility] 12-22-2023 14:38-0500 Diastolic blood pressure 74 mm[Hg] Jayant Robert DO Work Phone: [facility] 12-22-2023 14:38-0500 Systolic blood pressure 118 mm[Hg] Jayant Robert DO Work Phone: [facility] 12-02-2023 14:27-0400 Body mass index (BMI) [Ratio] 29.39 kg/m2 Nom Nurse [facility] 12-02-2023 14:27-0400 Body weight 92.9 kg [facility] Nurse [facility] 01-13-2022 09:15-0500 Body height 180.34 cm Shaan Balderrama Other [employer] Other 01-13-2022 09:15-0500 Body mass index (BMI) [Ratio] 27.89 kg/m2 Shaan Balderrama Other [employer] Other 01-13-2022 09:15-0500 Body weight 90.72 kg Shaan Balderrama Other [facility] [employer] Other 11-28-2021 21:42-0400 Body height 182.88 cm TARAN Landry Kiepert Work Phone: [facility] 11-28-2021 21:42-0400 Body temperature 98 [degF] EXCELLENCE COACH Gris Kiepert Work Phone: [facility] 11-28-2021 21:42-0400 Body weight 85.27 kg EXCELLENCE COACH Gris Kiepert Work Phone: [facility] 11-28-2021 21:42-0400 Diastolic blood pressure 88 mm[Hg] EXCELLENCE COACH Gris Kiepert Work Phone: [facility] 11-28-2021 21:42-0400 Heart rate 98 /min EXCELLENCE COACH Gris Kiepert Work Phone: [facility] 11-28-2021 21:42-0400 Respiratory rate 20 /min EXCELLENCE COACH Gris Kiepert Work Phone: [facility] 11-28-2021 21:42-0400 SaO2% (BldA) [Mass fraction] 95 % EXCELLENCE COACH Gris Kiepert Work Phone: [facility] 11-28-2021 21:42-0400 Systolic blood pressure 152 mm[Hg] EXCELLENCE COACH Gris Kiepert Work Phone: [facility] Encounters Encounter Date Encounter Type Care Provider Facility Start: 04-12-2024 End: 04-12-2024 flow sheet Maryam SALES Work Phone: [facility] Comment on above: 37 weeks [...] Emergency department patient visit PILI Welsh GONZALES [facility] Start: 06-21-2022 End: 06-21-2022 ambulatory COLBY QIAN . Facility:[facility] Start: 05-28-2022 End: 05-28-[address] HUMBERTO JAVIER Facility:[facility] Start: 05-20-2022 End: 05-20-[address] HUMBERTO JAVIER Facility:[facility] Start: 01-13-2022 End: 01-13-2022 ambulatory Shaan Balderrama Other [facility] Other Start: 01-13-2022 Office outpatient vi sit 15 minutes Shaan Balderrama [facility] Start: 11-28-2021 End: 11-29-2021 Emergency department patient visit Gris Caraballocalderon Facility:[facility] Start: 11-28-2021 End: 11-28-2021 Emergency department patient visit TARAN Gris Avila Work Phone: [facility]-Emergency Room Procedures Date Procedure Procedure Detail Performing [...] PM EST Routine [facility] [address] [facility] [place] [address] Jayant Jones, DO [address] [place], [place] [id number] [facility] Start: 04-12-2024 End: 04-12-2024 Patient encounter procedure [facility] Comment on above: Arrived Start: 04-05-2024 End: 04-05-2024 Patient encounter procedure 04/05/2024 2:40 PM EST Routine [facility] [address] [place] [place] [id number] Jayant Jones DO [address] [place] [address] [facility] Start: 04-05-2024 End: 04-05-2025 CULTURE, GROUP B STREP WITH SUSCEPTIBLITY CULTURE, GROUP B STREP WITH SUSCEPTIBLITY Lab Routine Third trimester Expected: 04/05/2024, Expires: 04/05/2025 [facility] Work Phone: Comment on above: Expected: 04/05/2024 , Expires: 04/05/2025 Start: 03-21-2024 End: 03-21-2024 Patient encounter procedure 03/21/2024 11:20 AM EST Routine [facility] [address] [place] [id number] Maryam Nguyen PA [address] [place] [address] [facility] Start: 03-21-2024 End: 03-21-2024 Professional / ancillary services management 03/21/2024 10:30 AM EST Ancillary Procedure [facility] [address] [place] [place] [phone] [facility] Start: 03-07-2024 End: 03-07-2025 [...] AM EST Routine [facility] [address] [place] [place] [phone] Maryam Nguyen PA [address] [place], [place] [id number] [facility] Start: 01-19-2024 End: 01-18-2025 CBC panel - Blood by Automated count CBC Lab Routine Diabetes mellitus screening Expected: 01/19/2024 (Approximate), Expires: 01/18/2025 [facility] Work Phone: Comment on above: Expected: 01/19/2024 (Approximate), Expires: 01/18/2025 Start: 01-19-2024 End: 01-18-2025 Measurement of glucose 1 hour after glucose challenge for glucose tolerance test Glucose tolerance, 1 hour Lab Routine Diabetes mellitus screening Expected: 01/19/2024 (Approximate), Expires: 01/18/2025 [facility] Comment on above: Expected: 01/19/2024 (Approximate), Expires: 01/18/2025 Start: 01-19-2024 End: 01-18-2025 US for US OB INCOMPLETE ANATOMY Imaging Routine Encounter for follow-up ultrasound of anatomy Expected: 01/19/2024 (Approximate), Expires: 01/18/2025 [facility] Comment on above: Expected: 01/19/2024 (Approximate), Expires: 01/18/2025 Start: 01-19-2024 End: 01-19-2024 Patient encounter procedure [facility] Comment on above: Arrived Start: 12-22-2023 End: 12-22-2023 Patient encounter procedure [facility] Comment on above: Arrived Start: 12-22-2023 End: 12-22-2023 Professional / ancillary services management 12/22/2023 1:00 PM EST Ancillary Procedure [facility] [address] [place] [address] [facility] Start: 12-02-2023 End: 12-01-2024 ABO/Rh ABO/Rh Lab Routine Missed menses , unspecified gestational age Expected: 12/02/2023 (Approximate), Expires: 12/01/2024 [facility] Comment on above: Expected: 12/02/2023 (Approximate), Expires: 12/01/2024 Start: 12-02-2023 End: 03-03-2024 Alpha fetoprotein, maternal Alpha fetoprotein, maternal Lab Routine Encounter for supervision of normal first in first trimester Expected: 12/02/2023 (Approximate), Expires: 03/03/2024 [facility] Comment on above: Expected: 12/02/2023 (Approximate), Expires: 03/03/2024 Start: 12-02-2023 End: 12-01-2024 Blood type and Indirect antibody screen panel - Blood Type and screen Lab Routine Missed menses , unspecified gestational age Expected: 12/02/2023 (Approximate), Expires: 12/01/2024 [facility] Work Phone: Comment on above: Expected: 12/02/2023 (Approximate), Expires: 12/01/2024 Start: 12-02-2023 End: 12-01-2024 Drugs of abuse panel - Urine by Screen method Rapid drug screen, urine Lab Routine , unspecified gestational age Encounter for supervision of normal first in first trimester Expected: 12/02/2023 (Approximate), Expires: 12/01/2024 [facility] Comment on above: Expected: 12/02/2023 (Approximate), Expires: 12/01/2024 Start: 12-02-2023 End: 12-01-2024 US for [facility] Comment on above: Expected: 12/02/2023 (Approximate), Expires: 12/01/2024 Start: 10-17-2023 Influenza vaccination Influenza Vacc ine (#1) [facility] Start: 11-28-2021 Radiologic examinati on of knee XR knee LT 4V* [facility] Start: 11-28-2021 XR Knee - left 4 Views [facility] Bacteria identified in Urine by Culture Urine culture Microbiology Routine Missed menses Ordered: 12/02/2023 [facility] Comment on above: Ordered: 12/02/2023 CBC W Auto Different ial panel - Blood CBC and differential Lab Routine Missed menses , unspecified gestational age Ordered: 12/02/2023 [facility] Comment on above: Ordered: 12/02/2023 Hemoglobin A1c/Hemoglobin.total in Blood Hemoglobin A1c Lab Routine Missed menses , unspecified gestational age Ordered: 12/02/2023 [facility] Comment on above: Ordered: 12/02/2023 Hepatitis B virus surface Ag [Presence] in Serum or Plasma by Immunoassay Hepatitis B surface antigen Lab Routine Missed menses , unspecified gestational age Ordered: 12/02/2023 [facility] Comment on above: Ordered: 12/02/2023 Hepatitis C virus Ab [Presence] in Serum or Plasma by Immunoassay Hepatitis C antibody Lab Routine Missed menses , unspecified gestational age Ordered: 12/02/2023 [facility] Comment on above: Ordered: 12/02/2023 HIV-1/HIV-2 antigen/antibody combination immunoassay HIV-1 and HIV-2 antibodies Lab Routine Missed menses , unspecified gestational age Ordered: 12/02/2023 [facility] Comment on above: Ordered: 12/02/2023 Patient Education Knee Sprain (DC) [facility] Work Phone: Patient referral [facility] Work Phone: Reagin Ab [Presence] in Serum by RPR RPR Lab Routine Missed menses , unspecified gestational age Ordered: 12/02/2023 [facility] Comment on above: Ordered: 12/02/2023 Rubella antibody, IgG Rubella an tibody, IgG Lab Routine Missed menses , unspecified gestational age Ordered: 12/02/2023 [facility] Comment on above: Ordered: 12/02/2023 Payers Date Payer Category Payer Private Health Insurance [facility] MEDICA[facility] [id number] 2023 Unknown [id number] 2021 Self-pay [id number] 2021 Unknown BCBS BCBS [id number] 2021-Present [phone] [address] [place] [address] [id number] 2020 Private Health Insurance [id number] 1999 Unknown [id number] 2.16.840.1.869252.3.579.2 .593 1999 Unknown [id number] 2.16.840.1.159172.3.579.2 .593 1999 Unknown [id number] 2.16.840.1.849908.3.579.2 .593 1999 Unknown [id number] 2.16.840.1.052584.3.579.2 .128 1999 Unknown [id number] 2.16.840.1.482195.3.579.2 .1285 1999 Unknown [id number] 2.16.840.1.422667.3.579.2 .128 1999 Unknown [id number] 2.16.840.1.590604.3.579.2 .1285 1999 Unknown [id number] 2.16.840.1.481179.3.579.2 .128 1999 Unknown [id number] 2.16.840.1.204966.3.579.2 .1285 1999 Unknown [id number] 2.16.840.1.045019.3.579.2 .9 1999 Unknown [id number] 2.16.840.1.026238.3.579.2 .9 1999 Unknown [id number] 2.16.840.1.681990.3.579.2 .1258 1999 Unknown [id number] 2.16.840.1.108886.3.579.2 .9 1999 Unknown [id number] 2.16.840.1.316459.3.579.2 .1258 1999 Unknown [id number] 2.16.840.1.417819.3.579.2 .1258 1999 Unknown [id number] 2.16.840.1.426009.3.579.2 .1258 1999 Unknown [id number] 2.16.840.1.619354.3.579.2 .1258 1999 Unknown [id number] 2.16.840.1.480187.3.579.2 .1258 1999 Unknown [id number] 2.16.840.1.918925.3.579.2 .9 1959 Unknown [id number] 1959 Unknown [id number] 1959 Unknown [id number] Unknown [id number] 2.16.840.1.501784.3.579.2 .531 Worker's Compensation [id number] Social History Date Type Detail Facility Start: 11-28-2021 Tobacco smoking status ALIS Smoker (finding) [facility] Start: 2000 Sex Assigned At Female F [facility] Sex Assigned At [facility] Other Tobacco smoking status ALIS Tobacco smoking consumption unknown [facility] Start: 2000 Sex assigned at Not on file [facility] Start: 04-29-2022 Gender identity Identifies as female gender (finding) [facility] Start: 08-05-2023 [facility] [...] HENRRY Barker documented in this encounter [facility] 04-05-2024 History of Presen t illness [...] nursing note reviewed. Exam conducted with a global account executive present. Vitals: Estimated body mass index is [...] Jones DO documented in this encounter [facility] 03-21-2024 History of Presen t illness [...] HENRRY Barker documented in this encounter [facility] 03-07-2024 History of Presen t illness [...] nursing note reviewed. Exam conducted with a global account executive present. Vitals: Estimated body mass index is [...] Jones DO documented in this encounter [facility] 02-21-2024 History of Presen t illness [...] HENRRY Barker documented in this encounter [facility] 02-03-2024 History of Presen t illness [...] Jones DO documented in this encounter [facility] 01-19-2024 History of Presen t illness [...] nursing note reviewed. Exam conducted with a global account executive present. Vitals: Estimated body mass index is [...] HENRRY Barker documented in this encounter [facility] 12-22-2023 History of Presen t illness [...] nursing note reviewed. Exam conducted with a global account executive present. Vitals: Estimated body mass index is [...] Jones DO documented in this encounter [facility] 12-02-2023 History of Presen t illness [...] or undercooked meat, and stay away from [facility]. Patient has also been advised to [...] Fall LPN documented in this encounter [facility] 06-21-2022 Note PROCEDURE: XR ANKLE RT [...] authenticated by: GURPREET GUEVARA Date: 2022-06-21 12:38 [facility] 06-21-2022 Note PROCEDURE: XR ANKLE RT MIN [...] authenticated by: GURPREET GUEVARA Date: 2022-06-21 12:38 [facility] 01-13-2022 Evaluation note Encounter Date Diagnosis Assessment [...] left knee, initial encounter (ICD-10 - S83.412A) [facility] Other Evaluation noteNo assessment information available [facility] Work Phone: Evaluation note* Diagnosis Missed [...] Date Medical History anxiety Surgical History tonsillectomy [facility] Other Hospital Discharge instructions Additional Instructions Ice and elevate Tylenol/ Motrin if needed for pain Wear knee immobilizer for the next 3 to 4 days Partial weightbearing with crutches Tylenol or Naprosyn if needed for pain Return here if any problems persist or worsen Follow-up with your primary care doctor orthopedic for recheck in 3 [facility] Work Phone: Chief Complaint and Reason [...] Inactive Member Role Status Veronique Avila APRN VARNISH [employer] HELPER-C Primary Care Provider Jessica Rueda APRN Emergency Provider Active Team Status: Active Member Role Status Dates Gris Avila APRN VARNISH MAK[employer] HELPER-C Primary Care Provider Raman jones Chiller Technician Relationship Specialty Start Date End Date Miryam Loving DO [address] [place] [address] PCP - General Family Medicine 06/23/22 Chiller Technician Relationship Specialty Start Date End Date Unallocated, Kodak Antonio MD [address] [place] [address] [place] [address] PCP - General Family Medicine 11/23/23 Chiller Technician Relationship Specialty Start Date End Date Unallocated, Kodak Antonio MD [facility] [place] [address] PCP - General Family Medicine 11/23/23 Chiller Technician Relationship Specialty Start Date End Date Unallocated, Kodak Antonio MD [facility] [address] [facility] [address] PCP - General Family Medicine 11/23/23 Chiller Technician Relationship Specialty Start Date End Date Unallocated, Kodak Antonio MD [address] [place] [address] [place] [address] PCP - General Family Medicine 11/23/23 Chiller Technician Relationship Specialty Start Date End Date Unallocated, Kodak Antonio MD [address] [facility] [place] [address] PCP - General Family Medicine 11/23/23 Chiller Technician Relationship Specialty Start Date End Date Unallocated, Kodak Antonio MD [address] [facility] [place] [address] PCP - General Family Medicine 11/23/23 Chiller Technician Relationship Specialty Start Date End Date Unallocated, Kodak Antoino MD [address] [facility] [place] [address] PCP - General Family Medicine 11/23/23 Chiller Technician Relationship Specialty Start Date End Date Unallocated, Kodak Antonio MD [address] [place] [address] PCP - General Family Medicine 11/23/23 Chiller Technician Relationship Specialty Start Date End Date Unallocated, Kodak Antonio MD [address] [place] [address] PCP - General Family Medicine 11/23/23 Goals (unrecognized section and content) Goals may be documented in a n alternate sectionNo Information INFORMATION SOURCE (unrecogn ized section and content) DATE CREATED AUTHOR 12/10/2021 [facility] DATE CREATED AUTHOR AUTHOR'S ORGANIZ ATION 12/13/2021 [facility] Me dical Specialist DATE CREATED AUTHOR AUTHOR'S ORGANIZ ATION 06/24/[address] [facility] DATE CREATED AUTHOR AUTHOR'S ORGANIZ ATION 06/10/2023 [facility] DATE CREATED AUTHOR AUTHOR'S ORGANIZ ATION 04/14/[address] [facility] dical Specialists EPIC REASON FOR VISIT [...] BE BASED ON THE PRIMARY CLINICAL RECORDS. [employer] [facility]. provides no warranty or guarantee of the accuracy or completeness of information in this document.
--- OUTSIDE RECORDS SUMMARY | 2024-04-15 14:29 | XMS_ITS | CCD ---
Author Organization [facility] Care Team Providers Care Carpenters Supervisor Name Role Phone TARAN Avila Primary Care [...] UA Negative Negative - 4(70) +++ mg/dL [facility] Blood, UA Negative Negative - 50 Iron/mcL [facility] Clarity, UA Clear [facility] re Color, UA Yellow [facility] Healthcar e Glucose, UA Negative Negative - 1999(110) ++++ mg/dL [facility] Interpretation and review of laboratory results Abnormal [facility] Ketones, UA Negative Negative - 160(16) ++++ mg/dL [facility] Leukocytes, UA Positive Negative - 500+++ Miguel/mcL [facility] Comment on above: small Nitrite, UA Negative Negative - Positive [facility] pH, UA 7 5 - 9 [facility] e Protein, UA Negative Negative - 1999(20) ++++ mg/dL [facility] Spec Grav, UA 1.02 1 - 1.03 [facility] Urobilinogen, UA 0.2 0.2 - 12 mg/dL [facility] e ALL MISCELLANEOUS TESTon MISCELLANEOUS TEST COMMENT . [facility]care Comment on above: Test Ordered: [id number] Strep Gp B Culture+Rflx Strep Gp B Culture+Rflx Positive [A ] CB Reference Range: Negative Centers for Disease Control and Prevention (CDC) and [place] [employer] of Obstetricians and Gynecologists (ACOG) guidelines [...] risk for anaphylaxis. Performed at: CB - [facility] [id number] Apparel Cutter: Olvin Garcia PhD, Phone: [phone] GROUP B STREP [id number] CULTURE, GROUP B STREP WITH SUSCEPTIBLITY [facility] Urinalysis macro (dipstick) panel (U)on 04-05-2024 Bilirubin, UA Negative Negative - 4(70) +++ mg/dL [facility] Blood, UA Negative Negative - 50 Iron/mcL [facility] Clarity, UA Clear [facility] re Color, UA Yellow [facility] Glucose, UA Negative Negative - 1999(110) ++++ mg/dL [facility] Interpretation and review of laboratory results Abnormal [facility] Ketones, UA Positive Negative - 160(16) ++++ mg/dL [facility] Comment on above: trace Leukocytes, UA Positive Negative - 500+++ Miguel/mcL [facility] Comment on above: small Nitrite, UA Negative Negative - Positive [facility] pH, UA 7 5 - 9 [facility] e Protein, UA Trace Negative - 1999(20) ++++ mg/dL [facility] Spec Grav, UA 1.02 1 - 1.03 [facility] Urobilinogen, UA 1.0 0.2 - 12 mg/dL [facility] BPP W NON-STRESS on 03-23-[address] [address] Ultrasound Report Signed Patient: DARYN LICONA MR#: [id number] : 2000 Acct:[id number] Age/Sex: 23 / F ADM Date: Loc: [facility] Attending Dr: Jayant Jones D.O. Ordering Physician: Jayant Jones D.O. 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 Ordering Physician: Jayant Jones D.O. Date of Service: 03/23/24 Procedure(s): US OB BPP w non-stress Accession Number(s): [id number] cc: Jayant Jones D.O.; Physician,Non-Staff [place] [id number] Patient Name: DARYN LICONA MRN: [facility]:[id number] date: 2000 Sex: F Assigned Patient Location: [facility] Current Patient Location: [facility] Accession/Order Number: [id number] Exam Date: 03/23/2024 16:07 Report Date: 03/23/2024 [...] M.D. 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: [facility] [employer] Radiology Study observation (narrative) [facility] US OB BPP W NON-STRESS Ordered By: Radiologist Radiology on 03-23-2024 [employer] Work Phone: US OB FOLLOW UP [...] UA Negative Negative - 4(70) +++ mg/dL [facility] Blood, UA Negative Negative - 50 Iron/mcL [facility] Clarity, UA Clear [facility] re Color, UA Yellow [facility] Glucose, UA Negative Negative - 1999(110) ++++ mg/dL [facility] Interpretation and review of laboratory results Abnormal [facility] Ketones, UA Positive Negative - 160(16) ++++ mg/dL [facility] Leukocytes, UA Positive Negative - 500+++ Miguel/mcL [facility] Nitrite, UA Negative Negative - Positive [facility] pH, UA 6.5 5 - 9 [facility] Health[facility] Protein, UA Positive Negative - 1999(20) ++++ mg/dL [facility] Spec Grav, UA 1.025 1 - 1.03 [facility] care Urobilinogen, UA 0.2 0.2 - 12 mg/dL [facility] Urinalysis macro (dipstick) panel (U)on 03-07-2024 Bilirubin, UA Negative Negative - 4(70) +++ mg/dL [facility] Blood, UA Negative Negative - 50 Iron/mcL [facility] Healthcare Clarity, UA Clear [facility] re Color, UA Yellow [facility] Glucose, UA Negative Negative - 1999(110) ++++ mg/dL [facility] Interpretation and review of laboratory results Abnormal [facility] Ketones, UA Negative Negative - 160(16) ++++ mg/dL [facility] Leukocytes, UA Positive Negative - 500+++ Miguel/mcL [facility] Nitrite, UA Negative Negative - Positive [facility] pH, UA 6.5 5 - 9 [facility] Protein, UA Negative Negative - 1999(20) ++++ mg/dL [facility] Spec Grav, UA 1.025 1 - 1.03 [facility] Urobilinogen, UA 1.0 0.2 - 12 mg/dL [facility] Urinalysis macro (dipstick) panel (U)on 02-21-2024 Bilirubin, UA Negative Negative - 4(70) +++ mg/dL [facility] Blood, UA Negative Negative - 50 Iron/mcL [facility] Healthcare Clarity, UA Clear [facility] re Color, UA Yellow [facility] Healthcar e Glucose, UA Negative Negative - 1999(110) ++++ mg/dL [facility] Interpretation and review of laboratory results Abnormal [facility] Ketones, UA Negative Negative - 160(16) ++++ mg/dL [facility] Leukocytes, UA Positive Negative - 500+++ Miguel/mcL [facility] Healthcare Comment on above: small Nitrite, UA Negative Negative - Positive [facility] pH, UA 6 5 - 9 [facility] Healthcar e Protein, UA Trace Negative - 1999(20) ++++ mg/dL [facility] Healthcare Spec Grav, UA 1.03 1 - 1.03 [facility] care Urobilinogen, UA 0.2 0.2 - 12 mg/dL [facility] Urinalysis macro (dipstick) panel (U)on 02-03-2024 Bilirubin, UA Negative Negative - 4(70) +++ mg/dL [facility] Healthcare Blood, UA Negative Negative - 50 Iron/mcL [facility] Healthcare Clarity, UA Clear [facility] Color, UA Yellow [facility] Glucose, UA Negative Negative - 1999(110) ++++ mg/dL [facility] Interpretation and review of laboratory results Abnormal [facility] Healthcare Ketones, UA Negative Negative - 160(16) ++++ mg/dL [facility] Healthcare Leukocytes, UA Positive Negative - 500+++ Miguel/mcL [facility] Healthcare Comment on above: small Nitrite, UA Negative Negative - Positive [facility] pH, UA 6.5 5 - 9 [facility] Protein, UA Negative Negative - 1999(20) ++++ mg/dL [facility] Healthcare Spec Grav, UA 1.025 1 - 1.03 [facility] Health care Urobilinogen, UA 1.0 0.2 - 12 mg/dL [facility] Urinalysis macro (dipstick) panel (U)on 01-19-2024 Bilirubin, UA Negative Negative - 4(70) +++ mg/dL [facility] Blood, UA Negative Negative - 50 Iron/mcL [facility] Healthcare Clarity, UA Clear [facility] Color, UA Yellow [facility] Glucose, UA Negative Negative - 1999(110) ++++ mg/dL [facility] Interpretation and review of laboratory results Abnormal [facility] Ketones, UA Negative Negative - 160(16) ++++ mg/dL [facility] Healthcare Leukocytes, UA Trace Negative - 500+++ Miguel/mcL [facility] Healthcare Nitrite, UA Negative Negative - Positive [facility] pH, UA 6 5 - 9 [facility] Protein, UA Negative Negative - 1999(20) ++++ mg/dL [facility] Healthcare Spec Grav, UA 1.025 1 - 1.03 [facility] Urobilinogen, UA 0.2 0.2 - 12 mg/dL [facility] Healthcare [facility] Urinalysis macro (dipstick) panel (U)on 12-22-2023 Bilirubin, UA Negative Negative - 4(70) +++ mg/dL [facility] Healthcare Blood, UA Positive Negative - 50 Iron/mcL [facility] Healthcare Comment on above: trace Clarity, UA Clear [facility] Color, UA Yellow [facility] Glucose, UA Negative Negative - 1999(110) ++++ mg/dL [facility] Interpretation and review of laboratory results Abnormal [facility] Ketones, UA Negative Negative - 160(16) ++++ mg/dL [facility] Leukocytes, UA Positive Negative - 500+++ Miguel/mcL [facility] Comment on above: small Nitrite, UA Negative Negative - Positive [facility] pH, UA 6.5 5 - 9 [facility] e Protein, UA Negative Negative - 1999(20) ++++ mg/dL [facility] Spec Grav, UA 1.02 1 - 1.03 [facility] Urobilinogen, UA 0.2 0.2 - 12 mg/dL [facility] Health[facility] e ALL CBC WITH AUTO DIFFon BASOPHILS ABSOLUTE AUTO 0 [facility] Basophils/100 WBC (Bld) 0.2 % 0.2 - 2.0 % [facility] Eosinophils/100 WBC (Bld) 0.5 % Low 0.9 - 7.0 % [facility] Erythrocyte distribution width (RBC) [Ratio] 12.8 % 11.0 - 15.0 % [facility] Hematocrit (Bld) [Volume fraction] 38.7 % 36.0 - 48.0 % [facility] Hemoglobin (Bld) [Mass/Vol] 13.1 g/dL 12.0 - 16.0 g/dL [facility] IMMATURE GRANULOCYTES ABS AUTO 0.03 [facility] Immature granulocytes/100 WBC (Bld) 0.3 % 0.0 - 0.5 % [facility] Interpretation and review of laboratory results Abnormal [facility] LYMPHOCYTES ABSOLUTE AUTO 2.1 [facility] Lymphocytes/100 WBC (Bld) 18.3 % Low 20.5 - 60.0 % [facility] MCH (RBC) [Entitic mass] 31.7 pg 26.7 - 34.0 pg [facility] MCHC (RBC) [Mass/Vol] 33.9 g/dL 29.9 - 35.2 g/dL [facility] MCV (RBC) [Entitic vol] 93.7 fL 81.0 - 99.0 fL [facility] MONOCYTES ABSOLUTE AUTO 0.4 [facility] Monocytes/100 WBC (Bld) 3.7 % 1.7 - 12.0 % [facility] NEUTROPHILS ABSOLUTE AUTO 8.8 High [facility] Neutrophils/100 WBC (Bld) 77 % High 43.0 - 75.0 % [facility] Platelet mean volume (Bld) [Entitic vol] 10.8 fL 9.5 - 13.5 fL [facility] are [facility] EO # 0.1 [facility]T [address] [facility] RBC 4.13 Low [facility] e TBH WBC 11.5 High [facility] e [facility] e URETHRITIS/DISCHARGE PLUS VA GINITIS (HTRX)on 12-03-2023 ATOPOBIUM VAGINAE 0 [facility]thcare ATOPOBIUM VAGINAE Not detected [facility] BVAB 2,3 (BACTERIAL VAGINOSIS ASSOCIATED BACTERIA 2, 3); MOBILUNCUS SPP 26.835 Abnormal [facility] BVAB 2,3 (BACTERIAL VAGINOSIS ASSOCIATED BACTERIA 2, 3); MOBILUNCUS SPP Detected Abnormal [facility] ANGELINA ALBICANS, PARAPSILOSIS, TROPICALIS 0 [facility] ANGELINA ALBICANS, PARAPSILOSIS, TROPICALIS Not detected [facility] ANGELINA GLABRATA 0 [facility] ANGELINA GLABRATA Not detected [facility] ealthcare ANGELINA KRUSEI 0 [facility] Healt hcare ANGELINA KRUSEI Not detected [facility] CHLAMYDIA TRACHOMATIS 0 [facility] CHLAMYDIA TRACHOMATIS Not detected [facility] GARDNERELLA VAGINALIS 0 [facility] GARDNERELLA VAGINALIS Not detected [facility] Interpretation and review of laboratory results Abnormal [facility] MEGASPHAERA (TYPES 1, 2) 0 [facility] MEGASPHAERA (TYPES 1, 2) Not detected [facility] MYCOPLASMA GENITALIUM 0 [facility] MYCOPLASMA GENITALIUM Not detected [facility] NEISSERIA GONORRHOEAE 0 [facility] NEISSERIA GONORRHOEAE Not detected [facility] TRICHOMONAS VAGINALIS 0 [facility] TRICHOMONAS VAGINALIS Not detected [facility] e HCG ( test) Ql (U)o n 12-02-2023 Interpretation and review of laboratory results Abnormal [facility] Preg Test, Ur Positive [facility] e Urinalysis macro (dipstick) panel (U)on 12-02-2023 Bilirubin, UA Negative Negative - 4(70) +++ mg/dL [facility] Blood, UA Negative Negative - 50 Iron/mcL [facility] Clarity, UA Clear [facility] re Color, UA Yellow [facility] Health[facility] e Glucose, UA Negative Negative - 1999(110) ++++ mg/dL [facility] Interpretation and review of laboratory results Abnormal [facility] Ketones, UA Negative Negative - 160(16) ++++ mg/dL [facility] Leukocytes, UA Positive Negative - 500+++ Miguel/mcL [facility] Nitrite, UA Negative Negative - Positive [facility] pH, UA 5.5 5 - 9 [facility] e Protein, UA Negative Negative - 1999(20) ++++ mg/dL [facility] Spec Grav, UA 1.03 1 - 1.03 [facility] Urobilinogen, UA 1.0 0.2 - 12 mg/dL [facility] Health[facility] e MHPT TRICHOMONAS/WET PREPon 11-21-2023 WET PREP TRIC BV ANGELINA Wet Prep Tric BV Angelina WP.BACT Bacteria^[facility]acteria [facility] BV ANEGLINA WP.CLUE Clue Cells^Clue Cells [facility] WET PREP TRIC BV ANGELIAN WP.JONATHAN Fungal Elements^Fungal Elements [facility] W[facility] TRIC BV ANGELINA WP.RBC RBC^RBC [facility] WET PREP TRIC BV ANGELINA WP.TRICH Trichomonas^Trichomo luis felipe [facility] WET PREP TRIC BV ANGELINA WP.WBC WBC^WBC [facility] e No Panel Informationon 11-20 WET PREP TRIC BV ANGELINA F Few^Few [facility] WET PREP TRIC BV ANGELINA N None Seen^None Seen [facility] CT BRAIN WO CONTon CT BRAIN WO [...] Alcaraz MD on 06/08/2023 9:25 PM Normal [facility] CT CERVICAL SPINE WO CONTon [...] Alcaraz MD on 06/08/2023 9:43 PM Normal [facility] XR CHEST 2 VWSon 06-08-2023 XR CHEST 2 VWS XR CHEST 2 VWS PA and lateral chest: HISTORY: Trauma. 2 views of the chest are obtained. Cardiac and mediastinal contours are within normal limits. There is no focal infiltrate, effusion, or pneumothorax. Osseous structures appear intact. IMPRESSION: No acute findings. Finalized by Olvin Alcaraz MD on 06/08/2023 9:19 PM Normal [facility] XR PELVIS 1 OR 2 [...] Alcaraz MD on 06/08/2023 9:22 PM Normal [facility] XR SHOULDER LT MIN 2 [...] Alcaraz MD on 06/08/2023 9:20 PM Normal [facility] MRI Knee w/o Lefton 12-12-19 [...] by AMMON PALENCIA on 12/12/2021 1348 Normal [facility] XR knee LT 4V*on 11-29-2021 XR knee LT 4V* [facility] [place] [address] XRay Report Signed Patient: Daryn Licona MR#: [id number] : 2000 Acct:[id number] Age/Sex: 21 / F ADM Date: 11/28/21 Loc: ER Room: Type: [facility] ER Attending Dr: Copies to: uSltana Rueda APRN Ordering Provider: Sultana Rueda APRN [...] Claudia Baugh M.D.11/29/2021 9:03 AM Dictation Location: [facility]- Transcribed By: JULES 11/29/21902 Dictated By: Claudia Baugh MD 11/29/21901 Signed By: 11/29/21902 [facility] Vital Signs Date Time Vital Sign Value Performing Clinician Facility 04-12-2024 14:57-0500 Body mass index (BMI) [Ratio] 35.56 kg/m2 Maryam SALES Work Phone: [facility] 04-12-2024 14:57-0500 Body weight 112.4 kg Maryam SALES Work Phone: [facility] 04-12-2024 14:57-0500 Diastolic blood pressure 70 mm[Hg] Maryam SALES Work Phone: [facility] 04-12-2024 14:57-0500 Systolic blood pressure 120 mm[Hg] Maryam SALES Work Phone: [facility] 04-05-2024 15:15-0500 Body mass index (BMI) [Ratio] 35.32 kg/m2 Jayant Robert DO Work Phone: [facility] 04-05-2024 15:15-0500 Body weight 111.66 kg Jayant Robert DO Work Phone: [facility] 04-05-2024 15:15-0500 Diastolic blood pressure 74 mm[Hg] Jayant Robert DO Work Phone: [facility] 04-05-2024 15:15-0500 Systolic blood pressure 118 mm[Hg] Jayant Robert DO Work Phone: [facility] 03-21-2024 11:36-0500 Body mass index (BMI) [Ratio] 34.21 kg/m2 Maryam SALES Work Phone: [facility] 03-21-2024 11:36-0500 Body weight 108.14 kg Maryam SALES Work Phone: [facility] 03-21-2024 11:36-0500 Diastolic blood pressure 72 mm[Hg] Maryam SALES Work Phone: [facility] 03-21-2024 11:36-0500 Systolic blood pressure 110 mm[Hg] Maryam Nguyen PA Work Phone: [facility] 03-07-2024 11:02-0500 Body mass index (BMI) [Ratio] 33.26 kg/m2 Jayant Robert DO Work Phone: [facility] 03-07-2024 11:02-0500 Body weight 105.14 kg Jayant Robert DO Work Phone: [facility] 03-07-2024 11:02-0500 Diastolic blood pressure 78 mm[Hg] Jayant Robert DO Work Phone: [facility] 03-07-2024 11:02-0500 Systolic blood pressure 124 mm[Hg] Jayant Robert DO Work Phone: [facility] 02-21-2024 10:34-0500 Body mass index (BMI) [Ratio] 31.39 kg/m2 Maryam Nguyen PA Work Phone: [facility] 02-21-2024 10:34-0500 Body weight 99.25 kg Maryam Wendy PA Work Phone: [facility] 02-21-2024 10:34-0500 Diastolic blood pressure 84 mm[Hg] Maryam Nguyen PA Work Phone: [facility] 02-21-2024 10:34-0500 Systolic blood pressure 138 mm[Hg] Maryam Nguyen PA Work Phone: [facility] 02-03-2024 12:19-0500 Body mass index (BMI) [Ratio] 31.71 kg/m2 Jayant Robert DO Work Phone: [facility] 02-03-2024 12:19-0500 Body weight 100.25 kg Jayant Robert DO Work Phone: [facility] 02-03-2024 12:19-0500 Diastolic blood pressure 72 mm[Hg] Jayant Robert DO Work Phone: [facility] 02-03-2024 12:19-0500 Systolic blood pressure 120 mm[Hg] Jayant Robert DO Work Phone: [facility] 01-19-2024 11:59-0500 Body mass index (BMI) [Ratio] 32.11 kg/m2 Maryam Wendy PA Work Phone: [facility] 01-19-2024 11:59-0500 Body weight 101.52 kg Maryam Wendy PA Work Phone: [facility] 01-19-2024 11:59-0500 Diastolic blood pressure 68 mm[Hg] Maryam Wendy PA Work Phone: [facility] 01-19-2024 11:59-0500 Systolic blood pressure 120 mm[Hg] Maryam Nguyen PA Work Phone: [facility] 12-22-2023 14:38-0500 Body mass index (BMI) [Ratio] 29.99 kg/m2 Jayant Robert DO Work Phone: [facility] 12-22-2023 14:38-0500 Body weight 94.8 kg Jayant Robert DO Work Phone: [facility] 12-22-2023 14:38-0500 Diastolic blood pressure 74 mm[Hg] Jayant Robert DO Work Phone: [facility] 12-22-2023 14:38-0500 Systolic blood pressure 118 mm[Hg] Jayant Robert DO Work Phone: [facility] 12-02-2023 14:27-0400 Body mass index (BMI) [Ratio] 29.39 kg/m2 Nom Nurse [facility] 12-02-2023 14:27-0400 Body weight 92.9 kg [facility] Nurse [facility] 01-13-2022 09:15-0500 Body height 180.34 cm Shaan Balderrama Other [employer] Other 01-13-2022 09:15-0500 Body mass index (BMI) [Ratio] 27.89 kg/m2 Shaan Balderrama Other [employer] Other 01-13-2022 09:15-0500 Body weight 90.72 kg Shaan Balderrama Other [facility] [employer] Other 11-28-2021 21:42-0400 Body height 182.88 cm TARAN Landry Kiepert Work Phone: [facility] 11-28-2021 21:42-0400 Body temperature 98 [degF] MERRY GO ROUND OPERATOR Gris Kiepert Work Phone: [facility] 11-28-2021 21:42-0400 Body weight 85.27 kg MERRY [employer] ROUND OPERATOR Gris Kiepert Work Phone: [facility] 11-28-2021 21:42-0400 Diastolic blood pressure 88 mm[Hg] MERRY GO ROUND OPERATOR Gris Kiepert Work Phone: [facility] 11-28-2021 21:42-0400 Heart rate 98 /min MERRY GO ROUND OPERATOR Gris Kiepert Work Phone: [facility] 11-28-2021 21:42-0400 Respiratory rate 20 /min MERRY [employer] ROUND OPERATOR Gris Kiepert Work Phone: [facility] 11-28-2021 21:42-0400 SaO2% (BldA) [Mass fraction] 95 % MERRY GO ROUND OPERATOR Gris Kiepert Work Phone: [facility] 11-28-2021 21:42-0400 Systolic blood pressure 152 mm[Hg] MERRY GO ROUND OPERATOR Gris Kiepert Work Phone: [facility] Encounters Encounter Date Encounter Type Care Provider Facility Start: 04-12-2024 End: 04-12-2024 flow sheet Maryam SALES Work Phone: [facility] Comment on above: 37 weeks [...] OB Start: 03-07-2024 End: 03-07-2024 Bamboo flowsheet Jaynat Robert DO Work Phone: [facility] Start: 03-07-2024 End: 03-07-2024 Office outpatient visit 15 minutes Jayant Rboert DO Work Phone: [facility] Comment [...] Emergency department patient visit PILI Welsh GONZALES [facility] Start: 06-21-2022 End: 06-21-2022 ambulatory COLBY QIAN . Facility:[facility] Start: 05-28-2022 End: 05-28-[address] HUMBERTO JAVIER Facility:[facility] Start: 05-20-2022 End: 05-20-[address] HUMBERTO JAVIER Facility:[facility] Start: 01-13-2022 End: 01-13-2022 ambulatory Shaan Balderrama Other [employer] Other Start: 01-13-2022 Office outpatient vi sit 15 minutes Shaan Balderrama [facility] Start: 11-28-2021 End: 11-29-2021 Emergency department patient visit Gris Caraballocalderon Facility:[facility] Start: 11-28-2021 End: 11-28-2021 Emergency department patient visit TARAN Gris Avila Work Phone: [facility] Procedures Date Procedure Procedure Detail Performing [...] EST Routine [facility] [address] [facility] [place] [address] Jayant Jones, DO [address] [place], [place] [id number] [facility] Start: 04-12-2024 End: 04-12-2024 Patient encounter procedure [facility] Comment on above: Arrived Start: 04-05-2024 End: 04-05-2024 Patient encounter procedure 04/05/2024 2:40 PM EST Routine [facility] [address] [place] [place] [phone] Jayant Jones DO [address] [facility] [place] [place] [address] [facility] Start: 04-05-2024 End: 04-05-2025 CULTURE, GROUP B STREP WITH SUSCEPTIBLITY CULTURE, GROUP B STREP WITH SUSCEPTIBLITY Lab Routine Third trimester Expected: 04/05/2024, Expires: 04/05/2025 [facility] Work Phone: Comment on above: Expected: 04/05/2024 , Expires: 04/05/2025 Start: 03-21-2024 End: 03-21-2024 Patient encounter procedure 03/21/2024 11:20 AM EST Routine [facility] [address] [place] [phone] Maryam Nguyen PA [address] [place] [address] [facility] Start: 03-21-2024 End: 03-21-2024 Professional / ancillary services management 03/21/2024 10:30 AM EST Ancillary Procedure [facility] [address] [place] [phone] [facility] Start: 03-07-2024 End: 03-07-2025 [...] AM EST Routine [facility] [address] [place] [phone] Maryam Nguyen PA [address] [facility] [facility] [address] [address] [place], [place] [phone] [facility] Start: 01-19-2024 End: 01-18-2025 CBC panel - Blood by Automated count CBC Lab Routine Diabetes mellitus screening Expected: 01/19/2024 (Approximate), Expires: 01/18/2025 [facility] Work Phone: Comment on above: Expected: 01/19/2024 (Approximate), Expires: 01/18/2025 Start: 01-19-2024 End: 01-18-2025 Measurement of glucose 1 hour after glucose challenge for glucose tolerance test Glucose tolerance, 1 hour Lab Routine Diabetes mellitus screening Expected: 01/19/2024 (Approximate), Expires: 01/18/2025 [facility] Comment on above: Expected: 01/19/2024 (Approximate), Expires: 01/18/2025 Start: 01-19-2024 End: 01-18-2025 US for US OB INCOMPLETE ANATOMY Imaging Routine Encounter for follow-up ultrasound of anatomy Expected: 01/19/2024 (Approximate), Expires: 01/18/2025 [facility] Comment on above: Expected: 01/19/2024 (Approximate), Expires: 01/18/2025 Start: 01-19-2024 End: 01-19-2024 Patient encounter procedure [facility] Comment on above: Arrived Start: 12-22-2023 End: 12-22-2023 Patient encounter procedure [facility] Comment on above: Arrived Start: 12-22-2023 End: 12-22-2023 Professional / ancillary services management 12/22/2023 1:00 PM EST Ancillary Procedure [facility] [address] [facility] [place] [place] [address] [facility] Start: 12-02-2023 End: 12-01-2024 ABO/Rh ABO/Rh Lab Routine Missed menses , unspecified gestational age Expected: 12/02/2023 (Approximate), Expires: 12/01/2024 [facility] Comment on above: Expected: 12/02/2023 (Approximate), Expires: 12/01/2024 Start: 12-02-2023 End: 03-03-2024 Alpha fetoprotein, maternal Alpha fetoprotein, maternal Lab Routine Encounter for supervision of normal first in first trimester Expected: 12/02/2023 (Approximate), Expires: 03/03/2024 [facility] Comment on above: Expected: 12/02/2023 (Approximate), Expires: 03/03/2024 Start: 12-02-2023 End: 12-01-2024 Blood type and Indirect antibody screen panel - Blood Type and screen Lab Routine Missed menses , unspecified gestational age Expected: 12/02/2023 (Approximate), Expires: 12/01/2024 [facility] Work Phone: Comment on above: Expected: 12/02/2023 (Approximate), Expires: 12/01/2024 Start: 12-02-2023 End: 12-01-2024 Drugs of abuse panel - Urine by Screen method Rapid drug screen, urine Lab Routine , unspecified gestational age Encounter for supervision of normal first in first trimester Expected: 12/02/2023 (Approximate), Expires: 12/01/2024 [facility] Comment on above: Expected: 12/02/2023 (Approximate), Expires: 12/01/2024 Start: 12-02-2023 End: 12-01-2024 US for [facility] Comment on above: Expected: 12/02/2023 (Approximate), Expires: 12/01/2024 Start: 10-17-2023 Influenza vaccination Influenza Vacc ine (#1) [facility] Start: 11-28-2021 Radiologic examinati on of knee XR knee LT 4V* [facility] Start: 11-28-2021 XR Knee - left 4 Views [facility] Bacteria identified in Urine by Culture Urine culture Microbiology Routine Missed menses Ordered: 12/02/2023 [facility] Comment on above: Ordered: 12/02/2023 CBC W Auto Different ial panel - Blood CBC and differential Lab Routine Missed menses , unspecified gestational age Ordered: 12/02/2023 [facility] Comment on above: Ordered: 12/02/2023 Hemoglobin A1c/Hemoglobin.total in Blood Hemoglobin A1c Lab Routine Missed menses , unspecified gestational age Ordered: 12/02/2023 [facility] Comment on above: Ordered: 12/02/2023 Hepatitis B virus surface Ag [Presence] in Serum or Plasma by Immunoassay Hepatitis B surface antigen Lab Routine Missed menses , unspecified gestational age Ordered: 12/02/2023 [facility] Comment on above: Ordered: 12/02/2023 Hepatitis C virus Ab [Presence] in Serum or Plasma by Immunoassay Hepatitis C antibody Lab Routine Missed menses , unspecified gestational age Ordered: 12/02/2023 [facility] Comment on above: Ordered: 12/02/2023 HIV-1/HIV-2 antigen/antibody combination immunoassay HIV-1 and HIV-2 antibodies Lab Routine Missed menses , unspecified gestational age Ordered: 12/02/2023 [facility] Comment on above: Ordered: 12/02/2023 Patient Education Knee Sprain (DC) [facility] Work Phone: Patient referral [facility] Work Phone: Reagin Ab [Presence] in Serum by RPR RPR Lab Routine Missed menses , unspecified gestational age Ordered: 12/02/2023 [facility] Comment on above: Ordered: 12/02/2023 Rubella antibody, IgG Rubella an tibody, IgG Lab Routine Missed menses , unspecified gestational age Ordered: 12/02/2023 [facility] Comment on above: Ordered: 12/02/2023 Payers Date Payer Category Payer Private Health Insurance [facility] MEDICAID [id number] 2023 Unknown [id number] 2021 Self-pay [id number] 2021 Unknown BCBS BCBS [id number] 2021-Present [phone] [address] [place] [address] [id number] 2020 Private Health Insurance [id number] 1999 Unknown [id number] 2.16.840.1.955451.3.579.2 .593 1999 Unknown [id number] 2.16.840.1.373747.3.579.2 .593 1999 Unknown [id number] 2.16.840.1.103528.3.579.2 .593 1999 Unknown [id number] 2.16.840.1.261384.3.579.2 .128 1999 Unknown [id number] 2.16.840.1.095053.3.579.2 .1285 1999 Unknown [id number] 2.16.840.1.650906.3.579.2 .128 1999 Unknown [id number] 2.16.840.1.464039.3.579.2 .1285 1999 Unknown [id number] 2.16.840.1.949208.3.579.2 .128 1999 Unknown [id number] 2.16.840.1.623986.3.579.2 .1285 1999 Unknown [id number] 2.16.840.1.991766.3.579.2 .9 1999 Unknown [id number] 2.16.840.1.689518.3.579.2 .9 1999 Unknown [id number] 2.16.840.1.892219.3.579.2 .1258 1999 Unknown [id number] 2.16.840.1.335725.3.579.2 .9 1999 Unknown [id number] 2.16.840.1.847156.3.579.2 .1258 1999 Unknown [id number] 2.16.840.1.287435.3.579.2 .1258 1999 Unknown [id number] 2.16.840.1.805752.3.579.2 .1258 1999 Unknown [id number] 2.16.840.1.667645.3.579.2 .1258 1999 Unknown [id number] 2.16.840.1.066111.3.579.2 .1258 1999 Unknown [id number] 2.16.840.1.160668.3.579.2 .9 1959 Unknown [id number] 1959 Unknown [id number] 1959 Unknown [id number] Unknown [id number] 2.16.840.1.694593.3.579.2 .531 Worker's Compensation [id number] Social History Date Type Detail Facility Start: 11-28-2021 Tobacco smoking status FLIS Smoker (finding) [facility] Start: 2000 Sex Assigned At Female F [facility] Sex Assigned At [employer] Other Tobacco smoking status FLIS Tobacco smoking consumption unknown [facility] Start: 1999 Sex assigned at Not on file [facility] Start: 04-29-2022 Gender identity Identifies as female gender (finding) [facility] Start: 08-05-2023 [facility] [...] of: HENRRY Barker documented in this encounter [facility] 04-05-2024 History of Presen t illness Narrative [...] nursing note reviewed. Exam conducted with a certified physical therapist assistant present. Vitals: Estimated body mass index is [...] Jayant Jones DO documented in this encounter [facility] 03-21-2024 History of Presen t illness Narrative [...] of: HENRRY Barker documented in this encounter [facility] 03-07-2024 History of Presen t illness Narrative [...] nursing note reviewed. Exam conducted with a certified physical therapist assistant present. Vitals: Estimated body mass index is [...] Jayant Jones DO documented in this encounter [facility] 02-21-2024 History of Presen t illness Narrative [...] of: HENRRY Barker documented in this encounter [facility] 02-03-2024 History of Presen t illness Narrative [...] Jayant Jones DO documented in this encounter [facility] 01-19-2024 History of Presen t illness Narrative [...] nursing note reviewed. Exam conducted with a certified physical therapist assistant present. Vitals: Estimated body mass index is [...] of: HENRRY Barker documented in this encounter [facility] 12-22-2023 History of Presen t illness Narrative [...] nursing note reviewed. Exam conducted with a certified physical therapist assistant present. Vitals: Estimated body mass index is [...] Jayant Jones DO documented in this encounter [facility] 12-02-2023 History of Presen t illness Narrative [...] or undercooked meat, and stay away from [facility]. Patient has also been advised [...] Mervat Fall LPN documented in this encounter [facility] 06-21-2022 Note PROCEDURE: XR ANKLE RT MIN [...] authenticated by: GURPREET GUEVARA Date: 2022-06-21 12:38 [facility] 06-21-2022 Note PROCEDURE: XR ANKLE RT [...] authenticated by: GURPREET GUEVARA Date: 2022-06-21 12:38 [facility] 01-13-2022 Evaluation note Encounter Date Diagnosis [...] left knee, initial encounter (ICD-10 - S83.412A) [employer] Other Evaluation noteNo assessment information available [facility] Work Phone: Evaluation note* Diagnosis Missed [...] Date Medical History anxiety Surgical History tonsillectomy [employer] Other Hospital Discharge instructions Additional Instructions Ice and elevate Tylenol/ Motrin if needed for pain Wear knee immobilizer for the next 3 to 4 days Partial weightbearing with crutches Tylenol or Naprosyn if needed for pain Return here if any problems persist or worsen Follow-up with your primary care doctor orthopedic for recheck in 3 [facility] Work Phone: Chief Complaint and Reason [...] Inactive Member Role Status Veronique Avila APRN RESTAURANT INSPECTOR-C Primary Care Provider Jessica Rueda APRN Emergency Provider Active Team Status: Active Member Role Status Dates Gris Avila APRN RESTAURANT INSPECTOR-C Primary Care Provider Raman jones Carpenters Supervisor Relationship Specialty Start Date End Date Miryam Loving DO [address] [place] [address] PCP - General Family Medicine 06/23/22 [employer] Supervisor Relationship Specialty Start Date End Date Unallocated, Kodak Antonio MD [address] [place] [address] [place] [address] PCP - General Family Medicine 11/23/23 [employer]penters Supervisor Relationship Specialty Start Date End Date Unallocated, Kodak Antonio MD [facility] [place] [address] PCP - General Family Medicine 11/23/23 Carpenters Supervisor Relationship Specialty Start Date End Date Unallocated, Kodak Antonio MD [facility] [address] [facility] [place] [address] PCP - General Family Medicine 11/23/23 Carpenters Supervisor Relationship Specialty Start Date End Date Unallocated, Kodak Antonio MD [address] [place] [address] [place] [address] PCP - General Family Medicine 11/23/23 Carpenters Supervisor Relationship Specialty Start Date End Date Unallocated, Kodak Antonio MD [address] [facility] [place] [address] PCP - General Family Medicine 11/23/23 Carpenters Supervisor Relationship Specialty Start Date End Date Unallocated, Kodak Antonio MD [address] [facility] [place] [address] PCP - General Family Medicine 11/23/23 Carpenters Supervisor Relationship Specialty Start Date End Date Unallocated, Kodak Antonio MD [address] [facility] [place] [address] PCP - General Family Medicine 11/23/23 Carpenters Supervisor Relationship Specialty Start Date End Date Unallocated, Kodak Antonio MD [address] [place] [address] PCP - General Family Medicine 11/23/23 Carpenters Supervisor Relationship Specialty Start Date End Date Unallocated, Kodak Antonio MD [address] [place] [address] PCP - General Family Medicine 11/23/23 Goals (unrecognized section and content) Goals may be documented in a n alternate sectionNo Information INFORMATION SOURCE (unrecogn ized section and content) DATE CREATED AUTHOR 12/10/2021 [facility] DATE CREATED AUTHOR AUTHOR'S ORGANIZ ATION 12/13/2021 [facility] Specialist DATE CREATED AUTHOR AUTHOR'S ORGANIZ ATION 06/24/2022 [facility] DATE CREATED AUTHOR AUTHOR'S ORGANIZ ATION 06/10/2023 [facility] DATE CREATED AUTHOR AUTHOR'S ORGANIZ ATION 04/14/2024 [facility] dical Specialists EPIC REASON FOR VISIT [...] BE BASED ON THE PRIMARY CLINICAL RECORDS. [facility]. provides no warranty or guarantee of the accuracy or completeness of information in this document.
[2024-04-15 15:04] LABS: Hematocrit 36.3 % (36.0-48.0); Hemoglobin 12.2 g/dL (12.0-16.0); Mean Corpuscular HGB Conc 33.6 g/dL (29.9-35.2); Mean Corpuscular Hemoglobin 28.6 pg (26.7-34.0); Mean Corpuscular Volume 85.2 fL (81.0-99.0); Mean Platelet Volume 12.2 fL (9.5-13.5); Platelet Count 252 10^3/uL (150-450); Red Blood Count 4.26 10^6/uL (4.20-5.40); White Blood Count 15.6 10^3/uL (4.0-11.0)
[2024-04-15 15:07] LABS: Bilirubin Urine SMALL (NEGATIVE); Blood Urine NEGATIVE (NEGATIVE); Clarity Urine CLEAR (CLEAR); Color Urine YELLOW (YELLOW); Glucose Urine UA NEGATIVE (NEGATIVE); Ketones Urine >=80 mg/dL (NEGATIVE); Leukocyte Esterase Urine NEGATIVE (NEGATIVE); Nitrite Urine NEGATIVE (NEGATIVE); Protein Urine 30 mg/dL (NEG/TRACE); Specific Gravity Urine >=1.030 (1.005-1.025); Urobilinogen Urine 0.2 EU/dL (0.2-1.0)
[2024-04-15 15:09] LABS: Urine Microscopic Indicated YES
[2024-04-15] MEDS: 0.9 % SODIUM CHLORIDE 1,000 ML 125 ML IV ×2 (15:10→18:01)
[2024-04-15 15:11] LABS: Amnisure NEGATIVE (NEGATIVE); Internal Control Within Normal Limits
[2024-04-15 15:16] LABS: Amphetamine Screen Urine NEGATIVE (NEGATIVE); Bacteria Urine TRACE #/HPF (NONE SEEN); Barbiturates Screen Urine NEGATIVE (NEGATIVE); Benzodiazepines Screen Urine NEGATIVE (NEGATIVE); Buprenorphine Screen Urine NEGATIVE (NEGATIVE); Cannabinoid Screen Urine NEGATIVE (NEGATIVE); Cast Seen? NONE SEEN #/LPF (NONE SEEN); Cocaine Screen Urine NEGATIVE (NEGATIVE); Crystals Seen? None Seen #/HPF (None Seen); Methadone Screen Urine NEGATIVE (NEGATIVE); Methamphetamines Screen Urine NEGATIVE (NEGATIVE); Mucus Urine SMALL (NONE SEEN); Opiate Screen Urine NEGATIVE (NEGATIVE); Oxycodone Screen Urine NEGATIVE (NEGATIVE); Phencyclidine Screen Urine NEGATIVE (NEGATIVE); Squamous Epithelial Cell Urine MODERATE #/LPF (NONE/RARE); Tricyclic Antidepressant Urine NEGATIVE (NEGATIVE); Urine Culture Indicated NO
[2024-04-15] MEDS: AMPICILLIN SODIUM 2,000 MG in 0.9 % SODIUM CHLORIDE 100 ML 200 MG IV (15:17)
--- NOTE | 2024-04-15 16:00 | PC.NURSE ---
1420- Pt arrives to [facility] at this time via ambulatory with support person. Pt breathing through cxt's; rates 08/24. Pt states cxt's started last night following eating [employer] . Following her dinner, she began to have nausea/ vomiting. Pt states she last vomited at 0500. Pt denies being around people with illness. Pt also states she has had damp underwear over the last couple days. Pt denies feeling a large gush of fluid. Pt denies complications with . Pt abdomen palpates soft; no pain with palpation. Pt given gown and urine specimen cup for sample.
[2024-04-15] MEDS: 0.9 % SODIUM CHLORIDE 1,000 ML 1000 ML IV (16:59)
[2024-04-15] MEDS: ONDANSETRON PF 4 MG/2 ML VIAL IV (17:15)
[2024-04-15] MEDS: ROPIVACAINE HCL/PF 400 MG/200 ML PREMIX 6 MG EPIDURAL (17:17)
[2024-04-15] MEDS: OXYTOCIN/0.9 % SODIUM CHLORIDE 10 UNITS/500 ML PLAST..BAG 6 UNIT IV (17:45)
--- NOTE | 2024-04-15 19:03 | PM.OBPRCVD ---
Procedure Intrapartal events: None Induction method: none Delivery augmentation: rupture of membranes and pitocin Delivery monitor: external FHT and external uterine Route of delivery: Episiotomy Description: none L&D Laceration Description: none Estimated blood loss (mL): 200 Anesthesia type: Epidural Disposition: floor Delivery date: 04/15/24 Gender: male presentation: vertex Placental delivery description: Spontaneous cord description: 3 Vessels
[2024-04-15 19:15] LABS: Influenza Virus A Antigen Negative; Influenza Virus B Antigen Negative; Internal Control Within Normal Limits; Respiratory Syncytial Virus Not Detected (NOT DETECTE); SARS-CoV-2 Ag NEGATIVE (NEGATIVE)
[2024-04-15] MEDS: OXYTOCIN/0.9 % SODIUM CHLORIDE 20 UNITS/1,000 ML PLAST..BAG 125 UNIT IV (19:44)
--- NOTE | 2024-04-15 21:27 | W.PC.ACHO ---
Registration Status: ADM IN Primary Language: Welsh Preferred Language: Welsh Report given at 1905. Care relinquished. Active Medications Generic Name Dose Route Start Last Admin Trade Name Freq PRN Reason Stop Dose Admin Acetaminophen 650 mg 04/15/24 19:04 Acetaminophen 325 Mg Tablet PO Q6H PRN Mild Pain Al Hydroxide/Mg Hydroxide 2,400 mg 04/15/24 19:04 Magnesium Hydroxide 2,400 Mg/10 Ml Oral.Susp PO Q6H PRN Dyspepsia Benzocaine/Menthol 1 applic 04/15/24 19:04 Benzocaine/Menthol 85 Gram [place]wood Bottle TOPICAL Q2H PRN Pain Carboprost Tromethamine 250 mcg 04/15/24 14:44 Carboprost Tromethamine 250 Mcg/Ml 1 Ml Vial IM 04/17/24 14:44 Q15M PRN Bleeding Diphenhydramine HCl 25 mg 04/15/24 15:00 Diphenhydramine Hcl 50 Mg/Ml Vial IV 04/16/24 15:02 Q6H PRN Itching Diphtheria/Pertussis/Tetanus Vacc 0.5 ml 04/17/24 09:00 Adacel Diph,Pertuss(Acell),Tet Vac/Pf 0.5 Ml Adult Syringe IM 04/17/24 09:01 .ONCE ONE Docusate Sodium 100 mg 04/16/24 09:00 Docusate Sodium 100 Mg Capsule PO BID STEPH Ephedrine Sulfate 5 mg 04/15/24 15:00 Ephedrine Sulfate 50 Mg/Ml Vial IV 04/16/24 15:02 Q5M PRN Blood Pressure - Low Tranexamic Acid 1,000 mg/ 110 mls @ 440 mls/hr 04/15/24 14:44 Sodium Chloride IV 04/17/24 14:44 ONCE PRN Uterine Bleeding Sodium Chloride 1,000 mls @ 125 mls/hr 04/15/24 15:00 04/15/24 19:00 Sodium Chloride 0.9% 1,000 Ml IV Infused .Q8H STEPH Infusion Ropivacaine/Sodium Chloride 400 mg in 200 mls @ 6 mls/hr 04/15/24 15:00 04/15/24 19:00 Naropin 0.2% 400 Mg/200 Ml Bag EPIDURAL Infused Q24H STEPH Infusion Ampicillin 1,000 mg/ Sodium 50 mls @ 100 mls/hr 04/15/24 19:00 Chloride IV [facility] Oxytocin/Sodium Chloride 10 units in 500 mls @ 6 mls/hr 04/15/24 17:45 04/15/24 19:00 Pitocin 10 Unit/500 Ml-Ns IV Infused TITR [facility] Infusion Protocol 2 MILLIUNIT/MIN Ibuprofen 600 mg 04/15/24 19:04 Ibuprofen 600 Mg Tablet PO Q6H PRN Moderate Pain Lidocaine 1 ml 04/15/24 14:44 Lidocaine Hcl 1% 200 Mg/20 Ml Mdv INJ 04/17/24 14:46 ONCE PRN Pain Measles/Mumps/Rubella Vaccine Live 0.5 ml 04/17/24 09:00 Measles,Mumps,Rubella Vacc/Pf 0.5 Ml Vial SQ 04/17/24 09:01 .ONCE ONE Methylergonovine Maleate 0.2 mg 04/15/24 14:44 Methylergonovine Maleate 0.2 Mg/Ml Ampule IM 04/17/24 14:44 ONCE PRN Uterine Contractility/Contract Methylergonovine Maleate 0.2 mg 04/15/24 14:44 Methylergonovine Maleate 0.2 Mg Tablet PO 04/17/24 14:44 Q4H PRN Uterine Contractility/Contract Misoprostol 600 mcg 04/15/24 14:44 Misoprostol 100 Mcg Tablet PO 04/17/24 14:44 ONCE PRN Uterine Bleeding Misoprostol 800 mcg 04/15/24 14:44 Misoprostol 100 Mcg Tablet SL 04/17/24 14:44 ONCE PRN Uterine Bleeding Misoprostol 1,000 mcg 04/15/24 14:44 Misoprostol 100 Mcg Tablet OR 04/17/24 14:44 ONCE PRN Uterine Bleeding Nalbuphine HCl 10 mg 04/15/24 14:44 Nalbuphine Hcl 10 Mg/Ml Ampule IV Q3H PRN Pain Naloxone HCl 0.4 mg 04/15/24 15:00 Naloxone Hcl 0.4 Mg/Ml Vial IV 04/16/24 15:02 ONCE PRN Respiratory Distress Ondansetron HCl 4 mg 04/15/24 14:44 04/15/24 17:15 Ondansetron Pf 4 Mg/2 Ml Vial IV 4 mg Q6H PRN Administration Nausea And Vomiting Ondansetron HCl 4 mg 04/15/24 14:44 Ondansetron 4 Mg Rapdis Tablet SL Q6H PRN Nausea And Vomiting Oxytocin 10 unit 04/15/24 14:44 Oxytocin 10 Unit/Ml Vial IM 04/17/24 14:44 ONCE PRN Bleeding Senna 17.2 mg 04/15/24 20:00 Sennosides 8.6 Mg Tablet PO QHS PRN Constipation Simethicone 80 mg 04/15/24 19:04 Simethicone 80 Mg Tab.Chew PO QID PRN Abdominal Distention Temazepam 15 mg 04/15/24 19:04 Temazepam 15 Mg Capsule PO QHS PRN Sleep Witch Angeline/Glycerin 1 pad 04/15/24 19:04 Glycerin/Witch Angeline Pads TOPICAL Q2H PRN Pain Diet Category Date Time Status Regular Consistency Diet Diet 04/15/24 19:04 Active IV Insertion/Site Date of IV Line Insertion [ 04/15/24 Short PIV (<1.75 in) 20g left Hand] IV Insertion Time [Short PIV ( 14:55 <1.75 in) 20g left Hand] Neurology Patient orientation (short person,place,time,situation list) Respiratory Oxygen Delivery Method Room Air Bowels Bowel Pattern No Bowel Movement Catheter Urinary Catheter Date of 04/15/24 Insertion [Urethral] Urinary Catheter Time of 17:25 Insertion [Urethral] Date Urinary Catheter Removed 04/15/24 [Urethral] Time Urinary Catheter 18:31 Discontinued [Urethral]
[2024-04-16 01:17] VITALS: BP 133/66; PULSE 103; TEMP 36.8
[2024-04-16] MEDS: IBUPROFEN 600 MG TABLET PO ×4 (04:21→22:45)
[2024-04-16] MEDS: ACETAMINOPHEN 325 MG TABLET 650 MG PO ×2 (06:31→18:10)
[2024-04-16 06:42] LABS: Basophils Percent Auto 0.3 % (0.2-2.0); Eosinophils Percent Auto 0.3 % (0.9-7.0); Hematocrit 32.6 % (36.0-48.0); Hemoglobin 10.8 g/dL (12.0-16.0); Immature Granulocytes Abs Auto 0.06 10^3/uL (0.00-0.03); Immature Granulocytes Pct Auto 0.5 % (0.0-0.5); Lymphocytes Percent Auto 17.3 % (20.5-60.0); Mean Corpuscular HGB Conc 33.1 g/dL (29.9-35.2); Mean Corpuscular Hemoglobin 28.7 pg (26.7-34.0); Mean Corpuscular Volume 86.7 fL (81.0-99.0); Monocytes Absolute Auto 0.9 10^3/uL (0.3-0.8); Monocytes Percent Auto 7.5 % (1.7-12.0); Neutrophils Absolute Auto 8.5 10^3/uL (1.4-6.5); Neutrophils Percent Auto 74.1 % (43.0-75.0); Platelet Count 221 10^3/uL (150-450); Red Blood Count 3.76 10^6/uL (4.20-5.40); Red Cell Distribution Width 14.2 % (11.0-15.0); White Blood Count 11.5 10^3/uL (4.0-11.0)
[2024-04-16 09:25] VITALS: BP 125/84; PULSE 94; TEMP 36.8
[2024-04-16] MEDS: DOCUSATE SODIUM 100 MG CAPSULE PO ×2 (09:26→21:41)
--- NOTE | 2024-04-16 13:20 | PM.OBPN ---
OB - PN: Subj Subjective Patient comments: no complaints and pain well controlled [place] status: doing well Exam Constitutional Vital Signs, click to edit/add: Last Vital Signs Temp 98.3 F 04/16/24 09:25 Pulse 94 H 04/16/24 09:25 Resp 18 04/16/24 09:25 BP 125/84 04/16/24 09:25 O2 Del Method Room Air 04/16/24 09:25 Documenting provider has reviewed patient's vital signs: yes Common normals: no apparent distress Respiratory Common normals: normal respiratory effort and clear to auscultation bilaterally Cardio Common normals: regular rate and regular rhythm GI Common normals: Normal to inspection, nondistended, normoactive bowel sounds present Extremity Common normals: no clubbing, cyanosis or edema Results Labs Labs: Short CBC 04/15/24 04/16/24 Range/Units 14:57 06:31 WBC 15.6 H 11.5 H (4.0-11.0) 10^3/uL Hgb 12.2 10.8 L (12.0-16.0) g/dL Hct 36.3 32.6 L (36.0-48.0) % Plt Count 252 221 (150-450) 10^3/uL Urine 04/15/24 Range/Units 14:30 Urine Color Yellow (YELLOW) Urine Clarity Clear (CLEAR) Urine pH 6.0 (5.0-9.0) Ur Specific [place] >=1.030 A (1.005-1.025) Urine Protein 30 A (NEG/TRACE) mg/dL Urine Glucose (UA) Negative (NEGATIVE) mg/dL Urinary Catheter Management Urinary Catheter Management Urethral: Cath placed during this visit: yes, but has since been removed by the nurse Insertion date: 04/15/24 Insertion time: 17:25 Removal date: 04/15/24 Removal time: 18:31 OB - PN: A/P Plan - Vaginal Delivery day: 1 Plan: routine care Time Spent with Patient Time: Total time spent is greater than 50% in coordination of care (as documented) at patient's floor/unit and/or counseling patient: Total time spent with greater than 50% in coordination of care (as documented) at patient's floor/unit and/or counseling patient: less than 15 minutes
[2024-04-16 16:48] VITALS: BP 117/70; PULSE 101
[2024-04-16 16:49] VITALS: TEMP 36.2
[2024-04-16 16:50] VITALS: TEMP 36.3
[2024-04-16] MEDS: ONDANSETRON 4 MG RAPDIS TABLET SL (16:51)
[2024-04-17 00:06] VITALS: BP 100/54; PULSE 82; TEMP 36.6
[2024-04-17 09:13] VITALS: BP 126/75; PULSE 81
[2024-04-17 09:15] VITALS: TEMP 36.5
[2024-04-17] MEDS: IBUPROFEN 600 MG TABLET PO (09:15)
[2024-04-17] MEDS: DOCUSATE SODIUM 100 MG CAPSULE PO (09:16)
--- NOTE | 2024-04-17 11:53 | PM.OBPN ---
OB - PN: Subj Subjective Patient comments: no complaints and pain well controlled [place] status: doing well Exam Constitutional Vital Signs, click to edit/add: Last Vital Signs Temp 97.7 F 04/17/24 09:15 Pulse 81 04/17/24 09:13 Resp 20 04/17/24 09:15 BP 126/75 04/17/24 09:13 O2 Del Method Room Air 04/17/24 09:15 Documenting provider has reviewed patient's vital signs: yes Common normals: no apparent distress Respiratory Common normals: normal respiratory effort and clear to auscultation bilaterally Cardio Common normals: regular rate and regular rhythm GI Common normals: Normal to inspection, nondistended, normoactive bowel sounds present Extremity Common normals: no clubbing, cyanosis or edema and no calf tenderness Urinary Catheter Management Urinary Catheter Management Urethral: Cath placed during this visit: yes, but has since been removed by the nurse Insertion date: 04/15/24 Insertion time: 17:25 Removal date: 04/15/24 Removal time: 18:31 OB - PN: A/P Plan - Vaginal Delivery day: 2 Plan: routine care, discharge home and follow up 6 weeks Time Spent with Patient Time: Total time spent is greater than 50% in coordination of care (as documented) at patient's floor/unit and/or counseling patient: Total time spent with greater than 50% in coordination of care (as documented) at patient's floor/unit and/or counseling patient: less than 15 minutes
[2024-04-17 16:30] VITALS: BP 122/75; PULSE 93; TEMP 36.7
[2024-04-17 16:34] VITALS: BP 122/75; PULSE 93
[2024-04-17] MEDS: ONDANSETRON 4 MG RAPDIS TABLET SL (17:05)
== END 2024-04-17 17:20 | disposition home or self-care (01) | DRG 560 ==
LOC: FBC 14:26
PROVIDERS: Admitting Provider Obstetrics & Gynecology; Visit Provider Obstetrics & Gynecology
DX: O99.824 Streptococcus B carrier state complicating childbirth (principal); Z3A.38 38 weeks gestation of pregnancy; Z37.0 Single live birth; Z23 Encounter for immunization
CPT/HCPCS: 36415; 59050; 59410; 80307; 81001; 84112; 85025; 85027; 86850; 86900; 86901; 87420; 87804; 87811; 88307; J0290; J2405; J2795; Q0162

== ENCOUNTER 2024-04-18 08:30 | Outpatient (OUT) | payer OTHER, SELFPAY ==
--- OUTSIDE RECORDS SUMMARY | 2024-04-18 08:51 | XMS_ITS | CCD ---
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 Emergency department patient visit CAT SCAN TECH Gris Ayalaedwin Work Phone: [facility] Procedures Date Procedure Procedure Detail Performing Clinician Start: 04-16-2024 ALL CBC WITH AUTO DIFF Jayant Robert DO Work Phone: Start: 04-15-2024 [facility] CBC WITH PLATEL ET NO DIFFERENTIAL Jayant Robert DO Work Phone: Start: 04-12-2024 Urnls dip stick/tabl et rgnt [...] [facility] [address] [place] [id number] Jayant Jones, DO [address] [place], [place] [id number] [facility] Start: 04-12-2024 End: 04-12-2024 Patient encounter procedure [facility] Comment on above: Arrived Start: 04-05-2024 End: 04-05-2024 Patient encounter procedure 04/05/2024 2:40 PM EST Routine [facility] [address] [place] [address] Jayant Jones, DO [address] [place], [place] [id number] [facility] Start: 04-05-2024 End: 04-05-2025 CULTURE, GROUP B STREP WITH SUSCEPTIBLITY CULTURE, GROUP B STREP WITH SUSCEPTIBLITY Lab Routine Third trimester Expected: 04/05/2024, Expires: 04/05/2025 [facility] Work Phone: Comment on above: Expected: 04/05/2024 , Expires: 04/05/2025 Start: 03-21-2024 End: 03-21-2024 Patient encounter procedure 03/21/2024 11:20 AM EST Routine [facility] [address] [place] [id number] Maryam Nguyen PA [address] [place], [place] [id number] [facility] Start: 03-21-2024 End: 03-21-2024 Professional / ancillary services management 03/21/2024 10:30 AM EST Ancillary Procedure [facility] [address] [place] [phone] [facility] Start: 03-07-2024 End: 03-07-2025 US for US OB follow up transabdominal approach Imaging Routine size inconsistent with dates Expected: 03/07/2024, Expires: 03/07/2025 [facility] Work Phone: Comment on above: Expected: 03/07/2024 , Expires: 03/07/2025 Start: 03-07-2024 End: 03-07-2024 Patient encounter procedure [facility] Comment on above: Arrived Start: 02-21-2024 End: 02-21-2024 Patient encounter procedure 02/21/2024 10:20 AM EST Routine [facility] [address] [place] [phone] Maryam Nguyen PA [address] [place] [address] [facility] Start: 01-19-2024 End: 01-18-2025 CBC [...] mellitus screening Expected: 01/19/2024 (Approximate), Expires: 01/18/2025 [facility] Comment on above: Expected: 01/19/2024 (Approximate), Expires: 01/18/2025 Start: 01-19-2024 End: 01-18-2025 US for US OB INCOMPLETE ANATOMY Imaging Routine Encounter for follow-up ultrasound of anatomy Expected: 01/19/2024 (Approximate), Expires: 01/18/2025 [facility] Comment on above: Expected: 01/19/2024 (Approximate), Expires: 01/18/2025 Start: 01-19-2024 End: 01-19-2024 Patient encounter procedure [facility] Comment on above: Arrived Start: 12-22-2023 End: 12-22-2023 Patient encounter procedure [facility] Comment on above: Arrived Start: 12-22-2023 End: 12-22-2023 Professional / ancillary services management 12/22/2023 1:00 PM EST Ancillary Procedure [facility] [address] [facility] [place] [address] [facility] Start: 12-02-2023 End: 12-01-2024 ABO/Rh ABO/Rh Lab Routine Missed menses , unspecified gestational age Expected: 12/02/2023 (Approximate), Expires: 12/01/2024 [facility] Comment on above: Expected: 12/02/2023 (Approximate), Expires: 12/01/2024 Start: 12-02-2023 End: 03-03-2024 Alpha fetoprotein, maternal Alpha fetoprotein, maternal Lab Routine Encounter for supervision of normal first in first trimester Expected: 12/02/2023 (Approximate), Expires: 03/03/2024 [facility] Comment on above: Expected: 12/02/2023 (Approximate), Expires: 03/03/2024 Start: 12-02-2023 End: 12-01-2024 Blood type and Indirect antibody screen panel - Blood Type and screen Lab Routine Missed menses , unspecified gestational age Expected: 12/02/2023 (Approximate), Expires: 12/01/2024 [facility] Work [...] 12/01/2024 Start: 12-02-2023 End: 12-01-2024 US for [facility] Comment on above: Expected: 12/02/2023 (Approximate), Expires: 12/01/2024 Start: 10-17-2023 Influenza vaccination Influenza Vacc ine (#1) [facility] Start: 11-28-2021 Radiologic examinati on of knee XR knee LT 4V* [facility] Start: 11-28-2021 XR Knee - left 4 Views [facility] Bacteria identified in Urine by Culture Urine culture Microbiology Routine Missed menses Ordered: 12/02/2023 [facility] Comment on above: Ordered: 12/02/2023 CBC W Auto Different ial panel - Blood CBC and differential Lab Routine Missed menses , unspecified gestational age Ordered: 12/02/2023 [facility] Comment on above: Ordered: 12/02/2023 Hemoglobin A1c/Hemoglobin.total in Blood Hemoglobin A1c Lab Routine Missed menses , unspecified gestational age Ordered: 12/02/2023 [facility] Comment on above: Ordered: 12/02/2023 Hepatitis B virus surface Ag [Presence] in Serum or Plasma by Immunoassay Hepatitis B surface antigen Lab Routine Missed menses , unspecified gestational age Ordered: 12/02/2023 [facility] Comment on above: Ordered: 12/02/2023 Hepatitis C virus Ab [Presence] in Serum or Plasma by Immunoassay Hepatitis C antibody Lab Routine Missed menses , unspecified gestational age Ordered: 12/02/2023 [facility] Comment on above: Ordered: 12/02/2023 HIV-1/HIV-2 antigen/antibody combination immunoassay HIV-1 and HIV-2 antibodies Lab Routine Missed menses , unspecified gestational age Ordered: 12/02/2023 [facility] Comment on above: Ordered: 12/02/2023 Patient Education Knee Sprain (DC) [facility] Work Phone: Patient referral [facility] Work Phone: Reagin Ab [Presence] in Serum by RPR RPR Lab Routine Missed menses , unspecified gestational age Ordered: 12/02/2023 [facility] Comment on above: Ordered: 12/02/2023 Rubella antibody, IgG Rubella an tibody, IgG Lab Routine Missed menses , unspecified gestational age Ordered: 12/02/2023 [facility] Comment on above: Ordered: 12/02/2023 Payers Date Payer Category Payer Private Health Insurance [employer]ICA[employer] [id number] 2023 Unknown [id number] 2021 Self-pay [id number] 2021 Unknown BCBS BCBS [id number] 2021-Present [phone] [address] [place] [address] [id number] 2020 Private Health Insurance [id number] 1999 Unknown [id number] 2.16.840.1.036406.3.579.2 .593 1999 Unknown [id number] 2.16.840.1.795667.3.579.2 .593 1999 Unknown [id number] 2.16.840.1.044657.3.579.2 .593 1999 Unknown [id number] 2.16.840.1.094775.3.579.2 .1286 1999 Unknown [id number] 2.16.840.1.714925.3.579.2 .1286 1999 Unknown [id number] 2.16.840.1.992586.3.579.2 .6 1999 Unknown [id number] 2.16.840.1.354965.3.579.2 .1285 1999 Unknown [id number] 2.16.840.1.896945.3.579.2 .1285 1999 Unknown [id number] 2.16.840.1.909139.3.579.2 .1285 1999 Unknown [id number] 2.16.840.1.597464.3.579.2 .1258 1999 Unknown [id number] 2.16.840.1.480143.3.579.2 .1258 1999 Unknown [id number] 2.16.840.1.864398.3.579.2 .1258 1999 Unknown [id number] 2.16.840.1.128807.3.579.2 .1258 1999 Unknown [id number] 2.16.840.1.800115.3.579.2 .1258 1999 Unknown [id number] 2.16.840.1.896225.3.579.2 .1258 1999 Unknown [id number] 2.16.840.1.883837.3.579.2 .1258 1999 Unknown [id number] 2.16.840.1.567893.3.579.2 .1258 1999 Unknown [id number] 2.16.840.1.696517.3.579.2 .1258 1999 Unknown [id number] 2.16.840.1.638591.3.579.2 .1258 1959 Unknown [id number] 1959 Unknown [id number] 1959 Unknown [id number] Unknown [id number] 2.16.840.1.131247.3.579.2 .531 Worker's Compensation [id number] Social History Date Type Detail Facility Start: 11-28-2021 End: 11-28-2021 Tobacco smoking status NHIS Smoker (finding) [facility] Start: 2000 Sex Assigned At Female F [facility] Sex Assigned At [employer] Other Tobacco smoking status DEIS Tobacco smoking consumption unknown [facility] Start: 2000 Sex assigned at Not on file [facility] Start: 04-29-2022 Gender identity Identifies as female gender (finding) [facility] Start: 08-05-2023 [facility] Start: 04-18-2024 Sex Female (finding) [facility] Clinical Notes 01-13-2022 to 04-12-2024 HENRRY Barker 04/12/2024 2:50 PM ANA MARIA Green 04/05/2024 2:40 PM HENRRY Hernandez 03/21/2024 11:20 AM Oksana Howard LPN - 03/07/2024 10:40 AM HENRRY Hernandez 02/21/2024 10:20 AM EST Note Date & [...] of: HENRRY Barker documented in this encounter [facility] 04-05-2024 History of Presen t illness Narrative [...] nursing note reviewed. Exam conducted with a bed setter present. Vitals: Estimated body mass index is [...] Jayant Jones DO documented in this encounter [facility] 03-21-2024 History of Presen t illness Narrative [...] of: HENRRY Barker documented in this encounter [facility] 03-07-2024 History of Presen t illness Narrative [...] nursing note reviewed. Exam conducted with a bed setter present. Vitals: Estimated body mass index is [...] Jayant Jones DO documented in this encounter [facility] 02-21-2024 History of Presen t illness Narrative [...] of: HENRRY Barker documented in this encounter [facility] 02-03-2024 History of Presen t illness Narrative [...] Jayant Jones DO documented in this encounter [facility] 01-19-2024 History of Presen t illness Narrative [...] nursing note reviewed. Exam conducted with a bed setter present. Vitals: Estimated body mass index is [...] of: HENRRY Barker documented in this encounter [facility] 12-22-2023 History of Presen t illness [...] nursing note reviewed. Exam conducted with a bed setter present. Vitals: Estimated body mass index is [...] Jayant Jones DO documented in this encounter [facility] 12-02-2023 History of Presen t illness [...] or undercooked meat, and stay away from [facility]. Patient has also been advised to not [...] Mervat Fall LPN documented in this encounter [facility] 06-21-2022 Note PROCEDURE: XR ANKLE RT [...] authenticated by: GURPREET GUEVARA Date: 2022-06-21 12:38 [facility] 06-21-2022 Note PROCEDURE: XR ANKLE [...] authenticated by: GURPREET GUEVARA Date: 2022-06-21 12:38 [facility] 01-13-2022 Evaluation note Encounter Date [...] left knee, initial encounter (ICD-10 - S83.412A) [employer] Other Evaluation noteNo assessment information available [facility] Work Phone: Evaluation note* Diagnosis Missed menses [...] Date Medical History anxiety Surgical History tonsillectomy [employer] Other Hospital Discharge instructions Additional Instructions Ice and elevate Tylenol/ Motrin if needed for pain Wear knee immobilizer for the next 3 to 4 days Partial weightbearing with crutches Tylenol or Naprosyn if needed for pain Return here if any problems persist or worsen Follow-up with your primary care doctor orthopedic for recheck in 3 [facility] Work Phone: Chief Complaint and Reason for Visit Chief Complaint L knee injury Chief Complaint Admit Date Unknown April 15, 2024 2:33 pm Advance Directives Advance Directive Response Recorded Date/ Time Advance Directives No March 2:38pm Advance Directive Response Recorded Date/ Time Advance Directives No March 1:38pm Summary Purpose Family History Relationship Condition Age at Onset Recorded Date/T mundo father Heart disease Unknown mother Diabetes mellitus Unknown Additional Source Comments Care Teams (unrecognized sec tion and content) Team Status: Active Member Role Status TARAN Martin Primary Care Provider Activ karen Team Status: Inactive Member Role Status Dates TARAN Pickard Primary Care Provider Activ karen Start: April 15, 2024 End: April 15, 2024 Jayant Jones DO Attending Provider Active Start : April 15, 2024 End: April 15, 2024 Team Status: Inactive Member Role Status Veronique Avila APRN DIRECTOR [employer]Louie Primary Care Provider Activ karen Rueda APRN Emergency Provider Active Team Status: Active Member Role Status Veronique Avila APRN DIRECTOR [employer]Louie Primary Care Provider Activ e Production Grip Relationship Specialty Start Date End Date Miryam Loving DO [address] [place] [address] PCP - General Family Medicine 5/9/23 Production Grip Relationship Specialty Start Date End Date Unallocated, [place] [address] PCP - General Family Medicine 11/23/23 Production Grip Relationship Specialty Start Date End Date Unallocated, [place] [address] PCP - General Family Medicine 11/23/23 Production Grip Relationship Specialty Start Date End Date Unallocated, Kodak [facility] [place] [address] PCP - General Family Medicine 11/23/23 Production Grip Relationship Specialty Start Date End Date Unallocated, Kodak [facility] [place] [address] PCP - General Family Medicine 11/23/23 Production Grip Relationship Specialty Start Date End Date Unallocated, Kodak Antonio MD [facility] [place] [address] PCP - General Family Medicine 11/23/23 Production Grip Relationship Specialty Start Date End Date Unallocated, Kodak Antonio MD [facility] [place] [address] PCP - General Family Medicine 11/23/23 Production Grip Relationship Specialty Start Date End Date Unallocated, [place] [address] PCP - General Family Medicine 11/23/23 Production Grip Relationship Specialty Start Date End Date Unallocated, [place] [address] PCP - General Family Medicine 11/23/23 Production Grip Relationship Specialty Start Date End Date Unallocated, Kodak Antonio MD [address] [place] [address] PCP - General Family Medicine 11/23/23 Team Status: Inactive Member Role Status Dates Gris Avila APRN DIRECTOR [employer]UST[employer]-C Primary Care Provider Activ e Start: April 15, 2024 End: April 15, 2024 Jayant Jones DO Attending Provider Active Start : April 15, 2024 End: April 15, 2024 Goals (unrecognized section and content) Goals may be documented in a n alternate sectionNo InformationGoals may be documented in an alternate section INFORMATION SOURCE (unrecogn ized section and content) DATE CREATED AUTHOR 12/10/2021 [facility] DATE CREATED AUTHOR AUTHOR'S ORGANIZ ATION 12/13/2021 [facility] dical Specialist DATE CREATED AUTHOR AUTHOR'S ORGANIZ ATION 06/24/2022 [facility] DATE CREATED AUTHOR AUTHOR'S ORGANIZ ATION 06/10/2023 [facility] DATE CREATED AUTHOR AUTHOR'S ORGANIZ ATION 04/14/2024 [facility] dical Specialists EPIC REASON FOR VISIT [...] BE BASED ON THE PRIMARY CLINICAL RECORDS. [employer] provides no warranty or guarantee of the accuracy or completeness of information in this document.
--- NOTE | 2024-04-18 13:26 | PC.NURSE ---
Clari, S.O. and 64 hour old Gerry arrive for follow up. Baby has already had Lab drawn as out pt. Clari is concerned about jaundice level. Clari reports no stool since discharge yesterday and 3 voids. with VSS and assessment WNL. Noted to have a smear of dark stool and concentrated void in diaper. color is jaundiced. Sclera white. Baby awake and fussy with assessment, rooting for feed. Mom states it has been 3 hours or more since feeding Discussed feeding intervals, and to feed baby every 2 hours today (daylight hours) and allow stretch of 3 hours at night so parents can rest if baby will allow. Aware to feed baby sooner if needed. Discussed concentrated urine and lack of stool. Baby to breast per mom independently. Fair positioning, cradle hold and no breast support. Weight of breast pulls breast from infant latch. Shown to support breast with feed and infant changes feeding pattern. with long suck with audible swallows. Milk noted at corner of mouth as attempts to keep up with flow. nurses both breasts. Clari with VSS and assessment WNL. States was dizzy this AM and after walking from car. Has only had a granola bar and pop tart this AM hours ago Has water with her. No complaints offered. Minimal bleeding noted, clot this AM after sleeping 4 hours. No saturating bandar pads. States milk coming in breasts feeling firmer to palpation and audible swallows noted. Bilirubin level reported from lab. Results called to Dr Plaza, and parents to return 04/19/2024 with baby for repeat bili level. Verbalized understanding. Lab slip faxed to lab and registration. Parents have order as well. Will feed every 2 hours, states interested in pumping a couple times to have extra on hand and give NB 5ml after each feed. Will return tomorrow for lab work.
[2024-04-18 13:27] VITALS: BP 135/82; PULSE 88; TEMP 36.9; O2SAT 97
== END 2024-04-18 13:34 | disposition home or self-care (01) ==
LOC: FBCO 08:32
PROVIDERS: Visit Provider Obstetrics & Gynecology
DX: Z39.2 Encounter for routine postpartum follow-up (principal)

== ENCOUNTER 2024-12-18 20:06 | Outpatient (REF) | payer OTHER, SELFPAY ==
--- OUTSIDE RECORDS SUMMARY | 2024-12-18 11:00 | XMS_ITS | Encounter Summary ---
Author Organization [facility] Address [address] [place] [address] Care Team Providers Care Formal Waiter/Waitress Name Role Phone Unallocated, [facility]oms Provider Primary Care Provi ravinder Reason for Visit * ReasonCommentsGynecologic Exam Encounter Details DateTypeDepartmentCare Team (Latest Contact Info)Ptcthfxwimu23/03/2025 11:00 AM ESTOffice Visit NOMLisha SMALLWOOD [address] [place] [phone] Maryam Haq PA [address] [place], [facility] Well woman exam with routine gynecological exam Social History Tobacco UseTypesPacks/DayYears UsedDateSmoking Tobacco: Never Assessed CommentsUnknownSex and Gender InformationValueDate RecordedSex Assigned at Not on fileLegal NmuWlvunr61/15/2023 7:18 PM EDTGender GiiqmymxNwmloa36/15/2023 7:18 PM EDTSexual OrientationNot on filedocumented as of this encounter Last Filed Vital Signs Vital SignReadingTime TakenCommentsBlood Fgzgehcq415/7212/18/2024 11:04 AM EST Pulse--Temperature--Respiratory Rate--Oxygen Saturation--Inhaled Oxygen Concentration--[place]099 kg (237 lb 1.9 oz)12/18/2024 11:04 AM WYQPkreji456.8 cm (5' 10 )12/18/2024 11:04 AM ESTBody Mass Index34.02102/18/2024 11:04 AM EST documented in this encounter Progress Notes * HENRRY Barker - 12/18/2024 11:00 AM EST Reason for Appointment: Patient ID: Clari Licona is a 24 y.o. female who presents for Gynecologic Exam Patient presents today for Annual Exam. MEDICATIONS No current outpatient medications ALLERGIES No [...] Objective: Physical Exam Constitutional: Appearance: Normal appearance. Genitourinary: Right Adnexa: not tender and no mass present. Left Adnexa: not tender and no mass present. No cervical discharge. Breasts: Breasts are soft. Right: Normal. Left: Normal. HENT: Head: Normocephalic. Nose: Nose normal. Mouth/Throat: Mouth: Mucous membranes are moist. Cardiovascular: Rate and Rhythm: Normal rate. Pulmonary: Effort: Pulmonary effort is normal. Abdominal: General: Bowel sounds are normal. Palpations: Abdomen is soft. Musculoskeletal: General: Normal range of motion. Cervical back: Normal range of motion. Neurological: General: No focal deficit present. Mental Status: She is alert. Skin: General: Skin is warm and dry. Psychiatric: Mood and Affect: Mood normal. Vitals and nursing note reviewed. Exam conducted with a power brake operator present. Vitals: Estimated body mass index is 34.02 kg/m?? as calculated from the following: Height as of this encounter: 5' 10 . Weight as of this encounter: 237 lb 1.9 oz. BP: 122/72 No LMP recorded. Assessment/Plan ICD-10-CM 1. Well woman exam with routine gynecological exam Z01.419 Pap Smear Annual Exam: Patient presents today for an annual exam. Patient states she is doing well and has no complaints. Pap was obtained without difficulty. No orders of the defined types were placed in this encounter. Follow Up: Patient is to return in one year for annual unless needed otherwise. Documented by HENRRY Barker on behalf of: HENRRY Barker documented in this encounter Plan of Treatment NameTypePriorityAssociated DiagnosesOrder SchedulePap SmearPathology and CytologyRoutine Well woman exam with routine gynecological exam Ordered: 12/18/2024documented as of this encounter Visit Diagnoses Diagnosis Well woman exam with routine gynecological exam Routine gynecological examination documented in this encounter Care Teams Team MemberRelationshipSpecialtyStart DateEnd Date Unallocated, Noms Provider, [address] [address] PCP - GeneralFamily Zzcmbxir03/8/24documented as of this encounter
--- OUTSIDE RECORDS SUMMARY | 2024-12-18 20:09 | XMS_ITS | CCD ---
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 [facility] Current Patient Location: LAB Accession/Order Number: [id number] Exam Date: 02/01/2024 14:35 Report Date: 02/01/2024 15:18 At the request of: MARYAM NGUYEN Procedure: US OB incomplete anatomy EXAM: US OB incomplete anatomy HISTORY: INCOMPLETE ANATOMY COMPARISON: None. TECHNIQUE: Transabdominal FINDINGS: position: Cephalic presentation, longitudinal lie Heart rate: 144 beats minute Normal anatomy: RVOT, LVOT, nose, lips Clinical age: 27 weeks 5 days Clinical ERIN: 04/27/2024 US/US OB incomplete anatomy IMPRESSION: Normal observed anatomy Electronically authenticated by: ISAC NYE Date: 02/01/2024 15:18 Dictated By: Isac Nye M.D. Signed By: 02/01/24 1521 DD/ 1518 TD/TT: Event Management Consultant:TBHRadiology, Radiologist, MD - 02/01/2024 [place] [address] Ultrasound Report Signed Patient: CLARI LICONA MR#: [id number] : 2000 Acct:[id number] Age/Sex: 23 / F ADM Date: 02/01/24 Loc: [facility] Attending Dr: Maryam Nguyen Ordering Physician: Maryam Nguyen Date of Service: 02/01/24 Procedure(s): US OB incomplete anatomy Accession Number(s): [id number] cc: Maryam Nguyen; Physician,Non-Staff Vicki The [address] [address] Patient Name: CLARI LICONA MRN: [id number] date: 2000 Sex: F Assigned Patient Location: [facility] Current Patient Location: LAB Accession/Order Number: [id number] Exam Date: 02/01/2024 14:35 Report Date: 02/01/2024 15:18 At the request of: MARYAM NGUYEN Procedure: US OB incomplete anatomy EXAM: US OB incomplete anatomy HISTORY: INCOMPLETE ANATOMY COMPARISON: None. TECHNIQUE: Transabdominal FINDINGS: position: Cephalic presentation, longitudinal lie Heart rate: 144 beats minute Normal anatomy: RVOT, LVOT, nose, lips Clinical age: 27 weeks 5 days Clinical ERIN: 04/27/2024 US/US OB incomplete anatomy IMPRESSION: Normal observed anatomy Electronically authenticated by: ISAC YNE Date: 02/01/2024 15:18 Dictated By: Isac Nye M.D. Signed By: 02/01/24 1521 DD/ 1518 TD/TT: Event Management Consultant: ED [facility] HospitalRadiology Study observation (narrative)ED [place] OB INCOMPLETE ANATOMYOrdered By: Radiologist Radiology on 60-55-6673HQAGThe Rehabilitation Institute Work Phone: Urinalysis macro (dipstick) panel (U)on 01-19-2024 Bilirubin, UANegativeNegative - 4(70) +++ mg/dLNOMS HealthcareBlood, UANegative Negative - 50 Iron/mcLNOMS HealthcareClarity, UAClearNOMS HealthcareColor, UA YellowNOMS HealthcareGlucose, UANegativeNegative - 2000(110) ++++ mg/dLNOMS HealthcareInterpretation and review of laboratory resultsAbnormalNOFL Healthcare Ketones, UANegativeNegative - 160(16) ++++ mg/dLNOMS HealthcareLeukocytes, UA TraceNegative - 500+++ Miguel/mcLNOMS HealthcareNitrite, UANegativeNegative - PositiveNOMS HealthcarepH, UA65 - 9NOMS HealthcareProtein, UANegativeNegative - 2000(20) ++++ mg/dLNOMS HealthcareSpec Grav, UA1.0251 - 1.03NOMS Healthcare Urobilinogen, UA0.20.2 - 12 mg/dLNOMS HealthcareNOMS HealthcareNo Panel InformationOrdered By: Radiologist Radiology on 65-47-5383EUCDThe Rehabilitation Institute Work Phone: No Panel Informationon 73-66-0452Qvfbriqko Study observation (narrative)ED [place] OB ANATOMYon 28-01-5034[address] [address] Ultrasound Report Signed Patient: CLARI LICONA MR#: [id number] : 2000 Acct:[id number] Age/Sex: 23 / F ADM Date: 12/22/23 Loc: [facility] Attending Dr: Bashir Jones D.O. Ordering Physician: Bashir Jones D.O. Date of Service: 12/22/23 Procedure(s): US OB anatomy Accession Number(s): [id number] cc: Bashir Jones D.O.; Physician,Non-Staff Vicki The [place] [id number] Patient Name: CLARI LICONA MRN: [id number] date: 2000 Sex: F Assigned Patient Location: [facility] Current Patient Location: [facility] Accession/Order Number: [id number] Exam Date: 12/22/2023 13:01 Report Date: 12/22/2023 15:00 At the request of: BASHIR JONES Procedure: US OB anatomy EXAMINATION: US OB anatomy, US OB cervical length HISTORY: ANATOMY COMPARISON: No relevant comparison available. TECHNIQUE: Transabdominal sonographic examination was performed for obstetrical and evaluation. FINDINGS: Reyez intrauterine gestation position: Breech presentation, longitudinal lie Amniotic fluid: Subjectively normal Placenta: Anterior Cervix: Closed, 3.6 cm in length The uterus is normal in appearance Again identified is a 5.2 cm right and 1.8 cm left ovarian cyst Normal anatomy: Lateral ventricles, cerebellum, posterior fossa, orbits, four-chamber heart, diaphragm, stomach, kidneys, abdominal cord insertion, bladder, umbilical arteries, three-vessel cord, spine, extremities Nonvisualization: Nose, lips, RVOT, LVOT BIOMETRY: BPD: 5.04 cm 21 weeks 2 days 25% HC: 19.4 cm 21 weeks 4 days 27% AC: 16.7 cm 21 weeks 5 days 40% FL: 3.83 cm 22 weeks 2 days 54% EFW: 490 g; 47%, 1 lb. 0 oz. FL/BPD: 75.99 HC/AC: 1.16 GESTATIONAL AGE: Age by EDC: 21 weeks 6 days ERIN by EDC: 04/27/2024 Age by Current US: 21 weeks 5 days ERIN by Current US: 04/28/2024 US/US OB anatomy IMPRESSION: Bilateral ovarian cysts measuring up to 5.2 cm in the right Nonvisualization detailed above Otherwise normal anatomy scan *Reference: [employer] Practice Guideline for the performance of Obstetric Ultrasound Examinations, November 15, 2006. Electronically authenticated by: ISAC NYE Date: 12/22/2023 15:00 Dictated By: Isac Nye M.D. Signed By: 12/22/23 1503 DD/ 1500 TD/TT: Event Management Consultant:RUPERTadiologmónica, Radiologist, - 12/22/2023 [place] [address] Ultrasound Report Signed Patient: CLARI LICONA MR#: [id number] : 2000 Acct:[id number] Age/Sex: 23 / F ADM Date: 12/22/23 Loc: [facility] Attending Dr: Bashir Jones D.O. Ordering Physician: Bashir Jones D.O. Date of Service: 12/22/23 Procedure(s): US OB anatomy Accession Number(s): [id number] cc: Bashir Jones D.O.; Physician,Non-Staff Vicki The [address] [address] Patient Name: CLARI LICONA MRN: [facility]:[id number] date: 2000 Sex: F Assigned Patient Location: [facility] Current Patient Location: [facility] Accession/Order Number: [id number] Exam Date: 12/22/2023 13:01 Report Date: 12/22/2023 15:00 At the request of: BASHIR JONES Procedure: US OB anatomy EXAMINATION: US OB anatomy, US OB cervical length HISTORY: ANATOMY COMPARISON: No relevant comparison available. TECHNIQUE: Transabdominal sonographic examination was performed for obstetrical and evaluation. FINDINGS: Reyez intrauterine gestation position: Breech presentation, longitudinal lie Amniotic fluid: Subjectively normal Placenta: Anterior Cervix: Closed, 3.6 cm in length The uterus is normal in appearance Again identified is a 5.2 cm right and 1.8 cm left ovarian cyst Normal anatomy: Lateral ventricles, cerebellum, posterior fossa, orbits, four-chamber heart, diaphragm, stomach, kidneys, abdominal cord insertion, bladder, umbilical arteries, three-vessel cord, spine, extremities Nonvisualization: Nose, lips, RVOT, LVOT BIOMETRY: BPD: 5.04 cm 21 weeks 2 days 25% HC: 19.4 cm 21 weeks 4 days 27% AC: 16.7 cm 21 weeks 5 days 40% FL: 3.83 cm 22 weeks 2 days 54% EFW: 490 g; 47%, 1 lb. 0 oz. FL/BPD: 75.99 HC/AC: 1.16 GESTATIONAL AGE: Age by EDC: 21 weeks 6 days ERIN by EDC: 04/27/2024 Age by Current US: 21 weeks 5 days ERIN by Current US: 04/28/2024 US/US OB anatomy IMPRESSION: Bilateral ovarian cysts measuring up to 5.2 cm in the right Nonvisualization detailed above Otherwise normal anatomy scan *Reference: [employer] Practice Guideline for the performance of Obstetric Ultrasound Examinations, November 15, 2006. Electronically authenticated by: ISAC NYE Date: 12/22/2023 15:00 Dictated By: Isac Nye M.D. Signed By: 12/22/23 1503 DD/ 1500 TD/TT: Event Management Consultant: ED [place] [facility] CERVICAL LENGTHon 36-47-7604[place] [address] Ultrasound Report Signed Patient: CLARI LICONA MR#: [id number] : 2000 Acct:[id number] Age/Sex: 23 / F ADM Date: 12/22/23 Loc: ED Attending Dr: Bashir Jones D.O. Ordering Physician: Bashir Jones D.O. Date of Service: 12/22/23 Procedure(s): US OB cervical length Accession Number(s): [id number] cc: Bashir Jones D.O.; Physician,Non-Staff M.Cherri The [place] [id number] Patient Name: CLARI LICONA MRN: [id number] date: 2000 Sex: F Assigned Patient Location: [facility] Current Patient Location: [facility] Accession/Order Number: [id number] Exam Date: 12/22/2023 13:00 Report Date: 12/22/2023 15:00 At the request of: BASHIR JONES Procedure: US OB cervical length EXAMINATION: US OB anatomy, US OB cervical length HISTORY: ANATOMY COMPARISON: No relevant comparison available. TECHNIQUE: Transabdominal sonographic examination was performed for obstetrical and evaluation. FINDINGS: Reyez intrauterine gestation position: Breech presentation, longitudinal lie Amniotic fluid: Subjectively normal Placenta: Anterior Cervix: Closed, 3.6 cm in length The uterus is normal in appearance Again identified is a 5.2 cm right and 1.8 cm left ovarian cyst Normal anatomy: Lateral ventricles, cerebellum, posterior fossa, orbits, four-chamber heart, diaphragm, stomach, kidneys, abdominal cord insertion, bladder, umbilical arteries, three-vessel cord, spine, extremities Nonvisualization: Nose, lips, RVOT, LVOT BIOMETRY: BPD: 5.04 cm 21 weeks 2 days 25% HC: 19.4 cm 21 weeks 4 days 27% AC: 16.7 cm 21 weeks 5 days 40% FL: 3.83 cm 22 weeks 2 days 54% EFW: 490 g; 47%, 1 lb. 0 oz. FL/BPD: 75.99 HC/AC: 1.16 GESTATIONAL AGE: Age by EDC: 21 weeks 6 days ERIN by EDC: 04/27/2024 Age by Current US: 21 weeks 5 days ERIN by Current US: 04/28/2024 US/US OB cervical length IMPRESSION: Bilateral ovarian cysts measuring up to 5.2 cm in the right Nonvisualization detailed above Otherwise normal anatomy scan *Reference: [employer] Practice Guideline for the performance of Obstetric Ultrasound Examinations, November 15, 2006. Electronically authenticated by: ISAC NYE Date: 12/22/2023 15:00 Dictated By: Isac Nye M.D. Signed By: 12/22/23 1503 DD/ 1500 TD/TT: Event Management Consultant:TBHRadiology, Radiologist, MD - 12/22/2023 [place] [address] Ultrasound Report Signed Patient: CLARI LICONA MR#: [id number] : 2000 Acct:[id number] Age/Sex: 23 / F ADM Date: 12/22/23 Loc: [facility] Attending Dr: Bashir Jones D.O. Ordering Physician: Bashir Jones D.O. Date of Service: 12/22/23 Procedure(s): US OB cervical length Accession Number(s): [id number] cc: Bashir Jones D.O.; Physician,Non-Staff Vicki The [place] [id number] Patient Name: CLARI LICONA MRN: [id number] date: 2000 Sex: F Assigned Patient Location: [facility] Current Patient Location: [facility] Accession/Order Number: [id number] Exam Date: 12/22/2023 13:00 Report Date: 12/22/2023 15:00 At the request of: BASHIR JONES Procedure: US OB cervical length EXAMINATION: US OB anatomy, US OB cervical length HISTORY: ANATOMY COMPARISON: No relevant comparison available. TECHNIQUE: Transabdominal sonographic examination was performed for obstetrical and evaluation. FINDINGS: Reyez intrauterine gestation position: Breech presentation, longitudinal lie Amniotic fluid: Subjectively normal Placenta: Anterior Cervix: Closed, 3.6 cm in length The uterus is normal in appearance Again identified is a 5.2 cm right and 1.8 cm left ovarian cyst Normal anatomy: Lateral ventricles, cerebellum, posterior fossa, orbits, four-chamber heart, diaphragm, stomach, kidneys, abdominal cord insertion, bladder, umbilical arteries, three-vessel cord, spine, extremities Nonvisualization: Nose, lips, RVOT, LVOT BIOMETRY: BPD: 5.04 cm 21 weeks 2 days 25% HC: 19.4 cm 21 weeks 4 days 27% AC: 16.7 cm 21 weeks 5 days 40% FL: 3.83 cm 22 weeks 2 days 54% EFW: 490 g; 47%, 1 lb. 0 oz. FL/BPD: 75.99 HC/AC: 1.16 GESTATIONAL AGE: Age by EDC: 21 weeks 6 days ERIN by EDC: 04/27/2024 Age by Current US: 21 weeks 5 days ERIN by Current US: 04/28/2024 US/US OB cervical length IMPRESSION: Bilateral ovarian cysts measuring up to 5.2 cm in the right Nonvisualization detailed above Otherwise normal anatomy scan *Reference: [employer] Practice Guideline for the performance of Obstetric Ultrasound Examinations, November 15, 2006. Electronically authenticated by: ISAC NYE Date: 12/22/2023 15:00 Dictated By: Isac Nye M.D. Signed By: 12/22/23 1503 DD/ 1500 TD/TT: Event Management Consultant: The Rehabilitation InstituteUrinalysis macro (dipstick) panel (U)on 27-98-5774Hzatlpkat, UA NegativeNegative - 4(70) +++ mg/dLNOMS HealthcareBlood, UAPositiveNegative - 50 Iron/mcLNOMS HealthcareComment on above:traceClarity, UAClearNOMS Healthcare Color, UAYellowNOMS HealthcareGlucose, UANegativeNegative - 2000(110) ++++ mg/dL NOM HealthcareInterpretation and review of laboratory resultsAbnormalNOFL HealthcareKetones, UANegativeNegative - 160(16) ++++ mg/dLNOFL Healthcare Leukocytes, UAPositiveNegative - 500+++ Miguel/mcLNOMS HealthcareComment on above: smallNitrite, UANegativeNegative - PositiveNOMS HealthcarepH, UA6.55 - 9NOMS HealthcareProtein, UANegativeNegative - 2000(20) ++++ mg/dLNOFL HealthcareSpec Grav, UA1.021 - 1.03NOMS HealthcareUrobilinogen, UA0.20.2 - 12 mg/dLNOFL HealthcareNOMS HealthcareALL CBC WITH AUTO DIFFon 82-49-6916XXSOZAXEB ABSOLUTE LVAU9JKKJ HealthcareBasophils/100 WBC (Bld)0.2 %0.2 - 2.0 %[facility] Eosinophils/100 WBC (Bld)0.5 %Low0.9 - 7.0 %NOM HealthcareErythrocyte distribution width (RBC) [Ratio]12.8 %11.0 - 15.0 %NOM HealthcareHematocrit (Bld) [Volume fraction]38.7 %36.0 - 48.0 %NOM HealthcareHemoglobin (Bld) [Mass/Vol]13.1 g/dL12.0 - 16.0 g/dLNOFL HealthcareIMMATURE GRANULOCYTES ABS AUTO 0.03NOMS HealthcareImmature granulocytes/100 WBC (Bld)0.3 %0.0 - 0.5 %NOM HealthcareInterpretation and review of laboratory resultsAbnormilNOThe [facility] LYMPHOCYTES ABSOLUTE AUTO2.1NOMS HealthcareLymphocytes/100 WBC (Bld)18.3 %Low 20.5 - 60.0 %[facility]H (RBC) [Entitic mass]31.7 pg26.7 - 34.0 pgNOFL HealthcareHC (RBC) [Mass/Vol]33.9 g/dL29.9 - 35.2 g/dLNOFL HealthcareV (RBC) [Entitic vol]93.7 fL81.0 - 99.0 fLNOMS HealthcareMONOCYTES ABSOLUTE AUTO0.4NOMS HealthcareMonocytes/100 WBC (Bld)3.7 %1.7 - 12.0 %NOM HealthcareNEUTROPHILS ABSOLUTE AUTO8.8HighNOMS HealthcareNeutrophils/100 WBC (Bld)77 %High43.0 - 75.0 %[facility] HealthcarePlatelet mean volume (Bld) [Entitic vol]10.8 fL9.5 - 13.5 fLSALT LAKE [facility] HealthcareTBH EO #0.1NOMS HealthcareTBH ANQ584JSTC HealthcareTBH RBC4.13LowNOMS HealthcareTBH WBC11.5HighNOFL HealthcareCLINISYNCNOMS Healthcare URETHRITIS/DISCHARGE PLUS VAGINITIS (HTRX)on 48-57-2264FESROSBQI BOITSJI4ALPH HealthcareATOPOBIUM VAGINAENot detectedNOMS HealthcareBVAB 2,3 (BACTERIAL VAGINOSIS ASSOCIATED BACTERIA 2, 3); MOBILUNCUS SPP26.835AbnormalNOFL Healthcare BVAB 2,3 (BACTERIAL VAGINOSIS ASSOCIATED BACTERIA 2, 3); MOBILUNCUS SPPDetected AbnormalNOMS HealthcareCANDIDA ALBICANS, PARAPSILOSIS, IWSPOWYUTY4YVXV HealthcareCANDIDA ALBICANS, PARAPSILOSIS, TROPICALISNot detectedNOMS Healthcare SVITLANA BHXQSRCQ1ILUI HealthcareCANDIDA GLABRATANot detectedNOMS Healthcare SVITLANA MNBMKZ4LXXT HealthcareCANDIDA KRUSEINot detectedNOMS HealthcareCHLAMYDIA KFDGJGHRNBQ8JRYA HealthcareCHLAMYDIA TRACHOMATISNot detectedNOMS Healthcare GARDNERELLA CBVWLJKSA1OCOS HealthcareGARDNERELLA VAGINALISNot detectedNOMS HealthcareInterpretation and review of laboratory resultsAbnormalNOMS Healthcare MEGASPHAERA (TYPES 1, 2)0NOMS HealthcareMEGASPHAERA (TYPES 1, 2)Not detectedNOMS HealthcareMYCOPLASMA FIYTZKDUHS2IPWJ HealthcareMYCOPLASMA GENITALIUMNot detected NOMS HealthcareNEISSERIA RLIDHNMLYPR9HGYL HealthcareNEISSERIA GONORRHOEAENot detectedNOMS HealthcareTRICHOMONAS SGVXJFHYT0VHQO HealthcareTRICHOMONAS VAGINALISNot detectedNOMS HealthcareNOMS HealthcareHCG ( test) Ql (U)on 93-12-8444Puxkmjvdodccgk and review of laboratory resultsAbnormalNOMS Healthcare Preg Test, UrPositiveNOMS HealthcareNOMS HealthcareUrinalysis macro (dipstick) panel (U)on 28-83-3054Wecqgxwpa, UANegativeNegative - 4(70) +++ mg/dLNOMS HealthcareBlood, UANegativeNegative - 50 Iron/mcLNOMS HealthcareClarity, UAClear NOMS HealthcareColor, UAYellowNOMS HealthcareGlucose, UANegativeNegative - 2000(110) ++++ mg/dLNOFL HealthcareInterpretation and review of laboratory resultsAbnormalNOFL HealthcareKetones, UANegativeNegative - 160(16) ++++ mg/dL NOMS HealthcareLeukocytes, UAPositiveNegative - 500+++ Miguel/mcLNOFL Healthcare Nitrite, UANegativeNegative - PositiveNOMS HealthcarepH, UA5.55 - 9NOMS HealthcareProtein, UANegativeNegative - 2000(20) ++++ mg/dLNOFL HealthcareSpec Grav, UA1.031 - 1.03NOMS HealthcareUrobilinogen, UA1.00.2 - 12 mg/dLNOMS HealthcareNOMS HealthcareMHPT TRICHOMONAS/WET PREPon 68-77-6180DYU PREP TRIC BV SVITLANA Wet Prep Tric BV Svitlana WP.BACT Bacteria^Bacteria NOMS HealthcareWET PREP TRIC BV CANDIDAWP.CLUE Clue Cells^Clue CellsNOMS HealthcareWET PREP TRIC BV CANDIDAWP.JONATHAN Fungal Elements^Fungal ElementsNOMS HealthcareWET PREP TRIC BV CANDIDAWP.RBC RBC^RBCNOMS HealthcareWET PREP TRIC BV CANDIDAWP.TRICH Trichomonas^TrichomonasNOMS HealthcareWET PREP TRIC BV SVITLANA WP.WBC WBC^WBCNOMS HealthcareCLINISYNCNOMS HealthcareNo Panel Informationon 66-87-7278FHG PREP TRIC BV CANDIDAF Few^FewNOMS HealthcareWET PREP TRIC BV CANDIDAN None Seen^None SeenNOMS HealthcareCT BRAIN WO CONTon 60-80-5596NU BRAIN WO CONTCT BRAIN WO CONT CLINICAL INFORMATION: Polytrauma, blunt [...] by Olvin Alcaraz MD on 06/08/2023 9:25 PMNHarrison Community HospitalCT CERVICAL SPINE WO CONTon 85-96-6976GX CERVICAL SPINE WO CONTCT CERVICAL SPINE WO CONT CLINICAL INFORMATION: Polytrauma, [...] by Olvin Alcaraz MD on 06/08/2023 9:43 PMNHarrison Community HospitalXR CHEST 2 VWSon 93-85-0445US CHEST 2 VWSXR CHEST 2 VWS PA and lateral chest: HISTORY: Trauma. 2 views of the chest are obtained. Cardiac and mediastinal contours are within normal limits. Thereis no focal infiltrate, effusion, or pneumothorax. Osseous structures appear intact. IMPRESSION: No acute findings. Finalized by Olvin Alcaraz MD on 06/08/2023 9:19 PMNormalSelect Medical Specialty Hospital - ColumbusXR PELVIS 1 OR 2 VWSon 09-34-3631JX PELVIS 1 OR 2 VWSXR PELVIS 1 OR 2 VWS CLINICAL INFORMATION: trauma TECHNIQUE: XR PELVIS 1 OR 2 VWS Single view of the pelvis was obtained. Pelvic ring appears intact. Femoral necks are symmetric. Noacute fracture. IMPRESSION: No acute findings. Finalized by Olvin Alcaraz MD on 06/08/2023 9:22 PMNHarrison Community HospitalXR SHOULDER LT MIN 2 VWSon 07-30-0440JZ SHOULDER LT MIN 2 VWSXR SHOULDER LT MIN 2 VWS CLINICAL INFORMATION: trauma TECHNIQUE: XR SHOULDER LT MIN 2 VWS 3 views of the left shoulder were obtained. There is no acute osseous abnormality. No fractures seen. No malalignment. IMPRESSION: No acute findings. Finalized by Olvin Alcaraz MD on 06/08/2023 9:20 [facility]MRI K[facility] w/o Lefton 40-63-4607IHU Knee w/o LeftHistory: Knee pain since a fall. Technique: Multiplanar multisequence MRI of the knee was performed without contrast. Comparison: None available Findings: Transversely oriented linear hypointense signal within the posterior aspect of the lateral tibial plateau may represent nondisplaced/nondepressed fracture without involvement of the subchondral cortex. [...] with pivot shift bone contusion pattern. Possible nondisplaced/nondepressed lateral tibial plateau fracture. High-grade partial thickness tear of the proximal medial collateral ligament. Report reported and signed by AMMON PALENCIA on 12/12/2021 1348NormalNorthern Missouri Abrasive Wheel Molder Vital Signs Date TimeVital SignValuePerforming RvidvespkNjtnctcn66-07-4033 11:04-0500Body wrclir486.8 cmAfani SALES Work Phone: [facility] InstituteFnxxyqgksq81-83-4003 11:04-0500Body mass index (BMI) [Ratio]34.02 kg/m2Maryam SALES Work Phone: [facility] InstituteZrrpvtsnlo82-58-0536 11:04-0500Body gdzhiu492.56 kgAmy Severino PA Work Phone: [phone]-[facility] InstituteJsgkutujus34-13-8933 11:04-0500Diastolic blood qyajebzx70 mm[Hg]Maryam Nguyen PA Work Phone: [phone]-[facility] InstituteYedynxxnhb89-00-7695 11:04-0500Systolic blood jnysyxby386 mm[Hg]Maryam Nguyen PA Work Phone: [phone] [place], [place] [address]Mqsyflpqtg65-44-2458 11:21-0400Body mass index (BMI) [Ratio]36.88 kg/r8Vbpht Robert DO Work Phone: [phone] [place], [place] [address]Ubgxkvspsh47-52-9059 11:21-0400Body sudomy608.57 kgCorey Robert DO Work Phone: [phone] [place], [place] [address]Vqhowifnvh47-28-3793 11:21-0400Diastolic blood vhonqfje39 mm[Hg]Bashir Robert DO Work Phone: [phone] [place], [place] [address]Srdwohanxy51-66-0974 11:21-0400Systolic blood eurxxcwx201 mm[Hg]Bashir Robert DO Work Phone: [phone] [place], [place] [address]Gasoeghtht60-10-6528 14:57-0500Body mass index (BMI) [Ratio]35.56 kg/m2Amy Lacona PA Work Phone: [phone] [place], [place] [address]Bwcnlgldcy28-63-2427 14:57-0500Body edgoar637.4 kgAmy Severino PA Work Phone: [phone] [place], [place] [address]Dyjefjpuyz86-48-6011 14:57-0500Diastolic blood oaqbxomg57 mm[Hg]Maryam Nguyen PA Work Phone: [phone] [place], [place] [address]Dreeqirkhp78-72-6048 14:57-0500Systolic blood ymgldqsr537 mm[Hg]Maryam Nguyen PA Work Phone: [phone] [place], [place] [address]Gzneeubwui98-20-6069 15:15-0500Body mass index (BMI) [Ratio]35.32 kg/e9Gspzt Robert DO Work Phone: [phone] [place], [place] [address]Xtmkpmzdfg90-04-0486 15:15-0500Body zbfehx888.66 kgCorey Robert DO Work Phone: [phone]-[facility] InstituteGkeoubddxw79-72-2593 15:15-0500Diastolic blood vexyldme61 mm[Hg]Bashir Robert DO Work Phone: [phone]-[facility] HealthThe Rehabilitation InstituteQtuipohoje57-93-6330 15:15-0500Systolic blood zcqqybgb637 mm[Hg]Bashir Robert DO Work Phone: [phone] [place], [place] [address]Jrupalhkez02-31-6448 11:36-0500Body mass index (BMI) [Ratio]34.21 kg/m2Amy Severino PA Work Phone: [phone] [place], [place] [address]Zeyebeqqtb11-64-9022 11:36-0500Body .14 kgAmy Severino PA Work Phone: [phone] [place], [place] [address]Rpadygbzpu66-67-9680 11:36-0500Diastolic blood uovyumeh03 mm[Hg]Maryam Nguyen PA Work Phone: [phone] [place], [place] [address]Vqptulmadl46-12-2065 11:36-0500Systolic blood znwomrtt532 mm[Hg]Maryam Nguyen PA Work Phone: [phone] [place], [place] [address]Xgwsxqufiu19-66-7090 11:02-0500Body mass index (BMI) [Ratio]33.26 kg/u4Ikjis Robert DO Work Phone: [phone]-[facility] InstituteMmcsjdjhjg68-97-4641 11:02-0500Body leuxop634.14 kgCorey Robert DO Work Phone: [phone] [place], [place] [address]Lylpbwosmo13-88-2532 11:02-0500Diastolic blood xexgaskb67 mm[Hg]Bashir Robert DO Work Phone: [phone] [place], [place] [address]Ysjvmbygzs72-79-9571 11:02-0500Systolic blood mm[Hg]Bashir Robert DO Work Phone: [phone])[facility] [place], [place] [address]Wuhdzsrnlj17-99-0918 10:34-0500Body mass index (BMI) [Ratio]31.39 kg/m2Amy Severino PA Work Phone: [phone] [place], [place] [address]Oklaedakbv80-70-4916 10:34-0500Body .25 kgMaryam Severino SALES Work Phone: [facility] InstituteFgjmdnhkim19-06-3908 10:34-0500Diastolic blood qljvkurc96 mm[Hg]Maryam Nguyen PA Work Phone: [facility] InstituteJjkafllsos31-43-9100 10:34-0500Systolic blood ubcplveh202 mm[Hg]Maryam Nguyen PA Work Phone: [facility] InstituteCagrjkerhx04-75-4724 12:19-0500Body mass index (BMI) [Ratio]31.71 kg/a5Lvnts Robert DO Work Phone: [phone]-[facility] InstituteNhhduasgjj59-28-1587 12:19-0500Body zqycme136.25 kgCorey Robert DO Work Phone: [phone]-[facility] HealthThe [facility] InstituteVyvjftgzes05-19-7307 12:19-0500Diastolic blood uywlkyxb14 mm[Hg]Bashir Robert DO Work Phone: [phone]-[facility] InstituteRekibkxbls83-48-7554 12:19-0500Systolic blood ehvvpnuc516 mm[Hg]Bashir Robert DO Work Phone: [phone] [place], [place] [address]Wsypoeaumv63-97-4071 11:59-0500Body mass index (BMI) [Ratio]32.11 kg/m2Maryam Severino PA Work Phone: [facility] InstituteEijszzvrmk07-52-6442 11:59-0500Body bgjjoq860.52 kgMaryam Severino SALES Work Phone: [phone] InstituteBbupuzvbwy32-61-3312 11:59-0500Diastolic blood xeqjxmux73 mm[Hg]Maryam SALES Work Phone: [facility] InstituteTjdjmwjvwu73-15-5049 11:59-0500Systolic blood svqsyohi046 mm[Hg]Maryam SALES Work Phone: [phone][facility] InstituteAzlxuglbqc18-71-6926 14:38-0500Body mass index (BMI) [Ratio]29.99 kg/f8Cfyoq Robert DO Work Phone: [phone] InstituteDrfrpynqua75-97-9656 14:38-0500Body chison20.8 kg Bashir Robert DO Work Phone: [facility] InstituteOlmvteylay52-29-8755 14:38-0500Diastolic blood lkqnjpaq18 mm[Hg]Bashir Robert DO Work Phone: [facility] InstituteZhadccyztm14-32-3116 14:38-0500Systolic blood wqqxuhea768 mm[Hg]Bashir Robert DO Work Phone: [facility] InstituteStyehlmjol41-81-7816 14:27-0400Body mass index (BMI) [Ratio]29.39 kg/m2[facility]10-17-2024 14:27-0400Body wsqoxf51.9 [facility]11-29-2022 09:15-0500Body zajgiq642.34 cm Shaan Olexa Other [employer] Other 11-29-2022 09:15-0500Body mass index (BMI) [Ratio] 27.89 kg/j7Tvjrsj Olexa Other [facility] Other 11-29-2022 09:15-0500Body ploxlr67.72 kgThomas Olexa Other [employer] Other 10-14-2022 21:42-0400Body ynwlkh729.88 cmAPRN Gris Kiepert Work Phone: [facility]10-14-2022 21:42-0400 Body hgakocmecxa61 [degF]PRODUCTION WORKER Gris Kiepert Work Phone: [facility]10-14-2022 21:42-0400 Body .27 kgAPRN Gris Kiepert Work Phone: [facility]10-14-2022 21:42-0400 Diastolic blood gqcmuycg66 mm[Hg]PRODUCTION WORKER Gris Kiepert Work Phone: [facility]10-14-2022 21:42-0400 Heart rate98 /minAPRN Gris Kiepert Work Phone: [facility]10-14-2022 21:42-0400 Respiratory rate20 /minTARAN Avila Work Phone: [facility]10-14-2022 21:42-0400 SaO2% (BldA) [Mass fraction]95 %TARAN Avila Work Phone: [facility]10-14-2022 21:42-0400 Systolic blood wzerogin559 mm[Hg]TARAN Avila Work Phone: [facility] Encounters Encounter DateEncounter TypeCare ProviderFacilityStart: 12-18-2024 End: 12-92-3831Qswkvy flowsheetMaryam SALES Work Phone: [facility] [place] [facility]BGYNStart: 12-18-2024 End: 34-69-1450Bqprzk flowsheetMaryam SALES Work Phone: [facility]BGYNStart: 12-18-2024 End: 75-34-4886Budmcpf encounter procedureMaryam SALES Work Phone: NOJQ HealthcareStart: 12-18-2024 End: 78-33-8500Xvvzsmeu preventive med est patient 18-39 yrsMaryam Severino SALES Work Phone: [facility] OBGYNComment on above:Well woman exam with routine gynecological examStart: 05-29-2024 End: 40-26-6162Xufvgl outpatient visit 15 minutesCorey Robert DO Work Phone: NOCY BCP OBComment on above:6 weeks follow-up; Spontaneous vaginal deliveryStart: 05-29-2024 End: 00-04-1590dhijcvoclnFRSVQ FAZIONot AvailableStart: 04-16-2024 End: 96-03-2694Buelbnpkl Result EncounterCorey Robert DO Work Phone: [facility] External Department UnsolicitedStart: 04-16-2024 End: 80-43-8740Gewnbktni Result EncounterCorey Robert DO Work Phone: noms External Department UnsolicitedStart: 04-15-2024 End: 82-76-1386hobcepntifNcagcr Jamiet PRODUCTION WORKER Work Phone: [facility] Work Phone: Start: 04-15-2024 End: 55-06-9374Azovdffw ReferredCarrie Ilyaepert PRODUCTION WORKER Work Phone: [facility]-LAB Path Spec [facility] HospStart: 04-15-2024 End: 20-20-7188Pmhxpohpm Result EncounterCorey Robert DO Work Phone: noms External Department UnsolicitedStart: 04-15-2024 End: 36-61-2376Eiyhrnuux Result EncounterCorey Robert DO Work Phone: noms External Department UnsolicitedStart: 04-12-2024 End: 54-44-1097Bxcbzzpz flow sheetMaryam SALES Work Phone: NOTE BCP OBComment on above:37 weeks gestation of ; Third trimester pregnancyStart: 04-12-2024 End: 31-82-3060aozoclotnxUOL Heron AvailableStart: 04-12-2024 End: 49-14-2921Klulwo flowsheetMaryam SALES Work Phone: [facility] BCP OBStart: 04-12-2024 End: 99-50-0761Rkfumi flowsheetMaryam SALES Work Phone: [facility] BCP OBStart: 04-05-2024 End: 83-05-0018htibeodfijLLGJP FAZIONot AvailableStart: 04-05-2024 End: 51-85-3231Uyxypt outpatient visit 15 minutesCorey Robert DO Work Phone: NOM[facility] BCP OBComment on above:Third trimester ; 36 weeks gestation of pregnancyStart: 04-05-2024 End: 12-56-5164Cdoaxo flowsheetCorey Robert DO Work Phone: [facility] BCP OBStart: 04-05-2024 End: 39-20-5343Jodyag flowsheetCorey Robert DO Work Phone: [facility] BCP OBStart: 04-05-2024 End: 24-80-1710Vdbunmbeo Result EncounterCorey Robert DO Work Phone: NOMS External Department UnsolicitedStart: 03-23-2024 End: 75-91-1356Jbeuimmyg Result EncounterCorey Robert DO Work Phone: [facility] External Department UnsolicitedStart: 03-23-2024 End: 75-23-3118Gerovvvsw Result EncounterCorey Robert DO Work Phone: [facility] External Department UnsolicitedStart: 03-21-2024 End: 59-38-4972Wogmoi outpatient visit 15 minutesMaryam SALES Work Phone: [facility] BCP OBComment on above:Third trimester ; 34 weeks gestation of pregnancyStart: 03-21-2024 End: 84-22-8806lnpuillckzZUN RAMEYNot AvailableStart: 03-07-2024 End: 38-69-3655Ervpca flowsheetCorey Robert DO Work Phone: [facility] BCP OBStart: 03-07-2024 End: 85-31-1844Dhflgg flowsheetCorey Robert DO Work Phone: [facility] BCP OBStart: 03-07-2024 End: 48-66-5956Drfonp outpatient visit 15 minutesCorey Robert DO Work Phone: [facility] BCP OBComment on above:Third trimester ; 32 weeks gestation of ; size inconsistent with datesStart: 03-07-2024 End: 32-12-1717hiofiydjlxSWZFG FAZIONot AvailableStart: 02-21-2024 End: 41-00-4199Lwkkcr Jose SALES Work Phone: [facility] BCP OBStart: 02-21-2024 End: 35-19-8828Cexnzl flowsheetMaryam SALES Work Phone: [facility] BCP OBStart: 02-21-2024 End: 78-98-0410fnmipxkworWTE Heron AvailableStart: 02-21-2024 End: 88-63-5343Hcujxh outpatient visit 15 minutesAmy Severino SALES Work Phone: [facility] BCP OBComment on above:30 weeks gestation of ; Third trimester pregnancyStart: 02-03-2024 End: 18-52-8042Efcsnj flowsheetCorey Robert DO Work Phone: [facility] BCP OBStart: 02-03-2024 End: 49-78-7205Kjdhnj flowsheetCorey Robert DO Work Phone: [facility] BCP OBStart: 02-03-2024 End: 89-35-4704ngobcfstqsJZILK FAZIONot AvailableStart: 02-03-2024 End: 40-38-8256Xvuocb outpatient visit 15 minutesCorey Robert DO Work Phone: [facility] BCP OBComment on above:Second trimester ; 28 weeks gestation of pregnancyStart: 02-01-2024 End: 16-56-7750Edumrwxkg Result EncounterAmy Severino SALES Work Phone: [facility]OMS External Department UnsolicitedStart: 02-01-2024 End: 42-98-5454Lhgrmidhu Result EncounterAmy Severino SALES Work Phone: [facility]OM[facility] External Department UnsolicitedStart: 01-19-2024 End: 87-96-2619Xnzjox flowsheetMaryam SALES Work Phone: [facility] BCP OBStart: 01-19-2024 End: 75-02-9651Wienax flowsheetMaryam SALES Work Phone: [facility] BCP OBStart: 01-19-2024 End: 03-50-2235Degwunfm flow sheetMaryam SALES Work Phone: NOMS BCP OBComment on above:25 weeks gestation of ; Second trimester ; Diabetes mellitus screening; Encounter for follow-up ultrasound of anatomyStart: 01-19-2024 End: 95-96-2406zoxipmyrpjMYR RAMEYNot AvailableStart: 12-22-2023 End: 08-86-1136Ixwgpz outpatient visit 15 minutesCorey Robert DO Work Phone: NOKB BCP OBComment on above:Second trimester ; 21 weeks gestation of pregnancyStart: 12-22-2023 End: 07-45-1375osxdzakmbjGYCEC FAZIONot AvailableStart: 12-22-2023 End: 66-80-0984Sllrxn flowsheetCorey Robert DO Work Phone: NOXI BCP OBStart: 12-22-2023 End: 17-04-5821Krufnu flowsheetCorey Robert DO Work Phone: NORZ BCP OBStart: 12-22-2023 End: 00-97-1674Ciqbprnjj Result EncounterCorey Robert DO Work Phone: NOMS External Department UnsolicitedStart: 12-09-2023 End: 41-65-8753Dtzgbivrx Result EncounterCorey Robert DO Work Phone: NORC External Department UnsolicitedStart: 12-09-2023 End: 61-42-2187Hqgzcxtbc Result EncounterCorey Robert DO Work Phone: NONS External Department UnsolicitedStart: 12-02-2023 End: 11-46-3312Uwmjiwlt Result EncounterCorey Robert DO Work Phone: NOPI External Department UnsolicitedStart: 12-02-2023 End: 06-27-7947Vliqpzmq Result EncounterCorey Robert DO Work Phone: NOMS External Department UnsolicitedStart: 12-02-2023 End: 14-74-4302Bsmovh outpatient visit 5 minutesNoms Bcp Ob Robert NurseNOMS BCP OBComment on above:GA: 50r0aSbbpc: 12-02-2023 End: 73-78-6656aztcbpsofzRSBAM FAZIONot AvailableStart: 11-21-2023 End: 79-91-7478Ynczbtmgs Result EncounterMattes SALES Work Phone: noms External Department UnsolicitedStart: 11-21-2023 End: 72-07-6739Mtfxnmbmn Result EncounterMattes SALES Work Phone: noms External Department UnsolicitedStart: 06-08-2023 End: 84-57-8563Pxvzxnwen department patient visitPILI [facility] HospitalStart: 06-21-2022 End: 63-44-3723gzvbvmpolkFQCXP LEWIS .Facility:G4Qpoas: 05-28-2022 End: 05-36-1827fslrlxcxilIP JONATHAN DILLERFacility:R6Mnqkv: 05-20-2022 End: 44-15-8758vbvwlqzovxMC JONATHAN DILLERFacility:U6Txdac: 01-13-2022 End: 10-03-6174ybnfaykqaeKilcxw [facility]lex[facility] Other Start: 59-62-7439Fbbsay outpatient visit 15 minutes Shaan Sidhu OrthopedicsStart: 11-28-2021 End: 00-13-0678Bnzndpzrf department patient visitTARAN Gris Ayalaedwin Work Phone: [facility]-Emergency Room Procedures DateProcedureProcedure DetailPerforming ClinicianStart: 05-29-2024 End: 21-92-1026Wular dip stick/tablet rgnt non-auto w/o micrscpCorey Robert DO Work Phone: Start: 76-12-5638LWV CBC WITH AUTO DIFFCorey Robert DO Work Phone: Start: 83-22-2317SIOW CBC WITH PLATELET NO DIFFERENTIALCorey Robert DO Work Phone: Start: 33-74-0523Syorv dip stick/tablet rgnt non-auto w/o micrscpAmy Severino SALES Work Phone: Start: 20-15-6475Pwcqu dip stick/tablet rgnt non-auto w/o micrscpCorey Robert DO Work Phone: Start: 60-19-2394KPJ MISCELLANEOUS TESTCorey Robert DO Work Phone: Start: 63-01-0951IJ OB BPP W NON-STRESSCorey Robert DO Work Phone: Start: 14-89-2656Uhfbm dip stick/tablet rgnt non-auto w/o micrscpAmy Severino SALES Work Phone: Start: 09-07-5038Ayepm dip stick/tablet rgnt non-auto w/o micrscpCorey Robert DO Work Phone: Start: 81-49-0011Wmvgi dip stick/tablet rgnt non-auto w/o micrscpAmy Severino SALES Work Phone: Start: 69-89-6067Rkdhi dip stick/tablet rgnt non-auto w/o micrscpCorey Robert DO Work Phone: Start: 79-96-7998DIR CBC WITH AUTO DIFFAmy Severino SALES Work Phone: Start: 81-17-8102JUSHNUG 1 HOURAmy Severino SALES Work Phone: Start: 12-33-7831QQ OB INCOMPLETE ANATOMYAmy Severino SALES Work Phone: Start: 80-32-8674Qegca dip stick/tablet rgnt non-auto w/o micrscpAmy Severino SALES Work Phone: Start: 39-22-4481VZ OB ANATOMYCorey Robert DO Work Phone: Start: 46-60-0208LF OB CERVICAL LENGTHCorey Robert DO Work Phone: Start: 09-53-6740Ecegw dip stick/tablet rgnt non-auto w/o micrscpCorey Robert DO Work Phone: Start: 60-22-3559IDT CBC WITH AUTO DIFFCorey Robert DO Work Phone: Start: 11-51-1661ZTENKWMLXW/DISCHARGE PLUS VAGINITIS (HTRX)Bashir Robert DO Work Phone: Start: 23-12-0561Xnlry dip stick/tablet rgnt non-auto w/o micrscpCorey Robert DO Work Phone: Start: 32-33-8906HBBI TRICHOMONAS/WET PREPMatthew J Omer PA Work Phone: Plan of Treatment DateCare ActivityDetailAuthorStart: 12-18-2024 End: 41-51-2581Euaqvmc encounter procedureNOMS BCP OBComment on above:Arrived Start: 81-08-5940ACQRQ-19 Vaccine ( season)COVID-19 Vaccine ()[facility]OMS HealthcareStart: 77-24-3770Uqfdumzoh vaccinationNOMS HealthcareStart: 04-19-2024 End: 89-68-0345Vrxtzlc encounter epllpdsrz07/05/2025 3:40 PM EST Routine [facility] [address] [place] [address] Bashir Jones, DO [address] [place] [address] [facility] BCP OBStart: 04-12-2024 End: 90-52-4266Wtyfdoy encounter procedureNOMS BCP OBComment on above:Arrived Start: 04-05-2024 End: 29-65-4141Xqkfkrl encounter bfysudlcs39/19/2025 2:40 PM EST Routine [facility] [address] [place] [address] Bashir Jones, DO [address] [place], [place] [address] [facility] BCP OBStart: 04-05-2024 End: 97-20-8048PCAFDEX, GROUP B STREP WITH SUSCEPTIBLITYCULTURE, GROUP B STREP WITH SUSCEPTIBLITY Lab Routine Third trimester Expected: 04/05/2024, Expires: 04/05/2025[facility] Work Phone: comment on above:Expected: 04/05/2024, Expires: 04/05/2025Start: 03-21-2024 End: 72-64-1006Ihczcgm encounter rvidkbkjp92/04/2025 11:20 AM EST Routine [facility] [address] [place] [address] Maryam Nguyen PA [address] [place], [place] [id number] [facility] BCP OBStart: 03-21-2024 End: 44-24-8626Nqruoizchtuw / ancillary services awglhiyrwr25/04/2025 10:30 AM EST Ancillary Procedure [facility] [address] [place], [place] [address] [facility] BCP OBStart: 03-07-2024 End: 34-16-0531LZ for pregnancyUS OB follow up transabdominal approach Imaging Routine size inconsistent with dates Expected: 03/07/2024, Expires: 03/07/2025[facility] Work Phone: comment on above:Expected: 03/07/2024, Expires: 03/07/2025Start: 03-07-2024 End: 42-46-0200Rjvpcqu encounter procedureNOFL BCP OBComment on above:Arrived Start: 02-21-2024 End: 67-95-9992Ykydocs encounter nlcahazix45/06/2025 10:20 AM EST Routine [facility] [address] [place] [address] Maryam Nguyen, PA [address] [place], [place] [address] [facility] BCP OBStart: 01-19-2024 End: 92-46-2980AIB panel - Blood by Automated countCBC Lab Routine Diabetes mellitus screening Expected: 01/19/2024 (Approximate), Expires: 01/18/2025[facility] Work Phone: comment on above:Expected: 01/19/2024 (Approximate), Expires: 01/18/2025Start: 01-19-2024 End: 35-06-8080Ngkqmxxpxsa of glucose 1 hour after glucose challenge for glucose tolerance testGlucose tolerance, 1 hour Lab Routine Diabetes mellitus screening Expected: 01/19/2024 (Approximate), Expires: 01/18/2025NOFL HealthcareComment on above:Expected: 01/19/2024 (Approximate), Expires: 01/18/2025Start: 01-19-2024 End: 91-14-4890ZH for pregnancyUS OB INCOMPLETE ANATOMY Imaging Routine Encounter for follow-up ultrasound of anatomy Expected: 01/19/2024 (Approximate), Expires: 01/18/2025NOFL HealthcareComment on above:Expected: 01/19/2024 (Approximate), Expires: 01/18/2025Start: 01-19-2024 End: 85-80-6509Dthdsnu encounter procedureNOMS BCP OBComment on above:Arrived Start: 12-22-2023 End: 96-34-4182Yrgxeea encounter procedureNOMS BCP OBComment on above:Arrived Start: 12-22-2023 End: 05-44-4434Wmojvlslpsjk / ancillary services onuecymprw83/06/2024 1:00 PM EST Ancillary Procedure [facility] [address] [place] [address] NOMS BCP OBStart: 12-02-2023 End: 81-80-8389UYZ/RhABO/Rh Lab Routine Missed menses , unspecified gestational age Expected: 12/02/2023 (Approximate), Expires: 12/01/2024NOMS HealthcareComment on above:Expected: 12/02/2023 (Approximate), Expires: 12/01/2024Start: 12-02-2023 End: 99-14-4663Aolxb fetoprotein, maternalAlpha fetoprotein, maternal Lab Routine Encounter for supervision of normal first in first trimester Expected: 12/02/2023 (Approximate), Expires: 03/03/2024NOFL HealthcareComment on above:Expected: 12/02/2023 (Approximate), Expires: 03/03/2024Start: 12-02-2023 End: 56-01-3723Sawmr type and Indirect antibody screen panel - BloodType and screen Lab Routine Missed menses , unspecified gestational age Expected: 12/02/2023 (Approximate), Expires: 12/01/2024[facility] Work Phone: comment on above:Expected: 12/02/2023 (Approximate), Expires: 12/01/2024Start: 12-02-2023 End: 82-61-3204Njsbb of abuse panel - Urine by Screen methodRapid drug screen, urine Lab Routine , unspecified gestational age Encounter for supervision of normal first in first trimester Expected: 12/02/2023 (Approximate), Expires: 12/01/2024NOFL HealthcareComment on above:Expected: 12/02/2023 (Approximate), Expires: 12/01/2024Start: 12-02-2023 End: 92-47-2608TB for pregnancyNOMS HealthcareComment on above:Expected: 12/02/2023 (Approximate), Expires: 12/01/2024Start: 60-69-9027Ubcrwtxfp vaccinationInfluenza Vaccine (#1)NOM HealthcareStart: 87-79-3119Kxzeshfnuh examination of kneeXR knee LT 4V*[facility]: 00-45-5297MA Knee - left 4 ViewsLutheran Hospitaltart: 01-37-6971Wcnkqjhnt B Vaccines (1 of 3 - 19+ 3-dose series)Hepatitis B Vaccines (1 of 3 - 19+ 3-dose series)[facility]OMS HealthcareStart: 10-91-9565ZUP Vaccines (1 - 3- dose series)HPV Vaccines (1 - 3-dose series)[facility]OM[facility] HealthcareStart: 07-01-2012 History of varicella vaccinationVaricella Vaccines (1 of 2 - 13+ 2-dose series) NOMS HealthcareStart: 75-05-2384DVbP/Tdap/Td Vaccines (1 - Tdap)DTaP/Tdap/Td Vaccines (1 - Tdap)[facility]OMS HealthcareStart: 60-96-5103MZZ Vaccines (1 of 1 - Standard series)MMR Vaccines (1 of 1 - Standard series)NOMS HealthcareBacteria identified in Urine by CultureUrine culture Microbiology Routine Missed menses Ordered: 12/02/2023[facility] HealthcareComment on above:Ordered: 12/02/2023BC W Auto Differential panel - BloodCBC and differential Lab Routine Missed menses , unspecified gestational age Ordered: 12/02/2023[facility] HealthcareComment on above:Ordered: 12/02/2023ytology Cervical or vaginal smear or scraping studyPap Smear Pathology and Cytology Routine Well woman exam with routine gynecological exam Ordered: 12/18/2024[facility] Healthcare Work Phone: comment on above:Ordered: 12/18/2024Hemoglobin A1c/Hemoglobin.total in BloodHemoglobin A1c Lab Routine Missed menses , unspecified gestational age Ordered: 12/02/2023[facility] HealthcareComment on above: Ordered: 12/02/2023Hepatitis B virus surface Ag [Presence] in Serum or Plasma by ImmunoassayHepatitis B surface antigen Lab Routine Missed menses , unspecified gestational age Ordered: 12/02/2023[facility] HealthcareComment on above: Ordered: 12/02/2023Hepatitis C virus Ab [Presence] in Serum or Plasma by ImmunoassayHepatitis C antibody Lab Routine Missed menses , unspecified gestational age Ordered: 12/02/2023[facility] HealthcareComment on above:Ordered: 12/02/2023HIV-1/HIV-2 antigen/antibody combination immunoassayHIV-1 and HIV-2 antibodies Lab Routine Missed menses , unspecified gestational age Ordered: 12/02/2023[facility] HealthcareComment on above:Ordered: 12/02/2023atient [facility] ([place])[facility] Work Phone: Patient referralOhiohealth Van Wert Hospital [facility] Work Phone: Reagin Ab [Presence] in Serum by RPRRPR Lab Routine Missed menses , unspecified gestational age Ordered: 12/02/2023[facility] HealthcareComment on above:Ordered: 4Rubella antibody, IgGRubella antibody, IgG Lab Routine Missed menses , unspecified gestational age Ordered: 12/02/2023[facility] HealthcareComment on above:Ordered: 12/02/2023 Payers DatePayer CategoryPayerSuburban Community Hospitaly [id number]-pvm [id number] Health InsuranceUNITED HEALTHCARE MEDICAID Member Subscriber Plan / Payer (Effective 2023- Present) Name: Clari Licona Relation to Subscriber: Self Name: Monae Clari Ta Payer ID: Not on file Group ID: Not on file Type: Not on file Address: [address] [place] [id number] [id number] BCBS [id number] 2021- [phone] [address] [place] [address] [id number] Health Insurance [id number] 2.0.1.409042.3.57[id number] 2.0.1.913089.3.579.2.68424-57-0363Grgxkcv8021150 2.840.1.351046.3.57[id number] 2.0.1.068335.3.579.2.086088-27-0295Ivsxlpf79178570 2.16.840.1.405499.3.57[id number] 2.16.840.1.942586.3.57[id number] 2.16.840.1.191994.3.579.2.587314-18-5200Nxfjzme46165345 2.16.840.1.674681.3.579.2.226131-40-4530Kqwrfna66891031 2..840.1.031044.3.579.2.537028-89-6526Tqvnkfl5949127 2..840.1.685911.3.579.2.659717-31-8211Vfbsddj4071800 2..840.1.797953.3.579.2.533395-63-3430Nvwgbkl5126118 2..840.1.217386.3.579.2.411585-16-2276Gtifyds9492732 2.16.840.1.463940.3.579.2.523723-82-8466Yktsjyq5527609 2..840.1.561284.3.579.2.551807-74-4254Qympxbg8288751 2.16.840.1.213684.3.579.2.777633-07-3404Fapjqlt3185604 2..840.1.719884.3.579.2.421403-97-1709Voezwdd0875732 2.16.840.1.913345.3.579.2.371000-24-2001Srghctp8675853 2.16.840.1.762906.3.579.2.151201-34-6698Nxminfu2002887 2..840.1.544247.3.579.2.775878-59-8690Jahqzdf3753666 2..840.1.943826.3.579.2.75621[id number] 880hu631-9lkg-80t8-7vh8-qe9y7q96896s07-58-9024Iiygkse65523354582136-79-9847 [id number] 2.16.840.1.032231.3.579.2.531Worker's OwmrpkcjmpvcA337671 7k7z0656-8433-59s4-6857-56919958424b Social History DateTypeDetailFacilityStart: 11-28-2021 End: 45-26-6666Oqsjajx smoking status NHISSmoker (finding)[facility]: 92-93-5602Trk Assigned At [facility] Assigned At [facility] Other Tobacco smoking status NHISTobacco smoking consumption unknownSALT LAKE [facility]AL [facility] HealthcareStart: 37-45-3294Yup assigned at [facility] hospitalNot on fileSALT LAKE [facility]IORAL [facility]ALTH [facility] HealthcareStart: 40-60-4659Gecxpg identityIdentifies as female gender (finding) [facility] HealthcareStart: 71-41-2388UcqzrcpiyYNTU HealthcareStart: 17-44-1411Aym Female (finding)[facility]: 15-45-4060SdoMagsacLQSL Healthcare Clinical Notes 01-13-2022 to 12-18-2024 Note Date & JqxiBfpxPhplolhh71-54-8335 History of Present illness Narrative* HENRRY Barker - 12/18/2024 11:00 AM EST [...] nursing note reviewed. Exam conducted with a qc chemist present. Vitals: Estimated body mass index is 34.02 kg/m as calculated from the following: Height [...] behalf of: HENRRY Barker documented in this encounterThe Rehabilitation InstituteQlhxgwpgql73-09-1606 History of Present illness Narrative* Louisa Nazario MA - 05/29/2024 11:10 AM EDT Reason for Appointment: Patient ID: Clari Licona is a 23 y.o. female who presents for Care (Pt present today for a 6 week post visit. Pt delivered vaginally on 04/15/2024.) Patient presents today for Post Follow Up appointment. MEDICATIONS No current outpatient medications ALLERGIES [...] nursing note reviewed. Exam conducted with a qc chemist present. Vitals: Estimated body mass index is 36.88 kg/m as calculated from the following: Height as of 12/03/21: 5' 10 . Weight as of this encounter: 257 lb. BP: 122/74 No LMP recorded (lmp unknown). ASSESSMENT & PLAN ICD-10-CM 1. 6 weeks follow-up Z39.2 POCT urinalysis dipstick manually resulted POCT , urine manually resulted 2. Spontaneous vaginal delivery O80 Post Follow Up: Patient is doing well has no complaints. Patient presents today for 6 week visit. Patient is s/p Vaginal delivery. Patient states having no depression and denies suicidal and homicidal ideations. All options were discussed with the patient regarding control and patient desires noneat this time. Patient is currently breast feeding baby. Follow Up: Patient is to return for annual unless needed otherwise. Documented by Louisa Nazario MA on behalf of: Bashri Jones DO documented in this encounterThe Rehabilitation [id number] History of Present illness Narrative* HENRRY Barker - 04/12/2024 2:50 PM EST Reason for Appointment: Patient ID: Clari [...] behalf of: HENRRY Barker documented in this encounterThe Rehabilitation [id number] History of Present illness Narrative* Claudia Howard LPN - 04/05/2024 2:40 PM EST Reason for Appointment: Patient ID: Clari [...] nursing note reviewed. Exam conducted with a qc chemist present. Vitals: Estimated body mass index is [...] by Claudia Howard LPN on behalf of: Bashir Jones DO documented in this encounterThe Rehabilitation [id number] History of Present illness Narrative* HENRRY Barker - 03/21/2024 11:20 AM EST Reason for Appointment: Patient ID: [...] behalf of: HENRRY Barker documented in this encounterThe Rehabilitation [id number] History of Present illness Narrative* Claudia Howard, PUNCH MOLDER - 03/07/2024 10:40 AM EST Reason for Appointment: Patient ID: [...] nursing note reviewed. Exam conducted with a qc chemist present. Vitals: Estimated body mass index is [...] by Claudia Howard LPN on behalf of: Bashir Jones DO documented in this encounterThe Rehabilitation [id number] History of Present illness Narrative* HENRRY Barker - 02/21/2024 10:20 AM EST Reason for Appointment: Patient ID: [...] behalf of: HENRRY Barker documented in this encounterThe Rehabilitation [id number] History of Present illness Narrative* HENRRY Barker - 02/03/2024 11:20 AM EST Reason for Appointment: Patient ID: [...] Documented by HENRRY Barker on behalf of: Bashir Jones DO documented in this [facility]12-17-2024 Miscellaneous Notes* Result Encounter Note - Mervat Fall LPN - 02/01/2024 3:24 PM EST Attempted to call pt but she did not answer and her voicemail was full. Will try to call her later. * Result Encounter Note - Mervat Fall LPN - 02/01/2024 3:24 PM EST Placed on fs to give to pt at today's appointment. documented in this [facility]12-17-2024 Progress note* Result Encounter Note - Mervat Fall LPN - 02/01/2024 3:24 PM EST Attempted to call pt but she did not answer and her voicemail was full. Will try to call her later. [facility] [id number] Progress note* Result Encounter Note - Mervat Fall LPN - 02/01/2024 3:24 PM EST Placed on fs to give to pt at today's appointment. The Rehabilitation [id number] History of Present illness Narrative* HENRRY Barker - 01/19/2024 11:20 AM EST Reason for Appointment: Patient ID: [...] nursing note reviewed. Exam conducted with a qc chemist present. Vitals: Estimated body mass index is [...] behalf of: HENRRY Barker documented in this encounterThe Rehabilitation [id number] History of Present illness Narrative* Claudia Howard LPN - 12/22/2023 2:40 PM EST Reason for Appointment: Patient ID: Clari [...] nursing note reviewed. Exam conducted with a qc chemist present. Vitals: Estimated body mass index is [...] scan obtained prior to appt- will notify whenresults return Documented by Claudia Howard LPN on behalf of: Bashir Jones DO documented in this encounterThe Rehabilitation InstituteIeqloljesz06-16-2211 History of Present illness Narrative* Mervat Fall LPN - 12/02/2023 1:30 PM EDT Reason for Appointment: Patient ID: Clari Licona is a 23 y.o. female who presents for Amenorrhea Patient presents today for a Nurse OB Intake appointment. Patient is 19w0d with a Estimated Date ofDelivery: 04/27/24 OB History Para Term AB Living [...] applicator into the vagina at bedtime for 7days Tooth ache - amoxicillin (Amoxil) 500 MG [...] drink 6-8 glasses of water a day, eatno raw or undercooked meat, and stay away from [facility]. Patient has also been advised to not change litter boxes and eat 6 small meals a day. Patient has been consulted regarding the do's and don'ts ofpregnancy. Patient was given labs and all questions [...] by: Mervat Fall LPN documented in this encounterThe Rehabilitation [id number] NotePROCEDURE: XR ANKLE RT MIN 3 VIEWS, XR [...] Electronically authenticated by: GURPREET GUEVARA Date: 2022-06-21 12:38[facility]05-07-2023 NotePROCEDURE: XR ANKLE RT MIN 3 VIEWS, XR [...] Electronically authenticated by: GURPREET GUEVARA Date: 2022-06-21 12:38[facility]11-29-2022 Evaluation note* Encounter Date Diagnosis Assessment Notes Treatment Notes Treatment Clinical Notes Dec, Rupture of anterior cruciate ligament [...] not feel significantly unstable at this point Dec,Tear of medial collateral ligament of left knee, initial encounter (ICD-10 - S83.412A) [facility] Other Evaluation noteNo assessment information available [facility] Work Phone: Evaluation note* Diagnosis Missed [...] in this encounter [facility] HealthcareEvaluation [facility]* Diagnosis 6 weeks follow-up Spontaneous vaginal delivery Normal delivery documented in this encounter [facility] HealthcareEvaluation [facility]* Diagnosis Well woman exam with routine gynecological exam Routine gynecological examination documented in this encounter [facility] HealthcareHistory general Narrative - Reported* Type Description Date Medical History anxiety Surgical Historytonsillectomy [facility] Other Hospital Discharge instructions Additional Instructions Ice and elevate Tylenol/ Motrin if needed for pain Wear knee immobilizer for the next 3 to 4 days Partial weightbearing with crutches Tylenol or Naprosyn if needed for pain Return here if any problems persist or worsen Follow-up with your primary care doctor orthopedic for recheck in [facility] Work Phone: Chief Complaint and Reason [...] Recorded Date/T mundo father Heart disease Unknown motherDiabetes mellitusUnknown Additional Source Comments Care Teams (unrecognized sec tion and content) Team Status: Active Member Role Status Veronique Avila APRN MACHINIST SUPERVISOR-C Primary Care Provider Activ e Team Status: Inactive Member Role Status Dates Gris Avila APRN MACHINIST SUPERVISOR-C Primary Care Provider Activ e Start: April 15, 2024 End: April 15Norma Smith ProviderActiveStart: April 15, 2024 End: April 15, 2024 Team Status: Inactive Member Role Status Dates Gris Avila APRN MACHINIST SUPERVISOR-C Primary Care Provider Activ e Davide Ramos ProviderActiveTeam MemberRelationshipSpecialty Start DateEnd Date Miryam Loving DO [address] [place] [address] PCP - GeneralFamily Medicine06/23/22Team MemberRelationshipSpecialtyStart DateEnd Date Unallocated, Noms MD Marisela [address] [place] [address] PCP - [facility]11/23/23Te MemberRelationshipSpecialtyStart DateEnd Date Unallocated, Noms MD Marisela [address] [place] [address] PCP - [facility]11/23/23 MemberRelationshipSpecialtyStart DateEnd Date Unallocated, Noms MD Marisela [address] [address] PCP - [facility]11/23/23Te MemberRelationshipSpecialtyStart DateEnd Date Unallocated, Noms MD Marisela [facility] [place] [place] [address] PCP - [facility]11/23/23 MemberRelationshipSpecialtyStart DateEnd Date Unallocated, Noms MD Marisela [address] [place] [address] [place] [address] PCP - [facility]11/23/23Te MemberRelationshipSpecialtyStart DateEnd Date Unallocated, Noms MD Marisela [facility] [place] [place] [address] PCP - [facility]11/23/23Te MemberRelationshipSpecialtyStart DateEnd Date Unallocated, Kharis MD Marisela [facility] [place] [place] [address] [facility]11/23/23Te MemberRelationshipSpecialtyStart DateEnd Date Unallocated, Kharis MD Marisela [address] [place] [address] PCP [facility]11/23/23Team MemberRelationshipSpecialtyStart DateEnd Date Unallocated, Ed Antonio MD [facility] [place] [address] PCP - [facility]11/23/23Team MemberRelationshipSpecialtyStart DateEnd Date Unallocated, Ed Antonio MD [facility] [place] [address] PCP - [facility]11/23/23Team MemberRelationshipSpecialtyStart DateEnd Date Unallocated, Ed Antonio MD [facility] [place] [address] [facility] - [facility]11/23/23Te MemberRelationshipSpecialtyStart DateEnd Date Unallocated, Ed Antonio MD [address] [place], [place] [address] [address] PCP - [facility]11/23/23 Goals (unrecognized section and content) Goals may be documented in a n alternate sectionNo InformationGoals may be documented in an alternate section INFORMATION SOURCE (unrecogn ized section and content) DATE CREATED AUTHOR 12/13/2021 [facility] [employer] DATE CREATED AUTHOR AUTHOR'S ORGANIZ ATION 06/24/[address] [facility] DATE CREATED AUTHOR AUTHOR'S ORGANIZ ATION 06/10/2023 [facility] DATE CREATED AUTHOR AUTHOR'S ORGANIZ ATION 04/22/2024 [facility] DATE CREATED AUTHOR AUTHOR'S ORGANIZ ATION 05/30/2024 [facility] EPIC REASON FOR VISIT (unrecogniz ed section and content) ReasonCommentsAmenorrheaReasonCommentsRoutine VisitReasonComments CarePt present today for a 6 week post visit. Pt delivered vaginally on 04/15/2024.ReasonCommentsGynecologic Exam FOR RECORDS PERTAINING TO PATIENTS WHO ARE [...] BE BASED ON THE PRIMARY CLINICAL RECORDS. [facility]. provides no warranty or guarantee of the accuracy or completeness of information in this document.
--- OUTSIDE RECORDS SUMMARY | 2024-12-18 20:10 | XMS_ITS | Encounter Summary ---
Author Organization [facility] Address [address] [place] [address] Care Team Providers Care Administrator Of Home Health Name Role Phone Unallocated, Noms Provider Primary Care Provi ravinder Encounter Details DateTypeDepartmentCare Team (Latest Contact Info)Uyqhhsdovry38/17/2024Clinisync Result Encounter [facility] External Department Unsolicited Maryam Nguyen PA [address] [place] [address] [place] [address] Social History Tobacco UseTypesPacks/DayYears UsedDateSmoking Tobacco: Never Assessed CommentsYesSex and Gender InformationValueDate RecordedSex Assigned at BirthNot on fileLegal IneSqvgek98/15/2023 7:18 PM EDTGender HydlmwptZekost91/15/2023 7:18 PM EDTSexual OrientationNot on filedocumented as of this encounter Miscellaneous Notes * Result Encounter Note - Mervat Fall LPN - 02/01/2024 3:24 PM EST Attempted to call pt but she did not answer and her voicemail was full. Will try to call her later. * Result Encounter Note - Mervat Fall LPN - 02/01/2024 3:24 PM EST Placed on fs to give to pt at today's appointment. documented in this encounter Plan of Treatment Not on file documented as of this encounter Procedures Procedure NamePriorityDate/TimeAssociated DiagnosisCommentsGLUCOSE 1 HOURRoutine 02/01/2024 4:20 PM EST ALL CBC WITH AUTO PBAVBiwwbzs46/17/2024 4:20 PM EST US OB INCOMPLETE DIXTFAU5102/01/2024 3:18 PM EST documented in this encounter Results * (ABNORMAL) GLUCOSE 1 HOUR (02/01/2024 4:20 PM EST)ComponentValueRef RangeTest MethodAnalysis TimePerformed AtPathologist SignatureGLUCOSE 1 APQZ228(H)<130 mg/dLTBHSpecimen (Source)Anatomical Location / LateralityCollection Method / VolumeCollection TimeReceived Time02/01/2024 4:20 PM EST02/01/2024 4:21 PM EST Narrative [facility] - 02/01/2024 5:04 PM EST Authorizing ProviderResult TypeResult StatusAmy [facility] BLOOD ORDERABLES Final ResultPerforming OrganizationAddressCity/State/ZIP CodePhone Number [facility] * (ABNORMAL) ALL CBC WITH AUTO DIFF (02/01/2024 4:20 PM EST)ComponentValueRef RangeTest MethodAnalysis TimePerformed AtPathologist SignatureTBH WBC11.1(H) 4.0 - 11.0 10 3/uLTBHTBH RBC3.81(L)4.20 - 5.40 10 6/uLTBHTBH HGB11.8(L)12.0 - 16.0 g/dLTBHTBH HCT35.1(L)36.0 - 48.0 %TBHTBH MCV92.181.0 - 99.0 fLTBHTBH MCH 31.026.7 - 34.0 pgTBHTBH MCHC33.629.9 - 35.2 g/dLTBHTBH RDW12.511.0 - 15.0 % TBHTBH GUR150782 - 450 10 3/uLTBHTBH MPV11.09.5 - 13.5 fLTBHNEUTROPHILS PERCENT AUTO73.243.0 - 75.0 %TBHLYMPHOCYTES PERCENT AUTO20.3(L)20.5 - 60.0 % TBHMONOCYTES PERCENT AUTO5.11.7 - 12.0 %TBHTBH EO %0.7(L)0.9 - 7.0 %TBH BASOPHILS PERCENT AUTO0.20.2 - 2.0 %TBHIMMATURE GRANULOCYTES PCT AUTO0.50.0 - 0.5 %TBHNEUTROPHILS ABSOLUTE AUTO8.1(H)1.4 - 6.5 10 3/uLTBHLYMPHOCYTES ABSOLUTE AUTO2.21.2 - 3.8 10 3/uLTBHMONOCYTES ABSOLUTE AUTO0.60.3 - 0.8 10 3/uLTBHTBH EO #0.10.0 - 0.7 10 3/uLTBHBASOPHILS ABSOLUTE AUTO0.00.0 - 0.1 10 3/uLTBHIMMATURE GRANULOCYTES ABS AUTO0.06(H)0.00 - 0.03 10 3/uLTBHSpecimen (Source)Anatomical Location / LateralityCollection Method / VolumeCollection TimeReceived Time02/01/2024 4:20 PM EST02/01/2024 4:21 PM EST Narrative [facility] - 02/01/2024 4:34 PM EST Authorizing ProviderResult TypeResult StatusAmy Wendy PACLINISYNCFinal Result Performing OrganizationAddressCity/State/ZIP CodePhone Number [facility] * US OB INCOMPLETE ANATOMY (02/01/2024 3:18 PM EST)Anatomical RegionLaterality ModalityOtherSpecimen (Source)Anatomical Location / LateralityCollection Method / VolumeCollection TimeReceived Time02/01/2024 3:18 PM EST Narrative 02/01/2024 3:21 PM EST [facility] ?[address] ? [place] [address] ? Ultrasound Report ? Signed ? Patient: RISCH,CLARI ? MR#: [id number] ?? : 2000 ?Acct:[id number] ?? Age/Sex: 23 / F ?ADM Date: 02/01/24 ?? Loc: [facility] ? Attending Dr: Maryam Nguyen ? Ordering Physician: Maryam Nguyen ?? Date of Service: 02/01/24 ?? Procedure(s): US OB incomplete anatomy ?? Accession Number(s): [id number] ? cc: Maryam Nguyen; Physician,Non-Staff M.D. ? The [facility] ? [address] ? [place] [address] ? Patient Name: ?? CLARI ??RISCH ? MRN: [facility]:[id number] ? date: 2000 ?Sex: F ?? Assigned Patient Location: [facility] ?? Current Patient Location: LAB ?? Accession/Order Number: [id number] ?? Exam Date: 02/01/2024 ??14:35 ?Report Date: 02/01/2024 ??15:18 ? At the request of: ?? MARYAM ??WENDY ? Procedure: ??US OB incomplete anatomy ? EXAM: US OB incomplete anatomy ? HISTORY: INCOMPLETE ANATOMY ? COMPARISON: None. ? TECHNIQUE: Transabdominal ? FINDINGS: ? position: Cephalic presentation, longitudinal lie ? Heart rate: 144 beats minute ? Normal anatomy: RVOT, LVOT, nose, lips ? Clinical age: 27 weeks 5 days ?? Clinical ERIN: 04/27/2024 ? US/US OB incomplete anatomy ?? IMPRESSION: ? Normal observed anatomy ? Electronically authenticated by: ISAC ??POPEYE ?? Date: 02/01/2024 ??15:18 ? Dictated By: ?Isac Nye M.D. ? Signed By: ?02/01/24 1521 ? DD/ 1518 ? TD/TT: ? Home Health Care Provider: Procedure Note Radiology, Radiologist, MD - 02/01/[address] [address] Ultrasound Report Signed Patient: CLARI LICONAMR#: [id number] : 2000Acct:[id number] Age/Sex: 23 / FADM Date: 02/01/24 Loc: [facility] Attending Dr: Maryam Nguyen Ordering Physician: Maryam Nguyen Date of Service: 02/01/24 Procedure(s): US OB incomplete anatomy Accession Number(s): [id number] cc: Maryam Nguyen; Physician,Non-Staff M.D. The [address] [address] Patient Name: CLARI LICONA MRN: [id number] date: 2000 Sex: F Assigned Patient [facility]: [facility] Current Patient Location: LAB Accession/Order Number: [id number] Exam Date: 02/01/2024 14:35 Report Date: 02/01/2024 [...] 15:18 Dictated By: Isac Nye M.D. Signed By:02/01/24 1521 DD/ 1518 TD/TT: Home Health Care Provider: Authorizing ProviderResult TypeResult StatusMaryam Nguyen PACLINISYNC IMAGINGFinal Result documented in this encounter Visit Diagnoses Not on filedocumented in this encounter Care Teams Team MemberRelationshipSpecialtyStart DateEnd Date Unallocated, Noms Provider, [address] [place] [address] PCP - GeneralFamily Gwaxsjng77/8/24documented as of this encounter
--- OUTSIDE RECORDS SUMMARY | 2024-12-18 20:10 | XMS_ITS | Clinical Summary ---
Author Organization [employer] Address [id number] [address] [place] [address] Care Team Providers Care Merchandising Professor Name Role Phone No Pcp, No Pcp Primary Care Provider Unavailabl e Allergies No known active allergies Medications MedicationSigDispense QuantityRefillsLast FilledStart DateEnd DateStatus vit calc,iron,folic ( VITAMIN ORAL) Take by mouth.Active ibuprofen (MOTRIN) 600 mg tablet Take 1 tablet (600 mg total) by mouth every 6 (six) hours as needed for pain. 30 tablet 06/08/2023ctive acetaminophen (TylenoL) 325 mg tablet Take 2 tablets (650 mg total) by mouth every 6 (six) hours as needed for pain. 30 tablet 06/08/2023ctive cyclobenzaprine (FLEXERIL) 10 mg tablet Take 1 tablet (10 mg total) by mouth 2 (two) times a day as needed for muscle spasms. 10 tablet 06/08/2023ctive Active Problems ProblemNoted DateDiagnosed DateAdmission for observation of suspected anomaly not found08/14/2020 Family History Medical HistoryRelationNameCommentsObesityBrotherHeart diseaseFatherMental illnessMaternal GrandmotherObesityMotherDiabetesPaternal GrandfatherHeart diseasePaternal GrandfatherHyperlipidemiaPaternal GrandfatherHeart disease Paternal GrandmotherHyperlipidemiaPaternal GrandmotherRelationNameStatusComments BrotherAliveFatherAliveMaternal GrandmotherMotherAlivePaternal Grandfather Paternal Grandmother Social History Tobacco UseTypesPacks/DayYears UsedDateSmoking Tobacco: FormerSmokeless Tobacco: NeverAlcohol UseStandard Drinks/WeekCommentsNot Currently0 (1 standard drink = 0.6 oz pure alcohol)ChildcareAnswerDate UbxnpvttYhstzrptoXxpskwc27/12/2019 EmploymentAnswerDate YezsizvhJgztcefoarKidrjui00/12/2019Hunger ScreeningAnswer Date RecordedWithin the past 12 months we worried whether our food would run out before we got money to buy more.Never True06/08/2023Within the past 12 months the food we bought just didn't last and we didn't have money to get more.Never True4Purpose - LifeAnswerDate RecordedPurpose and direction in life Yvxfrtl57/11/2021CommentsNoSex and Gender InformationValueDate Recorded Sex Assigned at BirthNot on fileLegal VqhAwpqay34/06/2015 11:56 AM EDTGender IdentityNot on fileSexual OrientationNot on file Last Filed Vital Signs Vital SignReadingTime TakenCommentsBlood Dmmibnmi826/8204 10:00 PM EDT Waakv894406/08/2023 10:00 PM HFFKnkjdurrnbq45.9 ??C (98.4 ??F)06/08/2023 8:41 PM EDTRespiratory Fvci175306/08/2023 10:00 PM EDTOxygen Bkbiupxizh32%06/08/2023 10:00 PM EDTInhaled Oxygen Concentration--Waqtex09 kg (185 lb 3.2 oz)06/08/2023 8:41 PM AAKXezgmo878.9 cm (6')06/08/2023 8:41 PM EDTBody Mass Index25.12006/08/2023 8:41 PM EDT Plan of Treatment Health MaintenanceDue DateLast DoneCommentsDepression Mivqeknzz58/17/2012Pap Smear07/01/2020dult BMI Xnvtlsyjq13Tobacco Screening Influenza Gsivwhg1010/16/2024DTaP,Tdap and Td Vaccines (8 - Td or Tdap), 10/21/2011, 05/30/2004, Additional history exists Medical Devices Not on file Insurance Care Teams Team MemberRelationshipSpecialtyStart DateEnd Date [place], [place] [address] [facility]
--- OUTSIDE RECORDS SUMMARY | 2024-12-18 20:10 | XMS_ITS | Encounter Summary ---
Author Organization [facility] Address [address] [place] [address] Care Team Providers Care Travel Med Surg Rn Name Role Phone Unallocated, Noms Provider Primary Care Provi ravinder Encounter Details DateTypeDepartmentCare Team (Latest Contact Info)Esixcrioaze83/03/2025Bamboo flowsheet ED Newell OBGYClementine [address] [place] [address] Maryam Haq PA [address] [place], [place] [address] Social History Tobacco UseTypesPacks/DayYears UsedDateSmoking Tobacco: Never Assessed CommentsUnknownSex and Gender InformationValueDate RecordedSex Assigned at Not on fileLegal QdvDqqkgv94/15/2023 7:18 PM EDTGender NsblsdgcLcjwat43/15/2023 7:18 PM EDTSexual OrientationNot on filedocumented as of this encounter Plan of Treatment Not on file documented as of this encounter Visit Diagnoses Not on filedocumented in this encounter Care Teams Team MemberRelationshipSpecialtyStart DateEnd Date Unallocated, Noms Provider, [place] [address] PCP - GeneralFamily Aszhflcq23/8/24documented as of this encounter
--- OUTSIDE RECORDS SUMMARY | 2024-12-18 20:10 | XMS_ITS | Clinical Summary ---
Author Organization [facility] Address [address] [place] [address] Care Team Providers Care Wellness Specialist Name Role Phone Unallocated, Noms Provider Primary Care Provi ravinder Allergies No known active allergies Medications No known medications Encounters DateTypeDepartmentCare KpswUrirpvnryeg81/03/2025 11:00 AM ESTOffice Visit NOMLisha [facility] [address] [place] [address] Maryam Haq PA Well woman exam with routine gynecological exam12/18/2024amboo flowsheet [facility] [address] [place] [address] Maryam Haq PA from Last 3 Months Social History Tobacco UseTypesPacks/DayYears UsedDateSmoking Tobacco: Never Assessed CommentsUnknownSex and Gender InformationValueDate RecordedSex Assigned at Not on fileLegal MgpAcespb83/15/2023 7:18 PM EDTGender TfjbjuvgArmyvk47/15/2023 7:18 PM EDTSexual OrientationNot on file Last Filed Vital Signs Vital SignReadingTime TakenCommentsBlood Xomnhugb862/7212/18/2024 11:04 AM EST Pulse--Temperature--Respiratory Rate--Oxygen Saturation--Inhaled Oxygen Concentration--Dovtnd183 kg (237 lb 1.9 oz)12/18/2024 11:04 AM PAXHgdytx562.8 cm (5' 10 )12/18/2024 11:04 AM ESTBody Mass Index34.02102/18/2024 11:04 AM EST Plan of Treatment Health MaintenanceDue DateLast DoneCommentsCOVID-19 Vaccine (2023- season) 2024Influenza Vaccine (#1)2024Pneumococcal Vaccine: Pediatrics (0 to 5 Years) and At-Risk Patients (6 to 64 Years)Aged OutNo longer eligible based on patient's age to complete this topic Insurance Care Teams Team MemberRelationshipSpecialtyStart DateEnd Date Unallocated, Noms Marisela, [address] [facility] [place], [place] [id number] PCP - GeneralFamily Qmfonlsd20/8/24
--- OUTSIDE RECORDS SUMMARY | 2024-12-18 20:10 | XMS_ITS | Encounter Summary ---
Author Organization [facility] Address [address] [place] [address] Care Team Providers Care Drive Shaft And Steering Post Repairer Name Role Phone Unallocated, [facility] Provider Primary Care Provi ravinder Encounter Details DateTypeDepartmentCare Team (Latest Contact Info)Xprhmpgggrj11/06/2024Clinisync Result Encounter [facility] External Department Unsolicited Jayant Jones, DO [address] [facility] [place] [address] Social History Tobacco UseTypesPacks/DayYears UsedDateSmoking Tobacco: Never Assessed CommentsYesSex and Gender InformationValueDate RecordedSex Assigned at BirthNot on fileLegal LrySxzlxd11/15/2023 7:18 PM EDTGender EcuerybrTapdgc66/15/2023 7:18 PM EDTSexual OrientationNot on filedocumented as of this encounter Plan of Treatment Not on file documented as of this encounter Procedures Procedure NamePriorityDate/TimeAssociated DiagnosisCommentsUS OB ANATOMY 12/22/2023 3:00 PM EST documented in this encounter Results * US OB ANATOMY (12/22/2023 3:00 PM EST)Anatomical RegionLateralityModalityOther Specimen (Source)Anatomical Location / LateralityCollection Method / Volume Collection TimeReceived Time12/22/2023 3:00 PM EST Narrative 12/22/2023 3:03 PM EST [facility] ?[address] ? [place] [address] ? Ultrasound Report ? Signed ? Patient: RISCH,DARYN ? MR#: [id number] ?? : 2000 ?Acct:[id number] ?? Age/Sex: 23 / F ?ADM Date: 11/06/24 ?? Loc[facility] ? Attending Dr: Jayant Jones D.O. ? Ordering Physician: Jayant Jones D.O. ?? Date of Service: 12/22/23 ?? Procedure(s): US OB anatomy ?? Accession Number(s): [id number] ? cc: Jayant Jones D.O.; Physician,Non-Staff M.D. ? [facility] ? [address] ? [place] [address] ? Patient Name: ?? DARYN ??RISCH ? MRN: [facility]:[id number] ? date: 2000 ?Sex: F ?? Assigned Patient Location: [facility] ?? Current Patient Location: [facility] ?? Accession/Order Number: [id number] ?? Exam Date: 12/22/2023 ??13:01 ?Report Date: 12/22/2023 ??15:00 ? At the request of: ?? JAYANT ??ROBERT ? Procedure: ??US OB anatomy ? EXAMINATION: US OB anatomy, US OB cervical length ? HISTORY: ANATOMY ? COMPARISON: No relevant comparison available. ? TECHNIQUE: Transabdominal sonographic examination was performed for ?? obstetrical ?? and evaluation. ? FINDINGS: ? Reyez intrauterine gestation ?? position: Breech presentation, longitudinal lie ?? Amniotic fluid: Subjectively normal ?? Placenta: Anterior ?? Cervix: Closed, 3.6 cm in length ?? The uterus is normal in appearance ? Again identified is a 5.2 cm right and 1.8 cm left ovarian cyst ? Normal anatomy: Lateral ventricles, cerebellum, posterior fossa, orbits, ?? four-chamber heart, diaphragm, stomach, kidneys, abdominal cord insertion, ?? bladder, umbilical arteries, three-vessel cord, spine, extremities ? Nonvisualization: Nose, lips, RVOT, LVOT ? BIOMETRY: ?? BPD: 5.04 cm 21 weeks 2 days 25% ?? HC: 19.4 cm 21 weeks 4 days 27% ?? AC: 16.7 cm 21 weeks 5 days 40% ?? FL: 3.83 cm 22 weeks 2 days 54% ?? EFW: 490 g; 47%, 1 lb. 0 oz. ? FL/BPD: 75.99 ?? HC/AC: 1.16 ? GESTATIONAL AGE: ?? Age by EDC: 21 weeks 6 days ?? ERIN by EDC: 04/27/2024 ?? Age by Current US: 21 weeks 5 days ?? ERIN by Current US: 04/28/2024 ? US/US OB anatomy ?? IMPRESSION: ? Bilateral ovarian cysts measuring up to 5.2 cm in the right ? Nonvisualization detailed above ? Otherwise normal anatomy scan ? *Reference: [facility] Practice Guideline for the performance of Obstetric ?? Ultrasound ?? Examinations, November 15, 2006. ? Electronically authenticated by: ISAC ??POPEYE ?? Date: 12/22/2023 ??15:00 ? Dictated By: ?Isac Nye M.D. ? Signed By: ?12/22/233 ? DD/ 1500 ? TD/TT: ? Shingles Roofer Helper: Procedure Note Radiology, Radiologist, - 12/22/2023 [place] [address] Ultrasound Report Signed Patient: DARYN LICONAMR#: [id number] : 2000Acct:[id number] Age/Sex: 23 / FADM Date: 12/22/23 Loc: ED Attending Dr: Jayant Jones D.O. Ordering Physician: Jayant Jones D.O. Date of Service: 12/22/23 Procedure(s): US OB anatomy Accession Number(s): [id number] cc: Jayant Jones D.O.; Physician,Non-Staff M.D. [facility] [place] [id number] Patient Name: DARYN LICONA MRN: [id number] date: 2000 Sex: F Assigned Patient Location: [facility] Current [facility] Accession/Order Number: [id number] Exam Date: 12/22/2023 13:01 Report Date: 12/22/2023 15:00 At the request of: JAYANT JONES Procedure: US OB anatomy EXAMINATION: US [...] 15:00 Dictated By: Isac Nye M.D. Signed By:12/22/23 1503 DD/ 1500 TD/TT: Shingles Roofer Helper: Authorizing ProviderResult TypeResult StatusCorey Robert DOCLINISYNC IMAGINGFinal Result documented in this encounter Visit Diagnoses Not on filedocumented in this encounter Care Teams Team MemberRelationshipSpecialtyStart DateEnd Date Unallocated, Noms Provider, [address] [address] PCP - GeneralFamily Uktgjwjl57/8/24documented as of this encounter
--- OUTSIDE RECORDS SUMMARY | 2024-12-18 20:10 | XMS_ITS | Encounter Summary ---
Author Organization [facility] Address [address] [place] [address] Care Team Providers Care Magnetic Prospector Name Role Phone Unallocated, Noms Provider Primary Care Provi ravinder Encounter Details DateTypeDepartmentCare Team (Latest Contact Info)Rgjxzgtzwem14/06/2024Clinisync Result Encounter [facility] External Department Unsolicited Jayant Jones, DO [address] [facility] [place] [address] Social History Tobacco UseTypesPacks/DayYears UsedDateSmoking Tobacco: Never Assessed CommentsYesSex and Gender InformationValueDate RecordedSex Assigned at BirthNot on fileLegal JqsIlxyxn32/15/2023 7:18 PM EDTGender NfcmcvblGjdhnq90/15/2023 7:18 PM EDTSexual OrientationNot on filedocumented as of this encounter Plan of Treatment Not on file documented as of this encounter Procedures Procedure NamePriorityDate/TimeAssociated DiagnosisCommentsUS OB CERVICAL LENGTH 12/22/2023 3:00 PM EST documented in this encounter Results * US OB CERVICAL LENGTH (12/22/2023 3:00 PM EST)Anatomical RegionLaterality ModalityOtherSpecimen (Source)Anatomical Location / LateralityCollection Method / VolumeCollection TimeReceived Time12/22/2023 3:00 PM EST Narrative 12/22/2023 3:03 PM EST [facility] ?[address] ? [place] [address] ? Ultrasound Report ? Signed ? Patient: RISCH,DARYN ? MR#: [id number] ?? : 2000 ?Acct:[id number] ?? Age/Sex: 23 / F ?ADM Date: 11/06/24 ?? Loc[facility] ? Attending Dr: Jayant Jones D.O. ? Ordering Physician: Jayant Jones D.O. ?? Date of Service: 12/22/23 ?? Procedure(s): US OB cervical length ?? Accession Number(s): [id number] ? cc: Jayant Jones D.O.; Physician,Non-Staff M.D. ? [facility] ? [address] [facility] ? [place] [address] ? Patient Name: ?? DARYN ??RISCH ? MRN: [facility]:[id number] ? date: 2000 ?Sex: F ?? Assigned Patient [facility] ?? Current [facility]: [facility] ?? Accession/Order Number: [id number] ?? Exam Date: 12/22/2023 ??13:00 ?Report Date: 12/22/2023 ??15:00 ? At the request of: ?? JAYANT ??ROBERT ? Procedure: ??US OB cervical length ? EXAMINATION: US OB anatomy, US OB [...] by Current US: 04/28/2024 ? US/US OB cervical length ?? IMPRESSION: ? Bilateral ovarian cysts measuring [...] ?12/22/233 ? DD/ 1500 ? TD/TT: ? Fudge Candy Maker: Procedure Note Radiology, Radiologist, MD - 12/22/2023 [place] [address] Ultrasound Report Signed Patient: DARYN LICONAMR#: [id number] : 2000Acct:[id number] Age/Sex: FADM Date: 12/22/23 Loc: ED Attending Dr: Jayant Jones D.O. Ordering Physician: Jayant Jones D.O. Date of Service: 12/22/23 Procedure(s): US OB cervical length Accession Number(s): [id number] cc: Jayant Jones D.O.; Physician,Non-Staff M.D. The [place] [id number] Patient Name: DARYN LICONA MRN: [id number] date: 2000 Sex: F Assigned Patient Location: [facility] Current Patient Location: [facility] Accession/Order Number: [id number] Exam Date: 12/22/2023 13:00 Report Date: 12/22/2023 15:00 At the request of: JAYANT JONES Procedure: US OB cervical length EXAMINATION: [...] M.D. Signed By:12/22/23 1503 DD/ 1500 TD/TT: Fudge Candy Maker: Authorizing ProviderResult TypeResult StatusCorey Robert DOCLINISYNC IMAGINGFinal Result documented in this encounter Visit Diagnoses Not on filedocumented in this encounter Care Teams Team MemberRelationshipSpecialtyStart DateEnd Date Unallocated, Noms Provider, [address] [place] [address] PCP - GeneralFamily Icwzafqu61/8/24documented as of this encounter
[2024-12-21 14:09] LABS: Age Gdln ACOG Testing Note (.); IGP, rfx Aptima HPV ASCU Note (.)
== END 2024-12-18 20:07 | disposition home or self-care (01) ==
LOC: LAB 20:06
PROVIDERS: Visit Provider Physician Assistant
DX: Z01.419 Encounter for gynecological examination (general) (routine) without abnormal findings (principal)
CPT/HCPCS: 88175